=== PATIENT | female | born 1950 | race Caucasian/White ===

== ENCOUNTER 2020-06-08 09:15 | Outpatient (REF) | payer MEDICARE, OTHER, SELFPAY | END 2020-06-08 09:16 | disposition home or self-care (01) | LOC: HO.LAB 09:15 | PROVIDERS: Visit Provider Internal Medicine | DX: Z20.828 Contact with and (suspected) exposure to other viral communicable diseases (principal) | CPT/HCPCS: C9803; U0003 ==

== ENCOUNTER 2020-06-26 10:10 | Outpatient (REF) | payer MEDICARE, SELFPAY ==
--- NOTE | 2020-06-26 | MM_ITS ---
EXAMINATION: MM SCREENING DIGITAL BREAST TOMOSYNTHESIS, BILATERAL CLINICAL INFORMATION: Screening. Asymptomatic. The lifetime risk of breast cancer based on the Tyrer-Cuzick Model is 21.1%. COMPARISON: Mammography: Bilateral TECHNIQUE: Digital breast tomosynthesis is performed in both the craniocaudal and mediolateral oblique views along with computer-aided detection (CAD). Synthesized 2D images are generated from the tomosynthesis. FINDINGS: There are scattered areas of fibroglandular density (ACR BI-RADS breast composition Category b). There are no significant masses, abnormal calcifications, or other abnormalities. MM/MM tomosynthesis screening BI IMPRESSION: There are no significant changes from prior study. ASSESSMENT: BI-RADS 1: Negative RECOMMENDATION: Routine annual mammography screening. This patient's information was entered into a reminder system with a target due date for their next mammogram.
== END 2020-06-26 10:11 | disposition home or self-care (01) ==
LOC: HO.MAMMO 10:10
PROVIDERS: PCP Internal Medicine; Visit Provider Internal Medicine
DX: Z12.31 Encounter for screening mammogram for malignant neoplasm of breast (principal)
CPT/HCPCS: 77063; 77067

== ENCOUNTER 2020-07-20 11:51 | Outpatient (REF) | payer MEDICARE, SELFPAY | END 2020-07-20 11:52 | disposition home or self-care (01) | LOC: HO.LAB 11:51 | PROVIDERS: PCP Internal Medicine; Visit Provider Internal Medicine | DX: Z20.828 Contact with and (suspected) exposure to other viral communicable diseases (principal) | CPT/HCPCS: C9803; U0003 ==

== ENCOUNTER 2020-09-12 09:41 | Outpatient (REF) | payer MEDICARE, MEDICAID, SELFPAY ==
[2020-09-12 10:56] LABS: TSH reflex Free T4 1.68 uIU/mL (0.32-4.0)
== END 2020-09-12 09:42 | disposition home or self-care (01) ==
LOC: HO.LAB 09:41
PROVIDERS: PCP Internal Medicine; Visit Provider Internal Medicine
DX: E03.9 Hypothyroidism, unspecified (principal)
CPT/HCPCS: 36415; 84443

== ENCOUNTER 2020-12-02 10:49 | Outpatient (REF) | payer MEDICARE, OTHER, SELFPAY ==
--- NOTE | ~2020-12-02 | XR_ITS ---
EXAMINATION: BILATERAL KNEE X-RAY CLINICAL INFORMATION: Pain COMPARISON: Previous left knee x-ray January 2014 TECHNIQUE: 3 views of each knee FINDINGS: Right: Bone alignment is normal. No fracture or dislocation is seen. There is mild arthritis at the medial femoral tibial and patellofemoral joints. There is no joint effusion. Left: Bone alignment is normal. No fracture or dislocation is seen. There is moderate to severe arthritis at the medial femoral tibial and patellofemoral joints with joint space narrowing and osteophyte formation. There is no joint effusion. XR/XR knee RT 3V IMPRESSION: Bilateral arthritis, left greater than right.
--- NOTE | ~2020-12-02 | XR_ITS ---
EXAMINATION: BILATERAL HAND X-RAY CLINICAL INFORMATION: Pain COMPARISON: Previous x-rays December 2014 TECHNIQUE: 3 views each hand FINDINGS: Right: No fracture or dislocation is seen. There is arthritis at the IP joints with joint space narrowing and osteophyte formation. There is mild arthritis at the first CARE HOME joint. Soft tissues are unremarkable. Left: No fracture or dislocation is seen. There is arthritis at the IP joints with joint space narrowing and osteophyte formation. There is arthritis at the first CARE HOME and trapezoid trapezium scaphoid joints. Soft tissues are unremarkable. XR/XR hand LT min 3V IMPRESSION: Bilateral osteoarthritis.
--- NOTE | ~2020-12-02 | XR_ITS ---
EXAMINATION: BILATERAL KNEE X-RAY CLINICAL INFORMATION: Pain COMPARISON: Previous left knee x-ray January 2014 TECHNIQUE: 3 views of each knee FINDINGS: Right: Bone alignment is normal. No fracture or dislocation is seen. There is mild arthritis at the medial femoral tibial and patellofemoral joints. There is no joint effusion. Left: Bone alignment is normal. No fracture or dislocation is seen. There is moderate to severe arthritis at the medial femoral tibial and patellofemoral joints with joint space narrowing and osteophyte formation. There is no joint effusion. XR/XR knee LT 3V IMPRESSION: Bilateral arthritis, left greater than right.
--- NOTE | ~2020-12-02 | XR_ITS ---
EXAMINATION: BILATERAL HAND X-RAY CLINICAL INFORMATION: Pain COMPARISON: Previous x-rays December 2014 TECHNIQUE: 3 views each hand FINDINGS: Right: No fracture or dislocation is seen. There is arthritis at the IP joints with joint space narrowing and osteophyte formation. There is mild arthritis at the first JAIL joint. Soft tissues are unremarkable. Left: No fracture or dislocation is seen. There is arthritis at the IP joints with joint space narrowing and osteophyte formation. There is arthritis at the first JAIL and trapezoid trapezium scaphoid joints. Soft tissues are unremarkable. XR/XR hand RT min 3V IMPRESSION: Bilateral osteoarthritis.
[2020-12-02 12:20] LABS: Basophils Percent Auto 0.5 % (0-2); Eosinophils Absolute Auto 0.1 X10*3/uL (0.0-0.4); Eosinophils Percent Auto 1.1 % (0-4); Hemoglobin 11.2 g/dl (12.0-16.0); Imm Gran Abs Auto 0.02 X10*3/uL (0.00-0.03); Imm Gran Pct Auto 0.3 % (0.0-0.4); Lymphocytes Absolute Auto 0.7 X10*3/uL (1.2-4.9); Lymphocytes Percent Auto 8.9 % (20-40); MANUAL DIFF FLAG SCAN; Mean Corpuscular HGB Conc 31.1 g/dl (31.0-35.0); Mean Corpuscular Hemoglobin 25.7 pg (27.0-33.0); Mean Corpuscular Volume 82.6 fL (80-98); Mean Platelet Volume 10.5 fL (9.4-12.3); Monocytes Absolute Auto 0.4 X10*3/uL (0.1-1.2); Monocytes Percent Auto 5.7 % (2-11); Neutrophils Absolute Auto 6.3 X10*3/uL (2.0-8.3); Neutrophils Percent Auto 83.5 % (45-73); Platelet Count 275 X10*3/uL (160-400); Red Blood Count 4.36 X10*6/uL (4.20-5.50); Red Cell Distribution Width 14.9 % (11.0-16.0); SCAN SMEAR FLAG 1; White Blood Count 7.6 X10*3/uL (4.8-10.8)
[2020-12-02 12:39] LABS: Alanine Aminotransferase 29 U/L (0-31); Albumin Level 4.5 g/dL (3.5-5.0); Alkaline Phosphatase 60 U/L (39-117); Anion Gap 14 (12-20); Aspartate Amino Transferase 25 U/L (5-31); Bilirubin Total 0.5 mg/dL (0.0-1.0); Blood Urea Nitrogen 16 mg/dL (9-16); C Reactive Protein 1.93 mg/dL (< or = 0.50); Calcium 9.7 mg/dL (8.4-10.2); Carbon Dioxide 26 mmol/L (22-29); Chloride 104 mmol/L (96-108); Estimated Glomerular Filt Rate > 60; Glucose Random 86 mg/dL (60-115); Potassium 4.2 mmol/L (3.3-5.1); Rheumatoid Factor < 15.0 IU/mL (<15.0); Sodium 140 mmol/L (135-145); Total Protein 7.1 g/dL (6.5-8.0)
[2020-12-02 12:52] LABS: Thyroid Stimulating Hormone 1.61 uIU/mL (0.32-4.0)
[2020-12-02 13:13] LABS: Erythrocyte Sedimentation Rate 12 MM/HR (0-20)
[2020-12-02 13:20] LABS: SLIDE REVIEW VERIFIED
[2020-12-07 15:31] LABS: Anti Nuclear Antibody Pattern Nuclear, Speckled; Anti Nuclear Antibody Screen POSITIVE (NEGATIVE); Anti Nuclear Antibody Titer 1:40 titer
[2020-12-08 18:27] LABS: Cyclic Citrullinated Peptide <16 UNITS
[2020-12-10 16:26] LABS: Vitamin D 25-OH, D2 5 ng/mL; Vitamin D 25-OH, D3 29 ng/mL; Vitamin D 25-OH, Total 34 ng/mL (30-100)
== END 2020-12-02 10:50 | disposition home or self-care (01) ==
LOC: HO.LAB 10:49
PROVIDERS: PCP Internal Medicine; Visit Provider Student in an Organized Health Care Education/Training Program
DX: M25.50 Pain in unspecified joint (principal)
CPT/HCPCS: 36415; 73130; 73562; 80053; 82306; 84443; 85025; 85652; 86038; 86039; 86140; 86200; 86431; 99202

== ENCOUNTER → 2020-12-24 14:57 | Outpatient (BNVA) | payer MEDICARE, MEDICAID, OTHER, SELFPAY | PROVIDERS: PCP Internal Medicine; Visit Provider Student in an Organized Health Care Education/Training Program | DX: M25.50 Pain in unspecified joint (principal) | CPT/HCPCS: 99212 ==

== ENCOUNTER 2021-01-22 11:30 | Outpatient (RCR) | payer MEDICARE, OTHER, SELFPAY | END 2021-02-26 10:10 | disposition other institution (70) | LOC: HO.OT 11:30 | PROVIDERS: Visit Provider Student in an Organized Health Care Education/Training Program | DX: M19.041 Primary osteoarthritis, right hand (principal); M19.042 Primary osteoarthritis, left hand | CPT/HCPCS: 29130; 97110; 97166; 97760 ==

== ENCOUNTER 2021-02-02 11:00 | Outpatient (RCR) | payer MEDICARE, OTHER, SELFPAY ==
--- NOTE | 2021-01-18 12:49 | MHC.PT.EP ---
[facility] [place] Office [place] Office [place] Office [address] [phone] F: [phone] F: [phone] F: [phone] F: [phone] Physical Therapy Plan of Care Date of Evaluation: Date of Surgery: N/A Diagnosis: Bilateral Primary Osteoarthritis of Knee Assessment: Pt is a 70yo F who presents with bilateral knee pain, imaging revealing knee arthritis L>R. Pt presents with current impairments in pain, ROM, strength, endurance, balance, and soft tissue restrictions. She has had her pain for years however it has significantly increased over the past few weeks. She is limited functionally by prolonged standing, prolonged ambulation, stairs, squatting, and sleeping. She is a good candidate for skilled PT services to address current impairments and functional limitations in order to facilitate return to PLOF. Frequency and Duration: The patient will be seen 2x/week, 4 weeks Short Term Goals: Pt will be I with HEP to promote self management of symptoms. Pt will improve L knee flexion by 5 degrees Casino [employer]er Goals: Pt will achieve full strength and ROM throughout LLE to facilitate improved gait pattern. Pt will improve prolonged standing >30 min with pain in B knees < 4/10. Treatment Plan: Modalities to reduce pain, spasms and effusion. Manual therapy to restore motion and function. Therapeutic exercise to improve strength and flexibility. Neuromuscular re-education for posture and balance. Therapeutic activities to return to functional activities of daily living. Electronically signed by: Paola Espinoza, PT, DPT Please sign and return to therapist. Thank you for your referral.
--- NOTE | 2021-02-22 16:44 | MHC.PT.DC ---
[facility] [place] Office [place] Office [place] Office [address] [facility] [phone] F: [phone] F: [phone] F: [phone] F: [phone] Physical Therapy Discharge Report Diagnosis: Bilateral Primary Osteoarthritis of Knee Date of Surgery: N/A Date of Evaluation: 01/18/21 Date of Discharge: 02/22/21 Treatments to Date: 3 Cancellations to Date: 2 No Shows to Date: Discharge Status: Patient Elected to Stop Discharge Summary: Pt requested to be D/C from skilled PT services as she is going away and would like to obtain a new order when she returns. Current level of function unknown at this time. Electronically signed by: Paola Espinoza, PT, DPT Please sign and return to therapist. Thank you for your referral.
== END 2021-02-22 16:44 | disposition home or self-care (01) ==
LOC: HO.PT 11:00
PROVIDERS: PCP Internal Medicine; Visit Provider Student in an Organized Health Care Education/Training Program
DX: M17.0 Bilateral primary osteoarthritis of knee (principal)
CPT/HCPCS: 97110; 97150; 97162

== ENCOUNTER 2021-03-19 10:10 | Outpatient (REF) | payer MEDICARE, OTHER, SELFPAY ==
--- NOTE | ~2021-03-19 | MM_ITS ---
EXAMINATION: BONE DENSITOMETRY CLINICAL INDICATION: Asymptomatic menopausal state. COMPARISON: This is the patient's baseline examination. TECHNIQUE: Using a Meniga DXA System (software version: 13.1) manufactured by [employer], dual-energy x-ray absorptiometry was performed of the lumbar spine and left hip. The images are of good technical quality. Summary results are attached. FINDINGS: AP SPINE L1-L4: BMD 1.084 g/cm2, Z-score 0.2, T-score -0.8, normal. LEFT FEMUR, NECK: BMD 0.940 g/cm2, Z-score 0.5, T-score -0.7, normal. LEFT FEMUR, TOTAL: BMD 0.942 g/cm2, Z-score 0.4, T-score -0.5, normal. IDENTIFIED RISK FACTORS: Rheumatoid arthritis. Hysterectomy. Bilateral oophorectomy. HISTORY OF FRACTURE: None listed. MEDICATIONS: Calcium supplement and/or multivitamin. Vitamin D. MM/XR DEXA axial skeleton IMPRESSION: 1. DIAGNOSIS: Normal bone density based on the lowest T-score value of -0.8 in the lumbar spine applying World Health Organization criteria. 2. 10-YEAR FRACTURE RISK PREDICTION, FRAX: Major osteoporotic fracture (clinical spine, forearm, hip or shoulder) 5.4%. Hip fracture 0.4%. 3. Treatment Recommendations: NOF guidelines recommend consideration for treatment in postmenopausal women and men age 50 and older presenting with the following: -A hip or vertebral (clinical or morphometric) fracture. -T-score less than or equal to -2.5 at the femoral neck or spine after appropriate evaluation to exclude secondary causes. -Low bone mass at the hip or spine and a 10-year fracture probability by FRAX of greater than or equal to 3% for hip fracture or greater than or equal to 20% for major osteoporotic fracture based on the [place] adapted WHO algorithm. 4. Other Recommendations: All treatment decisions require clinical judgment and consideration of individual patient factors, including patient preferences, comorbidities, previous drug use, risk factors not captured in the FRAX model (e.g. frailty, falls, vitamin D deficiency, increased bone turnover, interval significant decline in bone density) and possible under or overestimation of fracture risk by FRAX. FUTURE SCAN RECOMMENDATION: People with diagnosed cases of osteoporosis or at high risk for fracture should have regular bone mineral density tests. For patients eligible for Medicare, routine testing is allowed once every 2 years. The testing frequency can be increased to one year for patients who have rapidly progressing disease, those who are receiving or discontinuing medical therapy to restore bone mass, or have additional risk factors.
== END 2021-03-19 10:11 | disposition home or self-care (01) ==
LOC: HO.MAMMO 10:10
PROVIDERS: Visit Provider Nurse Practitioner Family
DX: Z13.820 Encounter for screening for osteoporosis (principal); Z78.0 Asymptomatic menopausal state; M06.9 Rheumatoid arthritis, unspecified; Z79.899 Other long term (current) drug therapy; Z98.890 Other specified postprocedural states
CPT/HCPCS: 77080

== ENCOUNTER 2021-04-20 08:01 | Outpatient (REF) | payer MEDICARE, OTHER, SELFPAY ==
[2021-04-20 09:51] LABS: Alanine Aminotransferase 21 U/L (0-31); Albumin Level 4.4 g/dL (3.5-5.0); Alkaline Phosphatase 58 U/L (39-117); Anion Gap 13 (12-20); Aspartate Amino Transferase 21 U/L (5-31); Bilirubin Total 0.4 mg/dL (0.0-1.0); Blood Urea Nitrogen 14 mg/dL (9-16); Calcium 9.7 mg/dL (8.4-10.2); Carbon Dioxide 27 mmol/L (22-29); Chloride 105 mmol/L (96-108); Cholesterol 153 mg/dL; Estimated Glomerular Filt Rate > 60; Glucose Fasting 111 mg/dL (60-99); HDL Cholesterol 50 mg/dL; LDL Cholesterol Calculated 78 mg/dl; Potassium 4.2 mmol/L (3.3-5.1); Sodium 141 mmol/L (135-145); Triglycerides 129 mg/dL
[2021-04-20 10:12] LABS: TSH reflex Free T4 1.69 uIU/mL (0.32-4.0)
[2021-04-24 13:16] LABS: Vitamin D 25-OH, D2 <4 ng/mL; Vitamin D 25-OH, D3 29 ng/mL; Vitamin D 25-OH, Total 29 ng/mL (30-100)
== END 2021-04-20 08:02 | disposition home or self-care (01) ==
LOC: HO.LAB 08:01
PROVIDERS: PCP Internal Medicine; Visit Provider Internal Medicine
DX: E78.5 Hyperlipidemia, unspecified (principal); E11.9 Type 2 diabetes mellitus without complications; E03.9 Hypothyroidism, unspecified; E55.9 Vitamin D deficiency, unspecified
CPT/HCPCS: 36415; 80053; 80061; 82306; 84443

== ENCOUNTER 2021-08-28 09:15 | Outpatient (REF) | payer MEDICARE, OTHER, SELFPAY ==
[2021-08-28 10:30] LABS: Alanine Aminotransferase 18 U/L (0-31); Albumin Level 4.7 g/dL (3.5-5.0); Alkaline Phosphatase 62 U/L (39-117); Anion Gap 11 (12-20); Aspartate Amino Transferase 23 U/L (5-31); Bilirubin Total 0.7 mg/dL (0.0-1.0); Blood Urea Nitrogen 10 mg/dL (9-16); Calcium 10.2 mg/dL (8.4-10.2); Carbon Dioxide 30 mmol/L (22-29); Chloride 104 mmol/L (96-108); Cholesterol 173 mg/dL; Estimated Glomerular Filt Rate > 60; Glucose Fasting 127 mg/dL (60-99); HDL Cholesterol 55 mg/dL; LDL Cholesterol Calculated 93 mg/dl; Potassium 4.7 mmol/L (3.3-5.1); Sodium 140 mmol/L (135-145); Total Protein 7.8 g/dL (6.5-8.0); Triglycerides 126 mg/dL
[2021-08-28 10:52] LABS: Thyroid Stimulating Hormone 3.12 uIU/mL (0.32-4.0)
[2021-08-28 12:21] LABS: Microalbum/Creatinine Ratio Ur 50.6 ug/mg cr
== END 2021-08-28 09:16 | disposition home or self-care (01) ==
LOC: HO.LAB 09:15
PROVIDERS: PCP Internal Medicine; Visit Provider Internal Medicine
DX: E11.9 Type 2 diabetes mellitus without complications (principal); I10 Essential (primary) hypertension; E78.5 Hyperlipidemia, unspecified; E03.9 Hypothyroidism, unspecified
CPT/HCPCS: 36415; 80053; 80061; 82043; 84443

== ENCOUNTER → 2021-11-30 07:50 | Outpatient (BNVA) | payer MEDICARE, OTHER, SELFPAY | PROVIDERS: PCP Internal Medicine; Referring Provider Internal Medicine; Visit Provider Nurse Practitioner Family | DX: Z12.11 Encounter for screening for malignant neoplasm of colon (principal) | CPT/HCPCS: 99202 ==

== ENCOUNTER → 2021-12-24 13:06 | Outpatient (BNVA) | payer MEDICARE, OTHER, SELFPAY | PROVIDERS: PCP Internal Medicine; Visit Provider Nurse Practitioner Family | DX: M17.0 Bilateral primary osteoarthritis of knee (principal); M19.041 Primary osteoarthritis, right hand; M19.042 Primary osteoarthritis, left hand; M25.50 Pain in unspecified joint | CPT/HCPCS: 99212 ==

== ENCOUNTER → 2022-01-07 09:38 | Outpatient (BNVA) | payer MEDICARE, OTHER, SELFPAY | PROVIDERS: PCP Internal Medicine; Visit Provider Orthopaedic Surgery | DX: M17.12 Unilateral primary osteoarthritis, left knee (principal); E11.9 Type 2 diabetes mellitus without complications | CPT/HCPCS: 20610; 99212; J1100 ==

== ENCOUNTER 2022-01-15 07:20 | Outpatient (REF) | payer MEDICARE, OTHER, SELFPAY ==
[2022-01-15 07:43] LABS: MANUAL DIFF FLAG NO
[2022-01-15 08:18] LABS: Basophils Absolute Auto 0.1 X10*3/uL (0.0-0.2); Basophils Percent Auto 1.3 % (0-2); Eosinophils Absolute Auto 0.3 X10*3/uL (0.0-0.4); Eosinophils Percent Auto 4.9 % (0-4); Hematocrit 35.3 % (37.0-47.0); Hemoglobin 11.1 g/dl (12.0-16.0); Imm Gran Abs Auto 0.01 X10*3/uL (0.00-0.03); Imm Gran Pct Auto 0.2 % (0.0-0.4); Lymphocytes Absolute Auto 2.2 X10*3/uL (1.2-4.9); Lymphocytes Percent Auto 34.3 % (20-40); Mean Corpuscular HGB Conc 31.4 g/dl (31.0-35.0); Mean Corpuscular Hemoglobin 24.9 pg (27.0-33.0); Mean Corpuscular Volume 79.3 fL (80.0-98.0); Monocytes Absolute Auto 0.5 X10*3/uL (0.1-1.2); Monocytes Percent Auto 7.4 % (2-11); Neutrophils Absolute Auto 3.3 x10*3/uL (2.0-8.3); Neutrophils Percent Auto 51.9 % (45-73); Platelet Count 330 X10*3/uL (160-400); Red Blood Count 4.45 X10*6/uL (4.20-5.50); Red Cell Distribution Width 16.3 % (11.0-16.0); White Blood Count 6.4 X10*3/uL (4.8-10.8)
[2022-01-15 08:35] LABS: Alanine Aminotransferase 18 U/L (0-31); Albumin Level 4.4 g/dL (3.5-5.0); Alkaline Phosphatase 56 U/L (39-117); Anion Gap 12 (12-20); Aspartate Amino Transferase 18 U/L (5-31); Bilirubin Total 0.6 mg/dL (0.0-1.0); Blood Urea Nitrogen 11 mg/dL (9-16); Calcium 9.6 mg/dL (8.4-10.2); Carbon Dioxide 29 mmol/L (22-29); Chloride 104 mmol/L (96-108); Cholesterol 162 mg/dL; Estimated Glomerular Filt Rate > 60; Glucose Fasting 108 mg/dL (60-99); HDL Cholesterol 53 mg/dL; Iron 55 mcg/dL (30-160); LDL Cholesterol Calculated 88 mg/dl; Percent Iron Saturation 13 % (15-50); Sodium 141 mmol/L (135-145); Total Iron Binding Capacity 423 mcg/dL (228-428); Triglycerides 105 mg/dL; Unsaturated Iron Binding 368 ug/dL
[2022-01-15 08:59] LABS: Thyroid Stimulating Hormone 3.62 uIU/mL (0.32-4.0)
[2022-01-15 09:16] LABS: Microalbum/Creatinine Ratio Ur 11.3 ug/mg cr
[2022-01-19 15:06] LABS: Vitamin D 25-OH, D2 <4 ng/mL; Vitamin D 25-OH, D3 31 ng/mL; Vitamin D 25-OH, Total 31 ng/mL (30-100)
== END 2022-01-15 07:21 | disposition home or self-care (01) ==
LOC: HO.LAB 07:20
PROVIDERS: Visit Provider Internal Medicine
DX: E55.9 Vitamin D deficiency, unspecified (principal); E03.9 Hypothyroidism, unspecified; E11.9 Type 2 diabetes mellitus without complications; E78.5 Hyperlipidemia, unspecified; D64.9 Anemia, unspecified
CPT/HCPCS: 36415; 80053; 80061; 82043; 82306; 83540; 84443; 85025

== ENCOUNTER → 2022-01-27 09:01 | Outpatient (REF) | payer MEDICARE, OTHER, SELFPAY ==
--- NOTE | 2022-01-27 09:12 | ECG_ITS ---
Test Reason : PREOP Blood Pressure : / mmHG Vent. Rate : 070 BPM Atrial Rate : 070 BPM P-R Int : 154 ms QRS Dur : 080 ms QT Int : 408 ms P-R-T Axes : 011 034 070 degrees QTc Int : 440 ms Normal sinus rhythm Normal ECG When compared with ECG of 11-FEB-2020 10:25, No significant change was found Referred By: Jaimee Bernal Electronically Signed By:Faraz Henley
== END ==
LOC: HO.CARD 09:01
PROVIDERS: PCP Internal Medicine; Visit Provider Internal Medicine
DX: Z01.818 Encounter for other preprocedural examination (principal)
CPT/HCPCS: 93005

== ENCOUNTER 2022-06-28 06:17 | Outpatient (REF) | payer MEDICARE, MEDICAID, SELFPAY ==
[2022-06-28 08:13] LABS: Alanine Aminotransferase 17 U/L (0-31); Albumin Level 4.4 g/dL (3.5-5.0); Alkaline Phosphatase 62 U/L (39-117); Anion Gap 12 (12-20); Aspartate Amino Transferase 19 U/L (5-31); Bilirubin Total 0.5 mg/dL (0.0-1.0); Blood Urea Nitrogen 11 mg/dL (9-16); Calcium 9.7 mg/dL (8.4-10.2); Carbon Dioxide 29 mmol/L (22-29); Chloride 105 mmol/L (96-108); Cholesterol 176 mg/dL; Estimated Glomerular Filt Rate > 60; Glucose Fasting 109 mg/dL (60-99); HDL Cholesterol 45 mg/dL; LDL Cholesterol Calculated 106 mg/dl; Sodium 141 mmol/L (135-145); Triglycerides 126 mg/dL; Vitamin D 25-OH Total 31.2 ng/mL (>30)
[2022-06-28 08:48] LABS: Creatinine Urine 60.53 mg/dL; Microalbum/Creatinine Ratio Ur 31.3 ug/mg cr
== END 2022-06-28 06:18 | disposition home or self-care (01) ==
LOC: HO.LAB 06:17
PROVIDERS: PCP Internal Medicine; Visit Provider Internal Medicine
DX: E55.9 Vitamin D deficiency, unspecified (principal); E78.5 Hyperlipidemia, unspecified; E11.9 Type 2 diabetes mellitus without complications; E03.9 Hypothyroidism, unspecified
CPT/HCPCS: 36415; 80053; 80061; 82043; 82306; 84443

== ENCOUNTER 2022-07-14 10:08 | Emergency (ER) | payer MEDICARE, MEDICAID, SELFPAY ==
--- NOTE | ~2022-07-14 | XR_ITS ---
EXAMINATION: XR FOOT, RIGHT CLINICAL INFORMATION: Pain COMPARISON: None TECHNIQUE: AP, lateral, and oblique views of the right foot. FINDINGS: No fracture or dislocation. Alignment maintained. Joint spaces are maintained. Small osteophytes of the first metatarsophalangeal joint. Small heel spurs. The soft tissues are unremarkable. XR/XR foot RT 2V IMPRESSION: Small heel spurs. Mild degenerative change at the first metatarsophalangeal joint.
[2022-07-14 10:29] VITALS: BP 150/81; PULSE 75; RESP 20; TEMP 36.6; O2SAT 97; BMI 33.3
--- NOTE | 2022-07-14 11:16 | ED.EXTPRO ---
HPI - Extremity Problem General Chief complaint: Extremity Problem Stated complaint: R side foot pain luis alberto into hip Time Seen by Provider: 07/14/22 10:55 Source: patient Mode of arrival: ambulatory Limitations: no limitations History of Present Illness HPI Narrative: 71-year-old female presenting to the ER with complaints of right foot pain on the dorsal aspect that is radiating all the way to her hip that is worse in the morning. Denies any fevers, dizziness, headaches, neck pain /stiffness, trouble swallowing or breathing, chest pain or shortness of breath, dyspnea on exertion, orthopnea, palpitations, paresthesias, recent falls or trauma, extremity edema , calf tenderness, rashes or any other symptoms complaints or concerns at this time. MD Complaint: extremity pain Onset (ago): day(s) ( for the past few days) Pain Consistency: constant and intermittent Location: right and other ( foot) Quality: aching and sharp Radiation: proximal Relieving factors: nothing Exacerbating factors: weight bearing, walking and palpation Associated symptoms: denies other symptoms Related Data Home Medications Medication Instructions Recorded Confirmed baclofen 10 mg tablet 10 mg PO DAILY 01/13/21 06/29/22 bismuth subsalicylate 262 mg 2 tab PO Q1H PRN 11/30/21 06/29/22 chewable tablet (Bismuth) Previous Rx's Medication Instructions Recorded blood-glucose meter (FreeStyle #1 ea 06/16/20 [place] Lite kit) blood sugar diagnostic (FreeStyle #50 ea 01/13/21 Test strips) lancets 28 gauge (FreeStyle #100 ea 01/13/21 Lancets) loratadine 10 mg tablet 10 mg PO DAILY 90 days #90 tabs 04/26/21 metformin 1,000 mg tablet 1,000 mg PO BID 90 days #180 tabs 07/03/21 bisacodyl 5 mg tablet,delayed 10 mg PO ONCE 1 day #2 tabs 11/30/21 release (Dulcolax (bisacodyl)) polyethylene glycol 3350 17 238 g PO ONCE #238 grams 11/30/21 gram/dose oral powder (Miralax) diclofenac sodium 1 % topical gel 2 g topical QID #100 grams 01/18/22 (Voltaren Arthritis Pain) acetaminophen 650 mg 650 mg PO Q8H PRN pain #90 tabs 02/10/22 tablet,extended release (Tylenol Arthritis Pain) levothyroxine 100 mcg tablet 100 mcg PO DAILY 90 days #90 tabs 03/22/22 amlodipine 10 mg tablet 10 mg PO DAILY 90 days #90 tabs 06/29/22 ezetimibe 10 mg tablet 10 mg PO DAILY 90 days #90 tabs 06/29/22 glipizide 5 mg tablet, extended 5 mg PO DAILY 90 days #90 tabs 06/29/22 release 24 hr linagliptin 5 mg tablet 5 mg PO DAILY 90 days #90 tabs 06/29/22 cyclobenzaprine 10 mg tablet 10 mg PO Q8H #14 tabs 07/14/22 naproxen 500 mg tablet 500 mg PO BID PRN pain #14 tabs 07/14/22 oxycodone 5 mg tablet 5 mg PO Q6H PRN pain #10 tabs 07/14/22 Allergies Allergy/AdvReac Type Severity Reaction Status Date / Time MARIA ESTHER Inhibitors AdvReac Intermediate cough Verified 06/29/22 16:00 ARB-Angiotensin Receptor AdvReac Intermediate Cough Verified 06/29/22 16:00 Antagonist Review of Systems Review of Systems: Constitutional : No Weight loss, No Fever, No Chills, No Night Sweats, No Fatigue, No Malaise ENT/Mouth : No Hearing loss, No Ear Pain, No Nasal Congestion, No Sinus Pain, No Hoarseness, No sore throat, No Rhinorrhea, No Swallowing Difficulty Eyes: No Eye Pain, No Swelling, No Redness, No Foreign Body, No Discharge, No Vision Changes Cardiovascular : No Chest Pain, No SOB, No Dyspnea on Exertion, No Orthopnea, No Edema, No Palpitations Respiratory : No Cough, No Sputum, No Wheezing, No Smoke Exposure, No Dyspnea Gastrointestinal : No Nausea, No Vomiting, No Diarrhea, No Constipation, No abdominal Pain, No Hematochezia, No Melena Genitourinary : no irregular bleeding, No Dysuria, No Urinary Frequency, No Hematuria, No Urinary Incontinence, No Urgency, No Flank Pain, No Urinary Flow Changes, No Hesitancy Musculoskeletal : + right foot joint pain, No Myalgias, No Joint Swelling Skin : No Skin Lesions, No rash Neuro : No Weakness, No Numbness, No Paresthesias, No Loss of Consciousness, No Dizziness, No Headache Psych : No Anxiety/Panic, No Depression, No SI/HI/AH/VH, No Social Issues, Heme/Lymph: No Bruising, No Bleeding,No Lymphadenopathy Endocrine : No Polyuria, No Polydipsia, No Temperature Intolerance Yes all other systems are reviewed and are negative [facility] Past Medical History Attestation statement: The following information was validated with the patient. Source: old records reviewed and nursing notes reviewed Medical History Diabetes mellitus Essential hypertension Hypothyroidism Obesity Polyarthralgia Post-menopausal Pure hypercholesterolemia Skin tag Surgical History History of eye surgery History of laparoscopic cholecystectomy Hx of colonoscopy S/P total abdominal hysterectomy Family History Family History Father Cancer Mother Stroke Diabetes Hypertension CVD (cardiovascular disease) Sister Cancer Paternal Uncle Cancer Maternal Aunt Cancer Social History Social History Housing: House Alcohol intake: never Patient Tobacco Use Status: Never used Tobacco e-Cigarette/Vaping Use: Never Used Second Hand Smoke Exposure: Yes Advance Directives: No service: No Current occupational status: disabled Cognitive needs: No Hearing needs: No Vision needs: Yes Physical Exam Vital Signs: Vital Signs: Last Vital Signs Temp 97.9 F 07/14/22 10:29 Pulse 75 07/14/22 10:29 Resp 20 07/14/22 10:29 BP 150/81 H 07/14/22 10:29 Pulse Ox 97 07/14/22 10:29 O2 Del Method 07/14/22 10:29 BMI result Body Mass Index 33.3 vital signs have been reviewed as normal and appeared to be correct. Blood pressure normal Heart rate normal. Respiration rate normal. Temperature normal. Oxygen saturation normal. Appearance: Alert. Oriented X3. No acute distress. Head: Normal external exam. Normocephalic. Atraumatic. Eyes: PERRLA. EOMI. Conjunctiva and sclera normal. Eyelids normal. ENT: Pharynx normal. Uvula midline. Moist mucous membranes. Neck: Normal inspection. Neck supple. FROM. CVS: Normal heart rate and rhythm. Respiratory: No respiratory distress. Painless inspiration. Skin: Skin warm and dry. Normal skin color. Normal skin turgor. No rashes/lesions/lacerations noted. Extremities: patient mild tenderness to the dorsal aspect distal aspect of the right foot around the 1st/2nd MTP And mild tenderness on the heel aspect of the foot. Full range of motion of the right toe/foot /ankle joint. Achilles tendon is intact negative Arambula test. No lower extremity edema or calf tenderness noted. Not consistent with septic joint. No rashes are noted. Otherwise all other extremities exhibit normal range of motion nontender. MTPs. Neuro: Oriented X 3. No motor deficit. No sensory deficit. Reflexes normal. Normal steady gait. No focal neuro deficits noted. Vascular: + radial pulses/+ 2 distal pedal pulses/+2 dorsalis pedis b/l. Normal cap refill. No cyanosis noted to upper extremity nails and lower extremity toes nails. Course Course Course Narrative: RIGHT FOOT X-RAY REVEALED FINDINGS: No fracture or dislocation. Alignment maintained. Joint spaces are maintained. Small osteophytes of the first metatarsophalangeal joint. Small heel spurs. The soft tissues are unremarkable.? XR/XR foot RT 2V IMPRESSION: Small heel spurs. Mild degenerative change at the first metatarsophalangeal joint. patient reports she has been taking [id number] medication no symptomatic relief. Therefore at this time will DC home with symptomatic treatment instructions return if any new or worsening symptoms follow up with primary care provider. Patient understands agrees with this plan. Discharge Plan Discharge Clinical Impression: Muscle strain of right foot, Bone spur of foot Patient Disposition: Home, Self-Care Instructions: Muscle Strain (ED), Heel Spur (ED) Prescriptions: New naproxen 500 mg tablet 500 mg PO BID PRN (Reason: pain) Qty: 14 0RF cyclobenzaprine 10 mg tablet 10 mg PO Q8H Qty: 14 0RF oxycodone 5 mg tablet 5 mg PO Q6H PRN (Reason: pain) Qty: 10 0RF Rx Instructions: Partial Fill upon patient request. No Action loratadine 10 mg tablet 10 mg PO DAILY 90 Days Qty: 90 3RF metformin 1,000 mg tablet 1,000 mg PO BID 90 Days Qty: 180 3RF Hold Instructions: Doctor's Order acetaminophen [Tylenol Arthritis Pain] 650 mg tablet extended release 650 mg PO Q8H PRN (Reason: pain) Qty: 90 3RF levothyroxine 100 mcg tablet 100 mcg PO DAILY 90 Days Qty: 90 1RF (DME) blood-glucose meter [FreeStyle [place] Lite] Kit See Rx Instructions .ROUTE .MEDSUPPLY Qty: 1 0RF Rx Instructions: As directed baclofen 10 mg tablet 10 mg PO DAILY (DME) FreeStyle Test Strip See Rx Instructions .ROUTE .MEDSUPPLY Qty: 50 11RF Rx Instructions: Take 1 test strip once a day (DME) lancets [FreeStyle Lancets] 28 gauge misc See Rx Instructions .ROUTE .MEDSUPPLY Qty: 100 11RF Rx Instructions: Use 1 lancet once a day diclofenac sodium [Voltaren Arthritis Pain] 1 % gel 2 g topical QID Qty: 100 0RF Rx Instructions: apply to single elbow, wrist or hand; for hand includes palm/fingers/back of hand amlodipine 10 mg tablet 10 mg PO DAILY 90 Days Qty: 90 3RF ezetimibe 10 mg tablet 10 mg PO DAILY 90 Days Qty: 90 3RF glipizide 5 mg tablet extended release 24hr 5 mg PO DAILY 90 Days Qty: 90 3RF linagliptin 5 mg tablet 5 mg PO DAILY 90 Days Qty: 90 3RF bismuth subsalicylate [Bismuth] 262 mg tablet,chewable 2 tab PO Q1H PRN Rx Instructions: do not exceed 16 tabs per 24 hrs bisacodyl [Dulcolax (bisacodyl)] 5 mg tablet,delayed release (DR/EC) 10 mg PO ONCE 1 Days Qty: 2 0RF Rx Instructions: take 2 tabs at noon the day before your colonoscopy polyethylene glycol 3350 [Miralax] 17 gram/dose powder 238 g PO ONCE Qty: 238 0RF Rx Instructions: As directed by gastroenterology department at [facility] Referrals: Shannan Figueroa MD [Primary Care Provider] - 1 day Print Language: Armenian
== END 2022-07-14 11:26 | disposition home or self-care (01) ==
PROVIDERS: Emergency Provider Emergency Medicine Emergency Medical Services; PCP Internal Medicine
DX: S96.911A Strain of unspecified muscle and tendon at ankle and foot level, right foot, initial encounter (principal); X58.XXXA Exposure to other specified factors, initial encounter; M77.8 Other enthesopathies, not elsewhere classified; E11.9 Type 2 diabetes mellitus without complications; I10 Essential (primary) hypertension; E78.00 Pure hypercholesterolemia, unspecified; E66.9 Obesity, unspecified; Z68.33 Body mass index [BMI] 33.0-33.9, adult; Y93.9 Activity, unspecified; Y92.9 Unspecified place or not applicable; Y99.9 Unspecified external cause status; Z79.84 Long term (current) use of oral hypoglycemic drugs; Z79.899 Other long term (current) drug therapy
CPT/HCPCS: 73620; 99282; 99283

== ENCOUNTER 2022-07-20 12:15 | Emergency (ER) | payer MEDICARE, OTHER, SELFPAY ==
--- NOTE | ~2022-07-20 | US_ITS ---
EXAMINATION: US VENOUS ULTRASOUND WITH DOPPLER LOWER EXTREMITY, RIGHT CLINICAL INFORMATION: Pain COMPARISON: None TECHNIQUE: Ultrasound of the deep veins is performed from the hip to the calf with compression sonography and color and pulse Doppler assessment. Spectral analysis with color-flow imaging is performed. FINDINGS: There is normal venous compression and respiratory variation and augmented flow. The visualized common femoral vein, superficial femoral vein, profunda femoral vein, popliteal vein, and the trifurcation region shows no evidence of deep venous thrombosis. There is no significant popliteal fossa cyst. US/US venous duplex LE RT IMPRESSION: No DVT demonstrated in the right lower extremity.
[2022-07-20 12:21] VITALS: BP 139/57; PULSE 89; RESP 16; TEMP 36.6; O2SAT 99; BMI 33.3
--- NOTE | 2022-07-20 12:21 | ED_ITS ---
HPI - General Adult General Chief complaint: Extremity Problem <DEMETRI Grigsby - Last Filed: 07/20/22 12:27> Stated complaint: R Leg Pain <DEMETRI Grigsby - Last Filed: 07/20/22 12:27> Time Seen by Provider: 07/20/22 12:53 <DEMETRI Grigsby - Last Filed: 07/20/22 12:27> Source: patient <DEMETRI Nagel - Last Filed: 07/20/22 17:42> Mode of arrival: ambulatory <DEMETRI Nagel - Last Filed: 07/20/22 17:42> Limitations: no limitations <DEMETRI Nagel Last Filed: 07/20/22 17:42> History of Present Illness HPI narrative: Patient is a 71 year old assigned female at with a history of hypothyroidism, HTN, and DM presenting to the emergency department today with right sided foot and lower leg numbness, tingling, and pain. Patient states that over the last 8 days she has had right lower extremity numbness, tingling, and pain. Patient denies any dizziness, lightheadedness, abdominal pain, nausea, vomiting, fever, chills, blurry vision, double vision, loss of vision, chest pain, difficulty breathing, shortness of breath, back pain, night sweats, pain with urination, increased urinary frequency, increased urinary urgency, blood in her urine or stool, syncope or a near syncopal episode, recent trauma or falls, bowel incontinence, bladder incontinence, bowel retention, bladder retention, or any other complaints at this time. <DEMETRI Nagel - Last Filed: 07/20/22 17:42> Onset (ago): day(s) (8) <DEMETRI Nagel - Last Filed: 07/20/22 17:42> Location: right and lower extremity <DEMETRI Nagel Last Filed: 07/20/22 17:42> Radiation: extremity and proximal <DEMETRI Nagel Last Filed: 07/20/22 17:42> Severity: mild <DEMETRI Nagel Last Filed: 07/20/22 17:42> Severity scale (1-10): 3 <DEMETRI Nagel Last Filed: 07/20/22 17:42> Quality: burning <DEMETRI Nagel - Last Filed: 07/20/22 17:42> Pain Consistency: intermittent <DEMETRI Nagel - Last Filed: 07/20/22 17:42> Relieving factors: none <DEMETRI Nagel - Last Filed: 07/20/22 17:42> Exacerbating factors: none <DEMETRI Nagel - Last Filed: 07/20/22 17:42> Associated symptoms: denies other symptoms <DEMETRI Nagel - Last Filed: 07/20/22 17:42> Treatments prior to arrival: none <DEMETRI Nagel - Last Filed: 07/20/22 17:42> Related Data Home medications: Home Medications Medication Instructions Recorded Confirmed baclofen 10 mg tablet 10 mg PO DAILY 01/13/21 06/29/22 bismuth subsalicylate 262 mg 2 tab PO Q1H PRN 11/30/21 06/29/22 chewable tablet (Bismuth) Previous Rx's Medication Instructions Recorded blood-glucose meter (FreeStyle #1 ea 06/16/20 [place] Lite kit) blood sugar diagnostic (FreeStyle #50 ea 01/13/21 Test strips) lancets 28 gauge (FreeStyle #100 ea 01/13/21 Lancets) loratadine 10 mg tablet 10 mg PO DAILY 90 days #90 tabs 04/26/21 metformin 1,000 mg tablet 1,000 mg PO BID 90 days #180 tabs 07/03/21 bisacodyl 5 mg tablet,delayed 10 mg PO ONCE 1 day #2 tabs 11/30/21 release (Dulcolax (bisacodyl)) polyethylene glycol 3350 17 238 g PO ONCE #238 grams 11/30/21 gram/dose oral powder (Miralax) diclofenac sodium 1 % topical gel 2 g topical QID #100 grams 01/18/22 (Voltaren Arthritis Pain) acetaminophen 650 mg 650 mg PO Q8H PRN pain #90 tabs 02/10/22 tablet,extended release (Tylenol Arthritis Pain) levothyroxine 100 mcg tablet 100 mcg PO DAILY 90 days #90 tabs 03/22/22 amlodipine 10 mg tablet 10 mg PO DAILY 90 days #90 tabs 06/29/22 ezetimibe 10 mg tablet 10 mg PO DAILY 90 days #90 tabs 06/29/22 glipizide 5 mg tablet, extended 5 mg PO DAILY 90 days #90 tabs 06/29/22 release 24 hr linagliptin 5 mg tablet 5 mg PO DAILY 90 days #90 tabs 06/29/22 cyclobenzaprine 10 mg tablet 10 mg PO Q8H #14 tabs 07/14/22 naproxen 500 mg tablet 500 mg PO BID PRN pain #14 tabs 07/14/22 oxycodone 5 mg tablet 5 mg PO Q6H PRN pain #10 tabs 07/14/22 prednisone 20 mg tablet 20 mg PO DAILY 7 days #7 tabs 07/20/22 <DEMETRI Grigsby Last Filed: 07/20/22 12:27> Allergies/adverse reactions: Allergies Allergy/AdvReac Type Severity Reaction Status Date / Time MARIA ESTHER Inhibitors AdvReac Intermediate cough Verified 06/29/22 16:00 ARB-Angiotensin Receptor AdvReac Intermediate Cough Verified 06/29/22 16:00 Antagonist <DEMETRI Grigsby Last Filed: 07/20/22 12:27> Review of Systems Constitutional: Constitutional: Reports no additional constitutional complaints, Denies chills, Denies fever(s) and Denies night sweats <DEMETRI Nagel Last Filed: 07/20/22 17:42> Eyes: Eyes: Reports no additional eye complaints, Denies blurry vision, Denies change in vision, Denies diplopia, Denies eye discharge, Denies loss of vision and Denies eye pain <DEMETRI Nagel Last Filed: 07/20/22 17:42> ENT: Denies dizziness <DEMETRI Nagel Last Filed: 07/20/22 17:42> Cardiovascular: Cardiovascular: Reports no additional cardiovascular complaints, Denies chest pain, Denies lightheadedness, Denies Loss of Con sciousness and Denies dyspnea <DEMETRI Nagel Last Filed: 07/20/22 17:42> Respiratory: Respiratory: Reports no additional respiratory complaints and Denies dyspnea <DEMETRI Nagel Last Filed: 07/20/22 17:42> Gastrointestinal: Gastrointestinal: Reports no additional gastrointestinal complaints, Denies abdominal pain, Denies melena, Denies hematochezia, Denies change in bowel habits and Denies change in stool character <DEMETRI Nagel - Last Filed: 07/20/22 17:42> Genitourinary: Genitourinary: Denies hematuria, Denies urinary frequency, Denies dysuria, Denies urinary incontinence, Denies urinary hesitancy and Denies urinary urgency <DEMETRI Nagel - Last Filed: 07/20/22 17:42> Musculoskeletal: Musculoskeletal: Reports no additional musculoskeletal complaints, Reports numbness (right lower leg) and Reports tingling (right lower leg) <DEMETRI Nagel - Last Filed: 07/20/22 17:42> Neurologic: Denies dizziness, Denies loss of vision, Reports numbness (right lower leg) and Reports tingling (right lower leg) <DEMETRI Nagel - Last Filed: 07/20/22 17:42> Psychiatric: Psychiatric: Reports no additional psychiatric complaints <DEMETRI Nagel - Last Filed: 07/20/22 17:42> Endocrine: Endocrine: Reports no additional endocrine complaints <DEMETRI Nagel - Last Filed: 07/20/22 17:42> Hematologic/Lymphatic: Hematologic/Lymphatic: Reports no additional hematologic/lymphatic complaints <DEMETRI Nagel - Last Filed: 07/20/22 17:42> Allergic/Immunologic: Allergic/Immunologic: Reports no additional allergic/immunologic complaints <DEMETRI Nagel - Last Filed: 07/20/22 17:42> PMF Past Medical History Attestation statement: The following information was validated with the patient. <DEMETRI Nagel - Last Filed: 07/20/22 17:42> Source: old records reviewed and nursing notes reviewed <DEMETRI Nagel - Last Filed: 07/20/22 17:42> Medical History: Medical History Diabetes mellitus Essential hypertension Hypothyroidism Obesity Polyarthralgia Post-menopausal Pure hypercholesterolemia Skin tag <DEMETRI Grigsby - Last Filed: 07/20/22 12:27> Surgical History: Surgical History History of eye surgery History of laparoscopic cholecystectomy Hx of colonoscopy S/P total abdominal hysterectomy <DEMETRI Grigsby - Last Filed: 07/20/22 12:27> Family History Family History: Family History Father Cancer Mother Stroke Diabetes Hypertension CVD (cardiovascular disease) Sister Cancer Paternal Uncle Cancer Maternal Aunt Cancer <DEMETRI Grigsby - Last Filed: 07/20/22 12:27> Social History Social History: Social History Housing: House Alcohol intake: never Patient Tobacco Use Status: Never used Tobacco e-Cigarette/Vaping Use: Never Used Second Hand Smoke Exposure: Yes Advance Directives: No Advance Directives Information Provided: Yes service: No Current occupational status: disabled Cognitive needs: No Hearing needs: No Vision needs: Yes <DEMETRI Grigsby - Last Filed: 07/20/22 12:27> Physical Exam ED Vital Signs: Vital Signs - 24 hr 07/20/22 12:21 07/20/22 14:11 Temperature 97.9 F Pulse Rate 89 92 Respiratory Rate 16 12 Blood Pressure 139/57 L 172/82 H Pulse Oximetry 99 99 Oxygen Delivery Method Room Air Room Air BMI result Body Mass Index 33.3 <DEMETRI Grigsby - Last Filed: 07/20/22 12:27> Vital Signs - 24 hr 07/20/22 12:21 07/20/22 14:11 Temperature 97.9 F Pulse Rate 89 92 Respiratory Rate 16 12 Blood Pressure 139/57 L 172/82 H Pulse Oximetry 99 99 Oxygen Delivery Method Room Air Room Air BMI result Body Mass Index 33.3 <DEMETRI Nagel - Last Filed: 07/20/22 17:42> Const General: cooperative, no acute distress, alert and awake <DEMETRI Nagel - Last Filed: 07/20/22 17:42> Nutritional Appearance: well nourished <DEMETRI Nagel - Last Filed: 07/20/22 17:42> Orientation/consciousness: patient oriented x3 <DEMETRI Nagel - Last Filed: 07/20/22 17:42> Limitations: no limitations <DEMETRI Nagel - Last Filed: 07/20/22 17:42> HENMT Head: Yes normal to inspection and Yes atraumatic <Brandie Hernandezbarber AL - Last Filed: 07/20/22 17:42> Ears: hearing grossly normal bilaterally and external ears normal <Brandie Hernandezbarber AL - Last Filed: 07/20/22 17:42> General nose exam: Normal external nose present, no nasal discharge noted and no epistaxis <Brandieisai Hernandezbarber AL - Last Filed: 07/20/22 17:42> Face and sinus: Yes normal facial exam, No abrasion and No laceration <Brandie Hernandezbarber AL - Last Filed: 07/20/22 17:42> Mouth: Normal oral and palatal mucosa present, no drooling and no muffled voice <Brandie Cordoba AL - Last Filed: 07/20/22 17:42> Eyes General: appearance normal, both eyes and all related structures <Brandie Cordoba AL - Last Filed: 07/20/22 17:42> Periorbital: periorbital findings normal <Brandie Hernandezbarber AL - Last Filed: 07/20/22 17:42> Eyelids: Yes eyelids normal <Brandieisai Hernandezbarber AL - Last Filed: 07/20/22 17:42> Conjunctivae: conjunctivae normal <Brandieisai Hernandezbarber AL - Last Filed: 07/20/22 17:42> Pupils: Equal, round and reactive pupils present <Brandie Cordoba, AL - Last Filed: 07/20/22 17:42> EOM: EOMs intact bilaterally <Brandie Adalid AL - Last Filed: 07/20/22 17:42> Neck Neck: Yes normal visual inspection, Yes full ROM and Yes no lymphadenopathy <Brandie Hernandezbarber AL - Last Filed: 07/20/22 17:42> Chest Chest palpation & inspection: normal inspection of the chest <Brandie Cordoba AL - Last Filed: 07/20/22 17:42> Resp Effort & Inspection: normal respiratory effort and able to speak in complete sentences <Brandie Cordoba [facility] Last Filed: 07/20/22 17:42> Auscultation: clear to auscultation bilaterally <Brandie Cordoba AL - Last Filed: 07/20/22 17:42> Cardio Rate: regular rate <Brandie Cordoba PA - Last Filed: 07/20/22 17:42> Rhythm: regular rhythm <Brandie Cordoba PA - Last Filed: 07/20/22 17:42> GI Inspection: Yes normal to inspection <Brandie Cordoba PA - Last Filed: 07/20/22 17:42> Palpation (GI): Soft to palpation, not firm, nontender, no guarding and not rigid <Brandie Cordoba PA - Last Filed: 07/20/22 17:42> Neuro General: patient oriented x3 and moves all extremities <Brandie Cordoba PA - Last Filed: 07/20/22 17:42> Cranial nerves: Yes Equal, round and reactive pupils present <Brandie Cordoba PA - Last Filed: 07/20/22 17:42> Cognition (Neuro): normal cognition <Brandie Cordoba PA - Last Filed: 07/20/22 17:42> Motor exam (neuro): 5/5 motor strength present throughout <Brandie Cordoba PA - Last Filed: 07/20/22 17:42> Sensory Exam: Normal double simultaneous stimulation for sensation <Brandie Cordoba PA - Last Filed: 07/20/22 17:42> Coordination: [id number] test normal <Brandie Cordoba PA - Last Filed: 07/20/22 17:42> Extrem General: Yes normal to inspection, Yes full ROM and Yes capillary refill normal <Brandie Cordoba PA - Last Filed: 07/20/22 17:42> Psych Appearance: grossly normal <Brandie Cordoba PA - Last Filed: 07/20/22 17:42> Mental Status: mental status grossly normal <Brandie Cordoba PA - Last Filed: 07/20/22 17:42> Affect: normal affect <Brandie Hernandezbarber PA - Last Filed: 07/20/22 17:42> Attitude: cooperative <Brandie Hernandezbarber PA - Last Filed: 07/20/22 17:42> Thought process: Normal thought process present <Brandie HernandezDEMETRI blandon - Last Filed: 07/20/22 17:42> Thought content: Normal thought content present <Brandie Hernandezming, PA - Last Filed: 07/20/22 17:42> Insight: Good insight present (Psych) <Brandie Cordoba, PA - Last Filed: 07/20/22 17:42> NIH Stroke Scale Internal: Initial- Upon Arrival <Brandieisai Cordoba, PA - Last Filed: 07/20/22 17:42> Time: 12:53 <Brandie Cordoba, PA - Last Filed: 07/20/22 17:42> Level of Consciousness: Alert <Brandie Cordoba, PA - Last Filed: 07/20/22 17:42> Level of Consciousness Questions: Answers both questions correctly <Brandie Cordoba, PA - Last Filed: 07/20/22 17:42> Level of Consciousness Commands: Performs both tasks correctly <Brandie Cordoba, PA - Last Filed: 07/20/22 17:42> Best Gaze: Normal <Brandie Cordoba, PA - Last Filed: 07/20/22 17:42> Visual: No visual loss <Brandie Cordoba, PA - Last Filed: 07/20/22 17:42> Facial Palsy: Normal <Brandie Cordoba, PA - Last Filed: 07/20/22 17:42> Motor Arm (Right): No drift <Brandie Cordoba, PA - Last Filed: 07/20/22 17:42> Motor Arm (Left): No drift <Brandie Cordoba, PA - Last Filed: 07/20/22 17:42> Motor Leg (Right): No drift <Brandie Cordoba, PA - Last Filed: 07/20/22 17:42> Motor Leg (Left): No drift <Brandie Cordoba, PA - Last Filed: 07/20/22 17:42> Limb Ataxia: Absent <Brandie Cordoba, PA - Last Filed: 07/20/22 17:42> Sensory: Normal <Brandie Cordoba, PA - Last Filed: 07/20/22 17:42> Best Language: No aphasia <Brandie Cordoba, PA - Last Filed: 07/20/22 17:42> Dysarthia: Normal <Brandie Cordoba, PA - Last Filed: 07/20/22 17:42> Extinction and Inattention: No abnormality <Brandie Cordoba, PA - Last Filed: 07/20/22 17:42> Score: 0 <DEMETRI Nagel - Last Filed: 07/20/22 17:42> Course Course Course Narrative: 12:23 - RME - 71 yo female with hx obesity, osteoarthritis, HLD, depression, hypothyroidism, DM, polyarthralgia, HTN coming in with nontraumatic right lower extremity pain for the last 10 days. Seen here 07/14- had XR foot showing heel spur and mild degenerative changes. Sent home with oxycodone, flexeril and naproxen with no relief in her pain. States the pain is in the foot and goes all the way up the leg, both in the front and the back of the leg. Sharp, burning and cramping pains. No swelling on exam but mild calf tenderness. Will check LE doppler to r/o DVT and basic labs given age and comorbidites. <DEMETRI Grigsby - Last Filed: 07/20/22 12:27> Medications Administered Discontinued Medications Generic Name Dose Route Start Last Admin Trade Name Freq PRN Reason Stop Dose Admin Prednisone 20 mg 07/20/22 14:17 07/20/22 14:40 Prednisone 20 Mg Tablet PO 07/20/22 14:18 20 mg ONCE ONE Administration <DEMETRI Grigsby - Last Filed: 07/20/22 12:27> Medications Administered Discontinued Medications Generic Name Dose Route Start Last Admin Trade Name Freq PRN Reason Stop Dose Admin Prednisone 20 mg 07/20/22 14:17 07/20/22 14:40 Prednisone 20 Mg Tablet PO 07/20/22 14:18 20 mg ONCE ONE Administration <DEMETRI Nagel - Last Filed: 07/20/22 17:42> Medical Decision Making Medical Decision Making MDM Narrative: Patient is a 71 year old assigned female at with a history of HTN, HLD, hypothyroidism, and DM presenting to the emergency department today with right lower leg numbness and tingling with intermittent pain. Patient's physical exam was unremarkable. Patient's blood work was unremarkable. Patient's right lower leg US showed no acute process. Patient's clinical presentation is most con sistent with worsening neuropathy. I explained my physical exam findings as well as all test results to the patient. I answered all questions asked by the patient. Patient received PO Prednisone which she stated helped her symptoms significantly. I stressed the importance of the patient taking her medication as prescribed. I stressed the importance of the patient following up with her primary care provider and a neurologist. I stressed the importance of the patient returning to the emergency department immediately if her symptoms were to worsen or if she were to develop any dizziness, shortness of breath, difficulty breathing, chest pain, blurry vision, loss of vision, nausea, vomiting, abdominal pain, fever, chills, back pain, or any other complaints. Patient verbalized agreement and understanding with this treatment plan and discharge. <DEMETRI Nagel - Last Filed: 07/20/22 17:42> Differential Diagnosis Differential Diagnoses: The differential diagnosis associated with the presentation includes <DEMETRI Nagel - Last Filed: 07/20/22 17:42> neuropathy, right lower leg pain <DEMETRI Nagel - Last Filed: 07/20/22 17:42> Lab Data MDM Lab Attestation statement: I reviewed the patient's lab results. <DEMETRI Nagel - Last Filed: 07/20/22 17:42> Result Diagrams: : 07/20/22 12:42 07/20/22 12:42 <DEMETRI Grigsby - Last Filed: 07/20/22 12:27> Labs: Lab Results 07/20/22 07/20/22 Range/Units 12:42 12:42 WBC 7.2 (4.8-10.8) X10*3/uL RBC 4.87 (4.20-5.50) X10*6/uL Hgb 12.0 (12.0-16.0) g/dl Hct 38.2 (37.0-47.0) % MCV 78.4 L (80.0-98.0) fL MCH 24.6 L (27.0-33.0) pg MCHC 31.4 (31.0-35.0) g/dl RDW 15.8 (11.0-16.0) % Plt Count 386 (160-400) X10*3/uL MPV 9.8 (9.4-12.3) fL Immature Gran % (Auto) 0.1 (0.0-0.4) % Neut % (Auto) 55.3 (45-73) % Lymph % (Auto) 33.6 (20-40) % [place] % (Auto) 5.6 (2-11) % Eos % (Auto) 3.9 (0-4) % Baso % (Auto) 1.5 (0-2) % Lymph # (Auto) 2.4 (1.2-4.9) X10*3/uL [place] # (Auto) 0.4 (0.1-1.2) X10*3/uL Eos # (Auto) 0.3 (0.0-0.4) X10*3/uL Baso # (Auto) 0.1 (0.0-0.2) X10*3/uL Abs Immat Gran (auto) 0.01 (0.00-0.03) X10*3/uL Absolute Neuts (auto) 4.0 (2.0-8.3) x10*3/uL Absolute Nucleated RBC 0.000 (0.0-0.012) X10*3/uL Nucleated RBC % (auto) 0.0 (0.0-0.2) /100WBC Sodium 142 (135-145) mmol/L Potassium 3.8 D (3.3-5.1) mmol/L Chloride 105 (96-108) mmol/L Carbon Dioxide 26 (22-29) mmol/L Anion Gap 15 (12-20) BUN 16 (9-16) mg/dL Creatinine 0.94 (0.5-1.4) mg/dL Estim Creat Clear Calc 55.4 Estimated GFR 59 Random Glucose 135 H (60-115) mg/dL Calcium 9.9 (8.4-10.2) mg/dL Magnesium 1.9 (1.6-2.6) mg/dL Total Creatine Kinase 383 H (26-140) U/L <DEMETRI Grigsby - Last Filed: 07/20/22 12:27> Lab Results 07/20/22 07/20/22 Range/Units 12:42 12:42 WBC 7.2 (4.8-10.8) X10*3/uL RBC 4.87 (4.20-5.50) X10*6/uL Hgb 12.0 (12.0-16.0) g/dl Hct 38.2 (37.0-47.0) % MCV 78.4 L (80.0-98.0) fL MCH 24.6 L (27.0-33.0) pg MCHC 31.4 (31.0-35.0) g/dl RDW 15.8 (11.0-16.0) % Plt Count 386 (160-400) X10*3/uL MPV 9.8 (9.4-12.3) fL Immature Gran % (Auto) 0.1 (0.0-0.4) % Neut % (Auto) 55.3 (45-73) % Lymph % (Auto) 33.6 (20-40) % [place] % (Auto) 5.6 (2-11) % Eos % (Auto) 3.9 (0-4) % Baso % (Auto) 1.5 (0-2) % Lymph # (Auto) 2.4 (1.2-4.9) X10*3/uL [place] # (Auto) 0.4 (0.1-1.2) X10*3/uL Eos # (Auto) 0.3 (0.0-0.4) X10*3/uL Baso # (Auto) 0.1 (0.0-0.2) X10*3/uL Abs Immat Gran (auto) 0.01 (0.00-0.03) X10*3/uL Absolute Neuts (auto) 4.0 (2.0-8.3) x10*3/uL Absolute Nucleated RBC 0.000 (0.0-0.012) X10*3/uL Nucleated RBC % (auto) 0.0 (0.0-0.2) /100WBC Sodium 142 (135-145) mmol/L Potassium 3.8 D (3.3-5.1) mmol/L Chloride 105 (96-108) mmol/L Carbon Dioxide 26 (22-29) mmol/L Anion Gap 15 (12-20) BUN 16 (9-16) mg/dL Creatinine 0.94 (0.5-1.4) mg/dL Estim Creat Clear Calc 55.4 Estimated GFR 59 Random Glucose 135 H (60-115) mg/dL Calcium 9.9 (8.4-10.2) mg/dL Magnesium 1.9 (1.6-2.6) mg/dL Total Creatine Kinase 383 H (26-140) U/L <DEMETRI Nagel - Last Filed: 07/20/22 17:42> Radiology Impression Discussion of test interpretation with radiology: I have reviewed the radiologist's reading. <DEMETRI Nagel - Last Filed: 07/20/22 17:42> Radiologist Impression: My interpretation is in agreement with the radiologist's impression of the imaging studies. EXAMINATION:? US VENOUS ULTRASOUND WITH DOPPLER LOWER EXTREMITY, RIGHT CLINICAL INFORMATION:? Pain COMPARISON:? None TECHNIQUE: Ultrasound of the deep veins is performed from the hip to the calf with compression sonography and color and pulse Doppler assessment. Spectral analysis with color-flow imaging is performed. FINDINGS: There is normal venous compression and respiratory variation and augmented flow. The visualized common femoral vein, superficial femoral vein, profunda femoral vein, popliteal vein, and the trifurcation region shows no evidence of deep venous thrombosis. ? There is no significant popliteal fossa cyst. US/US venous duplex LE RT IMPRESSION: No DVT demonstrated in the right lower extremity. Dictated By: Milly Frazier MD Signed By: Electronically signed by Milly Frazier MD 07/20/22 1406 <DEMETRI Nagel - Last Filed: 07/20/22 17:42> Discharge Plan Discharge Clinical Impression: Neuropathy <DEMETRI Grigsby Last Filed: 07/20/22 12:27> Patient Disposition: Home, Self-Care <DEMETRI Grigsby Last Filed: 07/20/22 12:27> Instructions: Peripheral Neuropathy (ED) <DEMETRI Grigsby Last Filed: 07/20/22 12:27> Additional Instructions: Follow up with your primary care provider and a neurologist. Return to the emergency department immediately if your symptoms worsen or if you develop any dizziness, shortness of breath, difficulty breathing, chest pain, blurry vision, loss of vision, nausea, vomiting, abdominal pain, fever, chills, back pain, or any other complaints. <DEMETRI Grigsby - Last Filed: 07/20/22 12:27> Prescriptions: New prednisone 20 mg tablet 20 mg PO DAILY 7 Days Qty: 7 0RF No Action loratadine 10 mg tablet 10 mg PO DAILY 90 Days Qty: 90 3RF metformin 1,000 mg tablet 1,000 mg PO BID 90 Days Qty: 180 3RF Hold Instructions: Doctor's Order acetaminophen [Tylenol Arthritis Pain] 650 mg tablet extended release 650 mg PO Q8H PRN (Reason: pain) Qty: 90 3RF levothyroxine 100 mcg tablet 100 mcg PO DAILY 90 Days Qty: 90 1RF naproxen 500 mg tablet 500 mg PO BID PRN (Reason: pain) Qty: 14 0RF cyclobenzaprine 10 mg tablet 10 mg PO Q8H Qty: 14 0RF oxycodone 5 mg tablet 5 mg PO Q6H PRN (Reason: pain) Qty: 10 0RF Rx Instructions: Partial Fill upon patient request. (DME) blood-glucose meter [FreeStyle [place] Lite] Kit See Rx Instructions .ROUTE .MEDSUPPLY Qty: 1 0RF Rx Instructions: As directed baclofen 10 mg tablet 10 mg PO DAILY (DME) FreeStyle Test Strip See Rx Instructions .ROUTE .MEDSUPPLY Qty: 50 11RF Rx Instructions: Take 1 test strip once a day (DME) lancets [FreeStyle Lancets] 28 gauge misc See Rx Instructions .ROUTE .MEDSUPPLY Qty: 100 11RF Rx Instructions: Use 1 lancet once a day diclofenac sodium [Voltaren Arthritis Pain] 1 % gel 2 g topical QID Qty: 100 0RF Rx Instructions: apply to single elbow, wrist or hand; for hand includes palm/fingers/back of hand amlodipine 10 mg tablet 10 mg PO DAILY 90 Days Qty: 90 3RF ezetimibe 10 mg tablet 10 mg PO DAILY 90 Days Qty: 90 3RF glipizide 5 mg tablet extended release 24hr 5 mg PO DAILY 90 Days Qty: 90 3RF linagliptin 5 mg tablet 5 mg PO DAILY 90 Days Qty: 90 3RF bismuth subsalicylate [Bismuth] 262 mg tablet,chewable 2 tab PO Q1H PRN Rx Instructions: do not exceed 16 tabs per 24 hrs bisacodyl [Dulcolax (bisacodyl)] 5 mg tablet,delayed release (DR/EC) 10 mg PO ONCE 1 Days Qty: 2 0RF Rx Instructions: take 2 tabs at noon the day before your colonoscopy polyethylene glycol 3350 [Miralax] 17 gram/dose powder 238 g PO ONCE Qty: 238 0RF Rx Instructions: As directed by gastroenterology department at [facility] <DEMETRI Grigsby - Last Filed: 07/20/22 12:27> Referrals: [facility] [place] Neuro/Sleep [Provider Group] (Call to establish and follow up with a neurologist. ) Shannan Figueroa MD [Primary Care Provider] - <DEMETRI Grigsby - Last Filed: 07/20/22 12:27> Interventions: ED Discharge Assessment Last Done: 07/20/22 14:44 <DEMETRI Grigsby - Last Filed: 07/20/22 12:27> Discharge Date/Time: 07/20/22 14:45 <DEMETRI Grigsby - Last Filed: 07/20/22 12:27> Print Language: Italian <DEMETRI Grigsby - Last Filed: 07/20/22 12:27>
[2022-07-20 12:45] LABS: MANUAL DIFF FLAG NO
[2022-07-20 12:48] LABS: Basophils Absolute Auto 0.1 X10*3/uL (0.0-0.2); Basophils Percent Auto 1.5 % (0-2); Eosinophils Absolute Auto 0.3 X10*3/uL (0.0-0.4); Eosinophils Percent Auto 3.9 % (0-4); Hematocrit 38.2 % (37.0-47.0); Imm Gran Abs Auto 0.01 X10*3/uL (0.00-0.03); Imm Gran Pct Auto 0.1 % (0.0-0.4); Lymphocytes Absolute Auto 2.4 X10*3/uL (1.2-4.9); Lymphocytes Percent Auto 33.6 % (20-40); Mean Corpuscular HGB Conc 31.4 g/dl (31.0-35.0); Mean Corpuscular Hemoglobin 24.6 pg (27.0-33.0); Mean Corpuscular Volume 78.4 fL (80.0-98.0); Mean Platelet Volume 9.8 fL (9.4-12.3); Monocytes Absolute Auto 0.4 X10*3/uL (0.1-1.2); Monocytes Percent Auto 5.6 % (2-11); Neutrophils Percent Auto 55.3 % (45-73); Platelet Count 386 X10*3/uL (160-400); Red Blood Count 4.87 X10*6/uL (4.20-5.50); Red Cell Distribution Width 15.8 % (11.0-16.0); White Blood Count 7.2 X10*3/uL (4.8-10.8)
[2022-07-20 13:10] LABS: Anion Gap 15 (12-20); Blood Urea Nitrogen 16 mg/dL (9-16); Calcium 9.9 mg/dL (8.4-10.2); Carbon Dioxide 26 mmol/L (22-29); Chloride 105 mmol/L (96-108); Creatinine Clr Calc Pharmacy 55.4; Estimated Glomerular Filt Rate 59; Glucose Random 135 mg/dL (60-115); Magnesium 1.9 mg/dL (1.6-2.6); Potassium 3.8 mmol/L (3.3-5.1); Sodium 142 mmol/L (135-145)
[2022-07-20 14:11] VITALS: BP 172/82; PULSE 92; RESP 12; O2SAT 99
[2022-07-20] MEDS: predniSONE 20 MG TABLET PO (14:40)
== END 2022-07-20 14:45 | disposition home or self-care (01) ==
PROVIDERS: Physician Assistant; Emergency Provider Student in an Organized Health Care Education/Training Program; PCP Internal Medicine
DX: G62.9 Polyneuropathy, unspecified (principal); R60.0 Localized edema; I10 Essential (primary) hypertension; E11.9 Type 2 diabetes mellitus without complications; Z79.899 Other long term (current) drug therapy
CPT/HCPCS: 36415; 80048; 82550; 83735; 85025; 93971; 99283; 99284

== ENCOUNTER → 2022-07-28 14:56 | Outpatient (BNVA) | payer OTHER, MEDICAID, SELFPAY | PROVIDERS: PCP Internal Medicine; Visit Provider Orthopaedic Surgery | DX: M54.16 Radiculopathy, lumbar region (principal); E11.9 Type 2 diabetes mellitus without complications | CPT/HCPCS: 99212 ==

== ENCOUNTER → 2022-08-24 13:11 | Outpatient (BNVA) | payer OTHER, SELFPAY | PROVIDERS: PCP Internal Medicine; Visit Provider Anesthesiology | DX: M79.671 Pain in right foot (principal); M77.51 Other enthesopathy of right foot and ankle; G62.9 Polyneuropathy, unspecified; G89.29 Other chronic pain | CPT/HCPCS: 99202 ==

== ENCOUNTER → 2022-08-25 10:25 | Outpatient (BNVA) | payer OTHER, SELFPAY | PROVIDERS: PCP Internal Medicine; Visit Provider Psychiatry & Neurology Neurology | DX: G62.9 Polyneuropathy, unspecified (principal); G89.29 Other chronic pain; M79.671 Pain in right foot; R06.83 Snoring; G47.10 Hypersomnia, unspecified; R25.2 Cramp and spasm; R26.9 Unspecified abnormalities of gait and mobility; E11.9 Type 2 diabetes mellitus without complications; I10 Essential (primary) hypertension | CPT/HCPCS: 99202 ==

== ENCOUNTER 2022-09-23 13:00 | Outpatient (RCR) | payer OTHER, MEDICARE, SELFPAY ==
--- NOTE | 2022-09-16 15:04 | MHC.PT.EP ---
[facility] [place] Office [place] Office [place] Office [address] Johan Ho [address] [phone] F: [phone] F: [phone] F: [phone] F: [phone] Physical Therapy Plan of Care Date of Evaluation: Date of Surgery: Diagnosis: pain in R foot Assessment: 71 y/o female referred to PT with R foot pain. Of note, her pain started 3 months ago of insidious onset and previously she was ambulating without assistive device and I with all ADL's/cleaning/ chores/ walking. Currently she presents with decreased lumbar and foot AROM, decreased R hip/foot strength, decreased gastroc/soleus length, pins/needles/burning sensation R foot/leg, and impaired gait pattern. S/s consistent with nerve impingement (superficial peroneal nerve?) and possible lumbar dereangement. Recommend PT 2x/week for 3 weeks to address impairments, implement HEP, and optimize functional mobility. She will be going to [place] for 3 months 10/07/22. Frequency and Duration: The patient will be seen 2x/week for 3 weeks Short Term Goals: Initiate HEP Shelter Goals: 3 weeks I with HEP and self management of sx Improve R gastroc length to 5 degrees (IR lacks 2 degrees) Improve gait pattern to more symmetrical step length and upright trunk posture Report decrease in foot pain by 50% (IR 6-8/10) Treatment Plan: Modalities to reduce pain, spasms and effusion. Manual therapy to restore motion and function. Therapeutic exercise to improve strength and flexibility. Neuromuscular re-education for posture and balance. Therapeutic activities to return to functional activities of daily living. Electronically signed by: Josie Soliz PT Please sign and return to therapist. Thank you for your referral.
--- NOTE | 2022-11-04 10:08 | MHC.PT.DC ---
[facility] [place] Office [place] Office [place] Office [address] Johan Ho [address] [phone] F: [phone] F: [phone] F: [phone] F: [phone] Physical Therapy Discharge Report Diagnosis: pain in R foot Date of Surgery: Date of Evaluation: 09/16/22 Date of Discharge: 11/04/22 Treatments to Date: 2 Cancellations to Date: 4 No Shows to Date: 2 Discharge Status: Visit Non-compliance Discharge Summary: Pt did not f/u with further visits and was moving to [place] 10/07/22. D/c chart secondary to noncompliance with scheduling policy. Electronically signed by: Josie Soliz PT Please sign and return to therapist. Thank you for your referral.
== END 2022-11-04 10:08 | disposition home or self-care (01) ==
LOC: HO.PTCHIC 13:00
PROVIDERS: PCP Internal Medicine; Visit Provider Internal Medicine
DX: M79.671 Pain in right foot (principal)
CPT/HCPCS: 97110; 97162

== ENCOUNTER → 2022-10-06 14:00 | Outpatient (BNVA) | payer OTHER, SELFPAY | PROVIDERS: PCP Internal Medicine; Visit Provider Orthopaedic Surgery | DX: M17.12 Unilateral primary osteoarthritis, left knee (principal); E11.9 Type 2 diabetes mellitus without complications | CPT/HCPCS: 20610; J1100 ==

== ENCOUNTER 2022-12-28 10:29 | Emergency (ER) | payer OTHER, MEDICAID, SELFPAY ==
--- NOTE | ~2022-12-28 | XR_ITS ---
EXAMINATION: XR HAND, RIGHT XR HAND, LEFT CLINICAL INFORMATION: Fall, trauma, bilateral pain. COMPARISON: Radiographs bilateral hands 12/02/2020. TECHNIQUE: Each hand is imaged in 3 views. There are a total of 6 views. FINDINGS: Right: There is no acute or healing fracture, dislocation, destructive process. The ulnar variance is neutral. There are degenerative changes lateral carpus with narrowing and mild subchondral sclerosis triscaphe joint and first carpometacarpal joint. No chondrocalcinosis. No erosive change. There is mild narrowing second MCP joint. Variable narrowing/degenerative changes present involving the interphalangeal joints and PIP joints. Again, there are osteoarthritic changes DIP joints of the third and fourth fingers with central erosions suggesting erosive osteoarthropathy. Left: There is no acute or healing fracture, dislocation, destructive process. The ulnar variance is neutral. There are degenerative changes lateral carpus with narrowing and mild subchondral sclerosis triscaphe joint and first carpometacarpal joint. Fine chondrocalcinosis is present on the medial side of the proximal carpal row in region of the lunotriquetral ligament and possibly involving the triangular fibrocartilage. No erosive change. There are osteoarthritic changes interphalangeal joints of the fingers, slightly increased since prior imaging 2020. No erosive changes. XR/XR hand LT 2V IMPRESSION: - No acute or healing fracture, dislocation, destructive process. - Bilateral degenerative changes lateral carpus and interphalangeal joints. - Joint narrowing right second MCP. 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
--- NOTE | ~2022-12-28 | XR_ITS ---
EXAMINATION: XR ELBOW, LEFT CLINICAL INFORMATION: Left elbow pain after falling COMPARISON: None available. TECHNIQUE: AP, lateral, and oblique views of the left elbow. FINDINGS: There is joint space narrowing at the left elbow joint. There is a double density appreciated adjacent to the lateral aspect of the radial head which could be related to spurring or chip fracture. Clinical correlation would be recommended. There is ventral spurring of the left radial head on the lateral view. The distal humerus appears to be intact. XR/XR elbow LT min 3V IMPRESSION: 1. Double density adjacent to the lateral aspect of the radial head could be related to spurring or chip fracture. 2. Degenerative changes.
--- NOTE | ~2022-12-28 | XR_ITS ---
EXAMINATION: XR HAND, RIGHT XR HAND, LEFT CLINICAL INFORMATION: Fall, trauma, bilateral pain. COMPARISON: Radiographs bilateral hands 12/02/2020. TECHNIQUE: Each hand is imaged in 3 views. There are a total of 6 views. FINDINGS: Right: There is no acute or healing fracture, dislocation, destructive process. The ulnar variance is neutral. There are degenerative changes lateral carpus with narrowing and mild subchondral sclerosis triscaphe joint and first carpometacarpal joint. No chondrocalcinosis. No erosive change. There is mild narrowing second MCP joint. Variable narrowing/degenerative changes present involving the interphalangeal joints and PIP joints. Again, there are osteoarthritic changes DIP joints of the third and fourth fingers with central erosions suggesting erosive osteoarthropathy. Left: There is no acute or healing fracture, dislocation, destructive process. The ulnar variance is neutral. There are degenerative changes lateral carpus with narrowing and mild subchondral sclerosis triscaphe joint and first carpometacarpal joint. Fine chondrocalcinosis is present on the medial side of the proximal carpal row in region of the lunotriquetral ligament and possibly involving the triangular fibrocartilage. No erosive change. There are osteoarthritic changes interphalangeal joints of the fingers, slightly increased since prior imaging 2020. No erosive changes. XR/XR hand RT 2V IMPRESSION: - No acute or healing fracture, dislocation, destructive process. - Bilateral degenerative changes lateral carpus and interphalangeal joints. - Joint narrowing right second MCP. 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
[2022-12-28 11:46] VITALS: BP 140/82; PULSE 79; RESP 19; TEMP 36.6; O2SAT 98; BMI 26.1
[2022-12-28] MEDS: Acetaminophen 325 MG TABLET 975 MG PO (13:49)
--- NOTE | 2022-12-28 13:50 | PC.NURSE ---
pt medicted per sep for 03/02 greer hand pain
[2022-12-28 15:33] VITALS: BP 156/80; PULSE 71; RESP 18; TEMP 36.6; O2SAT 98
--- NOTE | 2022-12-28 16:02 | ED.FALL ---
HPI - Fall General Chief Complaint: Fall Stated Complaint: Multiple complaints Time Seen by Provider: 12/28/22 12:13 Source: patient and RN notes reviewed Mode of arrival: ambulatory Limitations: no limitations History of Present Illness HPI Narrative: This is a 72-year-old female presenting to the emergency department for evaluation mechanical fall which occurred yesterday morning. Patient reports that she tripped over a rug and fell forward landing on to her bilateral arms. She says that hit her head, denies LOC. She is not on AC. She denies any headaches, weakness, numbness or tingling, or vision changes. She states that the only pain that she is having are in her hands and her elbows. Denies any fevers or chills. Denies taking any medications at home to treat her symptoms. No other complaints or concerns at this time. MD complaint: fall Fall from: standing Fall witnessed: yes, by family Place fall occurred: home Loss of consciousness: none Prolonged down time: no Symptoms prior to fall: none Context: tripped/slipped Location of injury - extremities: bilateral: elbow and hand Quality: aching Associated symptoms (after fall): denies Related Data Previous Rx's Medication Instructions Recorded blood-glucose meter (FreeStyle #1 ea 06/16/20 [place] Lite kit) blood sugar diagnostic (FreeStyle #50 ea 01/13/21 Test strips) lancets 28 gauge (FreeStyle #100 ea 01/13/21 Lancets) amlodipine 10 mg tablet 10 mg PO DAILY 90 days #90 tabs 06/29/22 ezetimibe 10 mg tablet 10 mg PO DAILY 90 days #90 tabs 06/29/22 glipizide 5 mg tablet, extended 5 mg PO DAILY 90 days #90 tabs 06/29/22 release 24 hr linagliptin 5 mg tablet 5 mg PO DAILY 90 days #90 tabs 06/29/22 walker #1 ea 07/29/22 diclofenac sodium 1 % topical gel 4 g topical QID #100 grams 08/18/22 (Voltaren Arthritis Pain) gabapentin 600 mg tablet 600 mg PO TID 30 days #90 tabs 08/24/22 loratadine 10 mg tablet 10 mg PO DAILY 90 days #90 tabs 08/24/22 acetaminophen 650 mg 650 mg PO Q8H PRN pain #90 tabs 09/08/22 tablet,extended release (Tylenol Arthritis Pain) ibuprofen 800 mg tablet 800 mg PO BID PRN pain #20 tabs 10/27/22 levothyroxine 100 mcg tablet 100 mcg PO DAILY 90 days #90 tabs 11/02/22 sucralfate 1 gram tablet (Carafate) 1 g PO BID 30 days #60 tabs 11/08/22 Allergies Allergy/AdvReac Type Severity Reaction Status Date / Time MARIA ESTHER Inhibitors AdvReac Intermediate cough Verified 12/28/22 11:46 ARB-Angiotensin Receptor AdvReac Intermediate Cough Verified 12/28/22 11:46 Antagonist Review of Systems Review of Systems: Constitutional: No Weight loss, No Fever, No Chills ENT/Mouth: No Ear Pain, No Nasal Congestion, No Sinus Pain, No Hoarseness, No sore throat, No Rhinorrhea, No Swallowing Difficulty Cardiovascular: No Chest Pain, No SOB Respiratory: No Cough, No Sputum, No Wheezing Gastrointestinal: No Nausea, No Vomiting, No Diarrhea, No Constipation, No Abdominal pain Genitourinary: No Dysuria, No Urinary Frequency, No Hematuria, No Urinary Incontinence/retention, No Urgency, No Flank Pain Musculoskeletal: + joint pain, No Myalgias, No Joint Swelling Skin: No Skin Lesions, No rash Neuro: No Weakness, No Numbness, No Paresthesias Yes all other systems are reviewed and are negative Constitutional: Constitutional: Reports as per [facility] Past Medical History Medical History Chronic pain in right foot Diabetes mellitus Essential hypertension Gait disorder Hypersomnia Hypothyroidism Muscle cramps Obesity Polyarthralgia Post-menopausal Pure hypercholesterolemia Skin tag Snoring Surgical History History of eye surgery History of laparoscopic cholecystectomy Hx of colonoscopy S/P total abdominal hysterectomy Family History Family History (Updated 10/05/22 @ 15:33 by Shannan Alexander MD) Father Cancer Mother Stroke Diabetes Hypertension CVD (cardiovascular disease) Sister Cancer Paternal Uncle Cancer Maternal Aunt Cancer Brother CVD (cardiovascular disease) Social History Social History Housing: House Alcohol intake: never Patient Tobacco Use Status: Never used Tobacco Smoked in Last 30 Days: No e-Cigarette/Vaping Use: Never Used Second Hand Smoke Exposure: Yes Use of substances other than those prescribed or required for medical reasons: No Advance Directives: No service: No Current occupational status: disabled Cognitive needs: No Hearing needs: No Vision needs: Yes Physical Exam Vital Signs: Vital Signs: Last Vital Signs Temp 97.8 F 12/28/22 15:33 Pulse 71 12/28/22 15:33 Resp 18 12/28/22 15:33 BP 156/80 H 12/28/22 15:33 Pulse Ox 98 12/28/22 15:33 O2 Del Method Room Air 12/28/22 15:33 BMI result Body Mass Index 26.1 Const: General: cooperative, comfortable and no acute distress Orientation/consciousness: patient oriented x3 Limitations: no limitations HEENT: Head: Yes normal to inspection, Yes normocephalic and Yes atraumatic Ears: hearing grossly normal bilaterally and TM's normal bilaterally (No hemotypanum) General nose exam: Normal external nose present Face and sinus: Yes normal facial exam Mouth: Normal oral and palatal mucosa present, oropharynx normal and moist mucous membranes Throat: Yes posterior oropharynx normal Eyes: General: appearance normal, both eyes and all related structures Eyelids: Yes eyelids normal Conjunctivae: conjunctivae normal Sclerae: sclerae normal Pupils: Equal, round and reactive pupils present EOM: EOMs intact bilaterally Neck: Other: No cervical spine tenderness Neck: Yes normal visual inspection, Yes full ROM and Yes no lymphadenopathy Lymphatic: no lymphadenopathy noted Chest: Chest palpation & inspection: normal inspection of the chest Resp: Effort & Inspection: normal respiratory effort and able to speak in complete sentences Auscultation: clear to auscultation bilaterally, no crackles, no rales, no rhonchi and no wheezes Cardio: Rate: regular rate Rhythm: regular rhythm Heart sounds: S1 normal heart sound present and S2 normal heart sound present GI: Inspection: Yes normal to inspection Skin: General skin exam: no rashes or lesions noted Trauma: no lacerations or abrasions Wounds: no wounds Neuro: General: patient oriented x3, moves all extremities and CN's II-XI intact bilaterally Cranial nerves: Yes Equal, round and reactive pupils present, Yes Nystagmus not present and Yes Midline tongue present Cognition (Neuro): normal cognition Gait exam (Neuro): Normal gait present Motor exam (neuro): 5/5 motor strength present throughout Extrem: Other: left hand dorsal aspect overlying the 1st and 2nd digit there is an area of ecchymosis with tenderness to palpation. No snuffbox tenderness noted bilaterally. right hand dorsal aspect scant ecchymosis noted to the right thenar eminence. Good range of motion of the digits without difficulty. Distal sensation circulation intact. Radial pulses are 2+ bilaterally mild tenderness to palpation over the left lateral elbow, with good range of motion, no bony step-off or deformity noted. Right lower extremity: normal to inspection Left lower extremity: normal to inspection Medications Administered Discontinued Medications Generic Name Dose Route Start Last Admin Trade Name Freq PRN Reason Stop Dose Admin Acetaminophen 975 mg 12/28/22 13:44 12/28/22 13:49 Acetaminophen 325 Mg Tablet PO 12/28/22 13:45 975 mg ONCE ONE Administration Medical Decision Making Medical Decision Making MDM Narrative: 72-year-old female presenting to the emergency department secondary to mechanical fall which occurred yesterday morning. She reports that she had her head, denies LOC. No headaches, vision changes, weakness, numbness or tingling. She is only reporting bilateral hand pain and left elbow pain. Patient is fully neurologically intact, patient has no headaches, blurred vision, dizziness, weakness. Bilateral hand x-ray showing degenerative changes otherwise no acute fracture, left elbow x-ray revealing possible chip fracture or osteophyte. Patient has good range of motion of the left elbow with mild tenderness over the left elbow. I do not suspect that this is an acute fracture however given some pain in this region patient says left arm placed in sling and given orthopedic follow-up. Discussed these results with patient who provides good understanding of her pain and symptoms. Patient given strict return precautions. Patient understands and agrees with plan. Patient stable for discharge. Differential Diagnosis Differential Diagnoses: The differential diagnosis associated with the presentation includes Fracture, sprain, strain, contusion Radiology Impression Discussion of test interpretation with radiology: I have reviewed the radiologist's reading. Radiologist Impression: EXAMINATION: XR ELBOW, LEFT CLINICAL INFORMATION: Left elbow pain after falling? COMPARISON: None available.? TECHNIQUE: AP, lateral, and oblique views of the left elbow. FINDINGS: There is joint space narrowing at the left elbow joint. There is a double density appreciated adjacent to the lateral aspect of the radial head which could be related to spurring or chip fracture. Clinical correlation would be recommended. There is ventral spurring of the left radial head on the lateral view. The distal humerus appears to be intact.? XR/XR elbow LT min 3V IMPRESSION: 1.? Double density adjacent to the lateral aspect of the radial head could be related to spurring or chip fracture. ? 2.? Degenerative changes. ? ? Dictated By: Samuel Olivera CLINICAL INFORMATION: Fall, trauma, bilateral pain.? COMPARISON: Radiographs bilateral hands 12/02/2020.? TECHNIQUE: Each hand is imaged in 3 views. There are a total of 6 views.? FINDINGS: Right: There is no acute or healing fracture, dislocation, destructive process. The ulnar variance is neutral. There are degenerative changes lateral carpus with narrowing and mild subchondral sclerosis triscaphe joint and first carpometacarpal joint. No chondrocalcinosis. No erosive change. There is mild narrowing second MCP joint. Variable narrowing/degenerative changes present involving the interphalangeal joints and PIP joints. Again, there are osteoarthritic changes DIP joints of the third and fourth fingers with central erosions suggesting erosive osteoarthropathy. Left: There is no acute or healing fracture, dislocation, destructive process. The ulnar variance is neutral. There are degenerative changes lateral carpus with narrowing and mild subchondral sclerosis triscaphe joint and first carpometacarpal joint. Fine chondrocalcinosis is present on the medial side of the proximal carpal row in region of the lunotriquetral ligament and possibly involving the triangular fibrocartilage. No erosive change. There are osteoarthritic changes interphalangeal joints of the fingers, slightly increased since prior imaging 2020. No erosive changes. XR/XR hand RT 2V IMPRESSION: - No acute or healing fracture, dislocation, destructive process. - Bilateral degenerative changes lateral carpus and interphalangeal joints. - Joint narrowing right second MCP. 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 ? Discharge Plan Discharge Clinical Impression: Contusion of hand, Acute neck sprain Patient Disposition: Home, Self-Care Instructions: Contusion in Adults (ED) Additional Instructions: Take ibuprofen or tylenol as needed for symptoms. Wear sling for comfort. Ice to your hands, and warm compresses to the right side of your neck. Your left elbow x-ray revealed a possible small broken bone. If your symptoms do not improve or worsen, follow up with [facility], call to make an appointment. Prescriptions: No Action (DME) walker Misc See Rx Instructions .Route Qty: 1 0RF Rx Instructions: As directed loratadine 10 mg tablet 10 mg PO DAILY 90 Days Qty: 90 3RF acetaminophen [Tylenol Arthritis Pain] 650 mg tablet extended release 650 mg PO Q8H PRN (Reason: pain) Qty: 90 3RF ibuprofen 800 mg tablet 800 mg PO BID PRN (Reason: pain) Qty: 20 0RF levothyroxine 100 mcg tablet 100 mcg PO DAILY 90 Days Qty: 90 1RF sucralfate [Carafate] 1 gram tablet 1 g PO BID 30 Days Qty: 60 0RF (DME) blood-glucose meter [FreeStyle [place] Lite] Kit See Rx Instructions .ROUTE .MEDSUPPLY Qty: 1 0RF Rx Instructions: As directed (DME) FreeStyle Test Strip See Rx Instructions .ROUTE .MEDSUPPLY Qty: 50 11RF Rx Instructions: Take 1 test strip once a day (DME) lancets [FreeStyle Lancets] 28 gauge misc See Rx Instructions .ROUTE .MEDSUPPLY Qty: 100 11RF Rx Instructions: Use 1 lancet once a day diclofenac sodium [Voltaren Arthritis Pain] 1 % gel 4 g topical QID Qty: 100 0RF Rx Instructions: apply to single knee, ankle, foot; for foot includes sole/toes/top of foot amlodipine 10 mg tablet 10 mg PO DAILY 90 Days Qty: 90 3RF ezetimibe 10 mg tablet 10 mg PO DAILY 90 Days Qty: 90 3RF glipizide 5 mg tablet extended release 24hr 5 mg PO DAILY 90 Days Qty: 90 3RF linagliptin 5 mg tablet 5 mg PO DAILY 90 Days Qty: 90 3RF gabapentin 600 mg tablet 600 mg PO TID 30 Days Qty: 90 8RF Interventions: ED Discharge Assessment Last Done: 12/28/22 16:16 Discharge Date/Time: 12/28/22 16:17
== END 2022-12-28 16:17 | disposition home or self-care (01) ==
PROVIDERS: Emergency Provider Internal Medicine; PCP Internal Medicine
DX: S60.222A Contusion of left hand, initial encounter (principal); S60.221A Contusion of right hand, initial encounter; S13.9XXA Sprain of joints and ligaments of unspecified parts of neck, initial encounter; W01.0XXA Fall on same level from slipping, tripping and stumbling without subsequent striking against object, initial encounter; M25.522 Pain in left elbow; Y93.89 Activity, other specified; Y92.019 Unspecified place in single-family (private) house as the place of occurrence of the external cause; Y99.9 Unspecified external cause status; E11.9 Type 2 diabetes mellitus without complications; I10 Essential (primary) hypertension; E78.00 Pure hypercholesterolemia, unspecified; Z79.899 Other long term (current) drug therapy
CPT/HCPCS: 73080; 73120; 99283; 99284

== ENCOUNTER 2023-01-31 10:45 | Outpatient (AMB) | payer OTHER, MEDICAID, SELFPAY ==
[2023-01-31 10:49] VITALS: BP 138/70; BMI 37.2
--- NOTE | 2023-01-31 10:49 | MHC.PC.OV ---
Vital Signs 01/31/23 10:49 Height 5 ft 1 in Weight 197 lb BMI 37.2 BP 138/70 Blood Pressure Location Lt brachial Position Sitting Intake Visit Reasons: Right Leg Pain Intake Note: Patient here c/o right leg pain, neck pain Web Merchandiser Required: No Accompanied by: Self / Same As Patient Allergies MARIA ESTHER Inhibitors Adverse Reaction (Intermediate, Verified 01/31/23 10:58) cough ARB-Angiotensin Receptor Antagonist Adverse Reaction (Intermediate, Verified 01/31/23 10:58) Cough Medication List - Last Reconciled 01/31/23 by Shannan Alexander MD acetaminophen ER (Tylenol Arthritis Pain) 650 mg PO Q8H PRN amlodipine 10 mg PO DAILY 90 days blood sugar diagnostic (FreeStyle Test strips) Take 1 test strip once a day blood-glucose meter (FreeStyle Hobbs Lite kit) As directed diclofenac sodium 1% (Voltaren Arthritis Pain) 4 grams topical QID PRN ezetimibe 10 mg PO DAILY 90 days gabapentin 600 mg PO TID 30 days glipizide ER 5 mg PO DAILY 90 days ibuprofen 800 mg PO BID PRN lancets (FreeStyle Lancets) Use 1 lancet once a day levothyroxine 100 mcg PO DAILY 90 days lidocaine 4% (Aspercreme (lidocaine)) 1 patch topical BEDTIME PRN linagliptin 5 mg PO DAILY 90 days loratadine 10 mg PO DAILY 90 days sucralfate (Carafate) 1 g PO BID 30 days walker As directed Tobacco use date assessed: 01/11/23 Fall risk assessment: No Falls in past year Last assessed Fall Risk: 01/31/23 Dental Screening Dental Screen Date: 01/31/23 Did you have a dental visit in the last 12 months?: Yes Did you have a dental problem in the last 6 months where you did not have access to dental care?: No Was dental information given to patient?: Patient has dentist HPI HPI Comments History of Present Illness Details This is a 72-year-old female with diabetes mellitus type 2, hypertension, pure hypercholesterolemia and hypothyroidism that comes today complaining of chronic right foot pain with limited flexion/extension requiring a walker to walk. She will benefit from a HALL MONITOR due to this matter. She also has neck pain that started about a month ago with limited lateral neck movements. No fever or swelling. Last A1c was within goal. Blood pressure stable. Lipid panel will be order and her LDL goal should be less than 70. Also TSH will be order. [facility] Medical History (Updated 01/31/23 @ 11:08 by Shannan Alexander MD) Chronic pain in right foot Diabetes mellitus Essential hypertension Gait disorder Hypersomnia Hypothyroidism Muscle cramps Obesity Polyarthralgia Post-menopausal Pure hypercholesterolemia Skin tag Snoring Surgical History History of eye surgery History of laparoscopic cholecystectomy Hx of colonoscopy S/P total abdominal hysterectomy Family History Father Cancer Mother Stroke Diabetes Hypertension CVD (cardiovascular disease) Sister Cancer Paternal Uncle Cancer Maternal Aunt Cancer Brother CVD (cardiovascular disease) Social History Housing: House Alcohol intake: never Patient Tobacco Use Status: Never used Tobacco e-Cigarette/Vaping Use: Never Used Second Hand Smoke Exposure: Yes service: No Current occupational status: disabled Cognitive needs: No Hearing needs: No Vision needs: Yes Questionnaire Thrive Questionnaire Date Thrive assessed: 01/18/23 MARISOL-7 AMB Questionnaire MARISOL-7 Date MARISOL - 7 assessed: 10/05/22 Source: Developed by Drs. Jay Jay Betancourt, Phylicia Bone, Du Rendon and colleagues, with an educational eris from [employer]. Review of Systems Const All systems reviewed & are unremarkable except as noted in HPI and below Eyes Reports no additional complaints, Denies change in vision and Denies other visual disturbances ENT Reports neck pain Card Denies chest pain at rest, Denies chest pain with activity, Denies edema, Denies irregular heart rhythm, Denies claudication, Denies dyspnea, Denies dyspnea on exertion, Denies orthopnea, Denies paroxysmal nocturnal dyspnea and Denies slow heart rate Resp Denies cough, Denies dyspnea and Denies dyspnea on exertion GI Denies abdominal pain, Denies change in bowel habits, Denies excessive flatus, Denies nausea and Denies vomiting Denies urinary incontinence, Denies urinary hesitancy and Denies urinary urgency Musc Reports abnormal gait, Denies atrophy, Denies deformity, Reports arthralgias, Reports limited range of motion and Reports neck pain Skin/Breast Denies bleeding lesions, Denies changing lesions and Denies rash Neuro Reports abnormal gait and Denies lack of coordination Physical exam (Primary Care) Vital Signs: Last Vital Signs BP 138/70 01/31/23 10:49 BMI result Body Mass Index 37.2 Tobacco/Smoking Status: Tobacco use Status Tobacco use date assessed 01/11/23 01/31/23 10:55 Patient Tobacco Use Status Never used Tobacco 01/31/23 10:55 e-Cigarette/Vaping Use Never Used 01/31/23 10:55 Thrive Assessment: Date of Thrive Assessment Date Thrive assessed 01/18/23 01/31/23 10:55 Const Limitations: ambulation with walker Eyes General: appearance normal, both eyes and all related structures Eyelids: Yes eyelids normal Conjunctivae: conjunctivae normal Neck Other: Limited lateral neck movements Resp Effort & Inspection: normal respiratory effort Auscultation: clear to auscultation bilaterally Cardio Jugular venous distension: no JVD Rate: regular rate Rhythm: regular rhythm Heart sounds: S1 normal heart sound present and S2 normal heart sound present Extrem Other: Limited right foot flexion/extension Assessment and Plan Assessment & Plan (1) Diabetes mellitus: Code(s): E11.9 - Type 2 diabetes mellitus without complications Qualifiers: Diabetes mellitus type: type 2 Diabetes mellitus assisted insulin use: without terminal makeup operator use Diabetes mellitus complication status: without complication Qualified Code(s): E11.9 - Type 2 diabetes mellitus without complications Plan: Continue Tradjenta and glipizide. A1c goal is equal or less than 7%. (2) Essential hypertension: Code(s): I10 - Essential (primary) hypertension Plan: Continue amlodipine. Blood pressure goal is equal or less than 130/80. (3) Hypothyroidism: Code(s): E03.9 - Hypothyroidism, unspecified Qualifiers: Hypothyroidism type: unspecified Qualified Code(s): E03.9 - Hypothyroidism, unspecified Plan: Continue levothyroxine. Monitor TSH. (4) Pure hypercholesterolemia: Code(s): E78.00 - Pure hypercholesterolemia, unspecified Plan: Continue Zetia. LDL goal is less than 70. Orders: Orders XR cervical spine 3V Today M54.2 - Cervicalgia Lipid Panel Today E78.5 - Hyperlipidemia, unspecified Microalbumin, Random (w Creat) Today E11.9 - Type 2 diabetes mellitus without complications Vitamin D 25-OH Total Today E55.9 - Vitamin D deficiency, unspecified Vitamin B12 and Folate Today E53.8 - Deficiency of other specified B group vitamins Thyroid Stimulating Hormone Today E03.9 - Hypothyroidism, unspecified Comprehensive Abernathy. Panel Fast Today E78.00 - Pure hypercholesterolemia, unspecified T Spot TB Today Z11.1 - Encounter for screening for respiratory tuberculosis Complete Blood Count Auto Diff Today E66.09 - Other obesity due to excess calories, Z68.35 - Body mass index [BMI] 35.0-35.9, adult Varicella IgG Antibody Today Z23 - Encounter for immunization Mumps Virus IgG Antibody Today Z23 - Encounter for immunization Rubella IgG Antibody Today Z23 - Encounter for immunization Rubeola IgG (Measles) Today Z23 - Encounter for immunization Medications: New [cervical collar] As directed 1 ea 0RF M54.2 - Cervicalgia Coding Level of Care Code Est Pt Level 4 (98119) Diagnoses Diabetes mellitus E11.9 Diabetes mellitus type: type 2 Diabetes mellitus terminal makeup operator insulin use: without terminal makeup operator use Diabetes mellitus complication status: without complication Essential hypertension I10 Hypothyroidism E03.9 Hypothyroidism type: unspecified Pure hypercholesterolemia E78.00 Time Spent (min) 23
== END 2023-01-31 11:18 | disposition home or self-care (01) ==
PROVIDERS: PCP Internal Medicine; Visit Provider Internal Medicine
DX: E11.9 Type 2 diabetes mellitus without complications (principal); I10 Essential (primary) hypertension; E03.9 Hypothyroidism, unspecified; E78.00 Pure hypercholesterolemia, unspecified
CPT/HCPCS: 99214

== ENCOUNTER 2023-01-31 11:16 | Outpatient (REF) | payer OTHER, MEDICAID, SELFPAY ==
--- NOTE | ~2023-01-31 | XR_ITS ---
EXAMINATION: XR CERVICAL SPINE CLINICAL INFORMATION: Cervicalgia COMPARISON: None available. TECHNIQUE: 3 views of the cervical spine were obtained. FINDINGS: Vertebral body heights are preserved. There is moderate to severe degenerative disc disease at C5-C6 with 2 mm of retrolisthesis of C5 on C6. There is facet arthropathy bony spurring at C4-C5 and C5-C6. Prevertebral soft tissues are unremarkable. Lateral masses are symmetric. Dental hardware. XR/XR cervical spine 3V IMPRESSION: Moderate to severe degenerative disc disease at C5-C6 with 2 mm of retrolisthesis of C5 on C6.
== END 2023-01-31 11:17 | disposition home or self-care (01) ==
LOC: HO.XRAY 11:16
PROVIDERS: PCP Internal Medicine; Visit Provider Internal Medicine
DX: M54.2 Cervicalgia (principal)
CPT/HCPCS: 72040

== ENCOUNTER 2023-02-10 11:16 | Outpatient (AMB) | payer OTHER, SELFPAY ==
--- NOTE | 2023-02-10 11:18 | MHC.OFFVIS ---
Intake Intake Visit Reasons: New Prob - Pain in elbow after falling Intake Note: Jamilah is a 72 year old right hand dominant female who presents today for a new problem visit with complaints of left elbow pain. Patient reports that she tripped over a rug on 12/27/22 and fell. She was seen at [facility] the day after injury where she was instructed to take OTC medication for pain control .Today she reports mild discomfort of the elbow. Denies numbness and tingling. Allergies MARIA ESTHER Inhibitors Adverse Reaction (Intermediate, Verified 01/31/23 10:58) cough ARB-Angiotensin Receptor Antagonist Adverse Reaction (Intermediate, Verified 01/31/23 10:58) Cough HPI New Prob - Pain in elbow after falling HPI Details Jamilah is a 72 year old woman who presents with complaints of ~6 weeks of left elbow pain, after a fall on 12/27/22. She says this pain is improving but she is still somewhat limited in her motion. Her primary complaint today is actually of her left knee OA pain. She has pain with daily activity, which has worsened in the last few weeks. She was last injected on 10/06/22, which gave her good relief. She would like a repeat injection today [facility] Medical History Chronic pain in right foot Diabetes mellitus Essential hypertension Gait disorder Hypersomnia Hypothyroidism Muscle cramps Obesity Polyarthralgia Post-menopausal Pure hypercholesterolemia Skin tag Snoring Surgical History History of eye surgery History of laparoscopic cholecystectomy Hx of colonoscopy S/P total abdominal hysterectomy Family History Father Cancer Mother Stroke Diabetes Hypertension CVD (cardiovascular disease) Sister Cancer Paternal Uncle Cancer Maternal Aunt Cancer Brother CVD (cardiovascular disease) Social History Housing: House Alcohol intake: never Patient Tobacco Use Status: Never used Tobacco e-Cigarette/Vaping Use: Never Used Second Hand Smoke Exposure: Yes service: No Current occupational status: disabled Cognitive needs: No Hearing needs: No Vision needs: Yes Review of Systems Const All systems reviewed & are unremarkable except as noted in HPI and below Physical Exam Const General: no acute distress and alert Orientation/consciousness: patient oriented x3 Neuro General: patient oriented x3 Extrem Other: Left Knee: TTP medial joint line Mild effusion Psych Appearance: grossly normal Affect: normal affect Attitude: cooperative Office Procedures Joint Injection/Drain Joint Injection/Drain Details: Injected 1 mL of Decadron and 3 mL 1% lidocaine and 3 mL of 0.25% Marcaine. Site was prepped using aseptic technique. Patient tolerated the procedure well. Primary Site: left knee Approach Used: anterolateral Coding 55063 - Large joint Procedure code (CPT) selection complete Results Reviewed Results Reviewed: 02/10/23 11:54 Lidocaine HCl 1 % [Xylocaine 1 %] 2 ml .ROUTE .STK-MED ONE 02/10/23 11:55 dexAMETHasone sod phosphate [Decadron] 4 mg .ROUTE .STK-MED ONE 02/10/23 12:00 Lidocaine HCl 2 % MPF [Xylocaine 2 % MPF] 5 ml .ROUTE .STK-MED ONE dexAMETHasone sod phosphate [Decadron] 4 mg .ROUTE .STK-MED ONE Assessment & Plan Assessment & Plan (1) Osteoarthritis of left knee: Code(s): M17.12 - Unilateral primary osteoarthritis, left knee Plan: Jamilah is a 71 year old woman with severe left knee OA. She has pain with daily activity, worse with prolonged ambulation or using stairs, and she ambulates with an assistive cane. She was last injected on 10/06/22, with good relief. I injected her left knee today, which she tolerated well. She can follow up prn, at least 4 months for a repeat injection. (2) Diabetes mellitus: Code(s): E11.9 - Type 2 diabetes mellitus without complications Qualifiers: Diabetes mellitus complication status: without complication Diabetes mellitus group home insulin use: without group home use Diabetes mellitus type: type 2 Qualified Code(s): E11.9 - Type 2 diabetes mellitus without complications Plan: I discussed the hyperglycemic effects of steroid injections. (3) Left elbow pain: Code(s): M25.522 - Pain in left elbow Plan: Improving left elbow pain, S/P fall, DOI: 12/27/22. No acute intervention warranted. Plan Scribed for Huey Lyles MD by Torey Bowers medical physics teacher, on 02/10/23 at 12:00 PM, EST. Coding Level of Care Code Est Pt Level 3 (76883) Diagnoses Osteoarthritis of left knee M17.12 Diabetes mellitus E11.9 Diabetes mellitus complication status: without complication Diabetes mellitus manager terminal insulin use: without group home use Diabetes mellitus type: type 2 Left elbow pain M25.522 CPT Codes Coding - 66939 Large joint: 94381 - Large joint ([id number])
== END 2023-02-10 12:24 | disposition home or self-care (01) ==
PROVIDERS: PCP Internal Medicine; Visit Provider Orthopaedic Surgery
DX: M25.522 Pain in left elbow (principal); M17.12 Unilateral primary osteoarthritis, left knee
CPT/HCPCS: 20610; 99213

== ENCOUNTER → 2023-02-10 11:16 | Outpatient (BNVA) | payer OTHER, MEDICAID, SELFPAY | PROVIDERS: PCP Internal Medicine; Visit Provider Orthopaedic Surgery | DX: M17.12 Unilateral primary osteoarthritis, left knee (principal); M25.522 Pain in left elbow; E11.9 Type 2 diabetes mellitus without complications | CPT/HCPCS: 20610; J1100 ==

== ENCOUNTER 2023-02-21 10:48 | Outpatient (REF) | payer OTHER, MEDICAID, SELFPAY ==
--- NOTE | ~2023-02-21 | MM_ITS ---
EXAMINATION: MM SCREENING DIGITAL BREAST TOMOSYNTHESIS, BILATERAL CLINICAL INFORMATION: Screening. Asymptomatic. The lifetime risk of breast cancer based on the Tyrer-Cuzick Model is 4.7%. COMPARISON: Mammography: This study is compared with prior exams dating back to 2018. TECHNIQUE: Digital breast tomosynthesis is performed in both the craniocaudal and mediolateral oblique views along with computer-aided detection (CAD). Synthesized 2D images are generated from the tomosynthesis. FINDINGS: There are scattered areas of fibroglandular density (ACR BI-RADS breast composition Category b). There are no significant masses, abnormal calcifications, or other abnormalities. MM/MM tomosynthesis screening BI IMPRESSION: No mammographic evidence of malignancy. ASSESSMENT: BI-RADS BI-RADS 1 - Negative RECOMMENDATION: Routine annual mammography screening. 1 year F/U This examination should not preclude the clinical evaluation of a suspicious palpable abnormality. This patient's information was entered into a reminder system with a target due date for their next mammogram.
== END 2023-02-21 10:49 | disposition home or self-care (01) ==
LOC: HO.MAMMO 10:48
PROVIDERS: PCP Internal Medicine; Visit Provider Nurse Practitioner Family
DX: Z12.31 Encounter for screening mammogram for malignant neoplasm of breast (principal)
CPT/HCPCS: 77063; 77067

== ENCOUNTER → 2023-02-21 11:00 | Outpatient (BNV) | payer OTHER, MEDICAID, SELFPAY | PROVIDERS: PCP Internal Medicine; Visit Provider Radiology Diagnostic Radiology | DX: Z12.31 Encounter for screening mammogram for malignant neoplasm of breast (principal) | CPT/HCPCS: 77063; 77067 ==

== ENCOUNTER 2023-02-23 10:06 | Outpatient (AMB) | payer OTHER, SELFPAY ==
[2023-02-23 10:11] VITALS: BP 140/72; PULSE 89; TEMP 36.2; O2SAT 98; BMI 39.0
--- NOTE | 2023-02-23 10:11 | A.OFFVIS_ITS ---
Intake Vital Signs 02/23/23 10:11 Height 5 ft Weight 199 lb 8.293 oz BMI 39.0 BP 140/72 H Blood Pressure Location Lt brachial Position Sitting Pulse 89 Pulse Source Pulse Oximeter Temp 97.2 F Temp Source Skin Pulse Oximetry (%) 98 Intake Visit Reasons: OA Intake Note: Pt seen today for follow up. C/o neck pain and stiffness. She is requesting an injection or referral to acupuncture. Product Operations Associate Required: No Accompanied by: Self / Same As Patient Allergies MARIA ESTHER Inhibitors Adverse Reaction (Intermediate, Verified 02/23/23 10:17) cough ARB-Angiotensin Receptor Antagonist Adverse Reaction (Intermediate, Verified 02/23/23 10:17) Cough HPI HPI Comments History of Present Illness Details The patient presents for evaluation of her multiple areas of pain. She was seen in Rheumatology before for symptoms of osteoarthritis in the hands. Other areas of pain currently include the neck, right shoulder, lower back, knees, and feet. She says she has a neuropathy and that she says accounts for the foot pain. She had fall a few weeks ago and injured the left elbow. For that problem she was seen in Orthopedics. There was a question of a fracture. She says it is improving somewhat. She does take gabapentin but only uses it at night. She had some help in the past with diclofenac gel but ran out of the prescription. She does have some ibuprofen at home. Prior to that she was put on a week of meloxicam although did not think it worked any better. She is working with the social media project manager to get her more help at home. [facility] Medical History (Updated 02/23/23 @ 13:44 by Lencho Grissom MD) Chronic pain in right foot Diabetes mellitus Essential hypertension Gait disorder Hypersomnia Hypothyroidism Muscle cramps Obesity Polyarthralgia Post-menopausal Pure hypercholesterolemia Skin tag Snoring Surgical History History of eye surgery History of laparoscopic cholecystectomy Hx of colonoscopy S/P total abdominal hysterectomy Family History Father Cancer Mother Stroke Diabetes Hypertension CVD (cardiovascular disease) Sister Cancer Paternal Uncle Cancer Maternal Aunt Cancer Brother CVD (cardiovascular disease) Social History (Reviewed 02/23/23 @ 10:23 by Rachel Freeman CCMAnAdrew Housing: House Alcohol intake: never Patient Tobacco Use Status: Never used Tobacco e-Cigarette/Vaping Use: Never Used Second Hand Smoke Exposure: Yes service: No Current occupational status: disabled Cognitive needs: No Hearing needs: No Vision needs: Yes Review of Systems Const Details: Low energy. Negative for appetite change, weight change, fever, chills, malaise Eyes Details: Negative for vision change, dry eyes,headaches and dizziness Skin/Breast Details: Negative for itching, rash, hives, Raynaud's symptoms, sun sensitivity, and skin cancer Neuro Details: Some numbness in the feet attributed to neuropathy. Negative for epilepsy, palsy, stroke, changes in speech and weakness Psych Details: Some degree of stress taking care of herself because of her multiple areas of pain. Social workers working on getting her some assistance. Endo Details: Negative for polyuria and polydypsia George/Lymph Details: Negative for excessive bruising or bleeding. Physical Exam Vital Signs: Last Vital Signs Temp 97.2 F 02/23/23 10:11 Pulse 89 02/23/23 10:11 BP 140/72 H 02/23/23 10:11 Pulse Ox 98 02/23/23 10:11 BMI result Body Mass Index 39.0 APPEARANCE: Patient in no acute distress EYES no redness, pupils equal and reactive to light, eyelids normal. No temporal artery tenderness, redness or swelling. EXTREMITIES: No edema, no calf tenderness, normal peripheral pulses. NEURO: Oriented and alert x3. No focal weakness. Reflexes symmetric. Gait normal. SKIN: No inflammatory or neoplastic lesions. Normal color and turgor JOINT EXAM: ?? Cervical Spine: Mild pain with lateral flexion at 10 degrees or rotation at 30 degrees. There is some cervical muscle tenderness. Thoracic Spine: No scoliosis.? No tenderness on palpation. Lumbar Spine: Alignment normal.? Lumbar pain with flexion at 60 degrees. Some paraspinal muscle tenderness. Hands:? Left: Normal pain-free range of motion.? No swelling or tenderness in the MCPs. Mild bony enlargement at all the PIP joints but none are tender. There is more marked bony enlargement at the PIP joints. The 3rd and 4th have some slight redness at the nailbed but no fluctuance or drainage. There is no sensory loss or thenar atrophy. ? Right: Normal pain free range of motion.? MCPs have no swelling or tenderness. There is bony enlargement at all the PIP joints. They are all slightly tender. There is more prominent bony enlargement and tenderness at the D IP joints. There is no flexor tendon triggering, redness or warmth. No thenar atrophy or sensory loss. Wrists: Normal pain-free range of motion without tenderness, swelling, increased warmth or erythema. Elbows: Left: She can flex to 90 degrees and it is painful. Attempts at extension or painful. She lacks about 40 degrees of full extension. There is mild tenderness over the lateral epicondyle, medial epicondyle, and the joint space. No redness or swelling. Right: Normal pain-free range of motion without tenderness, swelling, increased warmth or erythema. Shoulders:? Left: There is slight discomfort with extremes of normal range of motion. Most of this comfort however is felt that the left elbow. Right:? Full range of motion without pain. No tenderness, weakness, swelling, increased warmth or erythema. Hips: Full range of motion without pain. Hip bursa: No tenderness. Knees:? Left:??Pain with more than 30 degrees flexion or extension. There is moderate medial and mild lateral tenderness. There is no redness or effusion. There is some mild patellofemoral crepitus. ? Right:? Mild discomfort with extremes of normal flexion extension with some mild medial tenderness but no effusion, redness or warmth. There is some mild patellofemoral crepitation. Ankles: Normal pain-free range of motion without tenderness, swelling, increased warmth or erythema. Feet:? Normal pain-free range of motion without tenderness, swelling, increased warmth or erythema. Tender points: Positive in the cervical area, anterior chest, elbows, hips and knees. Results Reviewed Results Reviewed: [address] [address] XRay Report Signed Patient: Jamilah Amos MR#: [id number] : 1950 Acct:[id number] Age/Sex: 72 / F ADM Date: 01/31/[address]: Shannan Alexander MD Ordering Physician: Shannan Figueroa MD Date of Service: 01/31/23 Procedure(s): XR cervical spine 3V Accession Number(s): [id number] cc: Shannan Figueroa MD~ EXAMINATION: XR CERVICAL SPINE CLINICAL INFORMATION: Cervicalgia COMPARISON: None available. TECHNIQUE: 3 views of the cervical spine were obtained. FINDINGS: Vertebral body heights are preserved. There is moderate to severe degenerative disc disease at C5-C6 with 2 mm of retrolisthesis of C5 on C6. There is facet arthropathy bony spurring at C4-C5 and C5-C6. Prevertebral soft tissues are unremarkable. Lateral masses are symmetric. Dental hardware. XR/XR cervical spine 3V IMPRESSION: Moderate to severe degenerative disc disease at C5-C6 with 2 mm of retrolisthesis of C5 on C6. ?Dictated By: Jay Jay Prado MD [place] [address] XRay Report Signed Patient: Jamilah Amos MR#: [id number] : 1950 Acct:[id number] Age/Sex: 72 / F ADM Date: 12/28/22 Ordering Physician: Ludivina Andre Date of Service: 12/28/22 Procedure(s): XR elbow LT min 3V Accession Number(s): [id number] cc: Ludivina Andre~ EXAMINATION: XR ELBOW, LEFT CLINICAL INFORMATION: Left elbow pain after falling? COMPARISON: None available.? TECHNIQUE: AP, lateral, and oblique views of the left elbow. FINDINGS: There is joint space narrowing at the left elbow joint. There is a double density appreciated adjacent to the lateral aspect of the radial head which could be related to spurring or chip fracture. Clinical correlation would be recommended. There is ventral spurring of the left radial head on the lateral view. The distal humerus appears to be intact.? XR/XR elbow LT min 3V IMPRESSION: 1.? Double density adjacent to the lateral aspect of the radial head could be related to spurring or chip fracture. ? 2.? Degenerative changes. ? Dictated By: Samuel Olivera [address] [address] XRay Report Signed Patient: Jamilah Amos MR#: [id number] : 1950 Acct:[id number] Age/Sex: 72 / F ADM Date: 12/28/22 Loc: HO.ED Ordering Physician: David Dutton MD Date of Service: 12/28/22 Procedure(s): XR hand LT 2V Accession Number(s): [id number] cc: David Dutton MD~ EXAMINATION: XR HAND, RIGHT XR HAND, LEFT CLINICAL INFORMATION: Fall, trauma, bilateral pain.? COMPARISON: Radiographs bilateral hands 12/02/2020.? TECHNIQUE: Each hand is imaged in 3 views. There are a total of 6 views.? FINDINGS: Right: There is no acute or healing fracture, dislocation, destructive process. The ulnar variance is neutral. There are degenerative changes lateral carpus with narrowing and mild subchondral sclerosis triscaphe joint and first carpometacarpal joint. No chondrocalcinosis. No erosive change. There is mild narrowing second MCP joint. Variable narrowing/degenerative changes present involving the interphalangeal joints and PIP joints. Again, there are osteoarthritic changes DIP joints of the third and fourth fingers with central erosions suggesting erosive osteoarthropathy. Left: There is no acute or healing fracture, dislocation, destructive process. The ulnar variance is neutral. There are degenerative changes lateral carpus with narrowing and mild subchondral sclerosis triscaphe joint and first carpometacarpal joint. Fine chondrocalcinosis is present on the medial side of the proximal carpal row in region of the lunotriquetral ligament and possibly involving the triangular fibrocartilage. No erosive change. There are osteoarthritic changes interphalangeal joints of the fingers, slightly increased since prior imaging 2020. No erosive changes. XR/XR hand LT 2V IMPRESSION: - No acute or healing fracture, dislocation, destructive process. - Bilateral degenerative changes lateral carpus and interphalangeal joints. - Joint narrowing right second MCP. 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 ? Dictated By: Shorty Shin MD Assessment & Plan Assessment & Plan (1) Cervical osteoarthritis: Code(s): M47.812 - Spondylosis without myelopathy or radiculopathy, cervical region (2) Osteoarthritis of left elbow: Code(s): M19.022 - Primary osteoarthritis, left elbow (3) Bilateral primary osteoarthritis of knee: Code(s): M17.0 - Bilateral primary osteoarthritis of knee (4) Osteoarthritis of hands, bilateral: Code(s): M19.041 - Primary osteoarthritis, right hand; M19.042 - Primary osteoarthritis, left hand Plan The patient has many areas of pain. I do not really see signs of an active in flammatory arthritis. Radiographs have documented osteoarthritis in the left elbow, lower back, neck, and knees and the hands. Treatment options are limited because of her age and prior history of GI issues. She is already on some lidocaine patches and takes occasional ibuprofen. We will add some topical diclofenac twice a day if needed. She has many tender points today suggesting some underlying concomitant fibromyalgia. It sounds like social work and primary care working on improving her supports in the home and that seems appropriate. She will follow-up with the primary care team as I do not think Rheumatology as much to offer here. Medications: Refilled diclofenac sodium 1% (Voltaren Arthritis Pain) 4 grams topical QID PRN 100 grams 4RF pain M19.041 - Primary osteoarthritis, right hand, M19.042 - Primary osteoarthritis, left hand Discontinued meloxicam Discontinued Reason: Patient Completed Course 15 mg PO DAILY 7 days 7 tabs 0RF Coding Level of Care Code Est Pt Level 3 (86563) Diagnoses Cervical osteoarthritis M47.812 Osteoarthritis of left elbow M19.022 Bilateral primary osteoarthritis of knee M17.0 Osteoarthritis of hands, bilateral M19.041; M19.042
== END 2023-02-23 10:47 | disposition home or self-care (01) ==
PROVIDERS: PCP Internal Medicine; Visit Provider Internal Medicine Rheumatology
DX: M47.812 Spondylosis without myelopathy or radiculopathy, cervical region (principal); M19.022 Primary osteoarthritis, left elbow; M17.0 Bilateral primary osteoarthritis of knee; M19.041 Primary osteoarthritis, right hand; M19.042 Primary osteoarthritis, left hand
CPT/HCPCS: 99213

== ENCOUNTER → 2023-02-23 10:06 | Outpatient (BNVA) | payer OTHER, SELFPAY | PROVIDERS: PCP Internal Medicine; Visit Provider Internal Medicine Rheumatology ==

== ENCOUNTER 2023-03-16 10:00 | Outpatient (RCR) | payer OTHER, MEDICAID, SELFPAY ==
--- NOTE | 2023-02-07 07:45 | MHC.PT.EP ---
[facility] [place] Office [place] Office [place] [facility] [address] Johan Ho [address] [phone] F: [phone] F: [phone] F: [phone] F: [phone] Physical Therapy Plan of Care Date of Evaluation: Date of Surgery: NA Diagnosis: CERVICALGIA (KP) Assessment: MICHAEL IS A PLEASANT 72 YO FEMAELE WHO REPORTS SHE FELL DOWN ABOUT 2 MONTHS AGO WHICH WORSENED PRE-EXISTING NECK PAIN. APPARENTLY, SHE SLIPPED ON A RUG AND FELL FORWARD HURTING HANDS, ARMS, NECK AND MOUTH. BROUGHT IN TO ED BY DTR. TREATED AND RELEASED. SHE REPORTS PAIN IS LIKE A FIRE IN NATURE. REPORTS SOME RIGHT SIDED ANTERIOR SHOUDER PAIN AND WORSENSING PAIN AT NIGHT WHICH WAKES HER. REPORTS MS RELAXER DOES OFFER SOME RELIEF WELL ICE. PAIN WORSENS WITH ACTIVITY AND PREVENTS HER FROM PERFORMING HIGHER LEVEL HOMEMAKING AND SELF CARE TASKS. UPON EXAM SHE PRESENTS WITH IMPAIRMENTS INCLUDING DECREASED CERVICAL AND UE ROM, DECREASED STRENGTH, ALTERED POSTURE, INCREASED TISSUE TENSION AND PAIN. FUNCTIONAL LIMITATIONS INCLUDE DECREASED ABILITY TO PERFORM HOMEMAKING AND SELF CARE TASKS, DECREASED ABILITY TO PERFORM LIFTING, CARRYING, PUSHING AND PULLING, SHE REPORTS DECREASED PARTICIPATION IN COMMUNITY AND RECREATIONAL ACTIVITIES, DISRUPTED SLEEP. Frequency and Duration: The patient will be seen 2 X WEEK FOR 4 WEEKS Short Term Goals: INITIATE HEP AND PROMOTE SELF MANAGEMENT OF SYMPTOMS [facility] Goals: Pt WILL DEMONSTRATE FULL, PAIN FREE CERVICAL AND SHOULDER ROM Pt WILL DEMONSTRATE 5/5 UE STRENGTH EQUAL ANDREZ INDEPENDENT HEP TO PERFORM HOMEMAKING TASKS WITHOUT RESTRICTION AND PAIN NO GREATER THAN 2/10 Treatment Plan: Modalities to reduce pain, spasms and effusion. Manual therapy to restore motion and function. Therapeutic exercise to improve strength and flexibility. Neuromuscular re-education for posture and balance. Therapeutic activities to return to functional activities of daily living. Electronically signed by: LYLE THAKKAR PT DPT Please sign and return to therapist. Thank you for your referral.
== END 2023-04-21 10:42 | disposition home or self-care (01) ==
LOC: HO.PT 10:00
PROVIDERS: PCP Internal Medicine; Visit Provider Nurse Practitioner Family
DX: M54.2 Cervicalgia (principal)
CPT/HCPCS: 97035; 97110; 97140; 97162

== ENCOUNTER 2023-03-23 08:11 | Outpatient (AMB) | payer OTHER, MEDICAID, SELFPAY ==
[2023-03-23 08:30] VITALS: BP 140/72; PULSE 80; O2SAT 97; BMI 38.9
--- NOTE | 2023-03-23 08:30 | A.OFFPC_ITS ---
Vital Signs 03/23/23 08:30 Height 5 ft Weight 199 lb BMI 38.9 BP 140/72 H Blood Pressure Location Lt brachial Position Sitting Pulse 80 Pulse Source Pulse Oximeter Temp Source Skin Pulse Oximetry (%) 97 Oxygen Delivery Method Room Air Intake Visit Reasons: nails broken on both hands with pain, hot Intake Note: pt states bilateral nail infection X3-4weeks with fever Medical Biller Coder Required: Yes Medical Biller Coder Language: Faroese Allergies MARIA ESTHER Inhibitors Adverse Reaction (Intermediate, Verified 03/23/23 08:43) cough ARB-Angiotensin Receptor Antagonist Adverse Reaction (Intermediate, Verified 03/23/23 08:43) Cough Medication List - Last Reconciled 03/23/23 by BONNIE Barnes acetaminophen ER (Tylenol Arthritis Pain) 650 mg PO Q8H PRN amlodipine 10 mg PO DAILY 90 days blood sugar diagnostic (FreeStyle Test strips) Take 1 test strip once a day blood-glucose meter (BrandkidsStyle Fancy Farm Lite kit) As directed [cervical collar As directed] diclofenac sodium 1% (Voltaren Arthritis Pain) 4 grams topical QID PRN ezetimibe 10 mg PO DAILY 90 days gabapentin 600 mg PO TID 30 days glipizide ER 5 mg PO DAILY 90 days ibuprofen 800 mg PO BID PRN lancets (FreeStyle Lancets) Use 1 lancet once a day levothyroxine 100 mcg PO DAILY 90 days lidocaine 4% (Aspercreme (lidocaine)) 1 patch topical BEDTIME PRN linagliptin 5 mg PO DAILY 90 days loratadine 10 mg PO DAILY 90 days sucralfate (Carafate) 1 g PO BID 30 days walker As directed walker (Ultra-Light Rollator [facility]) As directed Tobacco use date assessed: 03/23/23 Fall risk assessment: 1 Fall in past year Last assessed Fall Risk: 03/23/23 HPI nails broken on both hands with pain, hot HPI Details Patient is a 72-year-old female who presents today with broken, pa inful, and form nails for the past 4 weeks. She reports fever last week. Patient of Dr. Nguyen. Medical history significant for diabetes, hypertension, hypothyroidism among others. Patient reports that she did have a fall 12/2022 and she hurt her fingers, she went to ED for this. Patient reports last week she did have yellow discharge from her nails, reports redness around nails. No shortness of breath or chest pain. Denies fever or chills today. PFSH Medical History Chronic pain in right foot Diabetes mellitus Essential hypertension Gait disorder Hypersomnia Hypothyroidism Muscle cramps Obesity Polyarthralgia Post-menopausal Pure hypercholesterolemia Skin tag Snoring Surgical History History of eye surgery History of laparoscopic cholecystectomy Hx of colonoscopy S/P total abdominal hysterectomy Family History Father Cancer Mother Stroke Diabetes Hypertension CVD (cardiovascular disease) Sister Cancer Paternal Uncle Cancer Maternal Aunt Cancer Brother CVD (cardiovascular disease) Social History Housing: House Alcohol intake: never Patient Tobacco Use Status: Never used Tobacco e-Cigarette/Vaping Use: Never Used Second Hand Smoke Exposure: Yes service: No Current occupational status: disabled Cognitive needs: No Hearing needs: No Vision needs: Yes Questionnaire Thrive Questionnaire Date Thrive assessed: 01/18/23 AUDIT C Alcohol Use Questionnaire (AUDIT-C) 1. How often do you have a drink containing alcohol?: Never 3. How often do you have six or more drinks on one occasion?: Never Total Score: 0 Score Reviewed/Action Taken: No MARISOL-7 AMB Questionnaire MARISOL-7 Date MARISOL - 7 assessed: 10/05/22 Source: Developed by Drs. Jay Jay Betancourt, Phylicia Bone, Du Rendon and colleagues, with an educational eris from [employer]. Review of Systems Const Denies body aches, Denies chills, Denies fever(s) and Denies headache(s) Eyes Denies change in vision ENT Denies dizziness, Denies otalgia, Denies headache(s), Denies nasal discharge, Denies sinus pain and Denies sore throat Card Denies chest pain, Denies edema, Denies lightheadedness and Denies dyspnea Resp Denies cough, Denies dyspnea and Denies wheezing GI Denies abdominal pain Denies dysuria Musc Denies myalgias Skin/Breast Reports as per HPI and Denies rash Neuro Denies dizziness and Denies headache(s) Aller/Immun Denies wheezing Physical exam (Primary Care) Vital Signs: Last Vital Signs Pulse 80 03/23/23 08:30 BP 140/72 H 03/23/23 08:30 Pulse Ox 97 03/23/23 08:30 Oxygen Delivery Method Room Air 03/23/23 08:30 BMI result Body Mass Index 38.9 Tobacco/Smoking Status: Tobacco use Status Tobacco use date assessed 03/23/23 03/23/23 08:31 Patient Tobacco Use Status Never used Tobacco 03/23/23 08:31 e-Cigarette/Vaping Use Never Used 03/23/23 08:31 Thrive Assessment: Date of Thrive Assessment Date Thrive assessed 01/18/23 03/23/23 08:31 Const General: cooperative and no acute distress Orientation/consciousness: patient oriented x3 HENMT Head: Yes normocephalic and Yes atraumatic Mouth: moist mucous membranes Throat: Yes posterior oropharynx normal Eyes General: appearance normal, both eyes and all related structures Neck Neck: Yes normal visual inspection, Yes full ROM and Yes no lymphadenopathy Resp Effort & Inspection: normal respiratory effort and able to speak in complete sentences Auscultation: clear to auscultation bilaterally, no crackles, no rales, no rho nchi and no wheezes Cardio Rate: regular rate Rhythm: regular rhythm Heart sounds: S1 normal heart sound present and S2 normal heart sound present GI Auscultation: normal bowel sounds Skin Other: Right hand 2nd and 4th fingers nails with surrounding erythema, tender to touch, mild warmth, proximal nails aspect appear to be broken, no discharge Left hand 3rd finger nail with surrounding erythema, tender to touch, mild warmth, proximal nail aspect appear to be broken, no discharge Neuro General: patient oriented x3 Extrem General: Yes full ROM Assessment and Plan Assessment & Plan (1) Finger infection: Code(s): L08.9 - Local infection of the skin and subcutaneous tissue, unspecified Plan: Right hand 2nd and 4th fingers nails with surrounding erythema, tender to touch, mild warmth, proximal nails aspect appear to be broken, no discharge Left hand 3rd finger nail with surrounding erythema, tender to touch, mild warmth, proximal nail aspect appear to be broken, no discharge Will treat with cephalexin b.i.d. for 7 days and mupirocin ointment b.i.d. for 7 days - apply mupirocin ointment around nail on erythematous areas. Dermatology referral for an evaluation and treatment. Patient is to follow-up in the office if no improvement after finishing treatment. Patient agreed with the plan. Orders: Referrals Dermatology Referral L08.9 - Local infection of the skin and subcutaneous tissue, unspecified Medications: New cephalexin 500 mg PO Q12H 7 days 14 tabs 0RF L08.9 - Local infection of the skin and subcutaneous tissue, unspecified mupirocin 2% 1 appl topical BID 7 days 15 grams 0RF L08.9 - Local infection of the skin and subcutaneous tissue, unspecified Refilled blood sugar diagnostic (FreeStyle Test strips) Take 1 test strip once a day 50 ea 11RF blood-glucose meter (FreeStyle Fancy Farm Lite kit) As directed 1 ea 0RF Coding Level of Care Code Est Pt Level 3 (05197) Diagnoses Finger infection L08.9
== END 2023-03-23 09:08 | disposition home or self-care (01) ==
PROVIDERS: PCP Internal Medicine; Visit Provider Nurse Practitioner Family
DX: L08.9 Local infection of the skin and subcutaneous tissue, unspecified (principal)
CPT/HCPCS: 99213

== ENCOUNTER 2023-03-28 10:56 | Outpatient (AMB) | payer OTHER, MEDICAID, SELFPAY ==
--- NOTE | 2023-03-28 10:58 | A.OFFVIS_ITS ---
Intake Vital Signs 03/28/23 11:04 Height 5 ft Weight 192 lb 3 oz BMI 37.5 BP 162/85 H Blood Pressure Location Rt brachial Position Sitting Pulse 81 Pulse Source Pulse Oximeter Pulse Oximetry (%) 98 Oxygen Delivery Method Room Air Intake Visit Reasons: CERVICAL OSTEOARTHRITIS Intake Note: Pain today 03/02 Warp Drawer Required: No Accompanied by: Self / Same As Patient Allergies MARIA ESTHER Inhibitors Adverse Reaction (Intermediate, Verified 03/28/23 11:04) cough ARB-Angiotensin Receptor Antagonist Adverse Reaction (Intermediate, Verified 03/28/23 11:04) Cough HPI HPI Comments History of Present Illness Details Patient is a pleasant 72 years old female presents today for neck pain related to arthritis. She was initially seen by Dr. Bueno in August 2022. Patient denies any right foot pain today. Reports mechanical fall on 12/27/22 when she tripped over a rug and fell forward landing on to her bilateral arms. Patient reports that hit her head and injured her lower arms, left worse than right, but denies LOC. Her neck pain is easily reproduced with limited right sided neck movements, bending and extension. Reports significant muscle spasms with stiffness in her neck and shoulders, worse on the right side. She recently completed physical therapy for her back and currently in PT for upper back and neck pain. Patient notes some relief during PT sessions but not at home with HEP and continues to be in significant pain. Patient reports she cannot lay flat in her bed and therefore has been sleeping in her recliner since the fall in December. She tries to manage her symptoms with diclofenac gel, heat and ice therapy, Tylenol, Ibuprofen, turmeric supplements and has tried baclofen and tizanidine without any significant improvement in her pain or function. Patient is diabetic with most recent A1C=6.4 on 01/18/23. She is not on anticoagulation. Denies any fever, rash, swelling, chest pain, shortness of breaths, headaches, vision changes, gait disturbances, bladder or bowel dysfunction or saddle anesthesia. Reports right upper extremity weakness with paresthesias upper and lower arm and 4th and 5th fingers on the right. Denies previous spine injections or surgery. Most recent cervical xray imaging noted for moderate to severe degenerative disc disease at C5-C6 with 2 mm of retrolisthesis of C5 on C6. PRIOR 08/24/22 Dr. Bueno: Jamilah is very pleasant 71 years old female who presents in my office with complains on pain in the right foot with radiation into high anterior surface of the she in and even further up to the area of the knee and anterior surface of the thigh.? She reported that this pain started 2 months ago without inciting events.? 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 She is currently away saving steroid injections in to the area of the tendons.? Unfortunately she denies this medications help her pain.? She cannot sleep normally because of her pain she cannot do activities of daily living she cannot take care of herself and she cannot function normally.? She reports that movements aggravates her pain and heat and oral medications alleviate her pain she was trying to take gabapentin 300 mg t.i.d. however somehow her primary care physician decrease the dose of the gabapentin to 100 mg t.i.d..? The patient reported that there were no side effects of gabapentin.? She also reported that NSAIDs are helping her pain.? She was prescribed 800 mg of ibuprofen with moderate to significant pain improvement.? She reports her pain in terms of tissue damage is pulsing, throbbing, pounding, stabbing, lancinating, pinching, cramping, crushing, hot burning, scalding, searing, spreading, radiating, piercing, cold, cool, freezing sensation.? She never had any physical therapy to treat her pain.? She has some images in podiatry office which we will obtain from the office of the felled seam operator.? She is receiving injections of the hydrocortisone and dexamethasone into the right foot. In the past this patient was under care of Dr. Lyles with bilateral knee osteoarthritis.? However currently patient states that this is not her problem at this moment. Her past medical history significant for diabetes unknown hemoglobin A1c.? She denies any other medical problems.? She reports past surgical history of gallbladder removal.? Past social history she denies smoking cigarettes drinking alcohol using recreational drugs.? [facility] Medical History Chronic pain in right foot Diabetes mellitus Essential hypertension Gait disorder Hypersomnia Hypothyroidism Muscle cramps Obesity Polyarthralgia Post-menopausal Pure hypercholesterolemia Skin tag Snoring Surgical History History of eye surgery History of laparoscopic cholecystectomy Hx of colonoscopy S/P total abdominal hysterectomy Family History Father Cancer Mother Stroke Diabetes Hypertension CVD (cardiovascular disease) Sister Cancer Paternal Uncle Cancer Maternal Aunt Cancer Brother CVD (cardiovascular disease) Social History Housing: House Alcohol intake: never Patient Tobacco Use Status: Never used Tobacco e-Cigarette/Vaping Use: Never Used Second Hand Smoke Exposure: Yes service: No Current occupational status: disabled Cognitive needs: No Hearing needs: No Vision needs: Yes Review of Systems Const All systems reviewed & are unremarkable except as noted in HPI and below Physical Exam Vital Signs: Last Vital Signs Pulse 81 03/28/23 11:04 BP 162/85 H 03/28/23 11:04 Pulse Ox 98 03/28/23 11:04 Oxygen Delivery Method Room Air 03/28/23 11:04 BMI result Body Mass Index 37.5 General: Appears afebrile. Alert and oriented. Mood and affect appropriate. Fully engaged with exam. Follows and participates in conversation appropriately. Respiratory effort is unlabored. No cough. Able to transition from sit to stand unassisted. Uses cane with ambulation. Neck Other: Patient with decreased cervical ROM in all planes/especially with right lateral rotation. Reports increased pain with cervical extension. Spurling compression test equivocal. Pain is unchanged by Spurling maneuver with retraction. Elvey's tension test positive on the right, with radiation of pain from neck to wrist and fingers. Lhermitte's test was negative. DTR intact, +1 right, +2 left. Patient demonstrated 4/5 right and 5/5 left motor strength of bilateral upper extremities. 2 + radial pulses. Significant tightness throughout right upper trapezius as well as TTP throughout bilateral upper trapezius muscles. No paravertebral tenderness over facet joint on affected side. Multiple taut bands palpated throughout bilateral upper trapezius muscles, worse on the right. Neck: Yes normal visual inspection, Yes full ROM, Yes no lymphadenopathy and Yes no JVD Results Reviewed Results Reviewed: XR CERVICAL SPINE 01/31/23 CLINICAL INFORMATION: Cervicalgia FINDINGS: Vertebral body heights are preserved. There is moderate to severe degenerative disc disease at C5-C6 with 2 mm of retrolisthesis of C5 on C6. There is facet arthropathy bony spurring at C4-C5 and C5-C6. Prevertebral soft tissues are unremarkable. Lateral masses are symmetric. Dental hardware. IMPRESSION: Moderate to severe degenerative disc disease at C5-C6 with 2 mm of retrolisthesis of C5 on C6. Assessment & Plan Assessment & Plan (1) Cervical osteoarthritis: Code(s): M47.812 - Spondylosis without myelopathy or radiculopathy, cervical region (2) Disc disease, degenerative, cervical: Code(s): M50.30 - Other cervical disc degeneration, unspecified cervical region (3) Cervical radiculopathy: Code(s): M54.12 - Radiculopathy, cervical region (4) History of recent fall: Code(s): Z91.81 - History of falling Plan 1. Continue ice and heat therapy, Tylenol, NSAIDs, muscle relaxants prn, good posture, stretching exercises, PT and HEP for muscle spasms, stiffness, and pain in neck and shoulder regions. 2. MRI of the cervical spine to assess for neural integrity and compression and follow up on recent cervical xray findings. Will consider interventions targeted towards these pain generators based on the MRI results. Patient will return to the clinic to discuss results of the MRI findings when it is done and consider interventional therapy as indicated. All questions and concerns have been answered and patient agreed with the plan. Follow up for MRI results and sooner if needed. Orders: Orders MR cervical spine wo con 03/28/23 M47.812 - Spondylosis without myelopathy or radiculopathy, cervical region, M50.30 - Other cervical disc degeneration, unspecified cervical region, M54.12 - Radiculopathy, cervical region Coding Level of Care Code Est Pt Level 4 (47337) Diagnoses Cervical osteoarthritis M47.812 Disc disease, degenerative, cervical M50.30 Cervical radiculopathy M54.12 History of recent fall Z91.81
[2023-03-28 11:04] VITALS: BP 162/85; PULSE 81; O2SAT 98; BMI 37.5
== END 2023-03-28 11:23 | disposition home or self-care (01) ==
PROVIDERS: PCP Internal Medicine; Visit Provider Nurse Practitioner Family
DX: M47.812 Spondylosis without myelopathy or radiculopathy, cervical region (principal); M50.30 Other cervical disc degeneration, unspecified cervical region; M54.12 Radiculopathy, cervical region; Z91.81 History of falling
CPT/HCPCS: 99214

== ENCOUNTER → 2023-03-28 10:56 | Outpatient (BNVA) | payer OTHER, MEDICAID, SELFPAY | PROVIDERS: PCP Internal Medicine; Visit Provider Nurse Practitioner Family ==

== ENCOUNTER 2023-05-08 10:12 | Outpatient (REF) | payer OTHER, SELFPAY ==
--- NOTE | ~2023-05-08 | XR_ITS ---
EXAMINATION: XR SHOULDER, LEFT CLINICAL INFORMATION: Pain in the right shoulder COMPARISON: None available. TECHNIQUE: AP external rotation, Grashey, scapular Y, and axillary views of the left shoulder. FINDINGS: The bones and soft tissues are normal. No fracture. Glenohumeral and acromioclavicular alignment is anatomic with normal joint space. No abnormal soft tissue calcifications. XR/XR shoulder LT min 2V IMPRESSION: Normal left shoulder.
--- NOTE | ~2023-05-08 | XR_ITS ---
EXAMINATION: XR SHOULDER, RIGHT CLINICAL INFORMATION: Pain in right shoulder COMPARISON: None available. TECHNIQUE: AP external rotation, Grashey, scapular Y, and axillary views of the right shoulder. FINDINGS: There is mild narrowing of glenohumeral joint and changes of degenerative osteoarthritis in the right acromioclavicular joint. There is no evidence of fracture or subluxation. Soft tissues unremarkable. XR/XR shoulder RT min 2V IMPRESSION: Minimal degenerative changes of glenohumeral joint and acromioclavicular joint of the right
== END 2023-05-08 10:13 | disposition home or self-care (01) ==
LOC: HO.XRAY 10:12
PROVIDERS: PCP Internal Medicine; Visit Provider Nurse Practitioner Family
DX: M25.511 Pain in right shoulder (principal); M25.512 Pain in left shoulder; M50.30 Other cervical disc degeneration, unspecified cervical region; M47.812 Spondylosis without myelopathy or radiculopathy, cervical region; M62.838 Other muscle spasm; M54.12 Radiculopathy, cervical region
CPT/HCPCS: 73030; 99212

== ENCOUNTER 2023-05-08 10:12 | Outpatient (AMB) | payer OTHER, SELFPAY ==
[2023-05-08 10:33] VITALS: BP 159/83; PULSE 86; O2SAT 98; BMI 37.8
--- NOTE | 2023-05-08 10:33 | MHC.OFFVIS ---
Intake Vital Signs 05/08/23 10:33 Height 5 ft Weight 193 lb 8 oz BMI 37.8 BP 159/83 H Blood Pressure Location Rt brachial Position Sitting Pulse 86 Pulse Source Pulse Oximeter Pulse Oximetry (%) 98 Oxygen Delivery Method Room Air Intake Visit Reasons: Increasing Neck Pain / MRI results f/u Intake Note: Pain today 03/02 Wrestling Coach Required: No Accompanied by: Self / Same As Patient Allergies MARIA ESTHER Inhibitors Adverse Reaction (Intermediate, Verified 05/08/23 10:34) cough ARB-Angiotensin Receptor Antagonist Adverse Reaction (Intermediate, Verified 05/08/23 10:34) Cough HPI HPI Comments History of Present Illness Details Patient presents today to discuss recent cervical spine MRI results. She reports persistent right sided neck pain and bilateral shoulder pain with limited range of motions and muscle spasms. She reports exacerbation of pain with any activity especially overhead reaching, any movement and IR/ER of the RUE with moderate to severe pain and LUE with mild to moderate pain. She has hard time lifting objects or opening jars on the right due to pain and weakness. Patient is interested to undergo therapeutic injections for her cervical radicular pain. We will obtain bilateral shoulder xrays prior to injections. Denies any recent cough, cold, infection, fever or other significant changes in medical history since last office visit. PRIOR: Patient is a pleasant 72 years old female presents today for neck pain related to arthritis. She was initially seen by Dr. Bueno in August 2022. Patient denies any right foot pain today. Reports mechanical fall on 12/27/22 when she tripped over a rug and fell forward landing on to her bilateral arms. Patient reports that hit her head and injured her lower arms, left worse than right, but denies LOC. Her neck pain is easily reproduced with limited right sided neck movements, bending and extension. Reports significant muscle spasms with stiffness in her neck and shoulders, worse on the right side. She recently completed physical therapy for her back and currently in PT for upper back and neck pain. Patient notes some relief during PT sessions but not at home with HEP and continues to be in significant pain. Patient reports she cannot lay flat in her bed and therefore has been sleeping in her recliner since the fall in December. She tries to manage her symptoms with diclofenac gel, heat and ice therapy, Tylenol, Ibuprofen, turmeric supplements and has tried baclofen and tizanidine without any significant improvement in her pain or function. Patient is diabetic with most recent A1C=6.4 on 01/18/23. She is not on anticoagulation. Denies any fever, rash, swelling, chest pain, shortness of breaths, headaches, vision changes, gait disturbances, bladder or bowel dysfunction or saddle anesthesia. Reports right upper extremity weakness with paresthesias upper and lower arm and 4th and 5th fingers on the right. Denies previous spine injections or surgery. Most recent cervical xray imaging noted for moderate to severe degenerative disc disease at C5-C6 with 2 mm of retrolisthesis of C5 on C6. PRIOR 08/24/22 Dr. Bueno: Jamilah is very pleasant 71 years old female who presents in my office with complains on pain in the right foot with radiation into high anterior surface of the she in and even further up to the area of the knee and anterior surface of the thigh.? She reported that this pain started 2 months ago without inciting events.? 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 She is currently away saving steroid injections in to the area of the tendons.? Unfortunately she denies this medications help her pain.? She cannot sleep normally because of her pain she cannot do activities of daily living she cannot take care of herself and she cannot function normally.? She reports that movements aggravates her pain and heat and oral medications alleviate her pain she was trying to take gabapentin 300 mg t.i.d. however somehow her primary care physician decrease the dose of the gabapentin to 100 mg t.i.d..? The patient reported that there were no side effects of gabapentin.? She also reported that NSAIDs are helping her pain.? She was prescribed 800 mg of ibuprofen with moderate to significant pain improvement.? She reports her pain in terms of tissue damage is pulsing, throbbing, pounding, stabbing, lancinating, pinching, cramping, crushing, hot burning, scalding, searing, spreading, radiating, piercing, cold, cool, freezing sensation.? She never had any physical therapy to treat her pain.? She has some images in podiatry office which we will obtain from the office of the rate setter.? She is receiving injections of the hydrocortisone and dexamethasone into the right foot. In the past this patient was under care of Dr. Lyles with bilateral knee osteoarthritis.? However currently patient states that this is not her problem at this moment. Her past medical history significant for diabetes unknown hemoglobin A1c.? She denies any other medical problems.? She reports past surgical history of gallbladder removal.? Past social history she denies smoking cigarettes drinking alcohol using recreational drugs.? [facility] Medical History Gait disorder Muscle cramps Hypersomnia Snoring Chronic pain in right foot Skin tag Post-menopausal Obesity Pure hypercholesterolemia Hypothyroidism Essential hypertension Diabetes mellitus Polyarthralgia Surgical History Hx of colonoscopy History of eye surgery S/P total abdominal hysterectomy History of laparoscopic cholecystectomy Family History Father Cancer Mother Stroke Diabetes Hypertension CVD (cardiovascular disease) Sister Cancer Paternal Uncle Cancer Maternal Aunt Cancer Brother CVD (cardiovascular disease) Social History Housing: House Alcohol intake: never Patient Tobacco Use Status: Never used Tobacco e-Cigarette/Vaping Use: Never Used Second Hand Smoke Exposure: Yes service: No Current occupational status: disabled Cognitive needs: No Hearing needs: No Vision needs: Yes Review of Systems Const All systems reviewed & are unremarkable except as noted in HPI and below Physical Exam Vital Signs: Last Vital Signs Pulse 86 05/08/23 10:33 BP 159/83 H 05/08/23 10:33 Pulse Ox 98 05/08/23 10:33 Oxygen Delivery Method Room Air 05/08/23 10:33 BMI result Body Mass Index 37.8 General: Appears afebrile. Alert and oriented. Mood and affect appropriate. Fully engaged with exam. Follows and participates in conversation appropriately. Respiratory effort is unlabored. No cough. Able to transition from sit to stand unassisted. Uses cane with ambulation. Neck Other: Limited cervical spine ROM, increased pain with right lateral rotation. Reports increased pain with cervical extension and flexion. Spurling compression test equivocal. Pain is unchanged by Spurling maneuver with retraction. Elvey's tension test positive on the right, with radiation of pain from neck to wrist and fingers. Lhermitte's test was negative. DTR intact, +1 right, +2 left. Patient demonstrated 4/5 right and 5/5 left motor strength of bilateral upper extremities. 2 + radial pulses. Significant tightness throughout right upper trapezius as well as TTP throughout bilateral upper trapezius muscles. No paravertebral tenderness over facet joint on affected side. Multiple taut bands palpated throughout bilateral upper trapezius muscles, worse on the right. Neck: Yes normal visual inspection, Yes full ROM, Yes no lymphadenopathy and Yes no JVD Extrem Other: Right and left shoulders normal to inspection. No erythema or ecchymosis. Patient has difficulty with overhead reach or reaching her back pocket, right >left. Significant tenderness to palpation to the anterior aspect of the right shoulder. Results Reviewed Results Reviewed: XR CERVICAL SPINE 01/31/23 CLINICAL INFORMATION: Cervicalgia FINDINGS: Vertebral body heights are preserved. There is moderate to severe degenerative disc disease at C5-C6 with 2 mm of retrolisthesis of C5 on C6. There is facet arthropathy bony spurring at C4-C5 and C5-C6. Prevertebral soft tissues are unremarkable. Lateral masses are symmetric. Dental hardware. IMPRESSION: Moderate to severe degenerative disc disease at C5-C6 with 2 mm of retrolisthesis of C5 on C6. MR SPINE CERVICAL without CONTRAST 04/21/23 INDICATION: Spondylosis. Cervical radiculopathy. Degenerative disc disease. TECHNIQUE: Unenhanced multiplanar, multisequence MR imaging of the cervical spine. COMPARISON: None Available. FINDINGS: Grade 1 anterolisthesis C4 on C5 likely degenerative in nature. Vertebral heights are well maintained. Craniocervical junction is unremarkable. Bone marrow signal is within normal limits, and no suspicious osseous lesion is identified. Prevertebral and paraspinal soft tissues are within normal limits. Visualized portions of the posterior fossa are unremarkable. Cervical cord demonstrates normal course, caliber, and signal characteristics. No epidural fluid collection or hematoma is identified. At C2-3 there is no significant disc bulging. Mild uncovertebral hypertrophy and facet arthropathy. No central canal or neural foraminal narrowing. At C3-4 there is broad-based posterior disc bulging. Mild facet arthropathy. Mild central canal narrowing. No neural foraminal narrowing. At C4-5 there is grade 1 anterolisthesis C4 on C5. Disc desiccation with disc space narrowing. Posterior disc osteophyte complex. Uncovertebral hypertrophy is greater on the right. Moderate right and mild left neural foraminal narrowing. There is moderate to advanced central canal narrowing with flattening of the ventral aspect of the spinal cord. No focal cord signal abnormality. At C5-6 there is disc desiccation with disc space narrowing. Posterior disc osteophyte complex. Uncovertebral hypertrophy greater on the left. There is mild right and moderate left neural foraminal narrowing. There is moderate to advanced central canal narrowing with flattening of the ventral aspect the spinal cord. No focal cord signal abnormality. At C6-7 there is mild posterior disc bulging with a small central disc protrusion. Mild uncovertebral hypertrophy. Mild central canal narrowing. No significant neural foraminal narrowing. At C7-T1 there is mild posterior disc bulging. No significant central canal or neural foraminal narrowing. At T1-2 disc desiccation with disc space narrowing. Posterior disc osteophyte complex. Moderate to advanced neural foraminal narrowing. Mild central canal narrowing. IMPRESSION: No evidence of acute fracture or traumatic subluxation of the cervical spine. Grade 1 anterolisthesis C4 on C5 is likely degenerative in nature. Multilevel degenerative disc disease of the cervical spine most pronounced at C4-5 and C5-6 as described. Assessment & Plan Assessment & Plan (1) Bilateral shoulder pain: Code(s): M25.511 - Pain in right shoulder; M25.512 - Pain in left shoulder (2) Disc disease, degenerative, cervical: Code(s): M50.30 - Other cervical disc degeneration, unspecified cervical region (3) Cervical osteoarthritis: Code(s): M47.812 - Spondylosis without myelopathy or radiculopathy, cervical region (4) Muscle spasm: Code(s): M62.838 - Other muscle spasm (5) Cervical radiculopathy: Code(s): M54.12 - Radiculopathy, cervical region Plan For ongoing cervical radicular pain, will proceed with Right C5-C6 Interlaminar MORENITA with local and fluoroscopy. Expectations, risks and benefits were reviewed. Patient is aware she will be contacted to schedule this procedure. Will obtain bilateral shoulders xrays prior to interventional treatments. Scripts provided for Celecoxib and Methocarbamol, topical applications for neck and shoulder pain. All questions and concerns have been answered and patient agreed with the plan. Follow up after injections/xray and medication review and sooner if needed. Orders: Orders XR shoulder LT min 2V Today M25.511 - Pain in right shoulder, M25.512 - Pain in left shoulder XR shoulder RT min 2V Today M25.511 - Pain in right shoulder, M25.512 - Pain in left shoulder Medications: New celecoxib Take it with food and full glass of water. 200 mg PO BID PRN 60 caps 0RF pain M25.511 - Pain in right shoulder, M25.512 - Pain in left shoulder, M47.812 - Spondylosis without myelopathy or radiculopathy, cervical region, M50.30 - Other cervical disc degeneration, unspecified cervical region methocarbamol 750 mg PO Q8H PRN 90 tabs 0RF muscle spasm M25.511 - Pain in right shoulder, M25.512 - Pain in left shoulder, M47.812 - Spondylosis without myelopathy or radiculopathy, cervical region, M62.838 - Other muscle spasm Changed From diclofenac sodium 1% (Voltaren Arthritis Pain) 4 grams topical QID PRN 100 grams 4RF pain M25.511 - Pain in right shoulder, M25.512 - Pain in left shoulder, M47.812 - Spondylosis without myelopathy or radiculopathy, cervical region, M50.30 - Other cervical disc degeneration, unspecified cervical region To diclofenac sodium 3% 1 appl topical BID 100 grams 4RF pain M25.511 - Pain in right shoulder, M25.512 - Pain in left shoulder, M47.812 - Spondylosis without myelopathy or radiculopathy, cervical region, M50.30 - Other cervical disc degeneration, unspecified cervical region Refilled lidocaine 4% (Aspercreme (lidocaine)) 1 patch topical BEDTIME PRN 30 ea 0RF pain M54.2 - Cervicalgia Discontinued ibuprofen Discontinued Reason: Doctor's Order 800 mg PO BID PRN 20 tabs 0RF pain G89.29 - Other chronic pain, M79.671 - Pain in right foot Coding Level of Care Code Est Pt Level 4 (37319) Diagnoses Bilateral shoulder pain M25.511; M25.512 Disc disease, degenerative, cervical M50.30 Cervical osteoarthritis M47.812 Muscle spasm M62.838 Cervical radiculopathy M54.12
== END 2023-05-08 10:50 | disposition home or self-care (01) ==
PROVIDERS: PCP Internal Medicine; Visit Provider Nurse Practitioner Family
DX: M25.511 Pain in right shoulder (principal); M25.512 Pain in left shoulder; M50.30 Other cervical disc degeneration, unspecified cervical region; M47.812 Spondylosis without myelopathy or radiculopathy, cervical region; M62.838 Other muscle spasm; M54.12 Radiculopathy, cervical region
CPT/HCPCS: 99214

== ENCOUNTER 2023-05-19 09:16 | Outpatient (AMB) | payer OTHER, SELFPAY ==
--- NOTE | 2023-05-19 09:19 | MHC.OFFVIS ---
Intake Intake Visit Reasons: ov- B/L OA of the knee Intake Note: Jamilah is a 72 year old female who presents today for a follow up of her bilateral knee OA. Last injection done on 02/10/23 in the left knee. Patient reports that this injection helped her for about 3 weeks now. She complaints of pain, swelling and decreased efficacy of the injection. she also complains of right knee pain. She is interested in repeat left knee injection today. Hx of DM. Allergies MARIA ESTHER Inhibitors Adverse Reaction (Intermediate, Verified 05/08/23 10:34) cough ARB-Angiotensin Receptor Antagonist Adverse Reaction (Intermediate, Verified 05/08/23 10:34) Cough HPI ov- B/L OA of the knee HPI Details Jamilah is a 72 year old Diabetic woman who returns to discuss her bilateral knee OA. Her primary complaint today is of her left knee OA pain. She has pain with daily activity, which has worsened in the last few weeks. She now complains of swelling in her knee as well. She was last injected on 02/10/23, which she says gave her only ~3 weeks of relief. She complains of worsening right knee OA pain, but this is more tolerable. She would like a repeat injection today. She continues to walk using a cane. FORMERLY [facility], LATER [facility] Medical History Gait disorder Muscle cramps Hypersomnia Snoring Chronic pain in right foot Skin tag Post-menopausal Obesity Pure hypercholesterolemia Hypothyroidism Essential hypertension Diabetes mellitus Polyarthralgia Surgical History Hx of colonoscopy History of eye surgery S/P total abdominal hysterectomy History of laparoscopic cholecystectomy Family History Father Cancer Mother Stroke Diabetes Hypertension CVD (cardiovascular disease) Sister Cancer Paternal Uncle Cancer Maternal Aunt Cancer Brother CVD (cardiovascular disease) Social History Housing: House Alcohol intake: never Patient Tobacco Use Status: Never used Tobacco e-Cigarette/Vaping Use: Never Used Second Hand Smoke Exposure: Yes service: No Current occupational status: disabled Cognitive needs: No Hearing needs: No Vision needs: Yes Review of Systems Const All systems reviewed & are unremarkable except as noted in HPI and below Physical Exam Const General: no acute distress, alert and awake Orientation/consciousness: patient oriented x3 HEENT Head: Yes normocephalic and Yes atraumatic Eyes EOM: EOMs intact bilaterally Resp Effort & Inspection: normal respiratory effort and able to speak in complete sentences Cardio Jugular venous distension: no JVD Skin General skin exam: turgor normal Rashes: no rashes Neuro General: patient oriented x3 Extrem Other: Left knee with tenderness to palpation over the medial joint line. Psych Appearance: grossly normal Affect: normal affect Attitude: cooperative Office Procedures Joint Injection/Drain Joint Injection/Drain Details: Injected 1 mL of Decadron and 3 mL 1% lidocaine and 3 mL of 0.25% Marcaine. Site was prepped using aseptic technique. Patient tolerated the procedure well. Primary Site: left knee Approach Used: anterolateral Coding 75391 - Large joint Procedure code (CPT) selection complete Results Reviewed Results Reviewed: 05/19/23 09:24 BUPivacaine MPF 0.25 % [Sensorcaine-MPF 0.25% 10 ML] 10 ml .ROUTE .STK-MED ONE Lidocaine HCl 2 % MPF [Xylocaine 2 % MPF] 5 ml .ROUTE .STK-MED ONE dexAMETHasone sod phosphate [Decadron] 4 mg .ROUTE .STK-MED ONE Assessment & Plan Assessment & Plan (1) Osteoarthritis of left knee: Code(s): M17.12 - Unilateral primary osteoarthritis, left knee Plan: Jamilah is a 71 year old woman with severe left knee OA. She has pain & swelling with daily activity, worse with prolonged ambulation or using stairs, and she ambulates with an assistive cane. She has a hx of good relief from steroid injections, but her most recent on 02/10/23 lasted <1 month, which she found frustrating. I injected her left knee today, which she tolerated well. She can follow up prn. (2) Diabetes mellitus: Code(s): E11.9 - Type 2 diabetes mellitus without complications Qualifiers: Diabetes mellitus complication status: without complication Diabetes mellitus termite renewal inspector insulin use: without termite renewal inspector use Diabetes mellitus type: type 2 Qualified Code(s): E11.9 - Type 2 diabetes mellitus without complications Plan: I discussed the hyperglycemic effects of steroid injections. Coding Level of Care Code Est Pt Level 4 (19780) Diagnoses Osteoarthritis of left knee M17.12 Type 2 diabetes mellitus without complication, without long-term current use of insulin E11.9 Diabetes mellitus complication status: without complication Diabetes mellitus senior living insulin use: without termite renewal inspector use Diabetes mellitus type: type 2 CPT Codes Coding - 33174 Large joint: 98292 - Large joint ([id number])
== END 2023-05-19 09:53 | disposition home or self-care (01) ==
PROVIDERS: PCP Internal Medicine; Visit Provider Orthopaedic Surgery
DX: M17.12 Unilateral primary osteoarthritis, left knee (principal); E11.9 Type 2 diabetes mellitus without complications
CPT/HCPCS: 20610; 99213

== ENCOUNTER → 2023-05-19 09:16 | Outpatient (BNVA) | payer OTHER, SELFPAY | PROVIDERS: PCP Internal Medicine; Visit Provider Orthopaedic Surgery | DX: M17.12 Unilateral primary osteoarthritis, left knee (principal); E11.9 Type 2 diabetes mellitus without complications | CPT/HCPCS: 20610; 99212; J1100 ==

== ENCOUNTER 2023-05-26 11:17 | Outpatient (AMB) | payer OTHER, SELFPAY ==
[2023-05-26 11:18] VITALS: BMI 37.1
--- NOTE | 2023-05-26 11:18 | MHC.OFFVIS ---
Intake Vital Signs 05/26/23 11:18 Height 5 ft Weight 190 lb BMI 37.1 Intake Visit Reasons: discuss injection Allergies MARIA ESTHER Inhibitors Adverse Reaction (Intermediate, Verified 05/26/23 11:19) cough ARB-Angiotensin Receptor Antagonist Adverse Reaction (Intermediate, Verified 05/26/23 11:19) Cough HPI HPI Comments History of Present Illness Details Patient presents today via telehealth encounter for follow up right shoulder and neck pain. Patient reports axial neck pain and significant right shoulder pain. She is declining Right C5-C6 interlaminer MORENITA scheduled for 06/14/23 and would like to undergo therapeutic right intra-articular shoulder steroid injection. ?Patient reports difficulty with overhead reach or reaching her back pocket due to pain. Recent imaging showed minimal degenerative changes of glenohumeral joint and acromioclavicular joint of the right. She has been taking Celecoxib, Tylenol, methocarbamol and lidocaine patches for neck and right shoulder with partial pain relief. Denies any recent cough, cold, infection, fever or other significant changes in medical history since last office visit. PRIOR: Patient presents today to discuss recent cervical spine MRI results. She reports persistent right sided neck pain and bilateral shoulder pain with limited range of motions and muscle spasms. She reports exacerbation of pain with any activity especially overhead reaching, any movement and IR/ER of the RUE with moderate to severe pain and LUE with mild to moderate pain. She has hard time lifting objects or opening jars on the right due to pain and weakness. Patient is interested to undergo therapeutic injections for her cervical radicular pain. We will obtain bilateral shoulder xrays prior to injections. Denies any recent cough, cold, infection, fever or other significant changes in medical history since last office visit. PRIOR: Patient is a pleasant 72 years old female presents today for neck pain related to arthritis. She was initially seen by Dr. Bueno in August 2022. Patient denies any right foot pain today. Reports mechanical fall on 12/27/22 when she tripped over a rug and fell forward landing on to her bilateral arms. Patient reports that hit her head and injured her lower arms, left worse than right, but denies LOC. Her neck pain is easily reproduced with limited right sided neck movements, bending and extension. Reports significant muscle spasms with stiffness in her neck and shoulders, worse on the right side. She recently completed physical therapy for her back and currently in PT for upper back and neck pain. Patient notes some relief during PT sessions but not at home with HEP and continues to be in significant pain. Patient reports she cannot lay flat in her bed and therefore has been sleeping in her recliner since the fall in December. She tries to manage her symptoms with diclofenac gel, heat and ice therapy, Tylenol, Ibuprofen, turmeric supplements and has tried baclofen and tizanidine without any significant improvement in her pain or function. Patient is diabetic with most recent A1C=6.4 on 01/18/23. She is not on anticoagulation. Denies any fever, rash, swelling, chest pain, shortness of breaths, headaches, vision changes, gait disturbances, bladder or bowel dysfunction or saddle anesthesia. Reports right upper extremity weakness with paresthesias upper and lower arm and 4th and 5th fingers on the right. Denies previous spine injections or surgery. Most recent cervical xray imaging noted for moderate to severe degenerative disc disease at C5-C6 with 2 mm of retrolisthesis of C5 on C6. PRIOR 08/24/22 Dr. Bueno: Jamilah is very pleasant 71 years old female who presents in my office with complains on pain in the right foot with radiation into high anterior surface of the she in and even further up to the area of the knee and anterior surface of the thigh.? She reported that this pain started 2 months ago without inciting events.? She went for block breaker consult and was diagnosed with tendinitis of the foot.? She is currently away saving steroid injections in to the area of the tendons.? Unfortunately she denies this medications help her pain.? She cannot sleep normally because of her pain she cannot do activities of daily living she cannot take care of herself and she cannot function normally.? She reports that movements aggravates her pain and heat and oral medications alleviate her pain she was trying to take gabapentin 300 mg t.i.d. however somehow her primary care physician decrease the dose of the gabapentin to 100 mg t.i.d..? The patient reported that there were no side effects of gabapentin.? She also reported that NSAIDs are helping her pain.? She was prescribed 800 mg of ibuprofen with moderate to significant pain improvement.? She reports her pain in terms of tissue damage is pulsing, throbbing, pounding, stabbing, lancinating, pinching, cramping, crushing, hot burning, scalding, searing, spreading, radiating, piercing, cold, cool, freezing sensation.? She never had any physical therapy to treat her pain.? She has some images in podiatry office which we will obtain from the office of the block breaker.? She is receiving injections of the hydrocortisone and dexamethasone into the right foot. In the past this patient was under care of Dr. Lyles with bilateral knee osteoarthritis.? However currently patient states that this is not her problem at this moment. Her past medical history significant for diabetes unknown hemoglobin A1c.? She denies any other medical problems.? She reports past surgical history of gallbladder removal.? Past social history she denies smoking cigarettes drinking alcohol using recreational drugs.? FORMERLY [facility], [facility] Medical History Gait disorder Muscle cramps Hypersomnia Snoring Chronic pain in right foot Skin tag Post-menopausal Obesity Pure hypercholesterolemia Hypothyroidism Essential hypertension Diabetes mellitus Polyarthralgia Surgical History Hx of colonoscopy History of eye surgery S/P total abdominal hysterectomy History of laparoscopic cholecystectomy Family History Father Cancer Mother Stroke Diabetes Hypertension CVD (cardiovascular disease) Sister Cancer Paternal Uncle Cancer Maternal Aunt Cancer Brother CVD (cardiovascular disease) Social History Housing: House Alcohol intake: never Patient Tobacco Use Status: Never used Tobacco e-Cigarette/Vaping Use: Never Used Second Hand Smoke Exposure: Yes service: No Current occupational status: disabled Cognitive needs: No Hearing needs: No Vision needs: Yes Review of Systems Const All systems reviewed & are unremarkable except as noted in HPI and below ENT Reports Normal hearing present Neuro Reports Normal hearing present and Denies confusion Psych Denies confusion Physical Exam Vital Signs: BMI result Body Mass Index 37.1 Const General: cooperative, alert and awake; No confusion Orientation/consciousness: patient oriented x3 and No confusion Resp Effort & Inspection: able to speak in complete sentences, no audible wheezes and no cough Neuro General: patient oriented x3 and No confusion Cranial nerves: Yes Normal hearing present Cognition (Neuro): normal cognition Psych Mental Status: mental status grossly normal Speech and movement: Clear speech present Affect: normal affect Attitude: cooperative Thought process: Normal thought process present Thought content: Normal thought content present and No Depressive thoughts present Insight: Good insight present (Psych) Judgement: Good judgement present (Psych) Results Reviewed Results Reviewed: XR SHOULDER, RIGHT 05/08/23 FINDINGS: There is mild narrowing of glenohumeral joint and changes of degenerative osteoarthritis in the right acromioclavicular joint. There is no evidence of fracture or subluxation. Soft tissues unremarkable. IMPRESSION: Minimal degenerative changes of glenohumeral joint and acromioclavicular joint of the right XR CERVICAL SPINE 01/31/23 CLINICAL INFORMATION: Cervicalgia FINDINGS: Vertebral body heights are preserved. There is moderate to severe degenerative disc disease at C5-C6 with 2 mm of retrolisthesis of C5 on C6. There is facet arthropathy bony spurring at C4-C5 and C5-C6. Prevertebral soft tissues are unremarkable. Lateral masses are symmetric. Dental hardware. IMPRESSION: Moderate to severe degenerative disc disease at C5-C6 with 2 mm of retrolisthesis of C5 on C6. MR SPINE CERVICAL without CONTRAST 04/21/23 INDICATION: Spondylosis. Cervical radiculopathy. Degenerative disc disease. TECHNIQUE: Unenhanced multiplanar, multisequence MR imaging of the cervical spine. COMPARISON: None Available. FINDINGS: Grade 1 anterolisthesis C4 on C5 likely degenerative in nature. Vertebral heights are well maintained. Craniocervical junction is unremarkable. Bone marrow signal is within normal limits, and no suspicious osseous lesion is identified. Prevertebral and paraspinal soft tissues are within normal limits. Visualized portions of the posterior fossa are unremarkable. Cervical cord demonstrates normal course, caliber, and signal characteristics. No epidural fluid collection or hematoma is identified. At C2-3 there is no significant disc bulging. Mild uncovertebral hypertrophy and facet arthropathy. No central canal or neural foraminal narrowing. At C3-4 there is broad-based posterior disc bulging. Mild facet arthropathy. Mild central canal narrowing. No neural foraminal narrowing. At C4-5 there is grade 1 anterolisthesis C4 on C5. Disc desiccation with disc space narrowing. Posterior disc osteophyte complex. Uncovertebral hypertrophy is greater on the right. Moderate right and mild left neural foraminal narrowing. There is moderate to advanced central canal narrowing with flattening of the ventral aspect of the spinal cord. No focal cord signal abnormality. At C5-6 there is disc desiccation with disc space narrowing. Posterior disc osteophyte complex. Uncovertebral hypertrophy greater on the left. There is mild right and moderate left neural foraminal narrowing. There is moderate to advanced central canal narrowing with flattening of the ventral aspect the spinal cord. No focal cord signal abnormality. At C6-7 there is mild posterior disc bulging with a small central disc protrusion. Mild uncovertebral hypertrophy. Mild central canal narrowing. No significant neural foraminal narrowing. At C7-T1 there is mild posterior disc bulging. No significant central canal or neural foraminal narrowing. At T1-2 disc desiccation with disc space narrowing. Posterior disc osteophyte complex. Moderate to advanced neural foraminal narrowing. Mild central canal narrowing. IMPRESSION: No evidence of acute fracture or traumatic subluxation of the cervical spine. Grade 1 anterolisthesis C4 on C5 is likely degenerative in nature. Multilevel degenerative disc disease of the cervical spine most pronounced at C4-5 and C5-6 as described. Assessment & Plan Assessment & Plan (1) Disc disease, degenerative, cervical: Code(s): M50.30 - Other cervical disc degeneration, unspecified cervical region (2) Cervical osteoarthritis: Code(s): M47.812 - Spondylosis without myelopathy or radiculopathy, cervical region (3) Muscle spasm: Code(s): M62.838 - Other muscle spasm (4) Right shoulder pain: Code(s): M25.511 - Pain in right shoulder Plan Per patient's request we will cancel Right C5-C6 Interlaminar MORENITA and proceed with Right Intra-articular shoulder steroid injection with local and fluoroscopy. Expectations, risks and benefits were reviewed. She is aware of hyperglycemic effects of steroids. Most recent A1C was 6.4. Patient is aware she will be contacted to schedule this procedure. All questions and concerns have been answered and patient agreed with the plan. Follow up after injections and sooner if needed. I hereby testify that I spent 12 minutes in conversation with this patient as well as with planning and coordinating care for this patient and organizing this note. Telehealth Telehealth Location of provider rendering services: practice address Location of patient: address on file Patient Identification confirmed using: Name, : Yes Telehealth method: voice only Patient verbally consented to treatment: Yes Patient verbally consented to billing insurance company: Yes Patient informed of any privacy concerns related to visit: Yes Minutes spent on Phone/Video with Pt.: 12 Coding Level of Care Code Tele Est Pt Level 3 (26995) Diagnoses Disc disease, degenerative, cervical M50.30 Cervical osteoarthritis M47.812 Muscle spasm M62.838 Right shoulder pain M25.511
== END 2023-05-26 11:25 | disposition home or self-care (01) ==
LOC: HO.PMC 11:17
PROVIDERS: PCP Internal Medicine; Visit Provider Nurse Practitioner Family
DX: M50.30 Other cervical disc degeneration, unspecified cervical region (principal); M47.812 Spondylosis without myelopathy or radiculopathy, cervical region; M62.838 Other muscle spasm; M25.511 Pain in right shoulder
CPT/HCPCS: 99442

== ENCOUNTER → 2023-05-26 11:17 | Outpatient (BNVA) | payer OTHER, SELFPAY | PROVIDERS: PCP Internal Medicine; Visit Provider Nurse Practitioner Family ==

== ENCOUNTER 2023-06-17 08:57 | Outpatient (REF) | payer OTHER, SELFPAY ==
[2023-06-17 09:13] LABS: MANUAL DIFF FLAG NO
[2023-06-17 10:08] LABS: Basophils Absolute Auto 0.1 X10*3/uL (0.0-0.2); Basophils Percent Auto 1.7 % (0-2); Eosinophils Absolute Auto 0.2 X10*3/uL (0.0-0.4); Eosinophils Percent Auto 4.1 % (0-4); Hematocrit 39.5 % (37.0-47.0); Hemoglobin 12.5 g/dl (12.0-16.0); Imm Gran Abs Auto 0.01 X10*3/uL (0.00-0.03); Imm Gran Pct Auto 0.2 % (0.0-0.4); Lymphocytes Absolute Auto 1.9 X10*3/uL (1.2-4.9); Lymphocytes Percent Auto 33.4 % (20-40); Mean Corpuscular HGB Conc 31.6 g/dl (31.0-35.0); Mean Corpuscular Hemoglobin 24.9 pg (27.0-33.0); Mean Corpuscular Volume 78.5 fL (80.0-98.0); Mean Platelet Volume 10.2 fL (9.4-12.3); Monocytes Absolute Auto 0.4 X10*3/uL (0.1-1.2); Monocytes Percent Auto 6.9 % (2-11); Neutrophils Absolute Auto 3.1 x10*3/uL (2.0-8.3); Neutrophils Percent Auto 53.7 % (45-73); Platelet Count 355 X10*3/uL (160-400); Red Blood Count 5.03 X10*6/uL (4.20-5.50); Red Cell Distribution Width 16.9 % (11.0-16.0); White Blood Count 5.8 X10*3/uL (4.8-10.8)
[2023-06-17 10:23] LABS: Creatinine Urine 91.73 mg/dL; Microalbum/Creatinine Ratio Ur 32.7 ug/mg cr (<30)
[2023-06-17 10:29] LABS: Alanine Aminotransferase 15 U/L (0-31); Albumin Level 4.4 g/dL (3.5-5.0); Alkaline Phosphatase 70 U/L (39-117); Anion Gap 13 (12-20); Aspartate Amino Transferase 17 U/L (5-31); Bilirubin Total 0.5 mg/dL (0.0-1.0); Blood Urea Nitrogen 12 mg/dL (9-16); Calcium 9.4 mg/dL (8.4-10.2); Carbon Dioxide 26 mmol/L (22-29); Chloride 107 mmol/L (96-108); Cholesterol 166 mg/dL (<200); Estimated Glomerular Filt Rate > 60; Glucose Fasting 146 mg/dL (60-99); HDL Cholesterol 46 mg/dL (>40); Iron 57 mcg/dL (30-160); LDL Cholesterol Calculated 83 mg/dL (<100); Percent Iron Saturation 17 % (15-50); Potassium 3.6 mmol/L (3.3-5.1); Sodium 142 mmol/L (135-145); Total Iron Binding Capacity 344 mcg/dL (228-428); Total Protein 7.6 g/dL (6.5-8.0); Triglycerides 187 mg/dL (<150); Unsaturated Iron Binding 287 ug/dL
[2023-06-17 10:43] LABS: Thyroid Stimulating Hormone 2.79 uIU/mL (0.32-4.0); Vitamin D 25-OH Total 55.9 ng/mL (>30)
[2023-06-17 11:01] LABS: Folate 15.5 ng/mL (> or = 4.0); Vitamin B12 716 pg/mL (200-900)
[2023-06-19 19:14] LABS: Rubeola IgG (Measles) >300.00 AU/mL
== END 2023-06-17 08:58 | disposition home or self-care (01) ==
LOC: HO.LAB 08:57
PROVIDERS: PCP Internal Medicine; Visit Provider Internal Medicine
DX: E78.5 Hyperlipidemia, unspecified (principal); E11.9 Type 2 diabetes mellitus without complications; E66.09 Other obesity due to excess calories; Z68.35 Body mass index [BMI] 35.0-35.9, adult; E53.8 Deficiency of other specified B group vitamins; E55.9 Vitamin D deficiency, unspecified; E03.9 Hypothyroidism, unspecified; E78.00 Pure hypercholesterolemia, unspecified; D64.9 Anemia, unspecified
CPT/HCPCS: 36415; 80053; 80061; 82043; 82306; 82570; 82607; 82746; 83540; 84443; 85025; 86735; 86762; 86765; 86787

== ENCOUNTER 2023-06-19 12:41 | Outpatient (AMB) | payer OTHER, SELFPAY ==
[2023-06-19 12:58] VITALS: BP 168/79; PULSE 89; RESP 12; O2SAT 97; BMI 37.1
--- NOTE | 2023-06-19 12:58 | A.OFFVIS_ITS ---
Intake Vital Signs 06/19/23 12:58 Height 5 ft Weight 190 lb BMI 37.1 BP 168/79 H Blood Pressure Location Lt brachial Position Sitting Respiration 12 Pulse 89 Pulse Source Pulse Oximeter Pulse Oximetry (%) 97 Oxygen Delivery Method Room Air Intake Visit Reasons: Right theraputic intraarticular shoulder inj LMOVM Allergies MARIA ESTHER Inhibitors Adverse Reaction (Intermediate, Verified 06/21/23 11:18) cough ARB-Angiotensin Receptor Antagonist Adverse Reaction (Intermediate, Verified 06/21/23 11:18) Cough HPI Right theraputic intraarticular shoulder inj LMOVM HPI Details 72-year-old female who presents today to the office for a right therapeutic glenohumeral shoulder injection. Denies any recent cough, cold, infection, fever or other significant changes in medical history since last office visit. [facility] Medical History Gait disorder Muscle cramps Hypersomnia Snoring Chronic pain in right foot Skin tag Post-menopausal Obesity Pure hypercholesterolemia Hypothyroidism Essential hypertension Diabetes mellitus Polyarthralgia Surgical History Hx of colonoscopy History of eye surgery S/P total abdominal hysterectomy History of laparoscopic cholecystectomy Family History Father Cancer Mother Stroke Diabetes Hypertension CVD (cardiovascular disease) Sister Cancer Paternal Uncle Cancer Maternal Aunt Cancer Brother CVD (cardiovascular disease) Social History Housing: House Alcohol intake: never Patient Tobacco Use Status: Never used Tobacco e-Cigarette/Vaping Use: Never Used Second Hand Smoke Exposure: Yes service: No Current occupational status: disabled Cognitive needs: No Hearing needs: No Vision needs: Yes Review of Systems Const All systems reviewed & are unremarkable except as noted in HPI and below Physical Exam Vital Signs: Last Vital Signs Pulse 89 06/19/23 12:58 Resp 12 06/19/23 12:58 BP 168/79 H 06/19/23 12:58 Pulse Ox 97 06/19/23 12:58 Oxygen Delivery Method Room Air 06/19/23 12:58 BMI result Body Mass Index 37.1 General: Appears afebrile. Alert and oriented. Mood and affect appropriate. Follows and participates in conversation appropriately. Respiratory effort is unlabored. Able to transition from sit to stand unassisted. Ambulates with bilaterally normal heel strike and toe off. Office Procedures Joint Injection/Drain Joint Injection/Drain Details: Right glenohumeral joint steroid injection, ultrasound guided Primary Site: right shoulder Prep: site was prepped using aseptic technique and site was prepped using sterile technique Injected: 40 mg of, Kenalog, with 1 mL of (lidocaine 1%), with 4 mL of (ropivacaine 0.25%) and in the joint Approach Used: posterolateral Procedure: The patient tolerated the procedure well Coding Details: An ultrasound image of the injection was taken and stored in the permanent record. - Glenohumeral with ultrasound guidance Procedure code (CPT) selection complete Results Reviewed Results Reviewed: No imaging is available for review. Assessment & Plan Assessment & Plan (1) Bilateral shoulder pain: Code(s): M25.511 - Pain in right shoulder; M25.512 - Pain in left shoulder Qualifiers: Chronicity: chronic Qualified Code(s): M25.511 - Pain in right shoulder; M25.512 - Pain in left shoulder; G89.29 - Other chronic pain Plan Patient is status post Right glenohumeral joint steroid injection, ultrasound guided. Patient tolerated procedure well and was discharged home in stable condition with discharge instructions. All questions were answered. Will schedule her for a left glenohumeral joint steroid injection. The patient is on board with the plan. Justification for interventional therapy: ? Patient with average pain > 6/10 ? Patient has exhausted conservative therapy ? Patient unable to tolerate physical therapy due to pain Scribed for Dr. Espino by Yves Martinez, medical record coder, on 06/19/2023. I, Dr. Espino, have personally reviewed and agree with the information entered by the scribe. Coding Level of Care Code Procedure Only Diagnoses Chronic pain of both shoulders M25.511; M25.512; G89.29 Chronicity: chronic CPT Codes Coding - Joint 8: - Glenohumeral with ultrasound guidance ([id number])
== END 2023-06-19 13:26 | disposition home or self-care (01) ==
PROVIDERS: PCP Internal Medicine; Visit Provider Internal Medicine
DX: M25.511 Pain in right shoulder (principal)
CPT/HCPCS: 20611

== ENCOUNTER → 2023-06-19 12:41 | Outpatient (BNVA) | payer OTHER, SELFPAY | PROVIDERS: PCP Internal Medicine; Visit Provider Internal Medicine | DX: M25.511 Pain in right shoulder (principal); M25.512 Pain in left shoulder; G89.29 Other chronic pain | CPT/HCPCS: 20611; J0665; J3301 ==

== ENCOUNTER 2023-06-21 10:24 | Outpatient (AMB) | payer OTHER, SELFPAY ==
[2023-06-21 11:01] VITALS: BP 148/82; BMI 38.3
--- NOTE | 2023-06-21 11:01 | A.OFFPC_ITS ---
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 Required: No Accompanied by: Self / Same As Patient Allergies MARIA ESTHER Inhibitors Adverse Reaction (Intermediate, Verified 06/21/23 11:18) cough ARB-Angiotensin Receptor Antagonist Adverse Reaction (Intermediate, Verified 06/21/23 11:18) Cough Medication List - Last Reconciled 06/21/23 by Shannan Alexander MD acetaminophen ER (Tylenol Arthritis Pain) 650 mg PO Q8H PRN amlodipine 10 mg PO DAILY 90 days blood sugar diagnostic (FreeStyle Test strips) Take 1 test strip once a day blood-glucose meter ([employer] [place] Lite kit) As directed cane with 4 legs celecoxib 200 mg PO BID PRN [cervical collar As directed] diclofenac sodium 3% 1 appl topical BID ezetimibe 10 mg PO DAILY 90 days gabapentin 600 mg PO TID 30 days glipizide ER 5 mg PO DAILY 90 days [incontinence pads 4 daily As directed] lancets (FreeStyle Lancets) Use 1 lancet once a day levothyroxine 100 mcg PO DAILY 90 days lidocaine 4% (Aspercreme (lidocaine)) 1 patch topical BEDTIME PRN linagliptin 5 mg PO DAILY 90 days loratadine 10 mg PO DAILY 90 days methocarbamol 750 mg PO Q8H PRN mupirocin 2% 1 appl topical BID 7 days [personal cleansing wipes (sensitive skin) As directed] [rollator walker As directed] sucralfate (Carafate) 1 g PO BID 30 days [washable bed pads As directed] Tobacco use date assessed: 03/23/23 Fall risk assessment: 2 + Falls in past year Last assessed Fall Risk: 06/21/23 Dental Screening Dental Screen Date: 06/21/23 Did you have a dental visit in the last 12 months?: Yes Did you have a dental problem in the last 6 months where you did not have access to dental care?: No Was dental information given to patient?: Patient has dentist HPI HPI Comments History of Present Illness Details This is a 72-year-old female with diabetes mellitus type 2 and mild recurrent major depression that comes for her physical exam. A1c elevated and I will increase glipizide. Depression stable. Last diabetic eye exam was last month. Last mammogram was 2022 and was normal. Last colonoscopy was 2011 and was normal. She declines colonoscopy and prefers to do Cologuard. Walks with a walker for gait stability due to neuropathy. No chest pain or shortness of breath. Last bone density was 2020. [facility] Medical History (Updated 06/21/23 @ 11:50 by Shannan Alexander MD) Gait disorder Muscle cramps Hypersomnia Snoring Chronic pain in right foot Skin tag Post-menopausal Obesity Pure hypercholesterolemia Hypothyroidism Essential hypertension Diabetes mellitus Polyarthralgia Surgical History Hx of colonoscopy History of eye surgery S/P total abdominal hysterectomy History of laparoscopic cholecystectomy Family History Father Cancer Mother Stroke Diabetes Hypertension CVD (cardiovascular disease) Sister Cancer Paternal Uncle Cancer Maternal Aunt Cancer Brother CVD (cardiovascular disease) Social History Housing: House Alcohol intake: never Patient Tobacco Use Status: Never used Tobacco e-Cigarette/Vaping Use: Never Used Second Hand Smoke Exposure: Yes service: No Current occupational status: disabled Cognitive needs: No Hearing needs: No Vision needs: Yes Questionnaire Thrive Questionnaire Date Thrive assessed: 01/18/23 MARISOL-7 AMB Questionnaire MARISOL-7 Date MARISOL - 7 assessed: 10/05/22 Source: Developed by Drs. Jay Jay Betancourt, Phylicia Bone, Du Rendon and colleagues, with an educational eris from [employer]. Review of Systems Const All systems reviewed & are unremarkable except as noted in HPI and below Eyes Reports no additional complaints, Denies change in vision and Denies other visual disturbances Card Denies chest pain at rest, Denies chest pain with activity, Denies edema, Denies irregular heart rhythm, Denies claudication, Denies dyspnea, Denies dyspnea on exertion, Denies orthopnea, Denies paroxysmal nocturnal dyspnea and Denies slow heart rate Resp Denies cough, Denies dyspnea and Denies dyspnea on exertion GI Denies abdominal pain, Denies change in bowel habits, Denies excessive flatus, Denies nausea and Denies vomiting Denies urinary incontinence, Denies urinary hesitancy and Denies urinary urgency Musc Denies abnormal gait, Denies atrophy, Denies deformity and Denies limited range of motion Skin/Breast Denies bleeding lesions, Denies changing lesions and Denies rash Neuro Denies abnormal gait, Denies behavioral changes, Denies confusion and Denies lack of coordination Psych Denies behavioral changes and Denies confusion Physical exam (Primary Care) Vital Signs: Last Vital Signs BP 148/82 H 06/21/23 11:01 BMI result Body Mass Index 38.3 Tobacco/Smoking Status: Tobacco use Status Tobacco use date assessed 03/23/23 06/21/23 11:06 Patient Tobacco Use Status Never used Tobacco 06/21/23 11:06 e-Cigarette/Vaping Use Never Used 06/21/23 11:06 Thrive Assessment: Date of Thrive Assessment Date Thrive assessed 01/18/23 06/21/23 11:06 Const General: No confusion Orientation/consciousness: patient oriented x3 and No confusion Limitations: ambulation with cane HENMT Head: Yes normal to inspection, Yes normocephalic and Yes atraumatic Ears: external ears normal Eyes General: appearance normal, both eyes and all related structures Eyelids: Yes eyelids normal Conjunctivae: conjunctivae normal Neck Neck: Yes normal visual inspection and Yes supple Resp Effort & Inspection: normal respiratory effort Auscultation: clear to auscultation bilaterally Cardio Jugular venous distension: no JVD Rate: regular rate Rhythm: regular rhythm Heart sounds: S1 normal heart sound present and S2 normal heart sound present GI Inspection: Yes normal to inspection Palpation (GI): Soft to palpation and nontender Auscultation: normal bowel sounds Skin General skin exam: no rashes or lesions noted Neuro General: patient oriented x3, no focal motor deficits and No confusion Extrem General: Yes full ROM Psych Appearance: grossly normal Office Procedures Flu Questionnaire Does the patient have a severe egg allergy?: No Results AMB Hemoglobin A1c AMB Hemoglobin A1c 7.4 % Last Edit by RENETTA Gonzales on 06/21/23 11:0 9 Immunizations flu vacc [id number] 6mos up(PF) 60 mcg(15 mcgx4)/0.5 mL IM syringe Performing Provider: Shannan Alexander MD [facility] Documented (not given) by: RENETTA Gonzales on 06/21/23 11:34 Reason Not Given: Patient Refused Results Reviewed Results Reviewed: Laboratory Last Values Hgb A1c (Clinic) 7.4 % (4.0-6.0) H 06/21/23 11:09 Assessment and Plan Assessment & Plan (1) Physical exam: Code(s): Z00.00 - Encounter for general adult medical examination without abnormal findings Plan: Repeat in a year (2) Mild recurrent major depression: Code(s): F33.0 - Major depressive disorder, recurrent, mild Plan: In remission. 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 Increase glipizide. A1c goal is equal or less than 7%. Orders: Orders Influenza [id number] Immunization Today Z23 - Encounter for immunization AMB Hemoglobin A1c Today E11.9 - Type 2 diabetes mellitus without complications Microalbumin, Random (w Creat) 4 Months E11.9 - Type 2 diabetes mellitus without complications Vitamin D 25-OH Total 4 Months E55.9 - Vitamin D deficiency, unspecified Comprehensive Met. Panel 4 Months E78.00 - Pure hypercholesterolemia, unspecified XR DEXA axial skeleton Today N95.9 - Unspecified menopausal and perimenopausal disorder Lipid Panel 4 Months E78.5 - Hyperlipidemia, unspecified Thyroid Stimulating Hormone 4 Months E03.9 - Hypothyroidism, unspecified Referrals Cologuard Test Z12.11 - Encounter for screening for malignant neoplasm of colon, Z12.12 - Encounter for screening for malignant neoplasm of rectum Medications: New commode (bedside commode) As directed 1 ea 0RF M54.16 - Radiculopathy, lumbar region, R32 - Unspecified urinary incontinence Grab bar As directed 1 ea 0RF M54.16 - Radiculopathy, lumbar region Changed From glipizide ER 5 mg PO DAILY 90 days 90 tabs 3RF To glipizide ER 10 mg (2 x 5 mg) PO DAILY 90 days 180 tabs 3RF Refilled ezetimibe 10 mg PO DAILY 90 days 90 tabs 3RF Coding Level of Care Code Est Pt Prev Care >65y(29138) Diagnoses Physical exam Z00.00 Mild recurrent major depression F33.0 Type 2 diabetes mellitus without complication, without long-term current use of insulin E11.9 Diabetes mellitus type: type 2 Diabetes mellitus fdc insulin use: without fdc use Diabetes mellitus complication status: without complication Time Spent (min) 36
== END 2023-06-21 11:30 | disposition home or self-care (01) ==
PROVIDERS: PCP Internal Medicine; Visit Provider Internal Medicine
DX: Z00.00 Encounter for general adult medical examination without abnormal findings (principal); F33.0 Major depressive disorder, recurrent, mild; E11.9 Type 2 diabetes mellitus without complications
CPT/HCPCS: 83036; 99397

== ENCOUNTER 2023-07-03 09:53 | Outpatient (AMB) | payer OTHER, SELFPAY ==
--- NOTE | 2023-07-03 10:08 | A.OFFVIS_ITS ---
Intake Vital Signs 07/03/23 10:10 Height 5 ft Weight 190 lb BMI 37.1 Blood Pressure Location Lt brachial Position Sitting Respiration 12 Pulse 89 Pulse Source Pulse Oximeter Pulse Oximetry (%) 96 Oxygen Delivery Method Room Air Intake Visit Reasons: Left theraputic intraarticular shoulder inj/LMOVM Allergies MARIA ESTHER Inhibitors Adverse Reaction (Intermediate, Verified 07/03/23 10:11) cough ARB-Angiotensin Receptor Antagonist Adverse Reaction (Intermediate, Verified 07/03/23 10:11) Cough Medication List - Last Reconciled 07/03/23 by Brandie Cardenas LPN acetaminophen ER (Tylenol Arthritis Pain) 650 mg PO Q8H PRN amlodipine 10 mg PO DAILY 90 days blood sugar diagnostic ([employer] Test strips) Take 1 test strip once a day blood-glucose meter ([employer] [place] Lite kit) As directed cane with 4 legs celecoxib 200 mg PO BID PRN [cervical collar As directed] commode (bedside commode) As directed diclofenac sodium 3% 1 appl topical BID ezetimibe 10 mg PO DAILY 90 days gabapentin 600 mg PO TID 30 days glipizide ER 10 mg (2 x 5 mg) PO DAILY 90 days Grab bar As directed [incontinence pads 4 daily As directed] lancets (FreeStyle Lancets) Use 1 lancet once a day levothyroxine 100 mcg PO DAILY 90 days lidocaine 4% (Aspercreme (lidocaine)) 1 patch topical BEDTIME PRN linagliptin 5 mg PO DAILY 90 days loratadine 10 mg PO DAILY 90 days methocarbamol 750 mg PO Q8H PRN mupirocin 2% 1 appl topical BID 7 days [personal cleansing wipes (sensitive skin) As directed] [rollator walker As directed] sucralfate (Carafate) 1 g PO BID 30 days [washable bed pads As directed] HPI Left theraputic intraarticular shoulder inj/LMOVM HPI Details 72-year-old female who presents today to the office for a left therapeutic intraarticular shoulder injection. Denies any recent cough, cold, i nfection, fever or other significant changes in medical history since last office visit. Past procedure: 06/19/23: Right glenohumeral joint stero id injection, ultrasound guided: 60% relief. [facility] Medical History Gait disorder Muscle cramps Hypersomnia Snoring Chronic pain in right foot Skin tag Post-menopausal Obesity Pure hypercholesterolemia Hypothyroidism Essential hypertension Diabetes mellitus Polyarthralgia Surgical History Hx of colonoscopy History of eye surgery S/P total abdominal hysterectomy History of laparoscopic cholecystectomy Family History Father Cancer Mother Stroke Diabetes Hypertension CVD (cardiovascular disease) Sister Cancer Paternal Uncle Cancer Maternal Aunt Cancer Brother CVD (cardiovascular disease) Social History Housing: House Alcohol intake: never Patient Tobacco Use Status: Never used Tobacco e-Cigarette/Vaping Use: Never Used Second Hand Smoke Exposure: Yes service: No Current occupational status: disabled Cognitive needs: No Hearing needs: No Vision needs: Yes Review of Systems Const All systems reviewed & are unremarkable except as noted in HPI and below Physical Exam Vital Signs: Last Vital Signs Pulse 89 07/03/23 10:10 Resp 12 07/03/23 10:10 Pulse Ox 96 07/03/23 10:10 Oxygen Delivery Method Room Air 07/03/23 10:10 BMI result Body Mass Index 37.1 General: Appears afebrile. Alert and oriented. Mood and affect appropriate. Follows and participates in conversation appropriately. Respiratory effort is unlabored. Able to transition from sit to stand unassisted. Ambulates with bilaterally normal heel strike and toe off. Office Procedures Joint Injection/Drain Joint Injection/Drain Details: Left glenohumeral joint steroid injection, ultrasound guided Primary Site: left shoulder Prep: site was prepped using aseptic technique and site was prepped using sterile technique Injected: 40 mg of, Kenalog, with 1 mL of (lidocaine 1%), with 4 mL of (bupivacaine 0.25%) and in the joint Approach Used: posterolateral Procedure: The patient tolerated the procedure well Coding Details: An ultrasound image of the injection was taken and stored in the permanent record. - Glenohumeral with ultrasound guidance Procedure code (CPT) selection complete Results Reviewed Results Reviewed: No imaging is available for review. Assessment & Plan Assessment & Plan (1) Bilateral shoulder pain: Code(s): M25.511 - Pain in right shoulder; M25.512 - Pain in left shoulder Qualifiers: Chronicity: chronic Qualified Code(s): M25.511 - Pain in right shoulder; M25.512 - Pain in left shoulder; G89.29 - Other chronic pain Plan Patient is status post left glenohumeral joint steroid injection ultrasound guided. Patient tolerated procedure well and was discharged home in stable condition with discharge instructions. All questions were answered. We will follow-up as needed to assess response to therapy. A follow-up appointment was made during today's visit. Scribed for Dr. Espino by Yves Martinez, medical billing representative, on 07/03/2023. I, Dr. Espino, have personally reviewed and agree with the information entered by the scribe. Coding Level of Care Code Procedure Only Diagnoses Chronic pain of both shoulders M25.511; M25.512; G89.29 Chronicity: chronic CPT Codes Coding - Joint 8: 65440 - Glenohumeral with ultrasound guidance ([id number])
[2023-07-03 10:10] VITALS: PULSE 89; RESP 12; O2SAT 96; BMI 37.1
== END 2023-07-03 10:32 | disposition home or self-care (01) ==
PROVIDERS: PCP Internal Medicine; Visit Provider Internal Medicine
DX: M25.511 Pain in right shoulder (principal); M25.512 Pain in left shoulder; G89.29 Other chronic pain
CPT/HCPCS: 20611

== ENCOUNTER → 2023-07-03 09:53 | Outpatient (BNVA) | payer OTHER, SELFPAY | PROVIDERS: PCP Internal Medicine; Visit Provider Internal Medicine | DX: M25.511 Pain in right shoulder (principal); M25.512 Pain in left shoulder; G89.29 Other chronic pain | CPT/HCPCS: 20611; J3301 ==

== ENCOUNTER 2023-07-27 11:03 | Outpatient (AMB) | payer OTHER, SELFPAY ==
--- NOTE | 2023-07-27 11:10 | MHC.OFFVIS ---
Intake Intake Visit Reasons: OV- RT OA of the knee Intake Note: Jamilah is a 72 year old female who presents today for a follow of her right knee. Last injection done in the left knee on 05/19/23. She reports her left knee is more painful than the right. She is using a cane to ambulate. Allergies MARIA ESTHER Inhibitors Adverse Reaction (Intermediate, Verified 07/27/23 11:11) cough ARB-Angiotensin Receptor Antagonist Adverse Reaction (Intermediate, Verified 07/27/23 11:11) Cough Medication List - Last Reconciled 07/27/23 by Karo Bello RN acetaminophen ER (Tylenol Arthritis Pain) 650 mg PO Q8H PRN amlodipine 10 mg PO DAILY 90 days blood sugar diagnostic (FreeStyle Test strips) Take 1 test strip once a day blood-glucose meter ([employer]Style [place] Lite kit) As directed cane with 4 legs celecoxib 200 mg PO BID PRN [cervical collar As directed] commode (bedside commode) As directed diclofenac sodium 3% 1 appl topical BID ezetimibe 10 mg PO DAILY 90 days gabapentin 600 mg PO TID 30 days glipizide ER 10 mg (2 x 5 mg) PO DAILY 90 days Grab bar As directed [incontinence pads 4 daily As directed] lancets (FreeStyle Lancets) Use 1 lancet once a day levothyroxine 100 mcg PO DAILY 90 days lidocaine 4% (Aspercreme (lidocaine)) 1 patch topical BEDTIME PRN linagliptin 5 mg PO DAILY 90 days loratadine 10 mg PO DAILY 90 days methocarbamol 750 mg PO Q8H PRN mupirocin 2% 1 appl topical BID 7 days [personal cleansing wipes (sensitive skin) As directed] [rollator walker As directed] sucralfate (Carafate) 1 g PO BID 30 days [washable bed pads As directed] HPI OV- RT OA of the knee HPI Details Jamilah is a 72 year old Diabetic woman who returns to discuss her bilateral knee OA. Her primary complaint today is of her left knee OA pain. She has pain with daily activity, along with swelling. She was last injected on 05/19/23 in her left knee, which was helpful, but her pain has returned. She complains of worsening right knee OA pain, but this is more tolerable. She would like a repeat injection today. She continues to walk using a cane. [facility] Medical History Gait disorder Muscle cramps Hypersomnia Snoring Chronic pain in right foot Skin tag Post-menopausal Obesity Pure hypercholesterolemia Hypothyroidism Essential hypertension Diabetes mellitus Polyarthralgia Surgical History Hx of colonoscopy History of eye surgery S/P total abdominal hysterectomy History of laparoscopic cholecystectomy Family History Father Cancer Mother Stroke Diabetes Hypertension CVD (cardiovascular disease) Sister Cancer Paternal Uncle Cancer Maternal Aunt Cancer Brother CVD (cardiovascular disease) Social History Housing: House Alcohol intake: never Patient Tobacco Use Status: Never used Tobacco e-Cigarette/Vaping Use: Never Used Second Hand Smoke Exposure: Yes service: No Current occupational status: disabled Cognitive needs: No Hearing needs: No Vision needs: Yes Review of Systems Const All systems reviewed & are unremarkable except as noted in HPI and below Physical Exam Const General: no acute distress, alert and awake Orientation/consciousness: patient oriented x3 HEENT Head: Yes normocephalic and Yes atraumatic Eyes EOM: EOMs intact bilaterally Resp Effort & Inspection: normal respiratory effort and able to speak in complete sentences Cardio Jugular venous distension: no JVD Skin General skin exam: turgor normal Rashes: no rashes Neuro General: patient oriented x3 Extrem Other: medial compartment ttp left > right + gait antalgia 5-130 deg bilaterally with pain on left Psych Appearance: grossly normal Affect: normal affect Attitude: cooperative Assessment & Plan Assessment & Plan (1) Bilateral primary osteoarthritis of knee: Code(s): M17.0 - Bilateral primary osteoarthritis of knee Plan: Severe OA left knee Hesitant to surgery Viscosupplementation as steroids not helpful Plan Scribed for Huey Lyles MD by Torey Bowers, medical office professional instructor, on 07/27/23 at 11:20 AM, EST. Coding Level of Care Code Est Pt Level 4 (75979) Diagnoses Bilateral primary osteoarthritis of knee M17.0
== END 2023-07-27 12:02 | disposition home or self-care (01) ==
PROVIDERS: PCP Internal Medicine; Visit Provider Orthopaedic Surgery
DX: M17.0 Bilateral primary osteoarthritis of knee (principal)
CPT/HCPCS: 99214

== ENCOUNTER → 2023-07-27 11:03 | Outpatient (BNVA) | payer OTHER, SELFPAY | PROVIDERS: PCP Internal Medicine; Visit Provider Orthopaedic Surgery | DX: M17.0 Bilateral primary osteoarthritis of knee (principal) | CPT/HCPCS: 99212; J0665; J1100 ==

== ENCOUNTER 2023-08-04 08:49 | Outpatient (REF) | payer OTHER, SELFPAY ==
--- NOTE | ~2023-08-04 | MM_ITS ---
EXAMINATION: BONE DENSITOMETRY CLINICAL INDICATION: Menopause. COMPARISON: Baseline BD dated 03/19/2021. TECHNIQUE: Using a uma information technology DXA System (software version: 13.1) manufactured by [employer], dual-energy x-ray absorptiometry was performed of the lumbar spine and left hip. The images are of good technical quality. Summary results are attached. FINDINGS: LEFT FEMUR, NECK: Current: BMD 0.737 g/cm2, Z-score -0.9, T-score -2.2, osteopenia. Baseline: BMD 0.940 g/cm2. LEFT FEMUR, TOTAL: Current: BMD 0.716 g/cm2, Z-score -1.3, T-score -2.3, osteopenia, 24.0% decrease from baseline (<5% change is not significant). Baseline: BMD 0.942 g/cm2. AP SPINE L1-L4: Current: BMD 1.113 g/cm2, Z-score 0.3, T-score -0.6, normal, 2.7% increase from baseline (<5% change is not significant). Baseline: BMD 1.084 g/cm2. IDENTIFIED RISK FACTORS: Menopause, hysterectomy, history of fracture (adult), bilateral oophorectomy, rheumatoid arthritis. HISTORY OF FRACTURE: Elbow. MEDICATIONS: Calcium, vitamin D. MM/XR DEXA axial skeleton IMPRESSION: 1. DIAGNOSIS: Osteopenia based on the lowest T-score value of -2.3 in the total femur applying World Health Organization criteria. 2. 10-YEAR FRACTURE RISK PREDICTION, FRAX: Major osteoporotic fracture (clinical spine, forearm, hip or shoulder) 14.2%. Hip fracture 3.2%. 3. Treatment Recommendations: NOF guidelines recommend consideration for treatment in postmenopausal women and men age 50 and older presenting with the following: -A hip or vertebral (clinical or morphometric) fracture. -T-score less than or equal to -2.5 at the femoral neck or spine after appropriate evaluation to exclude secondary causes. -Low bone mass at the hip or spine and a 10-year fracture probability by FRAX of greater than or equal to 3% for hip fracture or greater than or equal to 20% for major osteoporotic fracture based on the [place] adapted WHO algorithm. 4. Other Recommendations: All treatment decisions require clinical judgment and consideration of individual patient factors, including patient preferences, comorbidities, previous drug use, risk factors not captured in the FRAX model (e.g. frailty, falls, vitamin D deficiency, increased bone turnover, interval significant decline in bone density) and possible under or overestimation of fracture risk by FRAX. Additional medical evaluation for secondary cause of low bone mineral density may be appropriate. FUTURE SCAN RECOMMENDATION: People with diagnosed cases of osteoporosis or at high risk for fracture should have regular bone mineral density tests. For patients eligible for Medicare, routine testing is allowed once every 2 years. The testing frequency can be increased to one year for patients who have rapidly progressing disease, those who are receiving or discontinuing medical therapy to restore bone mass, or have additional risk factors.
== END 2023-08-04 08:50 | disposition home or self-care (01) ==
LOC: HO.MAMMO 08:49
PROVIDERS: PCP Internal Medicine; Visit Provider Internal Medicine
DX: Z13.820 Encounter for screening for osteoporosis (principal); Z78.0 Asymptomatic menopausal state
CPT/HCPCS: 77080

== ENCOUNTER 2023-09-04 09:13 | Outpatient (AMB) | payer OTHER, SELFPAY ==
--- NOTE | 2023-09-04 09:18 | A.OFFVIS_ITS ---
Intake Vital Signs 09/04/23 09:19 Height 5 ft Weight 193 lb BMI 37.7 BP 155/76 H Blood Pressure Location Rt brachial Position Sitting Respiration 12 Pulse 77 Pulse Source Pulse Oximeter Pulse Oximetry (%) 98 Oxygen Delivery Method Room Air Intake Visit Reasons: follow up Allergies MARIA ESTHER Inhibitors Adverse Reaction (Intermediate, Verified 09/04/23 09:20) cough ARB-Angiotensin Receptor Antagonist Adverse Reaction (Intermediate, Verified 09/04/23 09:20) Cough Medication List - Last Reconciled 09/04/23 by Brandie Cardenas LPN acetaminophen ER (Tylenol Arthritis Pain) 650 mg PO Q8H PRN amlodipine 10 mg PO DAILY 90 days blood sugar diagnostic (FreeStyle Test strips) Take 1 test strip once a day blood-glucose meter ([employer] [place] Lite kit) As directed calcium carbonate 600 mg PO BID 90 days cane with 4 legs celecoxib 200 mg PO BID PRN [cervical collar As directed] cholecalciferol (vitamin D3) 25 mcg PO DAILY 90 days commode (bedside commode) As directed diclofenac sodium 3% 1 appl topical BID ezetimibe 10 mg PO DAILY 90 days gabapentin 600 mg PO TID 30 days glipizide ER 10 mg (2 x 5 mg) PO DAILY 90 days Grab bar As directed [incontinence pads 4 daily As directed] lancets (FreeStyle Lancets) Use 1 lancet once a day levothyroxine 100 mcg PO DAILY 90 days lidocaine 4% (Aspercreme (lidocaine)) 1 patch topical BEDTIME PRN linagliptin 5 mg PO DAILY 90 days loratadine 10 mg PO DAILY 90 days methocarbamol 750 mg PO Q8H PRN mupirocin 2% 1 appl topical BID 7 days [personal cleansing wipes (sensitive skin) As directed] [rollator walker As directed] sucralfate (Carafate) 1 g PO BID 30 days [washable bed pads As directed] HPI follow up HPI Details 72-year-old female who presents today to the office for a follow-up. She states that her shoulder pain has improved since the last injections. The patient reports severe neck pain, which is bothersome. Pain is primarily axial. She denies any radiating pain in her arms. She states that her pain is limiting her ability to do daily activities. She has a history of osteopenia and osteoporosis.? Past procedures: 07/03/23: Left glenohumeral joint steroi d injection, ultrasound guided: 60-70% relief. 06/19/23: Right glenohumeral joint stero id injection, ultrasound guided: 60% relief. [facility] Medical History Gait disorder Muscle cramps Hypersomnia Snoring Chronic pain in right foot Skin tag Post-menopausal Obesity Pure hypercholesterolemia Hypothyroidism Essential hypertension Diabetes mellitus Polyarthralgia Surgical History Hx of colonoscopy History of eye surgery S/P total abdominal hysterectomy History of laparoscopic cholecystectomy Family History Father Cancer Mother Stroke Diabetes Hypertension CVD (cardiovascular disease) Sister Cancer Paternal Uncle Cancer Maternal Aunt Cancer Brother CVD (cardiovascular disease) Social History Housing: House Alcohol intake: never Patient Tobacco Use Status: Never used Tobacco e-Cigarette/Vaping Use: Never Used Second Hand Smoke Exposure: Yes service: No Current occupational status: disabled Cognitive needs: No Hearing needs: No Vision needs: Yes Review of Systems Const All systems reviewed & are unremarkable except as noted in HPI and below Physical Exam Vital Signs: Last Vital Signs Pulse 77 09/04/23 09:19 Resp 12 09/04/23 09:19 BP 155/76 H 09/04/23 09:19 Pulse Ox 98 09/04/23 09:19 Oxygen Delivery Method Room Air 09/04/23 09:19 BMI result Body Mass Index 37.7 General: Appears afebrile. Alert and oriented. Mood and affect appropriate. Follows and participates in conversation appropriately. Respiratory effort is unlabored. Able to transition from sit to stand unassisted. Ambulates with bilaterally normal heel strike and toe off. Cervical facet loading is positive on the right. Cervical range of motion, side to side, and flexion all reproduce pain. Results Reviewed Results Reviewed: No imaging is available for review. Assessment & Plan Assessment & Plan (1) Cervical spondylosis: Code(s): M47.812 - Spondylosis without myelopathy or radiculopathy, cervical region (2) Right shoulder pain: Code(s): M25.511 - Pain in right shoulder Plan Discussed RFA as a possible treatment option. We will proceed with two rounds of diagnostic injections in anticipation of cervical medial branch RFA. Discussed the need to minimize corticosteroid administrations in setting of known ost eopenia/osteoporosis. We will schedule her for right C4-C5-C6 diagnostic medial branch blocks. Discussed the risks and benefits of the procedure with the patient in detail. All questions were answered. The patient is on board with the plan. Justification for interventional therapy: ? Patient with average pain > 6/10 ? Patient has exhausted conservative therapy ? Patient unable to tolerate physical therapy due to pain Scribed for Dr. Espino by Yves Martinez, lead medical technologist, on 09/04/2023. I, Dr. Espino, have personally reviewed and agree with the information entered by the scribe. Coding Level of Care Code Est Pt Level 4 (13760) Diagnoses Cervical spondylosis M47.812 Right shoulder pain M25.511
[2023-09-04 09:19] VITALS: BP 155/76; PULSE 77; RESP 12; O2SAT 98; BMI 37.7
== END 2023-09-04 09:47 | disposition home or self-care (01) ==
PROVIDERS: PCP Internal Medicine; Visit Provider Internal Medicine
DX: M47.812 Spondylosis without myelopathy or radiculopathy, cervical region (principal); M25.511 Pain in right shoulder
CPT/HCPCS: 99214

== ENCOUNTER → 2023-09-04 09:13 | Outpatient (BNVA) | payer OTHER, SELFPAY | PROVIDERS: PCP Internal Medicine; Visit Provider Internal Medicine | DX: M47.812 Spondylosis without myelopathy or radiculopathy, cervical region (principal); M25.511 Pain in right shoulder | CPT/HCPCS: 99212 ==

== ENCOUNTER 2023-10-05 06:09 | Outpatient (REF) | payer OTHER, SELFPAY ==
--- NOTE | ~2023-10-05 | FL_ITS ---
EXAMINATION: XR FLUOROSCOPY WITH IMAGES CLINICAL INFORMATION: Cervical spondylosis without myelopathy or radiculopathy. COMPARISON: Cervical spine radiographs dated 02/06/2023. TECHNIQUE: Fluoroscopy Supervised By: Dr. Tashi Espino. Fluoroscopy Time: 0.1 minutes. Cumulative Dose: 1.13 mGy. DAP: 0.71700 mGym2. Images: 2. FINDINGS: The submitted images show an injection needles and injected contrast in the vicinity of the C2-C3, C3-C4 and C4-C5 posterior elements. FL/FL guidance in treatment room IMPRESSION: Intraoperative fluoroscopic guidance is provided during cervical pain management procedure. Please see the patient's Operative Report for full procedural details.
== END 2023-10-05 06:10 | disposition home or self-care (01) ==
LOC: CF 06:09
PROVIDERS: Visit Provider Internal Medicine
DX: M47.812 Spondylosis without myelopathy or radiculopathy, cervical region (principal)
CPT/HCPCS: 64490; 64491; J2795; Q9967

== ENCOUNTER 2023-10-05 11:06 | Outpatient (AMB) | payer OTHER, SELFPAY ==
[2023-10-05 11:01] VITALS: BP 160/90; PULSE 92; RESP 16; O2SAT 92; BMI 37.7
--- NOTE | 2023-10-05 11:01 | MHC.OFFVIS ---
Intake Vital Signs 10/05/23 11:01 10/05/23 11:42 Height 5 ft Weight 193 lb BMI 37.7 BP 160/90 H 160/92 H Blood Pressure Location Lt brachial Lt brachial Position Sitting Sitting Respiration 16 18 Pulse 92 94 Pulse Source Pulse Oximeter Pulse Oximeter Pulse Oximetry (%) 92 96 Oxygen Delivery Method Room Air Room Air Comment Pre-Op Post-Op Intake Visit Reasons: Right Dx C4-C5-C6 MBB Allergies MARIA ESTHER Inhibitors Adverse Reaction (Intermediate, Verified 09/04/23 09:20) cough ARB-Angiotensin Receptor Antagonist Adverse Reaction (Intermediate, Verified 09/04/23 09:20) Cough HPI Right Dx C4-C5-C6 MBB HPI Details Patient presents for scheduled procedure. Denies any recent cough, cold, infection, fever or other significant changes in medical history since last office visit. [facility] Medical History Gait disorder Muscle cramps Hypersomnia Snoring Chronic pain in right foot Skin tag Post-menopausal Obesity Pure hypercholesterolemia Hypothyroidism Essential hypertension Diabetes mellitus Polyarthralgia Surgical History Hx of colonoscopy History of eye surgery S/P total abdominal hysterectomy History of laparoscopic cholecystectomy Family History Father Cancer Mother Stroke Diabetes Hypertension CVD (cardiovascular disease) Sister Cancer Paternal Uncle Cancer Maternal Aunt Cancer Brother CVD (cardiovascular disease) Social History Housing: House Alcohol intake: never Patient Tobacco Use Status: Never used Tobacco e-Cigarette/Vaping Use: Never Used Second Hand Smoke Exposure: Yes service: No Current occupational status: disabled Cognitive needs: No Hearing needs: No Vision needs: Yes Physical Exam Vital Signs: Last Vital Signs Pulse 92 10/05/23 11:01 Resp 16 10/05/23 11:01 BP 160/90 H 10/05/23 11:01 Pulse Ox 92 10/05/23 11:01 Oxygen Delivery Method Room Air 10/05/23 11:01 BMI result Body Mass Index 37.7 Office Procedures Cervical/Thoracic Facet Inj Details: Diagnostic Cervical Medial Branch Block, right C4, C5, C6 medial branches After obtaining written consent, pre-procedure blood pressure and pulse were recorded and are in the nursing record for review. The patient was placed in a lateral position. The respective cervical area was prepped with chloraprep and draped in sterile fashion. The skin over the target medial branch nerves was anesthetized with 0.5% lidocaine. A 25 gauge 1.5 inch needle was inserted into the target medial branch nerve under fluoroscopic guidance. No paresthesias were elicited with needle placement and aspiration was negative for blood and CSF. Next, 0.2cc of omnipaque 180 was injected to verify positioning. Next 0.5 ml 0.5% ropivicaine was injected (0.5 cc total per level). The identical procedure was performed at the remaining levels. The skin was cleansed and a sterile bandage was applied. Following the procedure the patient's vital signs were stable. The patient tolerated the procedure well and no complications were encountered. Following the procedure the patient's vital signs were stable. The patient was discharged home in good condition with post-procedural instructions. Time Out: Immediately prior to the procedure, the following was verbally confirmed that there is a signed consent form and that the correct patient, planned procedure, site and side are consistent with documentation and that necessary equipment and/or blood products are available prior to the start of the case. Complications: none EBL: <5 cc 00374 - with Fluoroscopy 48476 - second level, with Fluoroscopy 11872 - third level, with Fluoroscopy Procedure code (CPT) selection complete Assessment & Plan Assessment & Plan (1) Cervical spondylosis: Code(s): M47.812 - Spondylosis without myelopathy or radiculopathy, cervical region Plan Patient is status post diagnostic right C4, C5, C6 medial branch blocks. Patient tolerated procedure well and was discharged home in stable condition with discharge instructions. All questions were answered. We will follow-up via telephone or in clinic to assess response to therapy. A follow-up appointment was made during today's visit. Orders: Orders FL guidance in treatment room Today M47.812 - Spondylosis without myelopathy or radiculopathy, cervical region Coding Level of Care Code Procedure Only Diagnoses Cervical spondylosis M47.812 CPT Codes Facet Injection Cervical/Thoracic - CPT: 56269 - with Fluoroscopy ([id number]) Facet Injection Cervical/Thoracic - CPT: 71362 - second level, with Fluoroscopy ([id number]) Facet Injection Cervical/Thoracic - CPT: 70264 - third level, with Fluoroscopy ([id number])
[2023-10-05 11:42] VITALS: BP 160/92; PULSE 94; RESP 18; O2SAT 96
== END 2023-10-05 11:53 | disposition home or self-care (01) ==
LOC: HO.PMCPRC 11:06
PROVIDERS: PCP Internal Medicine; Visit Provider Internal Medicine
DX: M47.812 Spondylosis without myelopathy or radiculopathy, cervical region (principal)
CPT/HCPCS: 64490; 64491

== ENCOUNTER 2023-10-09 10:25 | Outpatient (AMB) | payer OTHER, SELFPAY ==
--- NOTE | 2023-10-09 10:49 | MHC.OFFVIS ---
Intake Vital Signs 10/09/23 10:51 Height 5 ft Weight 193 lb BMI 37.7 BP 161/74 H Blood Pressure Location Lt brachial Position Sitting Respiration 13 Pulse 78 Pulse Source Pulse Oximeter Pulse Oximetry (%) 98 Oxygen Delivery Method Room Air Intake Visit Reasons: s/p right C4-C5-C6 MBB Allergies MARIA ESTHER Inhibitors Adverse Reaction (Intermediate, Verified 10/09/23 10:53) cough ARB-Angiotensin Receptor Antagonist Adverse Reaction (Intermediate, Verified 10/09/23 10:53) Cough Medication List - Last Reconciled 10/09/23 by Brandie Cardenas LPN acetaminophen ER (Tylenol Arthritis Pain) 650 mg PO Q8H PRN amlodipine 10 mg PO DAILY 90 days [bed rails As directed] blood sugar diagnostic ([employer]Style Test strips) Take 1 test strip once a day blood-glucose meter ([employer]Style [place] Lite kit) As directed calcium carbonate 600 mg PO BID 90 days cane with 4 legs celecoxib 200 mg PO BID PRN [cervical collar As directed] cholecalciferol (vitamin D3) 25 mcg PO DAILY 90 days commode (bedside commode) As directed diclofenac sodium 3% 1 appl topical BID ezetimibe 10 mg PO DAILY 90 days gabapentin 600 mg PO TID 30 days glipizide ER 10 mg (2 x 5 mg) PO DAILY 90 days Grab bar As directed [incontinence pads 4 daily As directed] lancets (FreeStyle Lancets) Use 1 lancet once a day levothyroxine 100 mcg PO DAILY 90 days lidocaine 4% (Aspercreme (lidocaine)) 1 patch topical BEDTIME PRN linagliptin 5 mg PO DAILY 90 days loratadine 10 mg PO DAILY 90 days methocarbamol 750 mg PO Q8H PRN mupirocin 2% 1 appl topical BID 7 days [personal cleansing wipes (sensitive skin) As directed] [rollator walker As directed] sucralfate (Carafate) 1 g PO BID 30 days [washable bed pads As directed] HPI s/p right C4-C5-C6 MBB HPI Details 72-year-old female who presents today to the office for a status post right C4-C5-C6 MBB. The patient reports 30-40% relief following the procedure for two days. She has experienced significant relief. Her pain level improved to 6-7/10 from 9-10/10 in intensity. She has been receiving steroid injection for foot pain by another provider. She has a history of diabetes mellitus. Past procedures: 10/05/23: Diagnostic Cervical Medial Branch Block, right C4, C5, C6 medial branches: 30-40% relief for two days, continuing a few days out. 07/03/23: Left glenohumeral joint steroid injection, ultrasound guided: 60-70% relief. 06/19/23: Right glenohumeral joint steroid injection, ultrasound guided: 60% relief. [facility] Medical History Gait disorder Muscle cramps Hypersomnia Snoring Chronic pain in right foot Skin tag Post-menopausal Obesity Pure hypercholesterolemia Hypothyroidism Essential hypertension Diabetes mellitus Polyarthralgia Surgical History Hx of colonoscopy History of eye surgery S/P total abdominal hysterectomy History of laparoscopic cholecystectomy Family History Father Cancer Mother Stroke Diabetes Hypertension CVD (cardiovascular disease) Sister Cancer Paternal Uncle Cancer Maternal Aunt Cancer Brother CVD (cardiovascular disease) Social History Housing: House Alcohol intake: never Patient Tobacco Use Status: Never used Tobacco e-Cigarette/Vaping Use: Never Used Second Hand Smoke Exposure: Yes service: No Current occupational status: disabled Cognitive needs: No Hearing needs: No Vision needs: Yes Review of Systems Const All systems reviewed & are unremarkable except as noted in HPI and below Physical Exam Vital Signs: Last Vital Signs Pulse 78 10/09/23 10:51 Resp 13 10/09/23 10:51 BP 161/74 H 10/09/23 10:51 Pulse Ox 98 10/09/23 10:51 Oxygen Delivery Method Room Air 10/09/23 10:51 BMI result Body Mass Index 37.7 General: Appears afebrile. Alert and oriented. Mood and affect appropriate. Follows and participates in conversation appropriately. Respiratory effort is unlabored. Able to transition from sit to stand unassisted. Ambulates with bilaterally normal heel strike and toe off. Results Reviewed Results Reviewed: No imaging is available for review. Assessment & Plan Assessment & Plan (1) Cervical spondylosis: Code(s): M47.812 - Spondylosis without myelopathy or radiculopathy, cervical region Plan The patient will follow up as needed. If the pain returns, we will repeat the injection again with a small amount of corticosteroid given her concomitant diabetes. Scribed for Dr. Espino by Yves Martinez, director medical writing, on 10/09/2023. I, Dr. Espino, have personally reviewed and agree with the information entered by the scribe. Coding Level of Care Code Est Pt Level 3 (23028) Diagnoses Cervical spondylosis M47.812
[2023-10-09 10:51] VITALS: BP 161/74; PULSE 78; RESP 13; O2SAT 98; BMI 37.7
== END 2023-10-09 11:25 | disposition home or self-care (01) ==
PROVIDERS: PCP Internal Medicine; Visit Provider Internal Medicine
DX: M47.812 Spondylosis without myelopathy or radiculopathy, cervical region (principal)
CPT/HCPCS: 99213

== ENCOUNTER → 2023-10-09 10:29 | Outpatient (BNVA) | payer OTHER, SELFPAY | PROVIDERS: PCP Internal Medicine; Visit Provider Internal Medicine | DX: M47.812 Spondylosis without myelopathy or radiculopathy, cervical region (principal) | CPT/HCPCS: 99212 ==

== ENCOUNTER 2023-10-18 08:59 | Outpatient (AMB) | payer OTHER, MEDICAID, SELFPAY ==
--- NOTE | 2023-10-18 09:03 | A.OFFVIS_ITS ---
Intake Vital Signs 10/18/23 09:04 Height 5 ft Weight 190 lb BMI 37.1 BP 140/68 H Blood Pressure Location Rt brachial Position Sitting Respiration 16 Pulse 84 Pulse Source Pulse Oximeter Pulse Oximetry (%) 98 Oxygen Delivery Method Room Air Intake Visit Reasons: 3m follow up Polyneuropathy-LVM Intake Note: Pt presents for follow up for polyneuropathy. Repair Coil Winder Required: No Allergies MARIA ESTHER Inhibitors Adverse Reaction (Intermediate, Verified 10/18/23 09:08) cough ARB-Angiotensin Receptor Antagonist Adverse Reaction (Intermediate, Verified 10/18/23 09:08) Cough Medication List - Last Reconciled 10/18/23 by Moira Newsome MD acetaminophen ER (Tylenol Arthritis Pain) 650 mg PO Q8H PRN amlodipine 10 mg PO DAILY 90 days [bed rails As directed] blood sugar diagnostic (FreeStyle Test strips) Take 1 test strip once a day blood-glucose meter (FreeStyle [place] Lite kit) As directed calcium carbonate 600 mg PO BID 90 days cane with 4 legs celecoxib 200 mg PO BID PRN [cervical collar As directed] cholecalciferol (vitamin D3) 25 mcg PO DAILY 90 days commode (bedside commode) As directed diclofenac sodium 3% 1 appl topical BID ezetimibe 10 mg PO DAILY 90 days gabapentin 600 mg PO TID 30 days glipizide ER 10 mg (2 x 5 mg) PO DAILY 90 days Grab bar As directed [incontinence pads 4 daily As directed] lancets (FreeStyle Lancets) Use 1 lancet once a day levothyroxine 100 mcg PO DAILY 90 days lidocaine 4% (Aspercreme (lidocaine)) 1 patch topical BEDTIME PRN linagliptin 5 mg PO DAILY 90 days loratadine 10 mg PO DAILY 90 days methocarbamol 750 mg PO Q8H PRN mupirocin 2% 1 appl topical BID 7 days [personal cleansing wipes (sensitive skin) As directed] [rollator walker As directed] sucralfate (Carafate) 1 g PO BID 30 days [washable bed pads As directed] HPI HPI Comments History of Present Illness Details 72-year-old female history of polyarthra lgia, diabetes mellitus, hypertension, hypothyroidism, hypercholesterolemia, depression and chronic foot pain comes for follow up of neuropathy and also sleep issues related to pain. she was last seen 1 year ago ? Patient reports right chronic foot pain about 12 mths ago she sees educational administrator an kinsey denson specialist for polyarthralgias. Patient states the pain is constant burning pain in right foot that extends up her leg to her right hip.? Patient denies any lumbar back pain or pain coming from the back extending down legs. she also has multiple joint pains. she stopped gabapentin as it was not helping her pain and was making her drowsy.Her Hg A 1 C wa s7.4 5mths ago. SHe reports sleep problems related to muscle cramps that wake her up , burning pain in her legs mainly at night. The pain and discomfort is worse at night- she massages, uses heat pad , sometimes sleeps in a recliner.she has snoring, has trouble falling asleep, staying asleep and has excessive daytime sleepiness. she declined sleep study. ? ? [facility] Medical History Gait disorder Muscle cramps Hypersomnia Snoring Chronic pain in right foot Skin tag Post-menopausal Obesity Pure hypercholesterolemia Hypothyroidism Essential hypertension Diabetes mellitus Polyarthralgia Surgical History Hx of colonoscopy History of eye surgery S/P total abdominal hysterectomy History of laparoscopic cholecystectomy Family History Father Cancer Mother Stroke Diabetes Hypertension CVD (cardiovascular disease) Sister Cancer Paternal Uncle Cancer Maternal Aunt Cancer Brother CVD (cardiovascular disease) Social History Housing: House Alcohol intake: never Patient Tobacco Use Status: Never used Tobacco e-Cigarette/Vaping Use: Never Used Second Hand Smoke Exposure: Yes service: No Current occupational status: disabled Cognitive needs: No Hearing needs: No Vision needs: Yes Physical Exam Vital Signs: Last Vital Signs Pulse 84 10/18/23 09:04 Resp 16 10/18/23 09:04 BP 140/68 H 10/18/23 09:04 Pulse Ox 98 10/18/23 09:04 Oxygen Delivery Method Room Air 10/18/23 09:04 BMI result Body Mass Index 37.1 Const General: cooperative and comfortable Nutritional Appearance: obese Orientation/consciousness: patient oriented x3 Limitations: physical limitations and ambulation with walker HEENT Head: Yes normal to inspection and Yes normocephalic Eyes Pupils: Equal, round and reactive pupils present Neuro Other: walks with quad cane - drags her right foot , pain in right foot limits movements - 4/5 General: patient oriented x3, tone normal and moves all extremities Cranial nerves: Yes Facial sensation intact/muscles of mastication intact, Yes Equal, round and reactive pupils present, Yes Nystagmus not present, Yes Normal facial strength present, Yes Midline tongue present and Yes Symmetric palate elevation present Cognition (Neuro): normal cognition Gait exam (Neuro): Antalgic gait present and Assisted gait required Motor exam (neuro): 5/5 motor strength present throughout and Normal motor muscle tone present throughout Deep tendon reflexes (DTR's): Right triceps reflex intensity grade: 1+, Left triceps reflex intensity grade: 1+, Rt Biceps (C5, C6): 1+, Left biceps reflex intensity grade: 1+, Right brachioradialis reflex intensity grade: 1+, Left bra chioradialis reflex intensity grade: 1+, Right patellar reflex intensity grade: 1+ and Left patellar reflex intensity grade: 1+ Coordination: [id number] test normal Psych Appearance: grossly normal Assessment & Plan Assessment & Plan (1) Neuropathy: Comment: diabetic Code(s): G62.9 - Polyneuropathy, unspecified (2) Chronic pain in right foot: Comment: arthritis, ? tarsal tunnel, bone spurs, tendinitis Code(s): M79.671 - Pain in right foot; G89.29 - Other chronic pain (3) Snoring: Code(s): R06.83 - Snoring (4) Hypersomnia: Code(s): G47.10 - Hypersomnia, unspecified (5) Muscle cramps: Comment: ?PLMD Code(s): R25.2 - Cramp and spasm (6) Gait disorder: Code(s): R26.9 - Unspecified abnormalities of gait and mobility Plan Suggested to restart gabapentin 600mg qhs I will also trial her on amitriptyline 10mg qhs and ropinirole XR 2mg qhs she declines sleep study. PT- for gait training Orders: Orders Vitamin B12 and Folate Today G62.9 - Polyneuropathy, unspecified PT Evaluation and Treatment Today M47.812 - Spondylosis without myelopathy or radiculopathy, cervical region, R26.9 - Unspecified abnormalities of gait and mobility Medications: New amitriptyline 10 mg PO BEDTIME 30 tabs 6RF ropinirole ER 2 mg PO BEDTIME 30 tabs 6RF Discontinued gabapentin Discontinued Reason: Patient no longer taking 600 mg PO TID 30 days 90 tabs 8RF Coding Level of Care Code Est Pt Level 4 (14047) Diagnoses Neuropathy G62.9 Chronic pain in right foot M79.671; G89.29 Snoring R06.83 Hypersomnia G47.10 Muscle cramps R25.2 Gait disorder R26.9
[2023-10-18 09:04] VITALS: BP 140/68; PULSE 84; RESP 16; O2SAT 98; BMI 37.1
== END 2023-10-18 09:44 | disposition home or self-care (01) ==
PROVIDERS: PCP Internal Medicine; Visit Provider Psychiatry & Neurology Neurology
DX: G62.9 Polyneuropathy, unspecified (principal); M79.671 Pain in right foot; G89.29 Other chronic pain; R06.83 Snoring; G47.10 Hypersomnia, unspecified; R25.2 Cramp and spasm; R26.9 Unspecified abnormalities of gait and mobility
CPT/HCPCS: 99214

== ENCOUNTER → 2023-10-18 08:59 | Outpatient (BNVA) | payer OTHER, SELFPAY | PROVIDERS: PCP Internal Medicine; Visit Provider Psychiatry & Neurology Neurology | DX: E11.42 Type 2 diabetes mellitus with diabetic polyneuropathy (principal); G89.29 Other chronic pain; M79.671 Pain in right foot; R06.83 Snoring; G47.10 Hypersomnia, unspecified; R25.2 Cramp and spasm; R26.9 Unspecified abnormalities of gait and mobility | CPT/HCPCS: 99212 ==

== ENCOUNTER 2023-10-21 08:27 | Outpatient (REF) | payer OTHER, SELFPAY ==
[2023-10-21 10:08] LABS: Alanine Aminotransferase 15 U/L (0-31); Albumin Level 4.4 g/dL (3.5-5.0); Alkaline Phosphatase 70 U/L (39-117); Anion Gap 11 (12-20); Aspartate Amino Transferase 17 U/L (5-31); Bilirubin Total 0.6 mg/dL (0.0-1.0); Blood Urea Nitrogen 12 mg/dL (9-16); Calcium 9.1 mg/dL (8.4-10.2); Carbon Dioxide 27 mmol/L (22-29); Chloride 105 mmol/L (96-108); Cholesterol 186 mg/dL (<200); Estimated Glomerular Filt Rate > 60; Glucose Random 119 mg/dL (60-115); HDL Cholesterol 53 mg/dL (>40); LDL Cholesterol Calculated 110 mg/dL (<100); Potassium 3.6 mmol/L (3.3-5.1); Sodium 139 mmol/L (135-145); Total Protein 7.4 g/dL (6.5-8.0); Triglycerides 116 mg/dL (<150)
[2023-10-21 10:12] LABS: Creatinine Urine 78.76 mg/dL; Microalbum/Creatinine Ratio Ur 16.5 ug/mg cr (<30)
[2023-10-21 10:23] LABS: Thyroid Stimulating Hormone 4.41 uIU/mL (0.32-4.0); Vitamin D 25-OH Total 45.3 ng/mL (>30)
[2023-10-21 10:26] LABS: Folate 11.8 ng/mL (> or = 4.0); Vitamin B12 726 pg/mL (200-900)
== END 2023-10-21 08:28 | disposition home or self-care (01) ==
LOC: HO.LAB 08:27
PROVIDERS: Psychiatry & Neurology Neurology; PCP Internal Medicine; Visit Provider Internal Medicine
DX: G62.9 Polyneuropathy, unspecified (principal); E11.9 Type 2 diabetes mellitus without complications; E55.9 Vitamin D deficiency, unspecified; E78.00 Pure hypercholesterolemia, unspecified; E78.5 Hyperlipidemia, unspecified; E03.9 Hypothyroidism, unspecified
CPT/HCPCS: 36415; 80053; 80061; 82043; 82306; 82570; 82607; 82746; 84443

== ENCOUNTER 2023-10-24 10:48 | Outpatient (AMB) | payer OTHER, SELFPAY ==
[2023-10-24 10:53] VITALS: BP 136/82; BMI 38.1
--- NOTE | 2023-10-24 10:53 | MHC.PC.OV ---
Vital Signs 10/24/23 10:53 Height 5 ft Weight 195 lb BMI 38.1 BP 136/82 Blood Pressure Location Lt brachial Position Sitting Intake Visit Reasons: dm Intake Note: Patient here for a follow up DM Healthcare Marketer Required: No Accompanied by: Self / Same As Patient Allergies MARIA ESTHER Inhibitors Adverse Reaction (Intermediate, Verified 10/24/23 11:17) cough ARB-Angiotensin Receptor Antagonist Adverse Reaction (Intermediate, Verified 10/24/23 11:17) Cough Medication List - Last Reconciled 10/24/23 by Shannan Alexander MD acetaminophen ER (Tylenol Arthritis Pain) 650 mg PO Q8H PRN amitriptyline 10 mg PO BEDTIME amlodipine 10 mg PO DAILY 90 days [bed rails As directed] blood sugar diagnostic (Lalalam[place]le Test strips) Take 1 test strip once a day blood-glucose meter (SmeetStyle [place] Lite kit) As directed calcium carbonate 600 mg PO BID 90 days cane with 4 legs celecoxib 200 mg PO BID PRN [cervical collar As directed] cholecalciferol (vitamin D3) 25 mcg PO DAILY 90 days commode (bedside commode) As directed diclofenac sodium 3% 1 appl topical BID ezetimibe 10 mg PO DAILY 90 days glipizide ER 10 mg (2 x 5 mg) PO DAILY 90 days Grab bar As directed [incontinence pads 4 daily As directed] lancets (FreeStyle Lancets) Use 1 lancet once a day levothyroxine 100 mcg PO DAILY 90 days linagliptin 5 mg PO DAILY 90 days loratadine 10 mg PO DAILY 90 days methocarbamol 750 mg PO Q8H PRN mupirocin 2% 1 appl topical BID 7 days [personal cleansing wipes (sensitive skin) As directed] [rollator walker As directed] ropinirole ER 2 mg PO BEDTIME [washable bed pads As directed] Tobacco use date assessed: 10/24/23 Fall risk assessment: 2 + Falls in past year Last assessed Fall Risk: 10/24/23 Dental Screening Dental Screen Date: 10/24/23 Did you have a dental visit in the last 12 months?: Yes Did you have a dental problem in the last 6 months where you did not have access to dental care?: No Was dental information given to patient?: Patient has dentist HPI HPI Comments History of Present Illness Details This is a 72-year-old female with hypertension, diabetes mellitus type 2, neuropathy, hypothyroidism, pure hypercholesterolemia and mild recurrent major depression that comes for follow-up on her conditions. She walks with a cane for gait stability. Blood pressure stable. A1c within goal. TSH is mildly elevated and I will increase levothyroxine from 100 mcg to 112 mcg and TSH will be repeated in 6 weeks and patient is aware. LDL not on goal and I will add atorvastatin to her Zetia. Depression stable with amitriptyline at bedtime. Her neuropathy has been evaluated by Neurology and recommended to start gabapentin. Denies any chest pain or shortness of breath. Complains of a sore throat with productive cough that started about 3-4 days ago and admits having sick contacts. No fever. [facility], LAT[facility] Medical History Gait disorder Muscle cramps Hypersomnia Snoring Chronic pain in right foot Skin tag Post-menopausal Obesity Pure hypercholesterolemia Hypothyroidism Essential hypertension Diabetes mellitus Polyarthralgia Surgical History Hx of colonoscopy History of eye surgery S/P total abdominal hysterectomy History of laparoscopic cholecystectomy Family History Father Cancer Mother Stroke Diabetes Hypertension CVD (cardiovascular disease) Sister Cancer Paternal Uncle Cancer Maternal Aunt Cancer Brother CVD (cardiovascular disease) Social History Housing: House Alcohol intake: never Patient Tobacco Use Status: Never used Tobacco e-Cigarette/Vaping Use: Never Used Second Hand Smoke Exposure: Yes service: No Current occupational status: disabled Cognitive needs: No Hearing needs: No Vision needs: Yes Questionnaire PHQ-9 Over the last 2 weeks, how often have you been bothered by any of the following problems? 1. Little interest or pleasure in doing things: more than half the days 2. Feeling down, depressed, or hopeless: nearly every day 3. Trouble falling or staying asleep, or sleeping too much: several days 4. Feeling tired or having little energy: several days 5. Poor appetite or overeating: not at all 6. Feeling bad about yourself - or that you are a failure or have let yourself or your family down: several days 7. Trouble concentrating on things, such as reading the newspaper or watching television: not at all 8. Moving or speaking so slowly that other people could have noticed. Or the opposite - being so fidgety or restless that you have been moving around a lot more than usual: not at all 9. Thoughts that you would be better off or of hurting yourself in some way: not at all Total score: 8 Depression Screening Interpretation: Positive Depression Screening Follow-up: Existing condition and In treatment Depression Screening Done: Yes 48796 - PHQ-9 Billing: Yes Source: Developed by Drs. Jay Jay Betancourt, Phylicia Bone, Du Rendon and colleagues, with an educational eris from [employer]. Thrive Questionnaire Date Thrive assessed: 10/24/23 I am a: Patient What is your living situation today?: I have a steady place to live Within the past 12 months, did the food you bought not last and you didn't have the money to get more?: Never true Within the past 12 months, did you worry whether your food would run out before you got money to buy more?: Never true Do you have trouble paying for medicines?: No Do you have trouble getting transportation to medical appointments?: No Do you have trouble paying your heating and electricity bill?: No Do you have trouble taking care of your child, family member or friend?: No Do you have trouble with day-to-day activities such as bathing, preparing meals, shopping, managing finances, etc.?: Yes Are you currently unemployed and looking for a job?: No Are you interested in more education?: No Please select the resources that you would like help with: None Currently or been in a relationship where the following occur: no concerns reported THRIVE Score: 0 AUDIT C Alcohol Use Questionnaire (AUDIT-C) 1. How often do you have a drink containing alcohol?: Never Total Score: 0 Score Reviewed/Action Taken: No MARISOL-7 AMB Questionnaire MARISOL-7 Date MARISOL - 7 assessed: 10/24/23 Feeling nervous, anxious, or on edge: 3 = Nearly every day Not being able to stop or control worryin = Several days Worrying too much about different things: 3 = Nearly every day Trouble relaxin = Several days Being so restless that it is hard to sit still: 0 = Not at all Becoming easily annoyed or irritable: 0 = Not at all Feeling afraid as if something awful might happen: 0 = Not at all Total MARISOL-7 score (0-4 normal; 5-9 mild; 10-14 moderate; 15-21 severe): 8 Source: Developed by Drs. Jay Jay Betancourt, Phylicia Bone, Du Rendon and colleagues, with an educational eris from [employer]. MARISOL-7 Assessment Billing MARISOL-7 Assessment Tool: MARISOL-7 Assessment 71462 Review of Systems Const All systems reviewed & are unremarkable except as noted in HPI and below Eyes Reports no additional complaints, Denies change in vision and Denies other visual disturbances Card Denies chest pain at rest, Denies chest pain with activity, Denies edema, Denies irregular heart rhythm, Denies claudication, Denies dyspnea, Denies dyspnea on exertion, Denies orthopnea, Denies paroxysmal nocturnal dyspnea and Denies slow heart rate Resp Denies cough, Denies dyspnea and Denies dyspnea on exertion GI Denies abdominal pain, Denies change in bowel habits, Denies excessive flatus, Denies nausea and Denies vomiting Denies urinary incontinence, Denies urinary hesitancy and Denies urinary urgency Musc Denies abnormal gait, Denies atrophy, Denies deformity and Denies limited range of motion Skin/Breast Denies bleeding lesions, Denies changing lesions and Denies rash Neuro Denies abnormal gait and Denies lack of coordination Physical exam (Primary Care) Vital Signs: Last Vital Signs BP 136/82 10/24/23 10:53 BMI result Body Mass Index 38.1 Tobacco/Smoking Status: Tobacco use Status Tobacco use date assessed 10/24/23 10/24/23 11:11 Patient Tobacco Use Status Never used Tobacco 10/24/23 11:11 e-Cigarette/Vaping Use Never Used 10/24/23 11:11 PHQ-9: PHQ-9 Score PHQ-9: Total score 8 10/24/23 11:21 Depression Screening Interpretation: Positive Depression Screening Follow-up: Existing condition and In treatment Thrive Assessment: Date of Thrive Assessment Date Thrive assessed 10/24/23 10/24/23 11:11 Currently or been in a relationship where the following occur: no concerns reported Const Limitations: ambulation with cane Resp Effort & Inspection: normal respiratory effort Auscultation: clear to auscultation bilaterally Cardio Jugular venous distension: no JVD Rate: regular rate Rhythm: regular rhythm Heart sounds: S1 normal heart sound present and S2 normal heart sound present Extrem General: Yes full ROM Psych Appearance: grossly normal Results AMB Hemoglobin A1c AMB Hemoglobin A1c 6.6 % Last Edit by RENETTA Gonzales on 10/24/23 11:11 Results Reviewed Results Reviewed: Laboratory Last Values Hgb A1c (Clinic) 6.6 % (4.0-6.0) H 10/24/23 10:53 Assessment and Plan Assessment & Plan (1) Diabetes mellitus: Code(s): E11.9 - Type 2 diabetes mellitus without complications Qualifiers: Diabetes mellitus type: type 2 Diabetes mellitus prison insulin use: without terminal operator use Diabetes mellitus complication status: without complication Qualified Code(s): E11.9 - Type 2 diabetes mellitus without complications Plan: Continue glipizide and Tradjenta. A1c goal is equal or less than 7%. (2) Essential hypertension: Code(s): I10 - Essential (primary) hypertension Plan: Continue amlodipine. Blood pressure goal is equal or less than 130/80. (3) Hypothyroidism: Code(s): E03.9 - Hypothyroidism, unspecified Qualifiers: Hypothyroidism type: unspecified Qualified Code(s): E03.9 - Hypothyroidism, unspecified Plan: Increase levothyroxine from 100 mcg to 112 mcg. Repeat TSH in 6 weeks. (4) Pure hypercholesterolemia: Code(s): E78.00 - Pure hypercholesterolemia, unspecified Plan: Continue Zetia. Start atorvastatin at bedtime. LDL goal should be less than 70. Repeat lipid panel in 4 months. (5) Mild recurrent major depression: Code(s): F33.0 - Major depressive disorder, recurrent, mild Plan: Continue amitriptyline. (6) Neuropathy: Comment: diabetic Code(s): G62.9 - Polyneuropathy, unspecified Plan: Start gabapentin. Orders: Orders AMB Hemoglobin A1c Today E11.9 - Type 2 diabetes mellitus without complications Comprehensive [place]. Panel Fast 4 Months E11.9 - Type 2 diabetes mellitus without complications SARS-CoV2/FLU/RSV Today R09.89 - Other specified symptoms and signs involving the circulatory and respiratory systems Thyroid Stimulating Hormone 6 Weeks E03.9 - Hypothyroidism, unspecified Lipid Panel 4 Months E11.9 - Type 2 diabetes mellitus without complications, E78.5 - Hyperlipidemia, unspecified Microalbumin, Random (w Creat) 4 Months E11.9 - Type 2 diabetes mellitus without complications Medications: New levothyroxine 112 mcg PO DAILY 90 days 90 tabs 1RF E03.9 - Hypothyroidism, unspecified gabapentin 100 mg PO TID 30 days 90 caps 1RF G62.9 - Polyneuropathy, unspecified atorvastatin 20 mg PO BEDTIME 90 days 90 tabs 3RF E78.00 - Pure hypercholesterolemia, unspecified amoxicillin 500 mg PO BID 7 days 14 tabs 0RF Refilled celecoxib Take it with food and full glass of water. 200 mg PO BID PRN 60 caps 0RF pain M25.511 - Pain in right shoulder, M25.512 - Pain in left shoulder, M47.812 - Spondylosis without myelopathy or radiculopathy, cervical region, M50.30 - Other cervical disc degeneration, unspecified cervical region Discontinued levothyroxine Discontinued Reason: Patient Completed Course 100 mcg PO DAILY 90 days 90 tabs 1RF Coding Level of Care Code Est Pt Level 4 (18369) Diagnoses Type 2 diabetes mellitus without complication, without long-term current use of insulin E11.9 Diabetes mellitus type: type 2 Diabetes mellitus terminal operator insulin use: without terminal operator use Diabetes mellitus complication status: without complication Essential hypertension I10 Hypothyroidism, unspecified type E03.9 Hypothyroidism type: unspecified Pure hypercholesterolemia E78.00 Mild recurrent major depression F33.0 Neuropathy G62.9 Additional Codes MARISOL-7 Assessment Billing - MARISOL-7 Assessment Tool: MARISOL-7 Assessment 57327 ([id number]) Time Spent (min) 24
== END 2023-10-24 11:29 | disposition home or self-care (01) ==
PROVIDERS: PCP Internal Medicine; Visit Provider Internal Medicine
DX: E11.42 Type 2 diabetes mellitus with diabetic polyneuropathy (principal); F33.0 Major depressive disorder, recurrent, mild; I10 Essential (primary) hypertension; E03.9 Hypothyroidism, unspecified; E78.00 Pure hypercholesterolemia, unspecified; G62.9 Polyneuropathy, unspecified
CPT/HCPCS: 83036; 99214

== ENCOUNTER 2023-10-24 11:47 | Outpatient (REF) | payer OTHER, SELFPAY ==
[2023-10-24 13:06] LABS: Influenza A PCR NEGATIVE (Negative); Influenza B PCR NEGATIVE (Negative); Resp Syncy Virus RNA Qual PCR NEGATIVE (Negative); SARS COV2 PCR INHOUSE NEGATIVE (Negative)
== END 2023-10-24 11:48 | disposition home or self-care (01) ==
LOC: HO.LAB 11:47
PROVIDERS: PCP Internal Medicine; Visit Provider Internal Medicine
DX: R09.89 Other specified symptoms and signs involving the circulatory and respiratory systems (principal)
CPT/HCPCS: 0241U

== ENCOUNTER 2023-11-22 11:00 | Outpatient (RCR) | payer OTHER, SELFPAY ==
--- NOTE | 2023-10-31 17:02 | MHC.PT.EP ---
[facility] [place] [facility] [place] [facility] [place] [facility] [address] [phone] F: [phone] F: [phone] F: [phone] F: [phone] Physical Therapy Plan of Care Date of Evaluation: 10/30/23 Date of Surgery: Diagnosis: gait instability. Assessment: Pt is a 72 y/o female with Hx of Diabetes mellitus, hypertension, Hypothyroidism and Polyarthralgia is referred to to PT for eval and treat of gait instability which is resulting in recurrent falls and LOB secondary to decreased LE strength, decreased standing balance, chronic polyarthralgia, and diabetic neuropathy. Pt is deemed an appropriate candidate to receive skilled PT services to address their physical impairments in order to improve their functional ability. Frequency and Duration: The patient will be seen 2 x/ wk x 3 wks. Short Term Goals: Initiate home program. 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 Pt will improve LEFI questionnaire by at least 9 points. Pt will be able towalk 2 blocks with at most a little bit of difficulty; initial: quite a bit of difficulty. Improve B knee extension MMT by at least 1/2 MMT grade. Treatment Plan: Modalities to reduce pain, spasms and effusion. Manual therapy to restore motion and function. Therapeutic exercise to improve strength and flexibility. Neuromuscular re-education for posture and balance. Therapeutic activities to return to functional activities of daily living. Electronically signed by: Bairon Colmenares PT. Please sign and return to therapist. Thank you for your referral.
--- NOTE | 2024-03-14 15:06 | MHC.PT.DC ---
[facility] [place] [facility] [place] Office [place] Office [address] Johan Ho 140 [facility] [phone] F: [phone] F: [phone] F: [phone] F: [phone] Physical Therapy Discharge Report Diagnosis: gait instability. Date of Surgery: Date of Evaluation: 10/30/23 Date of Discharge: 03/14/24 Treatments to Date: 3 Cancellations to Date: 2 No Shows to Date: 2 Discharge Status: Patient Elected to Stop Visit Non-compliance Discharge Summary: . Electronically signed by: Bairon Colmenares PT. Please sign and return to therapist. Thank you for your referral.
--- NOTE | 2024-03-14 15:33 | MHC.PT.DC ---
[facility] [place] Office [place] Office [place] Office [address] Johan oH 140 [facility] [phone] F: [phone] F: [phone] F: [phone] F: [phone] Physical Therapy Discharge Report Diagnosis: gait instability. Date of Surgery: Date of Evaluation: 10/30/23 Date of Discharge: 03/14/24 Treatments to Date: 3 Cancellations to Date: 2 No Shows to Date: 2 Discharge Status: Patient Elected to Stop Visit Non-compliance Discharge Summary: . Electronically signed by: Bairon Colmenares PT. Please sign and return to therapist. Thank you for your referral.
== END 2024-03-14 15:21 | disposition home or self-care (01) ==
LOC: HO.PT 11:00
PROVIDERS: PCP Internal Medicine; Visit Provider Psychiatry & Neurology Neurology
DX: M47.812 Spondylosis without myelopathy or radiculopathy, cervical region (principal); R26.9 Unspecified abnormalities of gait and mobility
CPT/HCPCS: 97110; 97162

== ENCOUNTER 2023-12-21 06:14 | Outpatient (REF) | payer OTHER, SELFPAY ==
--- NOTE | ~2023-12-21 | FL_ITS ---
EXAMINATION: XR FLUOROSCOPY WITH IMAGES CLINICAL INFORMATION: Cervical spondylosis. COMPARISON: None available. TECHNIQUE: Fluoroscopy Supervised By: Dr. Espino. Fluoroscopy Time: 0.1 min. Cumulative Dose: 1.40 mGy. DAP: 0.12460 Gycm2. Images: 2. FINDINGS: Intraoperative fluoroscopy and spot films were performed during a procedure in the OR. 3 needles are seen overlying the right cervical spine with one image with contrast around the tips of the needles, likely epidural. Please see Dr. Espino' report for complete details. FL/FL guidance in treatment room IMPRESSION: Intraoperative fluoroscopy and spot films were obtained. Please see Dr. Espino' report for complete details.
== END 2023-12-21 06:15 | disposition home or self-care (01) ==
LOC: CF 06:14
PROVIDERS: Visit Provider Internal Medicine
DX: M47.812 Spondylosis without myelopathy or radiculopathy, cervical region (principal)
CPT/HCPCS: 64490; 64491; J1100; J2795; Q9967

== ENCOUNTER 2023-12-21 10:45 | Outpatient (AMB) | payer OTHER, SELFPAY ==
[2023-12-21 11:44] VITALS: BP 140/76; PULSE 77; RESP 16; O2SAT 98; BMI 38.1
--- NOTE | 2023-12-21 11:44 | A.OFFVIS_ITS ---
Vital Signs 12/21/23 11:44 12/21/23 11:45 Height 5 ft Weight 195 lb BMI 38.1 BP 140/76 H 134/80 Blood Pressure Location Lt brachial Lt brachial Position Sitting Sitting Respiration 16 18 Pulse 77 73 Pulse Source Pulse Oximeter Pulse Oximeter Pulse Oximetry (%) 98 97 Oxygen Delivery Method Room Air Room Air Comment Pre-Op Pre-op Intake Visit Reasons: Right theraputic C4-C5-C6 MBB Allergies MARIA ESTHER Inhibitors Adverse Reaction (Intermediate, Verified 10/24/23 11:17) cough ARB-Angiotensin Receptor Antagonist Adverse Reaction (Intermediate, Verified 10/24/23 11:17) Cough HPI HPI Right theraputic C4-C5-C6 MBB: Details: Patient presents for scheduled procedure. Denies any recent cough, cold, infection, fever or other significant changes in medical history since last office visit. [facility] Medical History Gait disorder Muscle cramps Hypersomnia Snoring Chronic pain in right foot Skin tag Post-menopausal Obesity Pure hypercholesterolemia Hypothyroidism Essential hypertension Diabetes mellitus Polyarthralgia Surgical History Hx of colonoscopy History of eye surgery S/P total abdominal hysterectomy History of laparoscopic cholecystectomy Family History Father Cancer Mother Stroke Diabetes Hypertension CVD (cardiovascular disease) Sister Cancer Paternal Uncle Cancer Maternal Aunt Cancer Brother CVD (cardiovascular disease) Social History Housing: House Alcohol intake: never Patient Tobacco Use Status: Never used Tobacco e-Cigarette/Vaping Use: Never Used Second Hand Smoke Exposure: Yes service: No Current occupational status: disabled Cognitive needs: No Hearing needs: No Vision needs: Yes Physical Exam Vital Signs: Last Vital Signs Pulse 73 12/21/23 11:45 Resp 18 12/21/23 11:45 BP 134/80 12/21/23 11:45 Pulse Ox 97 12/21/23 11:45 Oxygen Delivery Method Room Air 12/21/23 11:45 BMI result Body Mass Index 38.1 Office Procedures Cervical/Thoracic Facet Inj Details: Therapeutic Cervical Facet Blocks, Right C4, C5, C6 medial branches After obtaining written consent, pre-procedure blood pressure and pulse were recorded and are in the nursing record for review. The patient was placed in a lateral position. The respective cervical area was prepped with chloraprep and draped in sterile fashion. A 25 gauge 1.5 inch needle was inserted into the target medial branch nerve under fluoroscopic guidance. No paresthesias were elicited with needle placement and aspiration was negative for blood and CSF. Next, 0.2cc of omnipaque 180 was injected to verify positioning. Next 0.6 ml containing 3.3 mg Dexamethasone mixed with 0.5% ropivicaine was injected (0.5 cc total per level). The identical procedure was performed at the remaining levels. The skin was cleansed and a sterile bandage was applied. Following the procedure the patient's vital signs were stable. The patient tolerated the procedure well and no complications were encountered. Following the procedure the patient's vital signs were stable. The patient was discharged home in good condition with post-procedural instructions. Time Out: Immediately prior to the procedure, the following was verbally confirmed that there is a signed consent form and that the correct patient, planned procedure, site and side are consistent with documentation and that necessary equipment and/or blood products are available prior to the start of the case. Complications: none EBL: <5 cc 59001 - with Fluoroscopy 86849 - second level, with Fluoroscopy Procedure code (CPT) selection complete Assessment & Plan Assessment & Plan (1) Cervical spondylosis: Code(s): M47.812 - Spondylosis without myelopathy or radiculopathy, cervical region Category: Medical Plan Patient is status post therapeutic right C4, C5, C6 facet blocks. Patient tolerated procedure well and was discharged home in stable condition with discharge instructions. All questions were answered. We will follow-up via telephone or in clinic to assess response to therapy. A fo llow-up appointment was made during today's visit. Orders: Orders FL guidance in treatment room Today M47.812 - Spondylosis without myelopathy or radiculopathy, cervical region Coding Level of Care Code Procedure Only Diagnoses Cervical spondylosis M47.812 CPT Codes Facet Injection Cervical/Thoracic - CPT: 95318 - with Fluoroscopy ([id number]) Facet Injection Cervical/Thoracic - CPT: 18385 - second level, with Fluoroscopy ([id number])
[2023-12-21 11:45] VITALS: BP 134/80; PULSE 73; RESP 18; O2SAT 97
== END 2023-12-21 11:25 | disposition home or self-care (01) ==
LOC: HO.PMCPRC 10:45
PROVIDERS: PCP Internal Medicine; Visit Provider Internal Medicine
DX: M47.812 Spondylosis without myelopathy or radiculopathy, cervical region (principal)
CPT/HCPCS: 64490; 64491

== ENCOUNTER 2024-01-19 10:49 | Outpatient (AMB) | payer OTHER, SELFPAY ==
--- NOTE | 2024-01-19 10:52 | A.OFFVIS_ITS ---
Vital Signs 01/19/24 10:54 Height 5 ft Weight 197 lb BMI 38.5 BP 163/72 H Blood Pressure Location Lt brachial Position Sitting Respiration 14 Pulse 77 Pulse Source Pulse Oximeter Pulse Oximetry (%) 98 Oxygen Delivery Method Room Air Intake Visit Reasons: s/p right theraputic C4-C5-C6 MBB Allergies MARIA ESTHER Inhibitors Adverse Reaction (Intermediate, Verified 01/19/24 10:55) cough ARB-Angiotensin Receptor Antagonist Adverse Reaction (Intermediate, Verified 01/19/24 10:55) Cough Medication List - Last Reconciled 01/19/24 by Brandie Cardenas LPN acetaminophen ER (Tylenol Arthritis Pain) 650 mg PO Q8H PRN amitriptyline 10 mg PO BEDTIME amlodipine 10 mg PO DAILY 90 days [bed rails As directed] blood sugar diagnostic (Web[employer] Test strips) Take 1 test strip once a day blood-glucose meter ([employer] [place] Lite kit) As directed calcium carbonate 600 mg PO BID 90 days cane with 4 legs [cervical collar As directed] cholecalciferol (vitamin D3) 25 mcg PO DAILY 90 days commode (bedside commode) As directed diclofenac sodium 3% 1 appl topical BID ezetimibe (Zetia) 10 mg PO DAILY gabapentin 100 mg PO TID 30 days glipizide ER 10 mg (2 x 5 mg) PO DAILY 90 days Grab bar As directed [incontinence pads 4 daily As directed] lancets (FreeStyle Lancets) Use 1 lancet once a day levothyroxine 112 mcg PO DAILY 90 days linagliptin 5 mg PO DAILY 90 days loratadine 10 mg PO DAILY 90 days methocarbamol 750 mg PO Q8H PRN mupirocin 2% 1 appl topical BID 7 days [personal cleansing wipes (sensitive skin) As directed] [rollator walker As directed] ropinirole ER 2 mg PO BEDTIME [washable bed pads As directed] HPI HPI s/p right theraputic C4-C5-C6 MBB: Details: 73-year-old female who presents today to the office for a status post right therapeutic C4-C5-C6 MBB. The patient reports 50% relief following the procedure. Her right-sided neck pain has improved post-injection. Her ROM has improved. Previously, she had difficulty with ROM. She rates her pain at 5/10; previously, it was 10/10 in intensity. She reports pain in her shoulder. She has difficulty wearing clothes. Her shoulder pain is bothersome. She had a shoulder injection about seven months ago. She has been doing home exercises with good relief. Past procedures 12/21/23: Therapeutic Cervical Facet Blocks, Right C4, C5, C6 medial branches: 50% relief. 10/05/23: Diagnostic Cervical Medial Branch Block, right C4, C5, C6 medial branches: 30-40% relief for two days, continuing a few days out. 07/03/23: Left glenohumeral joint steroid injection, ultrasound guided: 60-70% relief. 06/19/23: Right glenohumeral joint steroid injection, ultrasound guided: 60% relief. [facility] Medical History Gait disorder Muscle cramps Hypersomnia Snoring Chronic pain in right foot Skin tag Post-menopausal Obesity Pure hypercholesterolemia Hypothyroidism Essential hypertension Diabetes mellitus Polyarthralgia Surgical History Hx of colonoscopy History of eye surgery S/P total abdominal hysterectomy History of laparoscopic cholecystectomy Family History Father Cancer Mother Stroke Diabetes Hypertension CVD (cardiovascular disease) Sister Cancer Paternal Uncle Cancer Maternal Aunt Cancer Brother CVD (cardiovascular disease) Social History Housing: House Alcohol intake: never Patient Tobacco Use Status: Never used Tobacco e-Cigarette/Vaping Use: Never Used Second Hand Smoke Exposure: Yes service: No Current occupational status: disabled Cognitive needs: No Hearing needs: No Vision needs: Yes Review of Systems Const All systems reviewed & are unremarkable except as noted in HPI and below Physical Exam Vital Signs: Last Vital Signs Pulse 77 01/19/24 10:54 Resp 14 01/19/24 10:54 BP 163/72 H 01/19/24 10:54 Pulse Ox 98 01/19/24 10:54 Oxygen Delivery Method Room Air 01/19/24 10:54 BMI result Body Mass Index 38.5 General: Appears afebrile. Alert and oriented. Mood and affect appropriate. Follows and participates in conversation appropriately. Respiratory effort is unlabored. Able to transition from sit to stand unassisted. Ambulates with bilaterally normal heel strike and toe off. Results Reviewed Results Reviewed: No imaging is available for review. Assessment & Plan Assessment & Plan (1) Bilateral shoulder pain: Code(s): M25.511 - Pain in right shoulder; M25.512 - Pain in left shoulder Category: Medical Qualifiers: Chronicity: chronic Qualified Code(s): M25.511 - Pain in right shoulder; M25.512 - Pain in left shoulder; G89.29 - Other chronic pain (2) Cervical radiculopathy: Code(s): M54.12 - Radiculopathy, cervical region Category: Medical Plan She reports shoulder pain, for which I offered a shoulder injection today in the office, which the patient deferred. She continues to perform home exercises for pain management, as it has been helpful in the past. She will call us and schedule an appointment for an injection when she wants to proceed. Scribed for Dr. Espino by Yves Martinez, medical technical writer, on 01/19/2024. I, Dr. Espino, have personally reviewed and agree with the information entered by the scribe. Coding Level of Care Code Est Pt Level 3 (53916) Diagnoses Chronic pain of both shoulders M25.511; M25.512; G89.29 Chronicity: chronic Cervical radiculopathy M54.12
[2024-01-19 10:54] VITALS: BP 163/72; PULSE 77; RESP 14; O2SAT 98; BMI 38.5
== END 2024-01-19 11:14 | disposition home or self-care (01) ==
PROVIDERS: PCP Internal Medicine; Visit Provider Internal Medicine
DX: M25.511 Pain in right shoulder (principal); M25.512 Pain in left shoulder; G89.29 Other chronic pain; M54.12 Radiculopathy, cervical region
CPT/HCPCS: 99213

== ENCOUNTER → 2024-01-19 10:49 | Outpatient (BNVA) | payer OTHER, SELFPAY | PROVIDERS: PCP Internal Medicine; Visit Provider Internal Medicine | DX: M25.511 Pain in right shoulder (principal); M25.512 Pain in left shoulder; M54.12 Radiculopathy, cervical region; G89.29 Other chronic pain | CPT/HCPCS: 99212 ==

== ENCOUNTER 2024-02-28 09:54 | Outpatient (REF) | payer OTHER, SELFPAY ==
--- NOTE | ~2024-02-28 | MM_ITS ---
EXAMINATION: MM SCREENING DIGITAL BREAST TOMOSYNTHESIS, BILATERAL CLINICAL INFORMATION: Screening. Asymptomatic. COMPARISON: Mammography: This study is compared with prior exams dating back to TECHNIQUE: Digital breast tomosynthesis is performed in both the craniocaudal and mediolateral oblique views along with computer-aided detection (CAD). Synthesized 2D images are generated from the tomosynthesis. FINDINGS: There are scattered areas of fibroglandular density (ACR BI-RADS breast composition Category b). There are no significant masses, abnormal calcifications, or other abnormalities. MM/MM tomosynthesis screening BI IMPRESSION: No mammographic evidence of malignancy. ASSESSMENT: BI-RADS BI-RADS 1 - Negative RECOMMENDATION: Routine annual mammography screening. 1 year F/U This examination should not preclude the clinical evaluation of a suspicious palpable abnormality. This patient's information was entered into a reminder system with a target due date for their next mammogram.
== END 2024-02-28 09:55 | disposition home or self-care (01) ==
LOC: HO.MAMMO 09:54
PROVIDERS: PCP Internal Medicine; Visit Provider Internal Medicine
DX: Z12.31 Encounter for screening mammogram for malignant neoplasm of breast (principal)
CPT/HCPCS: 77063; 77067

== ENCOUNTER → 2024-02-28 10:15 | Outpatient (BNV) | payer OTHER, SELFPAY | PROVIDERS: PCP Internal Medicine; Visit Provider Radiology Diagnostic Radiology | DX: Z12.31 Encounter for screening mammogram for malignant neoplasm of breast (principal) | CPT/HCPCS: 77063; 77067 ==

== ENCOUNTER 2024-03-09 08:50 | Outpatient (REF) | payer OTHER, SELFPAY ==
[2024-03-09 10:33] LABS: Creatinine Urine 62.87 mg/dL; Microalbum/Creatinine Ratio Ur 11.1 ug/mg cr (<30)
[2024-03-09 10:38] LABS: Alanine Aminotransferase 15 U/L (0-31); Albumin Level 4.4 g/dL (3.5-5.0); Alkaline Phosphatase 75 U/L (39-117); Anion Gap 13 (12-20); Aspartate Amino Transferase 17 U/L (5-31); Bilirubin Total 0.4 mg/dL (0.0-1.0); Blood Urea Nitrogen 13 mg/dL (9-16); Calcium 9.3 mg/dL (8.4-10.2); Carbon Dioxide 29 mmol/L (22-29); Chloride 104 mmol/L (96-108); Cholesterol 129 mg/dL (<200); Estimated Glomerular Filt Rate > 60; Glucose Fasting 156 mg/dL (60-99); HDL Cholesterol 50 mg/dL (>40); LDL Cholesterol Calculated 52 mg/dL (<100); Potassium 3.6 mmol/L (3.3-5.1); Sodium 142 mmol/L (135-145); Total Protein 7.4 g/dL (6.5-8.0); Triglycerides 135 mg/dL (<150)
[2024-03-09 10:56] LABS: Thyroid Stimulating Hormone 3.38 uIU/mL (0.32-4.0)
== END 2024-03-09 08:51 | disposition home or self-care (01) ==
LOC: HO.LAB 08:50
PROVIDERS: PCP Internal Medicine; Visit Provider Internal Medicine
DX: E78.5 Hyperlipidemia, unspecified (principal); E11.9 Type 2 diabetes mellitus without complications; E03.9 Hypothyroidism, unspecified
CPT/HCPCS: 36415; 80053; 80061; 82043; 82570; 84443

== ENCOUNTER 2024-03-13 09:20 | Outpatient (AMB) | payer OTHER, SELFPAY ==
[2024-03-13 09:32] VITALS: BP 150/78; BMI 39.6
--- NOTE | 2024-03-13 09:38 | A.OFFVIS_ITS ---
Intake Vital Signs 03/13/24 09:32 03/13/24 10:38 Height 5 ft Weight 203 lb BMI 39.6 BP 150/78 H 150/80 H Blood Pressure Location Lt brachial Lt brachial Position Sitting Sitting Intake Visit Reasons: JANA G0439 Intake Note: Patient here for a subsequent annual wellness visit Protective Signal Installer Required: No Accompanied by: Self / Same As Patient Allergies MARIA ESTHER Inhibitors Adverse Reaction (Intermediate, Verified 03/13/24 09:48) cough ARB-Angiotensin Receptor Antagonist Adverse Reaction (Intermediate, Verified 03/13/24 09:48) Cough metformin Adverse Reaction (Intermediate, Verified 03/13/24 09:57) Abdominal Pain, diarrhea Medication List - Last Reconciled 03/13/24 by Shannan Alexander MD acetaminophen ER (Tylenol Arthritis Pain) 650 mg PO Q8H PRN amitriptyline 10 mg PO BEDTIME amlodipine 10 mg PO DAILY 90 days [bed rails As directed] blood sugar diagnostic (FreeStyle Test strips) Take 1 test strip once a day blood-glucose meter ([employer] [place] Lite kit) As directed calcium carbonate 600 mg PO BID 90 days cane with 4 legs [cervical collar As directed] cholecalciferol (vitamin D3) 25 mcg PO DAILY 90 days commode (bedside commode) As directed diclofenac sodium 3% 1 appl topical BID ezetimibe (Zetia) 10 mg PO DAILY gabapentin 100 mg PO TID 30 days glipizide ER 10 mg (2 x 5 mg) PO DAILY 90 days Grab bar As directed [incontinence pads 4 daily As directed] lancets (FreeStyle Lancets) Use 1 lancet once a day levothyroxine 112 mcg PO DAILY 90 days linagliptin 5 mg PO DAILY 90 days loratadine 10 mg PO DAILY 90 days methocarbamol 750 mg PO Q8H PRN mupirocin 2% 1 appl topical BID 7 days [personal cleansing wipes (sensitive skin) As directed] [rollator walker As directed] ropinirole ER 2 mg PO BEDTIME [washable bed pads As directed] HPI HPI Comments History of Present Illness Details This is a 73-year-old female with diabetes mellitus type 2 and hypertension that comes today for her Medicare wellness exam. A1c mildly elevated and I will discontinue Tradjenta and start her on Trulicity once a week. Use metformin in the past causing diarrhea and abdominal pain. Blood pressure elevated today and I will add chlorthalidone. Blood pressure will be recheck in 3 weeks by nurse navigator. Mammogram done 2023 was normal. Cologu cisco done 2023 was normal. DEXA scan done 2023 shows osteopenia and she is on calcium with vitamin-D. Diabetic eye exam was done less than a year ago. Walks with a cane for gait stability. PPP handed to patient. [place] of care done. Still has mild recurrent major depression with amitriptyline 10 mg and I will increase it to 25 mg. Still complains of pain in the neck due to cervical radiculopathy and follows with pain management. I will increase gabapentin from 100 mg 3 times a day to 300 mg 3 times a day. [facility] Medical History (Updated 03/13/24 @ 10:19 by Shannan Alexander MD) Gait disorder Muscle cramps Hypersomnia Snoring Chronic pain in right foot Skin tag Post-menopausal Obesity Pure hypercholesterolemia Hypothyroidism Essential hypertension Diabetes mellitus Polyarthralgia Surgical History Hx of colonoscopy History of eye surgery S/P total abdominal hysterectomy History of laparoscopic cholecystectomy Family History Father Cancer Mother Stroke Diabetes Hypertension CVD (cardiovascular disease) Sister Cancer Paternal Uncle Cancer Maternal Aunt Cancer Brother CVD (cardiovascular disease) Social History Housing: House Alcohol intake: never Patient Tobacco Use Status: Never used Tobacco e-Cigarette/Vaping Use: Never Used Second Hand Smoke Exposure: Yes service: No Current occupational status: disabled Cognitive needs: No Hearing needs: No Vision needs: Yes Questionnaire Medicare Wellness Checkup [age] What gender do you identify with?: female During the past 4 weeks, how much have you been bothered by emotional problems such as feeling anxious, depressed, irritable, sad or downhearted, and blue?: quite a bit During the past 4 weeks, has your physical & emotional health limited your social activities with family, friends, neighbors, or groups?: moderately During the past 4 weeks, how much bodily pain have you generally had?: severe pain During the past 4 weeks, was someone available to help you if you needed & wanted help?: yes, as much as I wanted During the past 4 weeks, what was the hardest physical activity you could do for at least 2 minutes?: very heavy Can you get to places out of walking distance without help? (For eg., can you travel alone on buses, taxis or drive your car?): Yes Can you go shopping for groceries or clothes without someone's help?: No Can you prepare your own meals?: No Can you do your housework without help?: No Because of any health problems, do you need the help of another person with your personal care needs such as eating, bathing, dressing or getting around the house?: Yes Can you handle your own money without help?: No During the past 4 weeks, how would you rate your health in general?: poor During the past 4 weeks how have things been going for you?: good & bad parts about equal Are you having difficulties driving your car?: no Do you always fasten your seat belt when you are in a car?: yes, usually During past 4 weeks, have you been bothered by the following: seldom: Teeth or denture problems? and Problems using the telephone?, sometimes: Falling or dizzy when standing up and Trouble eating well?, often: Tiredness or fatigue? and always: Sexual problems? Have you fallen 2 or more times in the past year?: Yes Are you afraid of falling?: Yes Are you a smoker?: no During the past 4 weeks, how many drinks of wine, beer, or other alcoholic beverages did you have?: no alcohol at all Do you exercise for about 20 minutes 3 or more times a week?: no, I usually do not exercise this much Have you been given information to help with the following?: no: Hazards in your house that might hurt you? and no: Keeping track of your medications? How often do you have trouble taking medicines the way you have been told to take them?: I always take medicine as prescribed How confident are you that you can control & manage most of your health problems?: somewhat confident What is your race?: or origin or descent Mini Mental State Exam (MMSE) Orientation What is the (year) (season) (date) (day) (month)?: year, season, date and month Where are we (state) (county) (town or city) (hospital) (floor)?: state, county, town or city and hospital/clinic Registration Name of 3 unrelated objects clearly and slowly, then ask patient to repeat all 3 of them. (1st repeat determines score. Make sure they can repeat all three): object 1, object 2 and object 3 Attention & Calculation (CHOOSE ONE) Spell WORLD backwards (DLROW): 4 letters Recall Ask patient to repeat the 3 items from question #3.: object 1, object 2 and object 3 Language Show patient a wristwatch & ask what it is. Repeat for pencil.: watch and pencil Ask the patient to repeat the phrase 'No ifs, ands, or buts' after you.: correct Ask the patient to 'take a piece of paper with their right hand' 'fold paper in half' 'place paper on floor': take paper in right hand, fold paper in half and place paper on floor Print the sentence 'CLOSE YOUR EYES' on a piece. If patient actually closes eyes then score.: followed written direction Give patient a blank piece of paper & ask to write a sentence. Score if it contains a noun & verb.: sentence contains subject and verb Score Score: 26 Activity of Daily Living Bathing - sponge bath, tub bath or shower: receives help in bathing only one body part (such as back or leg) Dressing - getting clothes from closets & drawers, including inner/outer garments & fasteners.: gets clothes & gets dressed without help, except for help tying shoes Toileting - going to the 'toilet room' for urine/bowel elimination & cleaning self/arranging clothes: receives help going to toilet room, cleaning self or arr anging clothes Transfer: moves in & out of bed and chair without help (may use support object) Continence: has occasional 'accidents' Feeding: feeds self without help Total Score: 0 Using telephone: independent Traveling: needs assistance Shopping: dependent Preparing meals: dependent Housework: dependent Taking medicine: dependent Managing money: dependent PHQ-9 Over the last 2 weeks, how often have you been bothered by any of the following problems? 1. Little interest or pleasure in doing things: several days 2. Feeling down, depressed, or hopeless: several days 3. Trouble falling or staying asleep, or sleeping too much: nearly every day 4. Feeling tired or having little energy: several days 5. Poor appetite or overeating: not at all 6. Feeling bad about yourself - or that you are a failure or have let yourself or your family down: several days 7. Trouble concentrating on things, such as reading the newspaper or watching television: several days 8. Moving or speaking so slowly that other people could have noticed. Or the opposite - being so fidgety or restless that you have been moving around a lot more than usual: not at all 9. Thoughts that you would be better off or of hurting yourself in some way: not at all Total score: 8 Depression Screening Interpretation: Positive Depression Screening Follow-up: Existing condition, In treatment and Follow-up Visit Requested Depression Screening Done: Yes 29978 - PHQ-9 Billing: Yes Source: Developed by Drs. Jay Jay Betancourt, Phylicia Bone, Du Rendon and colleagues, with an educational eris from [employer]. AUDIT C Alcohol Use Questionnaire (AUDIT-C) 1. How often do you have a drink containing alcohol?: Never Total Score: 0 Score Reviewed/Action Taken: No Thrive Questionnaire Date Thrive assessed: 03/13/24 I am a: Patient What is your living situation today?: I have a steady place to live Within the past 12 months, did the food you bought not last and you didn't have the money to get more?: Never true Within the past 12 months, did you worry whether your food would run out before you got money to buy more?: Never true Do you have trouble paying for medicines?: No Do you have trouble getting transportation to medical appointments?: No Do you have trouble paying your heating and electricity bill?: No Do you have trouble taking care of your child, family member or friend?: No Do you have trouble with day-to-day activities such as bathing, preparing meals, shopping, managing finances, etc.?: Yes Are you currently unemployed and looking for a job?: No Are you interested in more education?: No Please select the resources that you would like help with: None Currently or been in a relationship where the following occur: No concerns reported THRIVE Score: 0 Fall Risk Assessment Fall Risk Assessment Fall risk assessment: 2 + Falls in past year MARISOL-7 AMB Questionnaire MARISOL-7 Date MARISOL - 7 assessed: 03/13/24 Feeling nervous, anxious, or on edge: 1 = Several days Not being able to stop or control worryin = Not at all Worrying too much about different things: 1 = Several days Trouble relaxin = Not at all Being so restless that it is hard to sit still: 0 = Not at all Becoming easily annoyed or irritable: 1 = Several days Feeling afraid as if something awful might happen: 1 = Several days Total MARISOL-7 score (0-4 normal; 5-9 mild; 10-14 moderate; 15-21 severe): 4 Source: Developed by Drs. Jay Jay Betancourt, Phylicia Bone, Du Rendon and colleagues, with an educational eris from [employer]. MARISOL-7 Assessment Billing MARISOL-7 Assessment Tool: MARISOL-7 Assessment 22175 Review of Systems Const All systems reviewed & are unremarkable except as noted in HPI and below Card Denies chest pain at rest, Denies chest pain with activity, Denies edema, Denies irregular heart rhythm, Denies claudication, Denies dyspnea, Denies dyspnea on exertion, Denies orthopnea, Denies paroxysmal nocturnal dyspnea and Denies slow heart rate Resp Denies cough, Denies dyspnea and Denies dyspnea on exertion GI Denies abdominal pain, Denies change in bowel habits, Denies excessive flatus, Denies nausea and Denies vomiting Reports urinary incontinence, Denies urinary hesitancy and Denies urinary urgency Musc Reports back pain Physical Exam Vital Signs: Last Vital Signs BP 150/78 H 03/13/24 09:32 BMI result Body Mass Index 39.6 Const Orientation/consciousness: patient oriented x3 Limitations: ambulation with cane Resp Effort & Inspection: normal respiratory effort Auscultation: clear to auscultation bilaterally Cardio Jugular venous distension: no JVD Rate: regular rate Rhythm: regular rhythm Heart sounds: S1 normal heart sound present and S2 normal heart sound present Neuro General: patient oriented x3 and no focal motor deficits Gait exam (Neuro): Assisted gait required (cane) Romberg Test: Negative Extrem General: Yes full ROM Results AMB Hemoglobin A1c AMB Hemoglobin A1c 7.2 % Last Edit by RENETTA Gonzales on 03/13/24 09:4 4 Immunizations pneumoc 20-stormy conj-dip cr(PF) 0.5 mL IM syringe Performing Provider: Shannan Alexander MD Performing Location: [facility] [place] [facility] Administered by: Joshua Guerrero LEONORAJunior on 03/13/24 10:18 Dose Route Admin Location Dispensed Lot Number Expiration Date [place] [employer]ier 0.5 mL IM Right Deltoid 0.5 mL [id number] 12/22/24 6649-5754-76 [employer] VIS Given Date VIS Provided VIS Publication Date 03/13/24 Single Vaccine 21 Eligibility Eligibility Date Funding Source Not VFC Eligible 03/13/24 Private tetanus-diphtheria toxoids-Td 2 Lf unit-2 Lf unit/0.5 mL IM suspension Performing Provider: Shannan Alexander MD Performing Location: [facility] [place] Adult Primary [facility] Administered by: Marcelabobbi GuerreroLEONORA wongJunior on 03/13/24 10:18 Dose Route Admin Location Dispensed Lot Number Expiration Date [place] [employer] 0.5 mL IM Left Deltoid 0.5 mL [id number] 08/24/24 [address]-0 [employer] VIS Given Date VIS Provided VIS Publication Date 03/13/24 Single Vaccine 21 Eligibility Eligibility Date Funding Source Not VFC Eligible 03/13/24 State funds Results Reviewed Results Reviewed: Laboratory Last Values Hgb A1c (Clinic) 7.2 % (4.0-6.0) H 03/13/24 09:43 Assessment & Plan Assessment & Plan (1) Encounter for Medicare annual wellness exam: Code(s): Z00.00 - Encounter for general adult medical examination without abnormal findings Plan: Repeat in a year. (2) Mild recurrent major depression: Code(s): F33.0 - Major depressive disorder, recurrent, mild Plan: Increase amitriptyline to 25 mg. (3) Diabetes mellitus: Code(s): E11.9 - Type 2 diabetes mellitus without complications Qualifiers: Diabetes mellitus type: type 2 Diabetes mellitus terminal makeup operator insulin use: without terminal makeup operator use Diabetes mellitus complication status: without complication Qualified Code(s): E11.9 - Type 2 diabetes mellitus without complications Plan: Continue glipizide. Discontinue Tradjenta. Start Trulicity. A1c goal is equal or less than 7%. Continue diabetic eye exam yearly. (4) Essential hypertension: Code(s): I10 - Essential (primary) hypertension Plan: Continue amlodipine. Start chlorthalidone. Blood pressure goal is equal or less than 130/80. Recheck blood pressure in 3 weeks by nurse navigator. (5) Cervical radiculopathy: Code(s): M54.12 - Radiculopathy, cervical region Plan: Increase gabapentin to 300 mg 3 times a day. Follow-up with pain management. Orders: Orders Td State Immunization Today Z23 - Encounter for immunization AMB Hemoglobin A1c Today E11.9 - Type 2 diabetes mellitus without complications Pneumococcal 20 Immunization Today Z23 - Encounter for immunization Referrals Counseling Referral F33.0 - Major depressive disorder, recurrent, mild Medications: New chlorthalidone 25 mg PO DAILY 90 days 90 tabs 1RF I10 - Essential (primary) hypertension gabapentin 300 mg PO TID 30 days 90 caps 2RF dulaglutide (Trulicity) 0.75 mg (0.5 mL) subcut QWEEK 90 days 6.5 mL 0RF amitriptyline 25 mg PO BEDTIME 90 days 90 tabs 0RF F33.0 - Major depressive disorder, recurrent, mild Discontinued linagliptin Discontinued Reason: Patient Completed Course 5 mg PO DAILY 90 days 90 tabs 3RF gabapentin Discontinued Reason: Patient Completed Course 100 mg PO TID 30 days 90 caps 1RF G62.9 - Polyneuropathy, unspecified amitriptyline Discontinued Reason: Patient Completed Course 10 mg PO BEDTIME 30 tabs 6RF Quality Reporting (2019) Fall Risk Screening ([facility] 139) Fall risk assessment: 2 + Falls in past year Depression/Bipolar (159/160/161/177) PHQ-9: Total score: 8 Coding Level of Care Code Medicare Subsequent (G0439) Est Pt Level 4 (08181) Diagnoses Encounter for Medicare annual wellness exam Z00.00 Mild recurrent major depression F33.0 Type 2 diabetes mellitus without complication, without long-term current use of insulin E11.9 Diabetes mellitus type: type 2 Diabetes mellitus residential insulin use: without residential use Diabetes mellitus complication status: without complication Essential hypertension I10 Cervical radiculopathy M54.12 CPT Codes Advance Care Planning - Time spent: 1-15 minutes, on File ([id number]) Additional Codes MARISOL-7 Assessment Billing - MARISOL-7 Assessment Tool: MARISOL-7 Assessment 32162 ([id number]) Time Spent (min) 40 Advance Care Planning Advance Care Planning discussion: Exists, not on file Date of discussion: 03/13/24 Who was present: patient and me Forms completed: Health Care Proxy Time spent: 1-15 minutes, on File Actual minutes spent: 2
[2024-03-13 10:38] VITALS: BP 150/80
== END 2024-03-13 10:21 | disposition home or self-care (01) ==
PROVIDERS: PCP Internal Medicine; Visit Provider Internal Medicine
DX: Z00.00 Encounter for general adult medical examination without abnormal findings (principal); E11.9 Type 2 diabetes mellitus without complications; F33.0 Major depressive disorder, recurrent, mild; Z23 Encounter for immunization; I10 Essential (primary) hypertension; M54.12 Radiculopathy, cervical region
CPT/HCPCS: 1123F; 83036; 90471; 90677; 90714; 99214; G0439

== ENCOUNTER → 2024-04-12 10:34 | Outpatient (BNVA) | payer OTHER, SELFPAY | PROVIDERS: PCP Internal Medicine ==

== ENCOUNTER 2024-04-18 10:41 | Outpatient (AMB) | payer OTHER, MEDICAID, SELFPAY ==
--- NOTE | 2024-04-18 10:49 | MHC.OFFVIS ---
Vital Signs 04/18/24 10:53 Height 5 ft Weight 200 lb 8 oz BMI 39.2 BP 130/60 Blood Pressure Location Rt brachial Position Sitting Pulse 90 Pulse Source Pulse Oximeter Pulse Oximetry (%) 98 Oxygen Delivery Method Room Air Intake Visit Reasons: 6 Month F/U Senior Finance Manager Required: Yes Senior Finance Manager Services: Senior Finance Manager Offered & Declined (Senior Finance Manager service refused, refusal form signed and scanned into chart) Accompanied by: Self / Same As Patient Allergies MARIA ESTHER Inhibitors Adverse Reaction (Intermediate, Verified 04/18/24 10:56) cough ARB-Angiotensin Receptor Antagonist Adverse Reaction (Intermediate, Verified 04/18/24 10:56) Cough metformin Adverse Reaction (Intermediate, Verified 04/18/24 10:56) Abdominal Pain, diarrhea HPI Comments Details: 72-year-old female history of polyarthralgia, diabetes mellitus, hypertension, hypothyroidism, hypercholesterolemia, depression and chronic foot pain comes for follow up of neuropathy and also sleep issues related to pain.she sleeps good but still has leg spasm she is also follow up at pain management for polyarthralgias. Her right foot pain is worse when she walks with tingling. ?History form initial visit- Patient reports right chronic foot pain about 12 mths ago she sees senior animator an kinsey denson specialist for polyarthralgias. Patient states the pain is constant burning pain in right foot that extends up her leg to her right hip.? Patient denies any lumbar back pain or pain coming from the back extending down legs. she also has multiple joint pains. she stopped gabapentin as it was not helping her pain and was making her drowsy.Her Hg A 1 C wa s7.4 5mths ago. SHe reports sleep problems related to muscle cramps that wake her up , burning pain in her legs mainly at night. The pain and discomfort is worse at night- she massages, uses heat pad , sometimes sleeps in a recliner.she has snoring, has trouble falling asleep, staying asleep and has excessive daytime sleepiness. she declined sleep study. ? ? [facility] Medical History Gait disorder Muscle cramps Hypersomnia Snoring Chronic pain in right foot Skin tag Post-menopausal Obesity Pure hypercholesterolemia Hypothyroidism Essential hypertension Diabetes mellitus Polyarthralgia Surgical History Hx of colonoscopy History of eye surgery S/P total abdominal hysterectomy History of laparoscopic cholecystectomy Family History Father Cancer Mother Stroke Diabetes Hypertension CVD (cardiovascular disease) Sister Cancer Paternal Uncle Cancer Maternal Aunt Cancer Brother CVD (cardiovascular disease) Social History Housing: House Alcohol intake: never Patient Tobacco Use Status: Never used Tobacco e-Cigarette/Vaping Use: Never Used Second Hand Smoke Exposure: Yes service: No Current occupational status: disabled Cognitive needs: No Hearing needs: No Vision needs: Yes Physical Exam Vital Signs: Last Vital Signs Pulse 90 04/18/24 10:53 BP 130/60 04/18/24 10:53 Pulse Ox 98 04/18/24 10:53 Oxygen Delivery Method Room Air 04/18/24 10:53 BMI result Body Mass Index 39.2 Const General: cooperative and comfortable Nutritional Appearance: obese Orientation/consciousness: patient oriented x3 Limitations: physical limitations and ambulation with walker HEENT Head: Yes normal to inspection and Yes normocephalic Eyes Pupils: Equal, round and reactive pupils present Neuro Other: walks with walker drags her right foot , pain in right foot limits movements - 4/5 General: patient oriented x3, tone normal and moves all extremities Cranial nerves: Yes Facial sensation intact/muscles of mastication intact, Yes Equal, round and reactive pupils present, Yes Nystagmus not present, Yes Normal facial strength present, Yes Midline tongue present and Yes Symmetric palate elevation present Cognition (Neuro): normal cognition Gait exam (Neuro): Antalgic gait present and Assisted gait required Motor exam (neuro): 5/5 motor strength present throughout and Normal motor muscle tone present throughout Coordination: [id number] test normal Psych Appearance: grossly normal Assessment & Plan Assessment & Plan (1) Neuropathy: Comment: diabetic Code(s): G62.9 - Polyneuropathy, unspecified Category: Medical (2) Chronic pain in right foot: Comment: arthritis, ? tarsal tunnel, bone spurs, tendinitis Code(s): M79.671 - Pain in right foot; G89.29 - Other chronic pain Category: Medical (3) Muscle cramps: Comment: ?PLMD Code(s): R25.2 - Cramp and spasm Category: Medical (4) Gait disorder: Code(s): R26.9 - Unspecified abnormalities of gait and mobility Category: Medical Plan Increase gabapentin 300mg qam and 600mg qhs Amitriptyline 10mg qhs and ropinirole XR 2mg qhs she declines sleep study. Medications: Changed From gabapentin 300 mg PO TID 30 days 90 caps 2RF To gabapentin 1 cap qam and 2 caps qhs orally; 30 days 90 caps 6RF Refilled ropinirole ER 2 mg PO BEDTIME 30 tabs 6RF Coding Level of Care Code Est Pt Level 4 (84290) Diagnoses Neuropathy G62.9 Chronic pain in right foot M79.671; G89.29 Muscle cramps R25.2 Gait disorder R26.9
[2024-04-18 10:53] VITALS: BP 130/60; PULSE 90; O2SAT 98; BMI 39.2
== END 2024-04-18 11:11 | disposition home or self-care (01) ==
PROVIDERS: PCP Internal Medicine; Visit Provider Psychiatry & Neurology Neurology
DX: G62.9 Polyneuropathy, unspecified (principal); M79.671 Pain in right foot; G89.29 Other chronic pain; R25.2 Cramp and spasm; R26.9 Unspecified abnormalities of gait and mobility
CPT/HCPCS: 99214

== ENCOUNTER → 2024-04-18 10:41 | Outpatient (BNVA) | payer OTHER, MEDICAID, SELFPAY | PROVIDERS: PCP Internal Medicine; Visit Provider Psychiatry & Neurology Neurology | DX: G62.9 Polyneuropathy, unspecified (principal); M79.671 Pain in right foot; G89.29 Other chronic pain; R25.2 Cramp and spasm; R26.9 Unspecified abnormalities of gait and mobility | CPT/HCPCS: 99212 ==

== ENCOUNTER 2024-05-03 09:38 | Outpatient (AMB) | payer OTHER, SELFPAY ==
[2024-05-03 09:40] VITALS: BMI 39.1
--- NOTE | 2024-05-03 09:40 | MHC.OFFVIS ---
Vital Signs 05/03/24 09:40 Height 5 ft Weight 200 lb BMI 39.1 Intake Visit Reasons: OV - Left Knee OA - Last Injection 05/09/23 Intake Note: Jamilah is a 73 year old female who presents today for a left knee Durolane injection Allergies MARIA ESTHER Inhibitors Adverse Reaction (Intermediate, Verified 05/03/24 09:43) cough ARB-Angiotensin Receptor Antagonist Adverse Reaction (Intermediate, Verified 05/03/24 09:43) Cough metformin Adverse Reaction (Intermediate, Verified 05/03/24 09:43) Abdominal Pain, diarrhea HPI HPI OV - Left Knee OA - Last Injection 05/09/23: Details: Jamilah is a 73 year old female who presents today for a left knee Durolane injection PFSH Medical History Gait disorder Muscle cramps Hypersomnia Snoring Chronic pain in right foot Skin tag Post-menopausal Obesity Pure hypercholesterolemia Hypothyroidism Essential hypertension Diabetes mellitus Polyarthralgia Surgical History Hx of colonoscopy History of eye surgery S/P total abdominal hysterectomy History of laparoscopic cholecystectomy Family History Father Cancer Mother Stroke Diabetes Hypertension CVD (cardiovascular disease) Sister Cancer Paternal Uncle Cancer Maternal Aunt Cancer Brother CVD (cardiovascular disease) Social History Housing: House Alcohol intake: never Patient Tobacco Use Status: Never used Tobacco e-Cigarette/Vaping Use: Never Used Second Hand Smoke Exposure: Yes service: No Current occupational status: disabled Cognitive needs: No Hearing needs: No Vision needs: Yes Physical Exam Vital Signs: BMI result Body Mass Index 39.1 Extrem Other: Skin clean dry and intact left knee Office Procedures Joint Injection/Aspiration Joint Injection/Aspiration Details: Injected Durolane. Site was prepped using aseptic technique. Patient tolerated the procedure well. Primary Site: left knee Approach Used: anterolateral Coding 51311 - Large joint Procedure code (CPT) selection complete Assessment & Plan Assessment & Plan (1) Osteoarthritis of left knee: Code(s): M17.12 - Unilateral primary osteoarthritis, left knee Category: Medical Plan: I injected her left knee with Bonny today. May follow up in 3 months. Coding Level of Care Code Est Pt Level 2 (02284) Diagnoses Osteoarthritis of left knee M17.12 CPT Codes Coding - 08912 Large joint: 98653 - Large joint ([id number])
== END 2024-05-03 10:15 | disposition home or self-care (01) ==
PROVIDERS: PCP Internal Medicine; Visit Provider Orthopaedic Surgery
DX: M17.12 Unilateral primary osteoarthritis, left knee (principal)
CPT/HCPCS: 20610

== ENCOUNTER → 2024-05-03 09:38 | Outpatient (BNVA) | payer OTHER, SELFPAY | PROVIDERS: PCP Internal Medicine; Visit Provider Orthopaedic Surgery | DX: M17.12 Unilateral primary osteoarthritis, left knee (principal) | CPT/HCPCS: 20610; J7318 ==

== ENCOUNTER 2024-08-05 10:14 | Outpatient (AMB) | payer OTHER, SELFPAY ==
[2024-08-05 10:15] VITALS: BMI 39.1
--- NOTE | 2024-08-05 10:15 | A.OFFVIS_ITS ---
Vital Signs 08/05/24 10:15 Height 5 ft Weight 200 lb BMI 39.1 Intake Visit Reasons: OV-Left knee durolane injection follow up Intake Note: Jamilah is a 73 year old female who presents today for a follow up of her left knee OA. Left knee Durolane injection administered 05/03/24. She is a surgical candidate but she is hesitant to move forward with surgical intervention. [place] reports that the gel injection was only helpful for about 1 months. Her pain has returned, she is using topical creams for relief. Allergies MARIA ESTHER Inhibitors Adverse Reaction (Intermediate, Verified 08/05/24 10:16) cough ARB-Angiotensin Receptor Antagonist Adverse Reaction (Intermediate, Verified 08/05/24 10:16) Cough metformin Adverse Reaction (Intermediate, Verified 08/05/24 10:16) Abdominal Pain, diarrhea HPI HPI OV-Left knee durolane injection follow up: Details: Jamilah is a 73 year old female who presents today for a follow up of her left knee OA. Left knee Durolane injection administered 05/03/24. She is a surgical candidate but she is hesitant to move forward with surgical intervention. Patient reports that the gel injection was only helpful for about 1 months. Her pain has returned, she is using topical creams for relief. She does not walk comfortably. She uses a cane. She walks very slowly but she states the pain is tolerable and she does not want surgery. [facility] Medical History Gait disorder Muscle cramps Hypersomnia Snoring Chronic pain in right foot Skin tag Post-menopausal Obesity Pure hypercholesterolemia Hypothyroidism Essential hypertension Diabetes mellitus Polyarthralgia Surgical History Hx of colonoscopy History of eye surgery S/P total abdominal hysterectomy History of laparoscopic cholecystectomy Family History Father Cancer Mother Stroke Diabetes Hypertension CVD (cardiovascular disease) Sister Cancer Paternal Uncle Cancer Maternal Aunt Cancer Brother CVD (cardiovascular disease) Social History Housing: House Alcohol intake: never Patient Tobacco Use Status: Never used Tobacco e-Cigarette/Vaping Use: Never Used Second Hand Smoke Exposure: Yes service: No Current occupational status: disabled Cognitive needs: No Hearing needs: No Vision needs: Yes Physical Exam Vital Signs: BMI result Body Mass Index 39.1 Const General: no acute distress, alert and awake Orientation/consciousness: patient oriented x3 HEENT Head: Yes normocephalic and Yes atraumatic Eyes EOM: EOMs intact bilaterally Resp Effort & Inspection: normal respiratory effort and able to speak in complete sentences Cardio Jugular venous distension: no JVD Skin General skin exam: turgor normal Rashes: no rashes Neuro General: patient oriented x3 Extrem Other: medial compartment ttp left > right + gait antalgia 10-120 deg left knee Psych Appearance: grossly normal Affect: normal affect Attitude: cooperative Assessment & Plan Assessment & Plan (1) Bilateral primary osteoarthritis of knee: Code(s): M17.0 - Bilateral primary osteoarthritis of knee Category: Medical Plan: Bilateral knee OA left greater than right. She does not want surgery. I have exhausted injections. May consider further treatment with pain management. I discussed this with her. Referral was made. Coding Level of Care Code Est Pt Level 3 (37104) Diagnoses Bilateral primary osteoarthritis of knee M17.0
== END 2024-08-05 10:34 | disposition home or self-care (01) ==
PROVIDERS: PCP Internal Medicine; Visit Provider Orthopaedic Surgery
DX: M17.0 Bilateral primary osteoarthritis of knee (principal)
CPT/HCPCS: 99213

== ENCOUNTER → 2024-08-05 10:14 | Outpatient (BNVA) | payer OTHER, SELFPAY | PROVIDERS: PCP Internal Medicine; Visit Provider Orthopaedic Surgery | DX: M17.0 Bilateral primary osteoarthritis of knee (principal) | CPT/HCPCS: 99212 ==

== ENCOUNTER 2024-08-13 10:31 | Outpatient (AMB) | payer OTHER, SELFPAY ==
--- NOTE | 2024-08-13 10:34 | MHC.PC.OV ---
Vital Signs 08/13/24 10:36 Height 5 ft Weight 192 lb BMI 37.5 BP 148/84 H Blood Pressure Location Lt brachial Position Sitting Intake Visit Reasons: dm,thyroid,bp,lipids Intake Note: Patient here for a follow up dm, thyroid, bp, lipids Outreach Educator Required: Yes Outreach Educator Language: Forklift Operator Name: Shannan Alexander MD Information Interpreted: non-clinical & clinical Accompanied by: Self / Same As Patient Allergies MARIA ESTHER Inhibitors Adverse Reaction (Intermediate, Verified 08/13/24 10:51) cough ARB-Angiotensin Receptor Antagonist Adverse Reaction (Intermediate, Verified 08/13/24 10:51) Cough metformin Adverse Reaction (Intermediate, Verified 08/13/24 10:51) Abdominal Pain, diarrhea Medication List - Last Reconciled 08/13/24 by Shannan Alexander MD acetaminophen ER (Tylenol Arthritis Pain) 650 mg PO Q8H PRN amitriptyline 25 mg PO BEDTIME 90 days amlodipine 10 mg PO DAILY 90 days [bed rails As directed] blood pressure test kit-large (Advocate Blood Pressure Monitor kit) As directed blood sugar diagnostic (FreeStyle Test strips) Take 1 test strip once a day blood-glucose meter (FreeStyle [place] Lite kit) As directed calcium carbonate 600 mg PO BID 90 days cane with 4 legs [cervical collar As directed] chlorthalidone 25 mg PO DAILY 90 days cholecalciferol (vitamin D3) 25 mcg PO DAILY 90 days commode (bedside commode) As directed diclofenac sodium 3% 1 appl topical BID dulaglutide (Trulicity) 0.75 mg (0.5 mL) subcut QWEEK 90 days ezetimibe (Zetia) 10 mg PO DAILY gabapentin 1 cap qam and 2 caps qhs orally; 30 days glipizide ER 10 mg (2 x 5 mg) PO DAILY 90 days Grab bar As directed [incontinence pads 4 daily As directed] lancets (FreeStyle Lancets) Use 1 lancet once a day levothyroxine 112 mcg PO DAILY 90 days loratadine 10 mg PO DAILY 90 days methocarbamol 750 mg PO Q8H PRN mupirocin 2% 1 appl topical BID 7 days [personal cleansing wipes (sensitive skin) As directed] [rollator walker As directed] ropinirole ER 2 mg PO BEDTIME [washable bed pads As directed] Tobacco use date assessed: 08/13/24 Fall risk assessment: No Falls in past year Last assessed Fall Risk: 08/13/24 Dental Screening Dental Screen Date: 08/13/24 Did you have a dental visit in the last 12 months?: Yes Did you have a dental problem in the last 6 months where you did not have access to dental care?: No Was dental information given to patient?: Patient has dentist HPI HPI Comments History of Present Illness Details The patient is a 73-year-old female presenting with a follow-up for the management of diabetes mellitus and essential hypertension. She has a history of diabetes with a recent Hemoglobin A1c of 6.6%, indicating good glycemic control. The patient reports missing a blood test appointment, affecting the timing of her management. She is currently prescribed Trulicity, Glipizide, and Metoclopramide for diabetes management. Her hypertension management includes Chlorothalidone and a recent addition of hydralazine at 10 mg three times a day. Despite this, she notes fluctuations in her blood pressure, particularly when she remains at home for extended periods. She reports taking all medications, though one was initially suggested for removal. Neuropathy symptoms impact her mobility, requiring the use of a knee brace and a cane for stability. She describes pain exacerbated by neuropathy and requires a walker at home due to instability. The patient has also mentioned Vitamin D supplementation as part of her therapeutic regimen. Also has hypothyroidism and TSH will be order for next office visit. Has mild major depression and declines any treatment. [facility] Medical History (Updated 08/13/24 @ 11:01 by Shannan Alexander MD) Gait disorder Muscle cramps Hypersomnia Snoring Chronic pain in right foot Skin tag Post-menopausal Obesity Pure hypercholesterolemia Hypothyroidism Essential hypertension Diabetes mellitus Polyarthralgia Surgical History Hx of colonoscopy History of eye surgery S/P total abdominal hysterectomy History of laparoscopic cholecystectomy Family History Father Cancer Mother Stroke Diabetes Hypertension CVD (cardiovascular disease) Sister Cancer Paternal Uncle Cancer Maternal Aunt Cancer Brother CVD (cardiovascular disease) Social History Housing: House Alcohol intake: never Patient Tobacco Use Status: Never used Tobacco e-Cigarette/Vaping Use: Never Used Second Hand Smoke Exposure: Yes service: No Current occupational status: disabled Cognitive needs: No Hearing needs: No Vision needs: Yes Questionnaire PHQ-9 Over the last 2 weeks, how often have you been bothered by any of the following problems? 1. Little interest or pleasure in doing things: several days 2. Feeling down, depressed, or hopeless: several days 3. Trouble falling or staying asleep, or sleeping too much: several days 4. Feeling tired or having little energy: several days 5. Poor appetite or overeating: not at all 6. Feeling bad about yourself - or that you are a failure or have let yourself or your family down: several days 7. Trouble concentrating on things, such as reading the newspaper or watching television: several days 8. Moving or speaking so slowly that other people could have noticed. Or the opposite - being so fidgety or restless that you have been moving around a lot more than usual: not at all 9. Thoughts that you would be better off or of hurting yourself in some way: not at all Total score: 6 Depression Screening Interpretation: Positive Depression Screening Follow-up: Existing condition, In treatment and Follow-up Visit Requested Depression Screening Done: Yes 93856 - PHQ-9 Billing: Yes Source: Developed by Drs. Jay Jay Betancourt, Phylicia Bone, Du Rendon and colleagues, with an educational eris from [employer]. Thrive Questionnaire Date Thrive assessed: 08/13/24 I am a: Patient What is your living situation today?: I have a steady place to live Within the past 12 months, did the food you bought not last and you didn't have the money to get more?: Never true Within the past 12 months, did you worry whether your food would run out before you got money to buy more?: Never true Do you have trouble paying for medicines?: No Do you have trouble getting transportation to medical appointments?: No Do you have trouble paying your heating and electricity bill?: No Do you have trouble taking care of your child, family member or friend?: No Do you have trouble with day-to-day activities such as bathing, preparing meals, shopping, managing finances, etc.?: Yes Are you currently unemployed and looking for a job?: No Are you interested in more education?: No Please select the resources that you would like help with: None Currently or been in a relationship where the following occur: No concerns reported THRIVE Score: 0 AUDIT C Alcohol Use Questionnaire (AUDIT-C) 1. How often do you have a drink containing alcohol?: Never Total Score: 0 Score Reviewed/Action Taken: No MARISOL-7 AMB Questionnaire MARISOL-7 Date MARISOL - 7 assessed: 08/13/24 Feeling nervous, anxious, or on edge: 1 = Several days Not being able to stop or control worryin = Not at all Worrying too much about different things: 1 = Several days Trouble relaxin = Not at all Being so restless that it is hard to sit still: 0 = Not at all Becoming easily annoyed or irritable: 1 = Several days Feeling afraid as if something awful might happen: 1 = Several days Total MARISOL-7 score (0-4 normal; 5-9 mild; 10-14 moderate; 15-21 severe): 4 Source: Developed by Drs. Jay Jay Betancourt, Phylicia Bone, Du Rendon and colleagues, with an educational eris from [employer]. MARISOL-7 Assessment Billing MARISOL-7 Assessment Tool: MARISOL-7 Assessment 05711 Review of Systems Const All systems reviewed & are unremarkable except as noted in HPI and below Card Denies chest pain at rest, Denies chest pain with activity, Denies edema, Denies irregular heart rhythm, Denies claudication, Denies dyspnea, Denies dyspnea on exertion, Denies orthopnea, Denies paroxysmal nocturnal dyspnea and Denies slow heart rate Resp Denies cough, Denies dyspnea and Denies dyspnea on exertion GI Denies abdominal pain, Denies change in bowel habits, Denies excessive flatus, Denies nausea and Denies vomiting Physical exam (Primary Care) Vital Signs: Last Vital Signs BP 148/84 H 08/13/24 10:36 BMI result Body Mass Index 37.5 BMI Assessment/Plan discussion: High BMI High, discussed plan: lifestyle, weight reduction, dietary and physical activity Tobacco/Smoking Status: Tobacco use Status Tobacco use date assessed 08/13/24 08/13/24 10:45 Patient Tobacco Use Status Never used Tobacco 08/13/24 10:45 e-Cigarette/Vaping Use Never Used 08/13/24 10:45 PHQ-9: PHQ-9 Score PHQ-9: Total score 6 08/13/24 11:02 Depression Screening Interpretation: Positive Depression Screening Follow-up: Existing condition, In treatment and Follow-up Visit Requested Thrive Assessment: Date of Thrive Assessment Date Thrive assessed 08/13/24 08/13/24 10:45 Currently or been in a relationship where the following occur: No concerns reported Const Limitations: ambulation with cane Resp Effort & Inspection: normal respiratory effort Auscultation: clear to auscultation bilaterally Cardio Jugular venous distension: no JVD Rate: regular rate Rhythm: regular rhythm Heart sounds: S1 normal heart sound present and S2 normal heart sound present Extrem General: Yes full ROM Office Procedures Flu Questionnaire Does the patient have a severe egg allergy?: No Does the patient have severe life threatening allergies?: No Does the patient have a fever or illness today?: No Has the patient ever had Guillain-Cunningham Syndrome?: No Has the patient ever had any past reaction to a flu shot?: No Immunizations Fluarix Triv [id number] (PF) 45 mcg (15 mcg x 3)/0.5 mL IM syringe Performing Provider: Shannan Alexander MD [facility] Administered by: RENETTA Gonzales on 08/13/24 10:59 Dose Route Admin Location Dispensed Lot Number Expiration Date NDC Spa Experience Coordinator 0.5 mL IM Left Deltoid 0.5 mL [id number] 01/20/25 [id number] [facility] Given Date VIS Provided VIS Publication Date 08/13/24 Single Vaccine 21 Eligibility Eligibility Date Funding Source Not [facility] Eligible 08/13/24 Private Coding Level of Care Code Est Pt Level 4 (07685) Complex EM visit Add On G2211 Diagnoses Type 2 diabetes mellitus without complication, without long-term current use of insulin E11.9 Diabetes mellitus type: type 2 Diabetes mellitus prison insulin use: without prison use Diabetes mellitus complication status: without complication Essential hypertension I10 Hypothyroidism, unspecified type E03.9 Hypothyroidism type: unspecified Pure hypercholesterolemia E78.00 Mild recurrent major depression F33.0 Bilateral primary osteoarthritis of knee M17.0 Additional Codes MARISOL-7 Assessment Billing - MARISOL-7 Assessment Tool: MARISOL-7 Assessment 30712 ([id number]) PHQ-9 - 64116 - PHQ-9 Billing: Yes ([id number]) Time Spent (min) 23 Assessment & Plan Assessment & Plan (1) Diabetes mellitus: Code(s): E11.9 - Type 2 diabetes mellitus without complications Category: Medical Qualifiers: Diabetes mellitus type: type 2 Diabetes mellitus bed bug exterminator insulin use: without bed bug exterminator use Diabetes mellitus complication status: without complication Qualified Code(s): E11.9 - Type 2 diabetes mellitus without complications (2) Essential hypertension: Code(s): I10 - Essential (primary) hypertension Category: Medical (3) Hypothyroidism: Code(s): E03.9 - Hypothyroidism, unspecified Category: Medical Qualifiers: Hypothyroidism type: unspecified Qualified Code(s): E03.9 - Hypothyroidism, unspecified (4) Pure hypercholesterolemia: Code(s): E78.00 - Pure hypercholesterolemia, unspecified Category: Medical (5) Mild recurrent major depression: Code(s): F33.0 - Major depressive disorder, recurrent, mild Category: Medical (6) Bilateral primary osteoarthritis of knee: Code(s): M17.0 - Bilateral primary osteoarthritis of knee Category: Medical Plan - Continue monitoring Diabetes Mellitus with current medications. - Adjust Essential Hypertension medication by increasing the dosage prescribed to 10 mg three times daily. - Ensure regular follow-up consultations with a nurse navigator to monitor progress. - Recommend continued use of Vitamin D supplements for deficiency management. - Assess the effectiveness of current neuropathy treatment; adjust as necessary. - Advise on proper use and fitting of knee braces. Patient was informed and verbally consented to the use of an ambient scribe for clinic note documentation during this visit. I discussed the patient's diabetes management, noting a stable A1c level at 6.6%, which indicates good control. We reviewed the hypertension issue and planned to adjust medication dosages to help stabilize levels. Additionally, concerns regarding peripheral neuropathy, mobility challenges were addressed, emphasizing the importance of using prescribed walking aids. We explored continued use of Vitamin D supplementation. The importance of regular follow-up visits was stressed, along with instructions on managing blood pressure and glucose monitoring at home. Orders: Orders AMB Hemoglobin A1c Today E11.9 - Type 2 diabetes mellitus without complications Comprehensive [place]. Panel Fast 4 Months E11.9 - Type 2 diabetes mellitus without complications Influenza [id number] Immunization Today E11.9 - Type 2 diabetes mellitus without complications, Z23 - Encounter for immunization Lipid Panel 4 Months E78.5 - Hyperlipidemia, unspecified Microalbumin, Random (w Creat) 4 Months R80.9 - Proteinuria, unspecified Vitamin D 25-OH Total 4 Months E55.9 - Vitamin D deficiency, unspecified Vitamin B12 and Folate 4 Months E53.8 - Deficiency of other specified B group vitamins Thyroid Stimulating Hormone 4 Months E03.9 - Hypothyroidism, unspecified Medications: New hydralazine 10 mg PO TID 90 tabs 6RF 30 days leg brace (MARIA ESTHER Knee Brace) As directed 2 ea 0RF M17.0 - Bilateral primary osteoarthritis of knee dulaglutide (Trulicity) 1.5 mg (0.5 mL) subcut QWEEK 6.5 mL 1RF 90 days Refilled chlorthalidone 25 mg PO DAILY 90 tabs 1RF 90 days I10 - Essential (primary) hypertension amlodipine 10 mg PO DAILY 90 tabs 3RF 90 days Discontinued dulaglutide (Trulicity) Discontinued Reason: Patient Completed Course 0.75 mg (0.5 mL) subcut QWEEK 90 days 6.5 mL 0RF Patient Instructions: - Increase blood pressure medication as prescribed and take three times daily. - Continue with all current diabetic medications as advised. - Use the knee braces as directed to help with stability. - Monitor blood glucose levels regularly. - Use the walker at home to prevent falls and improve walking stability. - Schedule regular follow-ups with the nurse navigator. - Continue taking Vitamin D supplements daily.
[2024-08-13 10:36] VITALS: BP 148/84; BMI 37.5
== END 2024-08-13 11:09 | disposition home or self-care (01) ==
PROVIDERS: PCP Internal Medicine; Visit Provider Internal Medicine
DX: E11.9 Type 2 diabetes mellitus without complications (principal); I10 Essential (primary) hypertension; E03.9 Hypothyroidism, unspecified; E78.00 Pure hypercholesterolemia, unspecified; F33.0 Major depressive disorder, recurrent, mild; M17.0 Bilateral primary osteoarthritis of knee; Z23 Encounter for immunization

== ENCOUNTER → 2024-08-13 10:31 | Outpatient (BNVA) | payer OTHER, SELFPAY | PROVIDERS: PCP Internal Medicine; Visit Provider Internal Medicine | DX: Z23 Encounter for immunization (principal); E11.9 Type 2 diabetes mellitus without complications; I10 Essential (primary) hypertension; E03.9 Hypothyroidism, unspecified; E78.00 Pure hypercholesterolemia, unspecified; F33.0 Major depressive disorder, recurrent, mild; M17.0 Bilateral primary osteoarthritis of knee | CPT/HCPCS: 90471; 90656; 96127; 99212 ==

== ENCOUNTER 2024-08-19 09:42 | Outpatient (AMB) | payer OTHER, SELFPAY ==
--- NOTE | 2024-08-19 09:55 | A.OFFVIS_ITS ---
Vital Signs 08/19/24 09:58 Height 5 ft Weight 190 lb BMI 37.1 BP 136/77 Blood Pressure Location Lt brachial Position Sitting Respiration 16 Pulse 98 Pulse Source Pulse Oximeter Pulse Oximetry (%) 98 Oxygen Delivery Method Room Air Intake Visit Reasons: LEFT KNEE PAIN/REF BY DR CHRISTIANSON Entry Level Recruiter Required: No Allergies MARIA ESTHER Inhibitors Adverse Reaction (Intermediate, Verified 08/19/24 09:59) cough ARB-Angiotensin Receptor Antagonist Adverse Reaction (Intermediate, Verified 08/19/24 09:59) Cough metformin Adverse Reaction (Intermediate, Verified 08/19/24 09:59) Abdominal Pain, diarrhea Medication List - Last Reconciled 08/19/24 by Brandie Cardenas LPN acetaminophen ER (Tylenol Arthritis Pain) 650 mg PO Q8H PRN amitriptyline 25 mg PO BEDTIME 90 days amlodipine 10 mg PO DAILY 90 days [bed rails As directed] blood pressure test kit-large (Advocate Blood Pressure Monitor kit) As directed blood sugar diagnostic (FreeStyle Test strips) Take 1 test strip once a day blood-glucose meter ([employer] TranslateStyle [place] Lite kit) As directed calcium carbonate 600 mg PO BID 90 days cane with 4 legs [cervical collar As directed] chlorthalidone 25 mg PO DAILY 90 days cholecalciferol (vitamin D3) 25 mcg PO DAILY 90 days commode (bedside commode) As directed dulaglutide (Trulicity) 1.5 mg (0.5 mL) subcut QWEEK 90 days ezetimibe (Zetia) 10 mg PO DAILY gabapentin 1 cap qam and 2 caps qhs orally; 30 days glipizide ER 10 mg (2 x 5 mg) PO DAILY 90 days Grab bar As directed hydralazine 10 mg PO TID 30 days [incontinence pads 4 daily As directed] lancets (FreeStyle Lancets) Use 1 lancet once a day leg brace (MARIA ESTHER Knee Brace) As directed levothyroxine 112 mcg PO DAILY 90 days loratadine 10 mg PO DAILY 90 days methocarbamol 750 mg PO Q8H PRN mupirocin 2% 1 appl topical BID 7 days [personal cleansing wipes (sensitive skin) As directed] [rollator walker As directed] ropinirole ER 2 mg PO BEDTIME [washable bed pads As directed] HPI HPI LEFT KNEE PAIN/REF BY DR CHRISTIANSON: Details: History of Present Illness The patient is a 73-year-old female presenting with bilateral knee pain. She has a known history of bilateral primary osteoarthritis of the knee. Previously, she has been treated with corticosteroid injections and gel injections, with the last administered in April 2024, which provided relief for only one month. Despite being offered a total knee replacement by orthopedics, she declined gabriel gical intervention. Her history also includes chronic neck and shoulder pain, for which she has received injections. The patient expresses interest in alternative interventional modalities due to unsatisfactory relief from prior treatments. Recently, her knee pain, especially on the left side, has increased in severity, impacting her daily activities and mobility. Pain Description - Onset: Chronic condition with flair ups. - Quality: Aching pain in bilateral knees, predominantly left side. - Location: Primarily both knees, with the left knee more affected. - Radiation: Not specified. - Exacerbating factors: Increased pain with pressure and weight-bearing activities. - Relieving factors: Past relief with injections, temporary relief post- treatment. - Interference: Pain affects mobility and weight-bearing activities. Physical Exam Results Pain Management - Affect: Pain impacting mobility and potentially psychological well-being, patient describes a feeling of being driven 'crazy' by the pain. - Analgesia: Previous corticosteroid and gel injections provided minimal and short-term relief. - Adverse Effects: Not reported. - Activities of Daily Living: Mobility affected; increased difficulty with weight-bearing due to knee pain. - Aberrant Drug Related Behaviors: Not reported. [facility] Medical History Gait disorder Muscle cramps Hypersomnia Snoring Chronic pain in right foot Skin tag Post-menopausal Obesity Pure hypercholesterolemia Hypothyroidism Essential hypertension Diabetes mellitus Polyarthralgia Surgical History Hx of colonoscopy History of eye surgery S/P total abdominal hysterectomy History of laparoscopic cholecystectomy Family History Father Cancer Mother Stroke Diabetes Hypertension CVD (cardiovascular disease) Sister Cancer Paternal Uncle Cancer Maternal Aunt Cancer Brother CVD (cardiovascular disease) Social History Housing: House Alcohol intake: never Patient Tobacco Use Status: Never used Tobacco e-Cigarette/Vaping Use: Never Used Second Hand Smoke Exposure: Yes service: No Current occupational status: disabled Cognitive needs: No Hearing needs: No Vision needs: Yes Physical Exam Vital Signs: Last Vital Signs Pulse 98 08/19/24 09:58 Resp 16 08/19/24 09:58 BP 136/77 08/19/24 09:58 Pulse Ox 98 08/19/24 09:58 Oxygen Delivery Method Room Air 08/19/24 09:58 BMI result Body Mass Index 37.1 Assessment & Plan Assessment & Plan (1) Bilateral primary osteoarthritis of knee: Code(s): M17.0 - Bilateral primary osteoarthritis of knee Category: Medical Plan Plan - I discussed permanent implantation of an infrapatellar saphenous nerve stimulator as a viable option for refractory knee pain due to osteoarthritis with the patient not willing to undergo total knee replacement. - A referral was placed for psychological clearance which is required prior to device implantation. - Scheduled a trial of the nerve stimulator device with temporary placement once clearance is obtained. Patient was informed and verbally consented to the use of an ambient scribe for clinic note documentation during this visit. Discussion Notes I engaged in a thorough discussion with the patient about the management of her refractory knee pain. I explained the condition of her severe bilateral knee osteoarthritis and the limitations of previous interventions. The benefits, risks, and steps associated with a permanent infrapatellar saphenous nerve stimulator were detailed, including psychological clearance as part of the insurance requirements. The patient was informed of the trial process for the temporary device placement to gauge effectiveness before proceeding with the permanent implantation. I assured her of the minimally invasive nature of the procedure and the goal of achieving pain relief without altering knee appearance. The patient showed understanding and interest but required time to consult with her family before proceeding. Patient Instructions - Discuss with your daughter the possibility of having the nerve stimulator procedure. - Expect a call from a psychologist for the clearance evaluation. - Once ready, inform us to proceed with the trial process. - Continue current management as prescribed until the procedure is scheduled. - Seek medical advice if pain becomes unmanageable or if there are any new symptoms. Coding Level of Care Code Est Pt Level 3 (99770) Diagnoses Bilateral primary osteoarthritis of knee M17.0
[2024-08-19 09:58] VITALS: BP 136/77; PULSE 98; RESP 16; O2SAT 98; BMI 37.1
== END 2024-08-19 10:28 | disposition home or self-care (01) ==
PROVIDERS: PCP Internal Medicine; Visit Provider Internal Medicine
DX: M17.0 Bilateral primary osteoarthritis of knee (principal)
CPT/HCPCS: 99213

== ENCOUNTER → 2024-08-19 09:42 | Outpatient (BNVA) | payer OTHER, SELFPAY | PROVIDERS: PCP Internal Medicine; Visit Provider Internal Medicine | DX: M17.0 Bilateral primary osteoarthritis of knee (principal) | CPT/HCPCS: 99212 ==

== ENCOUNTER 2024-09-13 09:12 | Outpatient (AMB) | payer OTHER, SELFPAY ==
--- NOTE | 2024-09-13 09:19 | MHC.PC.OV ---
Vital Signs 09/13/24 09:22 Height 5 ft Weight 188 lb 2 oz BMI 36.7 BP 120/68 Blood Pressure Location Lt brachial Position Sitting Pulse 85 Pulse Source Pulse Oximeter Temp 97.1 F Temp Source Temporal Artery Scan Pulse Oximetry (%) 99 Oxygen Delivery Method Room Air Intake Visit Reasons: Flu,Pain and Bp Intake Note: Patient is here to follow up on Flu, Pain, BP check. Appliance Service Supervisor Required: No Oral Health Therapist: Not Required per policy Accompanied by: Self / Same As Patient Allergies MARIA ESTHER Inhibitors Adverse Reaction (Intermediate, Verified 09/13/24 09:46) cough ARB-Angiotensin Receptor Antagonist Adverse Reaction (Intermediate, Verified 09/13/24 09:46) Cough metformin Adverse Reaction (Intermediate, Verified 09/13/24 09:46) Abdominal Pain, diarrhea Medication List - Last Reconciled 09/13/24 by ANTHONY Saucedo acetaminophen ER (Tylenol Arthritis Pain) 650 mg PO Q8H PRN amitriptyline 25 mg PO BEDTIME 90 days amlodipine 10 mg PO DAILY 90 days [bed rails As directed] blood pressure test kit-large (Advocate Blood Pressure Monitor kit) As directed blood sugar diagnostic (FreeStyle Test strips) Take 1 test strip once a day blood-glucose meter (FreeStyle [place] Lite kit) As directed calcium carbonate 600 mg PO BID 90 days cane with 4 legs [cervical collar As directed] chlorthalidone 25 mg PO DAILY 90 days cholecalciferol (vitamin D3) 25 mcg PO DAILY 90 days commode (bedside commode) As directed dulaglutide (Trulicity) 1.5 mg (0.5 mL) subcut QWEEK 90 days ezetimibe (Zetia) 10 mg PO DAILY gabapentin 1 cap qam and 2 caps qhs orally; 30 days glipizide ER 10 mg (2 x 5 mg) PO DAILY 90 days Grab bar As directed hydralazine 10 mg PO TID 30 days [incontinence pads 4 daily As directed] lancets (FreeStyle Lancets) Use 1 lancet once a day leg brace (MARIA ESTHER Knee Brace) As directed levothyroxine 112 mcg PO DAILY 90 days loratadine 10 mg PO DAILY 90 days methocarbamol 750 mg PO Q8H PRN mupirocin 2% 1 appl topical BID 7 days [personal cleansing wipes (sensitive skin) As directed] [rollator walker As directed] ropinirole ER 2 mg PO BEDTIME [washable bed pads As directed] Tobacco use date assessed: 09/13/24 Fall risk assessment: No Falls in past year Last assessed Fall Risk: 09/13/24 Dental Screening Dental Screen Date: 08/13/24 HPI Flu,Pain and Bp HPI Details The patient repost that she has been sick for almost two weeks reports that she had a fever, cough and chest pain with coughing. Reports that her throat hurts with coughing as well reports coughing up green phlegm. Reports that she has been waking up with yellowish eye drainage. She reports eye redness and itchiness The patient also reports right ear ache reports that when she cleaned her ear, some dark drainage came out The patient reports headaches reports taken everything from the counter, she cannot remember the names reports buying stuff for flu and Tylenol She denies SOB, reports her cough is worse during the night, +nasal congestion Reports that her blood pressure was really high the last time she saw her doctor Reports that she was giving an new pill for blood pressure the last time she was here Her blood pressure in 120/68 today in office [facility] Medical History Gait disorder Muscle cramps Hypersomnia Snoring Chronic pain in right foot Skin tag Post-menopausal Obesity Pure hypercholesterolemia Hypothyroidism Essential hypertension Diabetes mellitus Polyarthralgia Surgical History Hx of colonoscopy History of eye surgery S/P total abdominal hysterectomy History of laparoscopic cholecystectomy Family History Father Cancer Mother Stroke Diabetes Hypertension CVD (cardiovascular disease) Sister Cancer Paternal Uncle Cancer Maternal Aunt Cancer Brother CVD (cardiovascular disease) Social History Housing: House Alcohol intake: never Patient Tobacco Use Status: Never used Tobacco e-Cigarette/Vaping Use: Never Used Second Hand Smoke Exposure: Yes service: No Current occupational status: disabled Cognitive needs: No Hearing needs: No Vision needs: Yes Questionnaire Thrive Questionnaire Date Thrive assessed: 08/13/24 MARISOL-7 AMB Questionnaire MARISOL-7 Date MARISOL - 7 assessed: 08/13/24 Source: Developed by Drs. Jay Jay Betancourt, Phylicia Bone, Du Rendon and colleagues, with an educational eris from [employer]. Review of Systems Const Details: Denies chills, Denies fatigue, Denies fever(s), + headache(s) and Denies weakness HEENT Denies change in vision, Denies dizziness, + headache(s), Denies hearing loss, +nasal congestion, Denies sinus pain, Denies sinus pressure and + sore throat eyes: dae with irritated feeling in the mornings with sticky yellowish drainage Card Denies chest pain, Denies lightheadedness, Denies dyspnea and Denies other (palpitations) Resp +cough, Denies dyspnea and Denies wheezing GI Denies abdominal pain, Denies melena, Denies hematochezia, Denies change in bowel habits, Denies dyspepsia and Denies nausea Denies hematuria and Denies dysuria Physical exam (Primary Care) Vital Signs: Last Vital Signs Temp 97.1 F 09/13/24 09:22 Pulse 85 09/13/24 09:22 BP 120/68 09/13/24 09:22 Pulse Ox 99 09/13/24 09:22 Oxygen Delivery Method Room Air 09/13/24 09:22 BMI result Body Mass Index 36.7 Tobacco/Smoking Status: Tobacco use Status Tobacco use date assessed 09/13/24 09/13/24 09:21 Patient Tobacco Use Status Never used Tobacco 09/13/24 09:21 e-Cigarette/Vaping Use Never Used 09/13/24 09:21 Thrive Assessment: Date of Thrive Assessment Date Thrive assessed 08/13/24 09/13/24 09:21 Const Other: General: no acute distress, well developed, alert and awake Nutritional Appearance: well nourished Orientation/consciousness: patient oriented x3 HENMT Head: Yes normocephalic and Yes atraumatic Ears: hearing grossly normal bilaterally and TM's normal bilaterally General nose exam: Normal external nose present and bilateral nares erythematous with boggy turbinates Mouth: posterior pharynx cobblestoning present Teeth and gingiva: dentition normal Throat: Yes oropharynx normal Eyes Pupils: Equal, round and reactive pupils present and Pupil accommodation reflex normal EOM: EOMs intact bilaterally scleras erthematous and watery bilaterally Neck Neck: Yes normal visual inspection, Yes no lymphadenopathy and Yes trachea midline Thyroid: Thyroid normal Carotids: no bruits Lymphatic: no lymphadenopathy noted Chest Chest palpation & inspection: normal inspection of the chest Resp Effort & Inspection: normal respiratory effort Auscultation: clear to auscultation bilaterally Cardio Rate: regular rate Rhythm: regular rhythm Heart sounds: S1 normal heart sound present, S2 normal heart sound present, no gallops, no murmurs and no rubs capillary refill less than 3 secs, no edema or calf pain bilaterally GI Palpation (GI): No Abdominal aortic bruit present, Soft to palpation, nontender, No hepatosplenomegaly present and No Rebound tenderness present Auscultation: normal bowel sounds General: Yes no CVA tenderness Results AMB Hemoglobin A1c AMB Hemoglobin A1c 6.3 % Last Edit by RENETTA Josue on 09/13/24 09:52 Results Reviewed Results Reviewed: Laboratory Last Values Hgb A1c (Clinic) 6.3 % (4.0-6.0) H 09/13/24 09:29 Coding Level of Care Code Est Pt Level 4 (98315) Diagnoses Pharyngitis, unspecified etiology J02.9 Pharyngitis/tonsillitis etiology: unspecified etiology Rhinitis, unspecified type J31.0 Rhinitis type: unspecified Conjunctivitis of both eyes, unspecified conjunctivitis type H10.9 Conjunctivitis type: unspecified Laterality: bilateral Bilateral impacted cerumen H61.23 Essential hypertension I10 Cough, unspecified type R05.9 Cough type: unspecified Time Spent (min) 35 Assessment & Plan Assessment & Plan (1) Pharyngitis: Code(s): J02.9 - Acute pharyngitis, unspecified Category: Medical Qualifiers: Pharyngitis/tonsillitis etiology: unspecified etiology Qualified Code(s): J02.9 - Acute pharyngitis, unspecified Plan: Augmentin bid x7 days ordered (2) Rhinitis: Code(s): J31.0 - Chronic rhinitis Category: Medical Qualifiers: Rhinitis type: unspecified Qualified Code(s): J31.0 - Chronic rhinitis Plan: Flonase nose spray ordered (3) Conjunctivitis: Code(s): H10.9 - Unspecified conjunctivitis Category: Medical Qualifiers: Conjunctivitis type: unspecified Laterality: bilateral Qualified Code(s): H10.9 - Unspecified conjunctivitis Plan: ofloxacin eye drops ordered (4) Bilateral impacted cerumen: Code(s): H61.23 - Impacted cerumen, bilateral Category: Medical Plan: Debrox ear drops ordered and the patient was instructed how to use drops The patient to return in 1 week for ear cleaning (5) Essential hypertension: Code(s): I10 - Essential (primary) hypertension Category: Medical Plan: The patient blood pressure was noted to be above goal on last visit and her blood pressure medication was increased Continue amlodipine 10 mg daily, chlorthalidone 25 mg daily, and hydralazine 10 mg t.i.d. Reinforced low-sodium diet (6) Cough: Code(s): R05.9 - Cough, unspecified Category: Medical Qualifiers: Cough type: unspecified Qualified Code(s): R05.9 - Cough, unspecified Plan: Delsym cough medicine ordered Orders: Orders AMB Hemoglobin A1c 09/13/24 E11.9 - Type 2 diabetes mellitus without complications Medications: New fluticasone propionate 50 mcg/actuation (Flonase Allergy Relief) administer into each nostril 2 sprays intranasal DAILY 16 grams 0RF amoxicillin-pot clavulanate 500-125 mg (Augmentin) 1 tab PO BID 7 days 14 tabs 0RF ofloxacin 0.3% 2 drps ophthalmic (eye) QID 10 mL 0RF carbamide peroxide 6.5% (Debrox) 5 drps otic (ears) Q12H 4 days 15 mL 0RF dextromethorphan polistirex ER (Delsym 12 hour) 10 mL PO Q12H PRN 89 mL 0RF cough Refilled blood sugar diagnostic (FreeStyle Test strips) Take 1 test strip once a day 50 ea 11RF lancets (FreeStyle Lancets) Use 1 lancet once a day 100 ea 11RF
[2024-09-13 09:22] VITALS: BP 120/68; PULSE 85; TEMP 36.2; O2SAT 99; BMI 36.7
== END 2024-09-13 10:15 | disposition home or self-care (01) ==
PROVIDERS: PCP Internal Medicine
DX: J02.9 Acute pharyngitis, unspecified (principal); J31.0 Chronic rhinitis; H10.9 Unspecified conjunctivitis; H61.23 Impacted cerumen, bilateral; I10 Essential (primary) hypertension; R05.9 Cough, unspecified

== ENCOUNTER → 2024-09-13 09:12 | Outpatient (BNVA) | payer OTHER, SELFPAY | PROVIDERS: PCP Internal Medicine | DX: J02.9 Acute pharyngitis, unspecified (principal); J31.0 Chronic rhinitis; H10.9 Unspecified conjunctivitis; H61.23 Impacted cerumen, bilateral; I10 Essential (primary) hypertension; R05.9 Cough, unspecified; E11.9 Type 2 diabetes mellitus without complications | CPT/HCPCS: 83036; 99212 ==

== ENCOUNTER 2024-09-20 10:39 | Outpatient (AMB) | payer OTHER, SELFPAY ==
--- NOTE | 2024-09-20 10:45 | MHC.PC.OV ---
Vital Signs 09/20/24 10:48 Height 5 ft Weight 188 lb BMI 36.7 BP 132/62 Blood Pressure Location Lt brachial Position Sitting Pulse 86 Pulse Source Pulse Oximeter Temp 97.3 F Temp Source Temporal Artery Scan Pulse Oximetry (%) 98 Oxygen Delivery Method Room Air Intake Visit Reasons: Ear cleaning with Priscilla MOSQUERA Intake Note: Patient is here to follow up on Ear cleaning. Deposit Clerk Required: No Bag Machine Operator: Not Required per policy Accompanied by: Self / Same As Patient Allergies MARIA ESTHER Inhibitors Adverse Reaction (Intermediate, Verified 09/20/24 10:54) cough ARB-Angiotensin Receptor Antagonist Adverse Reaction (Intermediate, Verified 09/20/24 10:54) Cough metformin Adverse Reaction (Intermediate, Verified 09/20/24 10:54) Abdominal Pain, diarrhea Medication List - Last Reconciled 09/20/24 by Priscilla Barrera PA-C acetaminophen ER (Tylenol Arthritis Pain) 650 mg PO Q8H PRN amitriptyline 25 mg PO BEDTIME 90 days amlodipine 10 mg PO DAILY 90 days amoxicillin-pot clavulanate 500-125 mg (Augmentin) 1 tab PO BID 7 days [bed rails As directed] blood pressure test kit-large ([facility]ocate Blood Pressure Monitor kit) As directed blood sugar diagnostic (FreeStyle Test strips) Take 1 test strip once a day blood-glucose meter (FreeStyle [place] Lite kit) As directed calcium carbonate 600 mg PO BID 90 days cane with 4 legs carbamide peroxide 6.5% (Debrox) 5 drps otic (ears) Q12H 4 days [cervical collar As directed] chlorthalidone 25 mg PO DAILY 90 days cholecalciferol (vitamin D3) 25 mcg PO DAILY 90 days commode (bedside commode) As directed dextromethorphan polistirex ER (Delsym 12 hour) 10 mL PO Q12H PRN dulaglutide (Trulicity) 1.5 mg (0.5 mL) subcut QWEEK 90 days ezetimibe (Zetia) 10 mg PO DAILY fluticasone propionate 50 mcg/actuation (Flonase Allergy Relief) 2 sprays intranasal DAILY gabapentin 1 cap qam and 2 caps qhs orally; 30 days glipizide ER 10 mg (2 x 5 mg) PO DAILY 90 days Grab bar As directed hydralazine 10 mg PO TID 30 days [incontinence pads 4 daily As directed] lancets (FreeStyle Lancets) Use 1 lancet once a day leg brace (MARIA ESTHER Knee Brace) As directed levothyroxine 112 mcg PO DAILY 90 days loratadine 10 mg PO DAILY 90 days methocarbamol 750 mg PO Q8H PRN mupirocin 2% 1 appl topical BID 7 days ofloxacin 0.3% 2 drps ophthalmic (eye) QID [personal cleansing wipes (sensitive skin) As directed] [rollator walker As directed] ropinirole ER 2 mg PO BEDTIME [washable bed pads As directed] Tobacco use date assessed: 09/20/24 Fall risk assessment: No Falls in past year Last assessed Fall Risk: 09/20/24 Dental Screening Dental Screen Date: 08/13/24 HPI Ear cleaning with Priscilla MOSQUERA HPI Details 73-year-old female with past medical history diabetes mellitus, hypertension, hypothyroidism, hypercholesterolemia, obesity, depression, osteopenia last seen by nurse practitioner 09/13/2024 coming in for ear cleaning. [facility] Medical History Gait disorder Muscle cramps Hypersomnia Snoring Chronic pain in right foot Skin tag Post-menopausal Obesity Pure hypercholesterolemia Hypothyroidism Essential hypertension Diabetes mellitus Polyarthralgia Surgical History Hx of colonoscopy History of eye surgery S/P total abdominal hysterectomy History of laparoscopic cholecystectomy Family History Father Cancer Mother Stroke Diabetes Hypertension CVD (cardiovascular disease) Sister Cancer Paternal Uncle Cancer Maternal Aunt Cancer Brother CVD (cardiovascular disease) Social History Housing: House Alcohol intake: never Patient Tobacco Use Status: Never used Tobacco e-Cigarette/Vaping Use: Never Used Second Hand Smoke Exposure: Yes service: No Current occupational status: disabled Cognitive needs: No Hearing needs: No Vision needs: Yes Questionnaire Thrive Questionnaire Date Thrive assessed: 08/13/24 MARISOL-7 AMB Questionnaire MARISOL-7 Date MARISOL - 7 assessed: 08/13/24 Source: Developed by Drs. Jay Jay Betancourt, Phylicia Bone, Du Rendon and colleagues, with an educational eris from [employer]. Review of Systems Const Denies body aches, Denies chills and Denies fever(s) ENT Details: Ear clogged feeling and decreased hearing Card Reports no additional complaints Resp Reports no additional complaints Physical exam (Primary Care) Vital Signs: Last Vital Signs Temp 97.3 F 09/20/24 10:48 Pulse 86 09/20/24 10:48 BP 132/62 09/20/24 10:48 Pulse Ox 98 09/20/24 10:48 Oxygen Delivery Method Room Air 09/20/24 10:48 BMI result Body Mass Index 36.7 Tobacco/Smoking Status: Tobacco use Status Tobacco use date assessed 09/20/24 09/20/24 10:53 Patient Tobacco Use Status Never used Tobacco 09/20/24 10:53 e-Cigarette/Vaping Use Never Used 09/20/24 10:53 Thrive Assessment: Date of Thrive Assessment Date Thrive assessed 08/13/24 09/20/24 10:53 Const General: cooperative, healthy appearing, comfortable and no acute distress Orientation/consciousness: patient oriented x3 HENMT Head: Yes normocephalic Ears: hearing grossly normal bilaterally, TM's normal bilaterally and Abnormal EAC present excessive cerumen bilateral General nose exam: Normal external nose present Resp Effort & Inspection: normal respiratory effort Cardio Rate: regular rate Neuro General: patient oriented x3 Gait exam (Neuro): Normal gait present Psych Affect: normal affect Attitude: cooperative Insight: Good insight present (Psych) Judgement: Good judgement present (Psych) Coding Level of Care Code Procedure Only Diagnoses Bilateral impacted cerumen H61.23 Assessment & Plan Assessment & Plan (1) Bilateral impacted cerumen: Code(s): H61.23 - Impacted cerumen, bilateral Category: Medical Plan: Cerumen was successfully removed bilaterally using lighted curette. Patient tolerated the procedure well and left the room without complication. TM was visualized as intact with well aerated middle ear spaces. EAC was atraumatic without bleeding or irritation. Plan This note was constructed using voice recognition software. While every effort has been made to ensure accuracy and computer information systems professor, still areas may have been included sometimes these areas may affect the content or meeting of the given symptoms. Total time spent caring for the patient today was 15 minutes. This includes time spent before the visit reviewing the chart, time spent during the visit, and time spent after the visit and documentation.
[2024-09-20 10:48] VITALS: BP 132/62; PULSE 86; TEMP 36.3; O2SAT 98; BMI 36.7
== END 2024-09-20 11:09 | disposition home or self-care (01) ==
PROVIDERS: PCP Internal Medicine
DX: H61.23 Impacted cerumen, bilateral (principal)

== ENCOUNTER → 2024-09-20 10:39 | Outpatient (BNVA) | payer OTHER, SELFPAY | PROVIDERS: PCP Internal Medicine | DX: H61.23 Impacted cerumen, bilateral (principal) | CPT/HCPCS: 69210; 99212 ==

== ENCOUNTER 2024-10-02 10:32 | Outpatient (AMB) | payer OTHER, SELFPAY ==
--- NOTE | 2024-10-02 10:34 | MHC.OFFVIS ---
Vital Signs 10/02/24 10:36 Height 5 ft Weight 191 lb BMI 37.3 BP 139/80 Blood Pressure Location Lt brachial Position Sitting Respiration 16 Pulse 92 Pulse Source Pulse Oximeter Pulse Oximetry (%) 98 Oxygen Delivery Method Room Air Intake Visit Reasons: Leg Pain Per [facility] Plan Administrator Required: No Allergies MARIA ESTHER Inhibitors Adverse Reaction (Intermediate, Verified 10/02/24 11:50) cough ARB-Angiotensin Receptor Antagonist Adverse Reaction (Intermediate, Verified 10/02/24 11:50) Cough metformin Adverse Reaction (Intermediate, Verified 10/02/24 11:50) Abdominal Pain, diarrhea Medication List - Last Reconciled 10/02/24 by Brandie Cardenas LPN acetaminophen ER (Tylenol Arthritis Pain) 650 mg PO Q8H PRN amitriptyline 25 mg PO BEDTIME 90 days amlodipine 10 mg PO DAILY 90 days amoxicillin-pot clavulanate 500-125 mg (Augmentin) 1 tab PO BID 7 days [bed rails As directed] blood pressure test kit-large ([facility]ocate Blood Pressure Monitor kit) As directed blood sugar diagnostic (FreeStyle Test strips) Take 1 test strip once a day blood-glucose meter ([employer] [place] Lite kit) As directed calcium carbonate 600 mg PO BID 90 days cane with 4 legs carbamide peroxide 6.5% (Debrox) 5 drps otic (ears) Q12H 4 days [cervical collar As directed] chlorthalidone 25 mg PO DAILY 90 days cholecalciferol (vitamin D3) 25 mcg PO DAILY 90 days commode (bedside commode) As directed dextromethorphan polistirex ER (Delsym 12 hour) 10 mL PO Q12H PRN dulaglutide (Trulicity) 1.5 mg (0.5 mL) subcut QWEEK 90 days ezetimibe (Zetia) 10 mg PO DAILY fluticasone propionate 50 mcg/actuation (Flonase Allergy Relief) 2 sprays intranasal DAILY gabapentin 1 cap qam and 2 caps qhs orally; 30 days glipizide ER 10 mg (2 x 5 mg) PO DAILY 90 days Grab bar As directed hydralazine 10 mg PO TID 30 days [incontinence pads 4 daily As directed] lancets (FreeStyle Lancets) Use 1 lancet once a day leg brace (MARIA ESTHER Knee Brace) As directed levothyroxine 112 mcg PO DAILY 90 days loratadine 10 mg PO DAILY 90 days methocarbamol 750 mg PO Q8H PRN mupirocin 2% 1 appl topical BID 7 days ofloxacin 0.3% 2 drps ophthalmic (eye) QID [personal cleansing wipes (sensitive skin) As directed] [rollator walker As directed] ropinirole ER 2 mg PO BEDTIME [washable bed pads As directed] HPI HPI Leg Pain Per [facility]: Details: History of Present Illness The patient is a 73-year-old female presenting with right lower extremity pain and swelling. The symptoms, acute in onset, have persisted for approximately one week. She is diabetic, raising the concern for potential infection risks such as cellulitis. The right foot is notably more vascular and swollen than the left, with associated pain and sensitivity to touch, and bears purplish discoloration. There has been difficulty bearing weight. The patient has a history of chronic knee pain, previously managed with corticosteroid injections, and has experienced recurrent symptoms since the last injection over six months earlier. Past medical management has included a course of antibiotics for sinusitis and bronchitis, with resolution of those symptoms. The continuation of pain despite analgesics and her medical background prompt further investigation to rule out serious conditions like deep vein thrombosis and foot cellulitis. A trip to the emergency room for a full evaluation including ultrasound and potential IV antibiotic therapy is warranted. Pain Description - Onset: Approximately one week ago - Quality: Sharp, acute - Location: Right foot primarily, with associated lower leg swelling - Exacerbating Factors: Weight bearing - Relieving Factors: None significantly noted - Functional Impact: Difficulty standing, walking, and performing activities of daily living Physical Exam - Vascular- Right foot markedly vascular compared to the left - Swelling- Right foot swollen compared to left - Dermatologic- Redness and purplish discoloration of the right foot - Edema- +1 pitting edema present in the right leg Results Pain Management - Affect: Significant distress due to persistent pain - Analgesia: Current analgesics ineffective; pain persists despite use - Adverse Effects: Side effects from current medication not reported - Activities of Daily Living: Pain limits daily activities, notably standing and walking - Aberrant Drug-Related Behaviors: None reported [facility] Medical History Gait disorder Muscle cramps Hypersomnia Snoring Chronic pain in right foot Skin tag Post-menopausal Obesity Pure hypercholesterolemia Hypothyroidism Essential hypertension Diabetes mellitus Polyarthralgia Surgical History Hx of colonoscopy History of eye surgery S/P total abdominal hysterectomy History of laparoscopic cholecystectomy Family History Father Cancer Mother Stroke Diabetes Hypertension CVD (cardiovascular disease) Sister Cancer Paternal Uncle Cancer Maternal Aunt Cancer Brother CVD (cardiovascular disease) Social History Housing: House Alcohol intake: never Patient Tobacco Use Status: Never used Tobacco e-Cigarette/Vaping Use: Never Used Second Hand Smoke Exposure: Yes Advance Directives Date on File: 01/19/22 service: No Current occupational status: disabled Cognitive needs: No Hearing needs: No Vision needs: Yes Physical Exam Vital Signs: Last Vital Signs Pulse 92 10/02/24 10:36 Resp 16 10/02/24 10:36 BP 139/80 10/02/24 10:36 Pulse Ox 98 10/02/24 10:36 Oxygen Delivery Method Room Air 10/02/24 10:36 BMI result Body Mass Index 37.3 Assessment & Plan Assessment & Plan (1) Right leg swelling: Code(s): M79.89 - Other specified soft tissue disorders Category: Medical Plan Plan The patient's right lower extremity pain and swelling necessitate further evaluation to rule out cellulitis and deep vein thrombosis. An ultrasound of the right leg is essential to evaluate for thrombotic events. Given her diabetes and the risk of infection, urgent assessment and possible initiation of intravenous antibiotic therapy for suspected cellulitis are recommended. The patient's persistent pain despite analgesics requires further investigation and treatment. Instructions include visiting the emergency department for necessary diagnostic procedures and management. Patient was informed and verbally consented to the use of an ambient scribe for clinic note documentation during this visit. Discussion Notes I discussed the possible diagnoses of cellulitis and deep vein thrombosis with the patient, emphasizing the importance of ruling out these conditions given her diabetic condition and acute symptoms. We reviewed the need for an ultrasound and potential IV antibiotic therapy should an infection be confirmed. I explained the risks and necessity of prompt intervention due to the possible complications from untreated infection or clotting. The patient understood and agreed to proceed to the emergency room for further assessment and management. Patient Instructions - Proceed to the emergency room for evaluation of right foot swelling and pain. - Undergo an ultrasound to check for deep vein thrombosis. - Be prepared for potential IV antibiotics if cellulitis is diagnosed. - Monitor for any increased pain, swelling, or changes in skin color, and seek immediate care if symptoms worsen. Coding Level of Care Code Est Pt Level 4 (91710) Diagnoses Right leg swelling M79.89
[2024-10-02 10:36] VITALS: BP 139/80; PULSE 92; RESP 16; O2SAT 98; BMI 37.3
== END 2024-10-02 11:13 | disposition home or self-care (01) ==
LOC: HO.PMC 10:33
PROVIDERS: PCP Internal Medicine; Visit Provider Internal Medicine
DX: M79.89 Other specified soft tissue disorders (principal)
CPT/HCPCS: 99214

== ENCOUNTER 2024-10-02 11:22 | Emergency (ER) | payer OTHER, SELFPAY ==
--- NOTE | ~2024-10-02 | US_ITS ---
EXAMINATION: US TRIPLEX LOWER EXTREMITY, RIGHT CLINICAL INFORMATION: Edema, right lower extremity. COMPARISON: None available. TECHNIQUE: Color-flow triplex imaging with spectral analysis and compression Doppler were performed on the right lower extremity. FINDINGS: Respiratory variation, normal compression and augmented flow are noted throughout the visualized common femoral vein, superficial femoral vein, profunda femoral vein, popliteal vein and midcalf peroneal and posterior tibial venous segments . There is no Mendes's cyst. US/US venous duplex LE RT IMPRESSION: No acute deep venous thrombosis involving the right lower extremity.. Negative for DVT. Electronically signed by: Nawaf Law MD 10/02/2024 03:25 PM EDT
--- NOTE | ~2024-10-02 | XR_ITS ---
EXAMINATION: XR ANKLE, RIGHT CLINICAL INFORMATION: pain COMPARISON: None available. TECHNIQUE: AP, lateral, and mortise views of the right ankle. FINDINGS: Soft tissue edema pattern bimalleolar. No acute cortical disruption or gross malalignment. No joint effusion. Small exostosis at the Achilles tendon insertion. Small spur in the plantar calcaneus. XR/XR ankle RT min 3V IMPRESSION: Soft tissue edema, bimalleolar. No acute fracture or dislocation. Electronically signed by: Nawaf Law MD 10/02/2024 12:27 PM EDT
[2024-10-02 11:49] VITALS: BP 130/78; PULSE 89; RESP 19; TEMP 36.6; O2SAT 98; BMI 34.3
--- NOTE | 2024-10-02 11:51 | ED.GENADULT ---
HPI - General Adult General Chief complaint: Extremity Injury, Lower Stated complaint: R leg pain Time Seen by Provider: 10/02/24 16:30 Source: patient Limitations: language barrier History of Present Illness ED Provider: Sparkle Arango PA-C HPI narrative: 73-year-old female with hx of chronic pain who is followed by pain management, hypertension, hyperlipidemia, diabetes, hypothyroidism, arthritis, depression, morbid obesity, presents for evaluation of right leg pain and swelling x 1 week. Patient was sent here by the pain management clinic to rule out DVT versus cellulitis. No fevers. No traumatic injury that could have precipitated her symptoms. Related Data Previous Rx's ?Medication ?Instructions ?Recorded cervical collar #1 ea 01/31/23 blood-glucose meter (FreeStyle #1 ea 03/23/23 Grulla Lite kit) mupirocin 2 % topical ointment 1 appl topical BID 7 days #15 grams 03/23/23 cane #1 ea 05/08/23 incontinence pads 4 daily #1 ea 05/16/23 personal cleansing wipes #2 ea 05/16/23 (sensitive skin) rollator walker #1 ea 05/16/23 washable bed pads #4 ea 05/16/23 Grab bar #1 ea 06/21/23 commode (bedside commode) #1 ea 06/21/23 bed rails #2 ea 09/30/23 methocarbamol 750 mg tablet 750 mg PO Q8H PRN for muscle spasm 10/17/23 #90 tabs blood pressure test kit-large #1 ea 04/15/24 (Advocate Blood Pressure Monitor kit) gabapentin 300 mg capsule See Rx Instructions PO .COMPLEX 30 04/18/24 days #90 caps ropinirole 2 mg tablet,extended 2 mg PO BEDTIME #30 tabs 04/18/24 release 24 hr levothyroxine 112 mcg tablet 112 mcg PO DAILY 90 days #90 tabs 05/24/24 calcium carbonate 600 mg PO BID 90 days #180 tabs 06/06/24 acetaminophen 650 mg 650 mg PO Q8H PRN pain #90 tabs 07/12/24 tablet,extended release (Tylenol Arthritis Pain) glipizide 5 mg tablet, extended 10 mg (2 x 5 mg) PO DAILY 90 days 07/13/24 release 24 hr #180 tabs loratadine 10 mg tablet 10 mg PO DAILY 90 days #90 tabs 07/22/24 amlodipine 10 mg tablet 10 mg PO DAILY 90 days #90 tabs 08/13/24 chlorthalidone 25 mg tablet 25 mg PO DAILY 90 days #90 tabs 08/13/24 dulaglutide 1.5 mg/0.5 mL 1.5 mg (0.5 mL) subcut QWEEK 90 08/13/24 subcutaneous pen injector days #6.5 mL (Trulicity) hydralazine 10 mg tablet 10 mg PO TID 30 days #90 tabs 08/13/24 leg brace (MARIA ESTHER Knee Brace) #2 ea 08/13/24 cholecalciferol (vitamin D3) 25 25 mcg PO DAILY 90 days #90 caps 08/30/24 mcg (1,000 unit) capsule amoxicillin 500 mg-potassium 1 tab PO BID 7 days #14 tabs 09/13/24 clavulanate 125 mg tablet (Augmentin) blood sugar diagnostic (FreeStyle #50 ea 09/13/24 Test strips) carbamide peroxide 6.5 % ear drops 5 drp otic (ears) Q12H 4 days #15 09/13/24 (Debrox) mL dextromethorphan polistirex 30 10 ml PO Q12H PRN cough #89 mL 09/13/24 mg/5 mL oral susp ext.release 12hr (Delsym 12 hour) fluticasone propionate 50 2 spray intranasal DAILY #16 grams 09/13/24 mcg/actuation nasal spray,suspension (Flonase Allergy Relief) lancets 28 gauge (FreeStyle #100 ea 09/13/24 Lancets) ofloxacin 0.3 % eye drops 2 drp ophthalmic (eye) QID #10 mL 09/13/24 amitriptyline 25 mg tablet 25 mg PO BEDTIME 90 days #90 tabs 09/27/24 ezetimibe 10 mg tablet (Zetia) 10 mg PO DAILY #90 tabs 10/01/24 ketorolac 10 mg tablet 10 mg PO Q6H PRN pain #20 tabs 10/02/24 Allergies Allergy/AdvReac Type Severity Reaction Status Date / Time MARIA ESTHER Inhibitors AdvReac Intermediate cough Verified 10/02/24 11:50 ARB-Angiotensin Receptor AdvReac Intermediate Cough Verified 10/02/24 11:50 Antagonist metformin AdvReac Intermediate Abdominal Verified 10/02/24 11:50 Pain, diarrhea Review of Systems Review of Systems: Yes all other systems are reviewed and are negative Constitutional: Constitutional: Denies fatigue and Denies fever(s) Cardiovascular: Cardiovascular: Denies chest pain and Denies dyspnea Respiratory: Respiratory: Denies dyspnea Musculoskeletal: Musculoskeletal: Reports arthralgias and Reports joint swelling Endocrine: Endocrine: Denies fatigue PMFSH Past Medical History Attestation statement: The following information was validated with the patient. Medical History Gait disorder Muscle cramps Hypersomnia Snoring Chronic pain in right foot Skin tag Post-menopausal Obesity Pure hypercholesterolemia Hypothyroidism Essential hypertension Diabetes mellitus Polyarthralgia Surgical History Hx of colonoscopy History of eye surgery S/P total abdominal hysterectomy History of laparoscopic cholecystectomy Family History Family History Father Cancer Mother Stroke Diabetes Hypertension CVD (cardiovascular disease) Sister Cancer Paternal Uncle Cancer Maternal Aunt Cancer Brother CVD (cardiovascular disease) Social History Social History Housing: House Alcohol intake: never Patient Tobacco Use Status: Never used Tobacco e-Cigarette/Vaping Use: Never Used Second Hand Smoke Exposure: Yes Advance Directives: Yes Advance Directives on File: Yes Advance Directives Date on File: 01/19/22 Do you have a plan to hurt others: No Plan service: No Current occupational status: disabled Cognitive needs: No Hearing needs: No Vision needs: Yes Physical Exam ED Vital Signs: Vital Signs - 24 hr 10/02/24 11:49 10/02/24 16:30 Temperature 98 F 98.6 F Pulse Rate 89 124 H Respiratory Rate 19 18 Blood Pressure 130/78 151/75 H Pulse Oximetry 98 99 Oxygen Delivery Method Room Air Room Air BMI result Body Mass Index 34.3 Const Other: Alert Orientation/consciousness: patient oriented x3 Resp Effort & Inspection: normal respiratory effort Cardio Other: Normal peripheral perfusion, trace edema over the right ankle Skin Other: Warm dry no rash Neuro Other: Antalgic gait , uses a walker at baseline, she has it with her General: patient oriented x3, no focal motor deficits and CN's II-XI intact bilaterally Extrem Other: No erythema or warmth noted over the right ankle or foot, she is able to flex and extend Psych Other: Cooperative Course Course Course Narrative: RME, this is a rapid medical exam performed by Keon Samuel please refer to primary provider for complete H&P- 73-year-old female presents for evaluation of right leg pain and swelling. Symptoms started 1 week ago. She was sent here by the pain management clinic to rule out DVT versus cellulitis. She has a edema to the right ankle mostly. There is no significant erythema. Plan for labs, ultrasound and x-ray of the right ankle. Medical Decision Making Medical Decision Making [facility] Narrative: 73-year-old female with hx of chronic pain who is followed by pain management, hypertension, hyperlipidemia, diabetes, hypothyroidism, arthritis, depression, morbid obesity, presents for evaluation of right leg pain and swelling x 1 week. Patient was sent here by the pain management clinic to rule out DVT versus cellulitis. No fevers. No traumatic injury that could have precipitated her symptoms. Problem: Diabetes, obesity History: Per patient I have considered the following differential diagnoses: Arthritis, sprain, gout, cellulitis, DVT, fracture, dislocation, septic effusion Plan: Screening labs and an x-ray and DVT study ordered from triage. No fracture no dislocation no DVT. She does have arthritic changes and a bone spur. We will give her Toradol and some ketorolac. There was no evidence of cellulitis, she is able to flex and extend, again there was no warmth or erythema to suggest a septic effusion. She can continue to follow up with pain management. I have independently reviewed the following tests: Labs: No leukocytosis, not anemic, inflammatory markers not elevated, no electrolyte abnormality noted X-ray: XR/XR ankle RT min 3V IMPRESSION: Soft tissue edema, bimalleolar. No acute fracture or dislocation. Electronically signed by: Nawaf Law MD 10/02/2024 12:27 PM EDT DVT study: US/US venous duplex LE RT IMPRESSION: No acute deep venous thrombosis involving the right lower extremity.. Negative for DVT. Lab Data 10/02/24 12:01 10/02/24 12:01 Labs: Lab Results 10/02/24 Range/Units 12:01 WBC 7.3 (4.8-10.8) X10*3/uL RBC 4.81 (4.20-5.50) X10*6/uL Hgb 12.8 (12.0-16.0) g/dl Hct 37.8 (37.0-47.0) % MCV 78.6 L (80.0-98.0) fL MCH 26.6 L (27.0-33.0) pg MCHC 33.9 (31.0-35.0) g/dl RDW 15.4 (11.0-16.0) % Plt Count 381 (160-400) X10*3/uL MPV 9.7 (9.4-12.3) fL Immature Gran % (Auto) 0.3 (0.0-0.4) % Neut % (Auto) 49.6 (45-73) % Lymph % (Auto) 35.6 (20-40) % [place] % (Auto) 8.6 (2-11) % Eos % (Auto) 4.4 H (0-4) % Baso % (Auto) 1.5 (0-2) % Lymph # (Auto) 2.6 (1.2-4.9) X10*3/uL [place] # (Auto) 0.6 (0.1-1.2) X10*3/uL Eos # (Auto) 0.3 (0.0-0.4) X10*3/uL Baso # (Auto) 0.1 (0.0-0.2) X10*3/uL Abs Immat Gran (auto) 0.02 (0.00-0.03) X10*3/uL Absolute Neuts (auto) 3.7 (2.0-8.3) x10*3/uL Absolute Nucleated RBC 0.000 (0.0-0.012) X10*3/uL Nucleated RBC % (auto) 0.0 (0.0-0.2) /100WBC ESR 20 (0-20) MM/HR Sodium 139 (135-145) mmol/L Potassium 3.3 (3.3-5.1) mmol/L Chloride 101 (96-108) mmol/L Carbon Dioxide 31 H (22-29) mmol/L Anion Gap 10 L (12-20) BUN 13 (9-16) mg/dL Creatinine 0.79 (0.5-1.4) mg/dL Estim Creat Clear Calc 65.0 Estimated GFR > 60 Random Glucose 109 (60-115) mg/dL Calcium 10.1 D (8.4-10.2) mg/dL Total Bilirubin 0.3 (0.0-1.0) mg/dL AST 24 (5-31) U/L ALT 23 (0-31) U/L Alkaline Phosphatase 60 (39-117) U/L C-Reactive Protein 0.82 H (< or = 0.50) mg/dL Total Protein 8.1 H (6.5-8.0) g/dL Albumin 4.5 (3.5-5.0) g/dL Lipase 15 (8-78) U/L Discharge Plan Discharge Clinical Impression: Arthritis of ankle, right, Heel spur Patient Disposition: Home, Self-Care Instructions: Osteoarthritis (ED), Heel Spur (ED) Additional Instructions: You were found to have arthritis with an associated heel spur on the x-ray, the ultrasound was negative for DVT. You had no lab abnormalities. See home care instructions. Use the ketorolac as directed take it with food, for your pain and inflammation. Continue to follow up with the pain management. Prescriptions: New ketorolac 10 mg tablet 10 mg PO Q6H PRN (Reason: pain) Qty: 20 0RF Rx Instructions: maximum total duration of 5 days from all oral, intranasal, or parenteral formulations. Patient had an intramuscular dose of Toradol here in the emergency department. No Action (DME) cane Device See Rx Instructions .Route Qty: 1 0RF Rx Instructions: with 4 legs (DME) rollator walker See Rx Instructions .Route .MEDSUPPLY Qty: 1 0RF Rx Instructions: As directed (DME) incontinence pads 4 daily See Rx Instructions .Route .MEDSUPPLY Qty: 1 0RF Rx Instructions: As directed (DME) personal cleansing wipes (sensitive skin) See Rx Instructions .Route .MEDSUPPLY Qty: 2 0RF Rx Instructions: As directed (DME) washable bed pads See Rx Instructions .Route .MEDSUPPLY Qty: 4 0RF Rx Instructions: As directed ([facility]) bed rails See Rx Instructions .Route .MEDSUPPLY Qty: 2 0RF Rx Instructions: As directed methocarbamol 750 mg tablet 750 mg PO Q8H PRN (Reason: for muscle spasm) Qty: 90 0RF (DME) blood pressure test kit-large [Advocate Blood Pressure Monitr] Kit See Rx Instructions .Route Qty: 1 0RF Rx Instructions: As directed levothyroxine 112 mcg tablet 112 mcg PO DAILY 90 Days Qty: 90 1RF calcium carbonate 600 mg calcium (1,500 mg) tablet 600 mg PO BID 90 Days Qty: 180 1RF acetaminophen [Tylenol Arthritis Pain] 650 mg tablet extended release 650 mg PO Q8H PRN (Reason: pain) Qty: 90 3RF glipizide 5 mg tablet extended release 24hr 10 mg PO DAILY 90 Days Qty: 180 3RF loratadine 10 mg tablet 10 mg PO DAILY 90 Days Qty: 90 3RF cholecalciferol (vitamin D3) 25 mcg (1,000 unit) capsule 25 mcg PO DAILY 90 Days Qty: 90 1RF amitriptyline 25 mg tablet 25 mg PO BEDTIME 90 Days Qty: 90 0RF ezetimibe [Zetia] 10 mg tablet 10 mg PO DAILY Qty: 90 0RF ([facility]) cervical collar See Rx Instructions .Route .MEDSUPPLY Qty: 1 0RF Rx Instructions: As directed ([facility]) blood-glucose meter [FreeStyle Grulla Lite] Kit See Rx Instructions .ROUTE .MEDSUPPLY Qty: 1 0RF Rx Instructions: As directed mupirocin 2 % ointment 1 appl topical BID 7 Days Qty: 15 0RF ([facility]) bedside commode Kit See Rx Instructions .Route Qty: 1 0RF Rx Instructions: As directed ([facility]) Grab bar Misc See Rx Instructions .Route Qty: 1 0RF Rx Instructions: As directed ropinirole 2 mg tablet extended release 24 hr 2 mg PO BEDTIME Qty: 30 6RF gabapentin 300 mg capsule See Rx Instructions PO .COMPLEX 30 Days Qty: 90 6RF Rx Instructions: 1 cap qam and 2 caps qhs orally; hydralazine 10 mg tablet 10 mg PO TID 30 Days Qty: 90 6RF chlorthalidone 25 mg tablet 25 mg PO DAILY 90 Days Qty: 90 1RF amlodipine 10 mg tablet 10 mg PO DAILY 90 Days Qty: 90 3RF (DME) MARIA ESTHER Knee Brace Misc See Rx Instructions .Route Qty: 2 0RF Rx Instructions: As directed Trulicity 1.5 mg/0.5 mL pen injector 1.5 mg subcut QWEEK 90 Days Qty: 6.5 1RF (DME) lancets [FreeStyle Lancets] 28 gauge misc See Rx Instructions .ROUTE .MEDSUPPLY Qty: 100 11RF Rx Instructions: Use 1 lancet once a day (DME) FreeStyle Test Strip See Rx Instructions .ROUTE .MEDSUPPLY Qty: 50 11RF Rx Instructions: Take 1 test strip once a day amoxicillin-pot clavulanate [Augmentin] 500-125 mg tablet 1 tab PO BID 7 Days Qty: 14 0RF ofloxacin 0.3 % drops 2 drp ophthalmic (eye) QID Qty: 10 0RF Debrox 6.5 % drops 5 drp otic (ears) Q12H 4 Days Qty: 15 0RF fluticasone propionate [Flonase Allergy Relief] 50 mcg/actuation spray,suspension 2 spray intranasal DAILY Qty: 16 0RF Rx Instructions: administer into each nostril dextromethorphan polistirex [Delsym 12 hour] 30 mg/5 mL suspension,extended rel 12 hr 10 ml PO Q12H PRN (Reason: cough) Qty: 89 0RF Print Language: Turkish
[2024-10-02 12:05] LABS: MANUAL DIFF FLAG NO
[2024-10-02 12:09] LABS: Basophils Absolute Auto 0.1 X10*3/uL (0.0-0.2); Basophils Percent Auto 1.5 % (0-2); Eosinophils Absolute Auto 0.3 X10*3/uL (0.0-0.4); Eosinophils Percent Auto 4.4 % (0-4); Hematocrit 37.8 % (37.0-47.0); Hemoglobin 12.8 g/dl (12.0-16.0); Imm Gran Abs Auto 0.02 X10*3/uL (0.00-0.03); Imm Gran Pct Auto 0.3 % (0.0-0.4); Lymphocytes Absolute Auto 2.6 X10*3/uL (1.2-4.9); Lymphocytes Percent Auto 35.6 % (20-40); Mean Corpuscular HGB Conc 33.9 g/dl (31.0-35.0); Mean Corpuscular Hemoglobin 26.6 pg (27.0-33.0); Mean Corpuscular Volume 78.6 fL (80.0-98.0); Mean Platelet Volume 9.7 fL (9.4-12.3); Monocytes Absolute Auto 0.6 X10*3/uL (0.1-1.2); Monocytes Percent Auto 8.6 % (2-11); Neutrophils Absolute Auto 3.7 x10*3/uL (2.0-8.3); Neutrophils Percent Auto 49.6 % (45-73); Platelet Count 381 X10*3/uL (160-400); Red Blood Count 4.81 X10*6/uL (4.20-5.50); Red Cell Distribution Width 15.4 % (11.0-16.0); White Blood Count 7.3 X10*3/uL (4.8-10.8)
[2024-10-02 12:23] LABS: Alanine Aminotransferase 23 U/L (0-31); Albumin Level 4.5 g/dL (3.5-5.0); Alkaline Phosphatase 60 U/L (39-117); Anion Gap 10 (12-20); Aspartate Amino Transferase 24 U/L (5-31); Bilirubin Total 0.3 mg/dL (0.0-1.0); Blood Urea Nitrogen 13 mg/dL (9-16); C Reactive Protein 0.82 mg/dL (< or = 0.50); Calcium 10.1 mg/dL (8.4-10.2); Carbon Dioxide 31 mmol/L (22-29); Chloride 101 mmol/L (96-108); Estimated Glomerular Filt Rate > 60; Glucose Random 109 mg/dL (60-115); Lipase 15 U/L (8-78); Potassium 3.3 mmol/L (3.3-5.1); Sodium 139 mmol/L (135-145); Total Protein 8.1 g/dL (6.5-8.0)
[2024-10-02 12:58] LABS: Erythrocyte Sedimentation Rate 20 MM/HR (0-20)
[2024-10-02 16:30] VITALS: BP 151/75; PULSE 124; RESP 18; TEMP 37; O2SAT 99
[2024-10-02] MEDS: Ketorolac Tromethamine 15 MG/ML VIAL IM (16:56)
[2024-10-02 17:05] VITALS: BP 149/76; PULSE 124; RESP 18; TEMP 37; O2SAT 99
== END 2024-10-02 17:06 | disposition home or self-care (01) ==
PROVIDERS: Physician Assistant; Emergency Provider Emergency Medicine Emergency Medical Services; PCP Internal Medicine
DX: M19.071 Primary osteoarthritis, right ankle and foot (principal); M77.31 Calcaneal spur, right foot; M79.604 Pain in right leg; M25.571 Pain in right ankle and joints of right foot; I10 Essential (primary) hypertension; R60.0 Localized edema; Z79.899 Other long term (current) drug therapy
CPT/HCPCS: 36415; 73610; 80053; 83690; 85025; 85652; 86140; 93971; 96372; 99212; 99284; J1885

== ENCOUNTER → 2024-10-02 11:50 | Outpatient (BNV) | payer OTHER, SELFPAY | PROVIDERS: Visit Provider Radiology Diagnostic Radiology | DX: R60.0 Localized edema (principal) | CPT/HCPCS: 73610; 93971 ==

== ENCOUNTER 2024-10-11 10:19 | Outpatient (AMB) | payer OTHER, SELFPAY ==
--- NOTE | 2024-10-11 10:35 | MHC.PC.OV ---
Vital Signs 10/11/24 10:36 Height 5 ft 2 in Weight 186 lb 11.704 oz BMI 34.1 BP 130/60 Blood Pressure Location Lt brachial Position Sitting Pulse 95 Pulse Source Pulse Oximeter Temp 97.1 F Temp Source Temporal Artery Scan Pulse Oximetry (%) 99 Oxygen Delivery Method Room Air Intake Visit Reasons: ED follow up for RT leg pain/ankle Intake Note: Patient is here to follow-up after a visit the emergency department at [facility] on 10/02/24 Emergency Dispatch Operator Required: No It Data Architect: Not Required per policy Accompanied by: Self / Same As Patient Allergies MARIA ESTHER Inhibitors Adverse Reaction (Intermediate, Verified 10/11/24 10:36) cough ARB-Angiotensin Receptor Antagonist Adverse Reaction (Intermediate, Verified 10/11/24 10:36) Cough metformin Adverse Reaction (Intermediate, Verified 10/11/24 10:36) Abdominal Pain, diarrhea Tobacco use date assessed: 10/11/24 Fall risk assessment: No Falls in past year Last assessed Fall Risk: 10/11/24 Dental Screening Dental Screen Date: 08/13/24 HPI HPI Comments History of Present Illness Details 73 y/o female patient who presents to the clinic today for EDF. She was admitted at [facility] on 10/02 for Right Ankle pain due to OA. She was discharged home on Ketorolac pain relief. Doppler U/S right lower extremity negative for DVT. Pt has an appointment with Pain management 10/25. [facility] Medical History (Updated 10/11/24 @ 10:54 by Shweta Carson NP) Osteoarthritis of right ankle Gait disorder Muscle cramps Hypersomnia Snoring Chronic pain in right foot Skin tag Post-menopausal Obesity Pure hypercholesterolemia Hypothyroidism Essential hypertension Diabetes mellitus Polyarthralgia Surgical History Hx of colonoscopy History of eye surgery S/P total abdominal hysterectomy History of laparoscopic cholecystectomy Family History Father Cancer Mother Stroke Diabetes Hypertension CVD (cardiovascular disease) Sister Cancer Paternal Uncle Cancer Maternal Aunt Cancer Brother CVD (cardiovascular disease) Social History Housing: House Alcohol intake: never Patient Tobacco Use Status: Never used Tobacco e-Cigarette/Vaping Use: Never Used Second Hand Smoke Exposure: Yes Advance Directives Date on File: 01/19/22 service: No Current occupational status: disabled Cognitive needs: Yes (Walker) Hearing needs: No Vision needs: Yes Questionnaire Thrive Questionnaire Date Thrive assessed: 08/13/24 MARISOL-7 AMB Questionnaire MARISOL-7 Date MARISOL - 7 assessed: 08/13/24 Source: Developed by Drs. Jay Jay Betancourt, Phylicia Bone, Du Rendon and colleagues, with an educational eris from [employer]. Physical exam (Primary Care) Vital Signs: Last Vital Signs Temp 97.1 F 10/11/24 10:36 Pulse 95 10/11/24 10:36 BP 130/60 10/11/24 10:36 Pulse Ox 99 10/11/24 10:36 Oxygen Delivery Method Room Air 10/11/24 10:36 BMI result Body Mass Index 34.1 Tobacco/Smoking Status: Tobacco use Status Tobacco use date assessed 10/11/24 10/11/24 10:44 Patient Tobacco Use Status Never used Tobacco 10/11/24 10:35 e-Cigarette/Vaping Use Never Used 10/11/24 10:35 Thrive Assessment: Date of Thrive Assessment Date Thrive assessed 08/13/24 10/11/24 10:35 Const General: cooperative and no acute distress; No comfortable Orientation/consciousness: patient oriented x3 Neuro General: patient oriented x3 and moves all extremities Extrem Right lower extremity: ankle Details: tenderness Location: of the lateral malleolus and of the medial malleolus and swelling Details: laterally; no ecchymosis and no crepitus Psych Speech and movement: Normal speech and movement present Coding Level of Care Code Est Pt Level 4 (76459) Diagnoses Primary osteoarthritis of right ankle M19.071 Osteoarthritis type: primary Time Spent (min) 20 Assessment & Plan Assessment & Plan (1) Osteoarthritis of right ankle: Code(s): M19.071 - Primary osteoarthritis, right ankle and foot Category: Medical Qualifiers: Osteoarthritis type: primary Qualified Code(s): M19.071 - Primary osteoarthritis, right ankle and foot Plan: Continue f/u with Pain management. Ordered Prednisone.
[2024-10-11 10:36] VITALS: BP 130/60; PULSE 95; TEMP 36.2; O2SAT 99; BMI 34.1
== END 2024-10-11 11:25 | disposition home or self-care (01) ==
LOC: HO.HMCH 10:20
PROVIDERS: PCP Internal Medicine; Visit Provider Nurse Practitioner Family
DX: M19.071 Primary osteoarthritis, right ankle and foot (principal)

== ENCOUNTER → 2024-10-11 10:19 | Outpatient (BNVA) | payer OTHER, SELFPAY | PROVIDERS: PCP Internal Medicine; Visit Provider Nurse Practitioner Family | DX: M19.071 Primary osteoarthritis, right ankle and foot (principal) | CPT/HCPCS: 99212 ==

== ENCOUNTER 2024-10-25 10:59 | Outpatient (AMB) | payer OTHER, SELFPAY ==
--- NOTE | 2024-10-25 11:12 | MHC.OFFVIS ---
Vital Signs 10/25/24 11:14 Height 5 ft 2 in Weight 182 lb BMI 33.3 BP 130/78 Blood Pressure Location Lt brachial Position Sitting Respiration 16 Pulse 96 Pulse Source Pulse Oximeter Pulse Oximetry (%) 99 Oxygen Delivery Method Room Air Intake Visit Reasons: (R) Leg Pain Crm Functional Analyst Required: No Allergies MARIA ESTHER Inhibitors Adverse Reaction (Intermediate, Verified 10/28/24 10:03) cough ARB-Angiotensin Receptor Antagonist Adverse Reaction (Intermediate, Verified 10/28/24 10:03) Cough metformin Adverse Reaction (Intermediate, Verified 10/28/24 10:03) Abdominal Pain, diarrhea Medication List - Last Reconciled 10/25/24 by Brandie Cardenas LPN acetaminophen ER (Tylenol Arthritis Pain) 650 mg PO Q8H PRN amitriptyline 25 mg PO BEDTIME 90 days amlodipine 10 mg PO DAILY 90 days [bed rails As directed] blood pressure test kit-large (Advocate Blood Pressure Monitor kit) As directed blood sugar diagnostic ([employer] Test strips) Take 1 test strip once a day blood-glucose meter ([employer] [place] Lite kit) As directed calcium carbonate 600 mg PO BID 90 days cane with 4 legs carbamide peroxide 6.5% (Debrox) 5 drps otic (ears) Q12H 4 days [cervical collar As directed] chlorthalidone 25 mg PO DAILY 90 days cholecalciferol (vitamin D3) 25 mcg PO DAILY 90 days commode (bedside commode) As directed dulaglutide (Trulicity) 1.5 mg (0.5 mL) subcut QWEEK 90 days ezetimibe (Zetia) 10 mg PO DAILY fluticasone propionate 50 mcg/actuation (Flonase Allergy Relief) 2 sprays intranasal DAILY gabapentin 1 cap qam and 2 caps qhs orally; 30 days glipizide ER 10 mg (2 x 5 mg) PO DAILY 90 days Grab bar As directed hydralazine 10 mg PO TID 30 days [incontinence pads 4 daily As directed] lancets (FreeStyle Lancets) Use 1 lancet once a day leg brace (MARIA ESTHER Knee Brace) As directed levothyroxine 112 mcg PO DAILY 90 days loratadine 10 mg PO DAILY 90 days methocarbamol 750 mg PO Q8H PRN mupirocin 2% 1 appl topical BID 7 days ofloxacin 0.3% 2 drps ophthalmic (eye) QID [personal cleansing wipes (sensitive skin) As directed] [rollator walker As directed] ropinirole ER 2 mg PO BEDTIME [washable bed pads As directed] HPI HPI (R) Leg Pain: Details: History of Present Illness The patient is a 73-year-old female presenting with right ankle & foot pain. The pain began a month ago following a fall and has persisted with complications arising from weight-bearing activities and certain foot placements. The application of ice offers temporary reprieve, though symptoms resume post-cooling. No prior orthopedic consultations for the foot have occurred, though a history of knee pain does exist for which she has sought care previously. The fall may have initially incited this ongoing discomfort and functional difficulty. Pain Description - Onset: Approximately one month ago following a fall. - Primary Location: Right foot. - Quality: Pain intensifies with pressure and specific positioning. - Relieving Factors: Application of ice which provides temporary alleviation. - Exacerbating Factors: Weight-bearing and certain positioning such as inside a drawer. - Interference: Pain impacts functional activities involving the use of the right foot. [facility] Medical History (Updated 10/28/24 @ 10:19 by Tiffani Sexton PA-C) Osteoarthritis of right ankle Gait disorder Muscle cramps Hypersomnia Snoring Chronic pain in right foot Skin tag Post-menopausal Obesity Pure hypercholesterolemia Hypothyroidism Essential hypertension Diabetes mellitus Polyarthralgia Surgical History Hx of colonoscopy History of eye surgery S/P total abdominal hysterectomy History of laparoscopic cholecystectomy Family History Father Cancer Mother Stroke Diabetes Hypertension CVD (cardiovascular disease) Sister Cancer Paternal Uncle Cancer Maternal Aunt Cancer Brother CVD (cardiovascular disease) Social History Housing: House Alcohol intake: never Patient Tobacco Use Status: Never used Tobacco e-Cigarette/Vaping Use: Never Used Second Hand Smoke Exposure: Yes Advance Directives Date on File: 01/19/22 service: No Current occupational status: disabled Cognitive needs: Yes (Walker) Hearing needs: No Vision needs: Yes Physical Exam Vital Signs: Last Vital Signs Pulse 96 10/25/24 11:14 Resp 16 10/25/24 11:14 BP 130/78 10/25/24 11:14 Pulse Ox 99 10/25/24 11:14 Oxygen Delivery Method Room Air 10/25/24 11:14 BMI result Body Mass Index 33.3 Assessment & Plan Assessment & Plan (1) Osteoarthritis of right ankle: Code(s): M19.071 - Primary osteoarthritis, right ankle and foot Category: Medical Qualifiers: Osteoarthritis type: primary Qualified Code(s): M19.071 - Primary osteoarthritis, right ankle and foot (2) Tendinitis of right foot: Code(s): M77.51 - Other enthesopathy of right foot and ankle Category: Medical Plan Plan The management plan for the patient's right foot pain includes obtaining a magnetic resonance imaging MRI) scan for further assessment and referring her to orthopedics to be fitted with a walking boot, which should help alleviate pain and enhance foot function. Immediate consultation with Dr. Lyles or another women specialist for this purpose is advisable. Further adjustments to the treatment plan may be made based on MRI findings. Patient was informed and verbally consented to the use of an ambient scribe for clinic note documentation during this visit. Discussion Notes During the encounter, I discussed the implementation of an MRI for a detailed evaluation of the right foot to better understand the extent and nature of the pain following the reported fall. The potential benefit of using an orthopedic boot to mitigate pain and support the foot was addressed, aiming to improve daily function and comfort. I recommended visiting the orthopedic department to arrange a proper fitting and reiterated the significance of obtaining the MRI to reassess the treatment plan accordingly in a follow-up appointment. Patient Instructions - Schedule an MRI scan for your right foot as discussed. - Visit Dr. Lyles or an orthopedic practitioner to be fitted for a walking boot. - Use the walking boot as recommended to reduce pain and improve foot function. - Follow up after the MRI to reassess the treatment plan. - Apply ice as needed to manage pain until further advised. Orders: Orders MR ankle RT wo con 10/25/24 M19.071 - Primary osteoarthritis, right ankle and foot, M77.51 - Other enthesopathy of right foot and ankle Coding Level of Care Code Est Pt Level 3 (04880) Diagnoses Primary osteoarthritis of right ankle M19.071 Osteoarthritis type: primary Tendinitis of right foot M77.51
[2024-10-25 11:14] VITALS: BP 130/78; PULSE 96; RESP 16; O2SAT 99; BMI 33.3
== END 2024-10-25 11:44 | disposition home or self-care (01) ==
LOC: HO.PMC 10:59
PROVIDERS: PCP Internal Medicine; Visit Provider Internal Medicine
DX: M19.071 Primary osteoarthritis, right ankle and foot (principal); M77.51 Other enthesopathy of right foot and ankle
CPT/HCPCS: 99213

== ENCOUNTER → 2024-10-25 10:59 | Outpatient (BNVA) | payer OTHER, SELFPAY | PROVIDERS: PCP Internal Medicine; Visit Provider Internal Medicine | DX: M19.071 Primary osteoarthritis, right ankle and foot (principal); M77.51 Other enthesopathy of right foot and ankle | CPT/HCPCS: 99212 ==

== ENCOUNTER 2024-10-28 08:44 | Outpatient (REF) | payer OTHER, SELFPAY ==
--- NOTE | ~2024-10-28 | XR_ITS ---
EXAMINATION: XR ANKLE 3 OR MORE VIEWS RIGHT HISTORY: M25.579 - Pain in unspecified ankle and joints of unspecified foot COMPARISON: Comparison is made with the prior examination dated 10/02/2024. FINDINGS: Three views of the right ankle are submitted. Osseous mineralization is normal. There is no fracture or dislocation. The joint spaces are preserved. Again seen are small spurs at the plantar aspect of the calcaneus and at the insertion of the Achilles tendon. The soft tissues are unremarkable. XR/XR ankle RT min 3V IMPRESSION: Calcaneal spurs without change. No acute abnormality is seen. Electronically signed by: Jay Jay Tamayo MD 10/28/2024 03:02 PM EDT
== END 2024-10-28 08:45 | disposition home or self-care (01) ==
LOC: HO.HOSX 08:44
PROVIDERS: Visit Provider Physician Assistant
DX: M25.571 Pain in right ankle and joints of right foot (principal)
CPT/HCPCS: 73610; 99212

== ENCOUNTER 2024-10-28 09:35 | Outpatient (AMB) | payer OTHER, SELFPAY ==
--- NOTE | 2024-10-28 09:59 | MHC.OFFVIS ---
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 Patient reports she was seen at pain management for ankle arthritis. Patient informed me that pain management informed her that she has a bone spur. She is having pain on the lateral aspect of the ankle. Information Security Analyst Required: No Allergies MARIA ESTHER Inhibitors Adverse Reaction (Intermediate, Verified 10/28/24 10:03) cough ARB-Angiotensin Receptor Antagonist Adverse Reaction (Intermediate, Verified 10/28/24 10:03) Cough metformin Adverse Reaction (Intermediate, Verified 10/28/24 10:03) Abdominal Pain, diarrhea HPI HPI New prob- Right LE boot fitting: Details: Ms. Amos is a 73-year-old female who presents the office today for right ankle pain. She reports that she fell and sustained an inversion injury roughly 6 months ago and ever since she has had right ankle pain. She has been followed by pain management with Dr. Espino who recommended a boot to allow for the ankle to rest. She presents the office today for boot fitting. The patient also reports that she is pending an MRI of the right ankle ordered by pain management. [facility] Medical History (Updated 10/28/24 @ 10:19 by Tiffani Sexton PA-C) Osteoarthritis of right ankle Gait disorder Muscle cramps Hypersomnia Snoring Chronic pain in right foot Skin tag Post-menopausal Obesity Pure hypercholesterolemia Hypothyroidism Essential hypertension Diabetes mellitus Polyarthralgia Surgical History Hx of colonoscopy History of eye surgery S/P total abdominal hysterectomy History of laparoscopic cholecystectomy Family History Father Cancer Mother Stroke Diabetes Hypertension CVD (cardiovascular disease) Sister Cancer Paternal Uncle Cancer Maternal Aunt Cancer Brother CVD (cardiovascular disease) Social History Housing: House Alcohol intake: never Patient Tobacco Use Status: Never used Tobacco e-Cigarette/Vaping Use: Never Used Second Hand Smoke Exposure: Yes Advance Directives Date on File: 01/19/22 service: No Current occupational status: disabled Cognitive needs: Yes (Walker) Hearing needs: No Vision needs: Yes Review of Systems Const All systems reviewed & are unremarkable except as noted in HPI and below Physical Exam Vital Signs: BMI result Body Mass Index 33.3 Const General: cooperative, healthy appearing and no acute distress Resp Effort & Inspection: normal respiratory effort and able to speak in complete sentences Cardio Rate: regular rate Peripheral pulses: Peripheral pulses 2+ throughout Skin Lesions: no lesions Rashes: no rashes Extrem Other: Right ankle lateral malleolar moderate edema accompanied by extreme tenderness to palpation. Able to demonstrate slight dorsiflexion and plantar flexion but is limited due to pain. Minimal supination and pronation due to pain. Sensation is intact. Pedal pulse intact. Assessment & Plan Assessment & Plan (1) Right ankle pain: Code(s): M25.571 - Pain in right ankle and joints of right foot Category: Medical (2) Arthralgia of right ankle: Code(s): M25.571 - Pain in right ankle and joints of right foot Category: Medical Plan While the office today, the patient was fit for a tall walking boot off a shelf. A workload message was also sent to pain management stating that the patient was fit for boot will the office today but needs a scheduled follow-up appointments the patient is not in the boot for prolonged period of time. She is pending MRI imaging of the right lower extremity into my understanding she is going to be following up with Pain Management to review this. Her follow-up with Orthopedics we p.r.n., sooner if needed. X-rays of the right ankle which were obtained while in the office today and were reviewed by me, Tiffani Sexton PA-C, revealed no acute fracture dislocation. Orders: Orders XR ankle RT min 3V Today M25.579 - Pain in unspecified ankle and joints of unspecified foot Coding Level of Care Code New Pt Level 3 (41113) Diagnoses Right ankle pain M25.571 Arthralgia of right ankle M25.571
[2024-10-28 10:15] VITALS: BMI 33.3
== END 2024-10-28 10:36 | disposition home or self-care (01) ==
LOC: HO.HOS 09:36
PROVIDERS: PCP Internal Medicine; Visit Provider Physician Assistant
DX: M25.571 Pain in right ankle and joints of right foot (principal)
CPT/HCPCS: 99213

== ENCOUNTER → 2024-10-28 09:39 | Outpatient (BNV) | payer OTHER, SELFPAY | PROVIDERS: Visit Provider Radiology Diagnostic Radiology | DX: M77.31 Calcaneal spur, right foot (principal) | CPT/HCPCS: 73610 ==

== ENCOUNTER 2024-11-14 10:05 | Outpatient (REF) | payer OTHER, SELFPAY ==
--- NOTE | ~2024-11-14 | XR_ITS ---
EXAMINATION: XR ORBITS CLINICAL INFORMATION: PRE MRI ORBITS COMPARISON: None available. TECHNIQUE: 3 views of the orbits were obtained. FINDINGS: No radiopaque foreign body in either orbit, or elsewhere. Orbits appear intact. Imaged paranasal sinuses are clear without air-fluid levels. No bone abnormalities. Nasal septum appears midline. XR/XR pre mri screening IMPRESSION: No radiopaque foreign body in the orbits, or elsewhere. Electronically signed by: Flex Rangel MD 11/14/2024 11:12 AM EDT
== END 2024-11-14 10:06 | disposition home or self-care (01) ==
LOC: HO.MRI 10:05
PROVIDERS: Absent Provider Radiology Diagnostic Radiology; PCP Internal Medicine; Visit Provider Internal Medicine
DX: M19.071 Primary osteoarthritis, right ankle and foot (principal); M77.51 Other enthesopathy of right foot and ankle
CPT/HCPCS: 73721

== ENCOUNTER → 2024-11-14 11:14 | Outpatient (BNV) | payer OTHER, SELFPAY | PROVIDERS: Absent Provider Radiology Diagnostic Radiology; PCP Internal Medicine; Visit Provider Radiology Diagnostic Radiology | DX: M19.071 Primary osteoarthritis, right ankle and foot (principal) | CPT/HCPCS: 73721 ==

== ENCOUNTER 2024-12-06 09:56 | Outpatient (AMB) | payer OTHER, SELFPAY ==
[2024-12-06 10:15] VITALS: BP 143/80; PULSE 100; O2SAT 97
--- NOTE | 2024-12-06 10:15 | MHC.OFFVIS ---
Vital Signs 12/06/24 10:15 Weight 182 lb BP 143/80 H Blood Pressure Location Rt brachial Position Sitting Pulse 100 Pulse Source Pulse Oximeter Pulse Oximetry (%) 97 Oxygen Delivery Method Room Air Intake Visit Reasons: MRI results Radiological Metallurgist Required: No Allergies MARIA ESTHER Inhibitors Adverse Reaction (Intermediate, Verified 12/09/24 12:17) cough ARB-Angiotensin Receptor Antagonist Adverse Reaction (Intermediate, Verified 12/09/24 12:17) Cough metformin Adverse Reaction (Intermediate, Verified 12/09/24 12:17) Abdominal Pain, diarrhea Medication List - Last Reconciled 12/06/24 by Courtney Carvajal, DIRECTOR OF CLAIMS acetaminophen ER (Tylenol Arthritis Pain) 650 mg PO Q8H PRN amitriptyline 25 mg PO BEDTIME 90 days amlodipine 10 mg PO DAILY 90 days [bed rails As directed] blood pressure test kit-large ([facility]ocate Blood Pressure Monitor kit) As directed blood sugar diagnostic ([employer]Style Test strips) Take 1 test strip once a day blood-glucose meter (Perceptisyle [place] Lite kit) As directed calcium carbonate 600 mg PO BID 90 days cane with 4 legs carbamide peroxide 6.5% (Debrox) 5 drps otic (ears) Q12H 4 days [cervical collar As directed] chlorthalidone 25 mg PO DAILY 90 days cholecalciferol (vitamin D3) 25 mcg PO DAILY 90 days commode (bedside commode) As directed dulaglutide (Trulicity) 1.5 mg (0.5 mL) subcut QWEEK 90 days ezetimibe (Zetia) 10 mg PO DAILY fluticasone propionate 50 mcg/actuation (Flonase Allergy Relief) 2 sprays intranasal DAILY gabapentin 1 cap qam and 2 caps qhs orally; 30 days glipizide ER 10 mg (2 x 5 mg) PO DAILY 90 days Grab bar As directed hydralazine 10 mg PO TID 30 days [incontinence pads 4 daily As directed] lancets (FreeStyle Lancets) Use 1 lancet once a day leg brace (MARIA ESTHER Knee Brace) As directed levothyroxine 112 mcg PO DAILY 90 days loratadine 10 mg PO DAILY 90 days methocarbamol 750 mg PO Q8H PRN mupirocin 2% 1 appl topical BID 7 days ofloxacin 0.3% 2 drps ophthalmic (eye) QID [personal cleansing wipes (sensitive skin) As directed] [rollator walker As directed] ropinirole ER 2 mg PO BEDTIME [washable bed pads As directed] HPI HPI MRI results: Details: History of Present Illness The patient is a 74-year-old female presenting with ankle pain for which she seeks a review of recent MRI findings. She has been diagnosed with sinus tarsi syndrome and is using an ankle boot at home though without notable relief in symptoms. The MRI revealed arthritis and bursitis contributing to her ankle pain. She experiences significant nighttime cramping that disturbs her sleep, requiring her to walk on a cold surface for relief. The patient reports no prior injections for her related knee pain but has been advised to pursue physical therapy and pain management including injections. Pain Description - Onset and Timing: Persistent for an unspecified duration; cramps notably severe at night. - Quality and Character: Nighttime cramps causing significant sleep disturbance. - Primary Location: Ankle; noted bursitis and arthritis. - Radiation: Mentions knee pain but primarily concerned with the ankle. - Exacerbating Factors: Nighttime activities or resting. - Relieving Factors: Walking on a cold floor provides slight relief. - Impact on Activities: Significant; affects ability to sleep undisturbed. Results - MRI: Indicative of arthritis and inflammation of the sinus tarsi bursa in the ankle. Pain Management - Affect: Pain present causing significant sleep disruption due to cramping. - Analgesia: Current use of an ankle boot with little relief; no medication discussed. - Adverse Effects: Cramping necessitates walking on a cold floor for relief; sleep is disrupted nightly. - Activities of Daily Living: Cramps severely disrupt nighttime rest; relies on mobility aid (boot) at home. - Aberrant Drug Related Behaviors: Not discussed. [facility] Medical History (Updated 12/06/24 @ 10:40 by Tashi Espino MD) Osteoarthritis of right ankle Gait disorder Muscle cramps Hypersomnia Snoring Chronic pain in right foot Skin tag Post-menopausal Obesity Pure hypercholesterolemia Hypothyroidism Essential hypertension Diabetes mellitus Polyarthralgia Surgical History Hx of colonoscopy History of eye surgery S/P total abdominal hysterectomy History of laparoscopic cholecystectomy Family History Father Cancer Mother Stroke Diabetes Hypertension CVD (cardiovascular disease) Sister Cancer Paternal Uncle Cancer Maternal Aunt Cancer Brother CVD (cardiovascular disease) Social History Housing: House Alcohol intake: never Patient Tobacco Use Status: Never used Tobacco e-Cigarette/Vaping Use: Never Used Second Hand Smoke Exposure: Yes Advance Directives Date on File: 01/19/22 service: No Current occupational status: disabled Cognitive needs: Yes (Walker) Hearing needs: No Vision needs: Yes Physical Exam Vital Signs: Last Vital Signs Pulse 100 12/06/24 10:15 BP 143/80 H 12/06/24 10:15 Pulse Ox 97 12/06/24 10:15 Oxygen Delivery Method Room Air 12/06/24 10:15 Assessment & Plan Assessment & Plan (1) Sinus tarsi syndrome: Code(s): M25.579 - Pain in unspecified ankle and joints of unspecified foot Category: Medical Plan Plan - Initiate physical therapy for the ankle, scheduled twice weekly for strengthening and flexibility. - Schedule an ultrasound-guided sinus tarsi injection aiming for localized pain relief. - Plan to evaluate knee pain issues sequentially after these interventions and consider injections if significant pain persists. - Confirm consent for recommended procedures and instructions provided for scheduled visits. Patient was informed and verbally consented to the use of an ambient scribe for clinic note documentation during this visit. Discussion Notes In this visit, we focused on the patient's presentation of ankle pain due to sinus tarsi syndrome and arthritis, evidenced by recent MRI findings. The pain management plan includes conservative use of an ankle boot and initiation of physical therapy, with a stronger intent on pain resolution through ultrasound-guided injections, emphasizing the temporary yet specific relief these procedures can offer. Risks such as infection, transient discomfort, and the non-permanent nature of relief were clearly discussed, and the patient has agreed to proceed. We will address the knee issue subsequently, prioritizing comprehensive management of her primary complaint. Patient Instructions - Use the ankle boot as directed, especially at home. - Begin physical therapy as scheduled, adhering to a twice-weekly routine. - Walk on a cold surface or adjust sleeping position if experiencing night cramps. - Keep follow-up appointments for scheduled injections and evaluation. - Contact the clinic with any worsening of symptoms or concerns following procedures. Orders: Orders PT Evaluation and Treatment 12/06/24 M25.579 - Pain in unspecified ankle and joints of unspecified foot Coding Level of Care Code Est Pt Level 3 (92664) Diagnoses Sinus tarsi syndrome M25.579
== END 2024-12-06 10:44 | disposition home or self-care (01) ==
LOC: HO.PMC 09:56
PROVIDERS: PCP Internal Medicine; Visit Provider Internal Medicine
DX: M25.579 Pain in unspecified ankle and joints of unspecified foot (principal)
CPT/HCPCS: 99213

== ENCOUNTER → 2024-12-06 09:56 | Outpatient (BNVA) | payer OTHER, SELFPAY | PROVIDERS: PCP Internal Medicine; Visit Provider Internal Medicine | DX: M25.579 Pain in unspecified ankle and joints of unspecified foot (principal) | CPT/HCPCS: 99212 ==

== ENCOUNTER 2024-12-09 12:10 | Outpatient (AMB) | payer OTHER, SELFPAY ==
[2024-12-09 12:16] VITALS: BP 143/70; PULSE 85; RESP 16; O2SAT 99; BMI 33.3
--- NOTE | 2024-12-09 12:16 | A.OFFVIS_ITS ---
Vital Signs 12/09/24 12:16 Height 5 ft 2 in Weight 182 lb BMI 33.3 BP 143/70 H Blood Pressure Location Lt brachial Position Sitting Respiration 16 Pulse 85 Pulse Source Pulse Oximeter Pulse Oximetry (%) 99 Oxygen Delivery Method Room Air Intake Visit Reasons: Rt ankle inj per Dr Espino Services Account Manager Required: No Mission Planner: Mission Planner Present Accompanied by: Remigio Renee Allergies MARIA ESTHER Inhibitors Adverse Reaction (Intermediate, Verified 12/09/24 12:17) cough ARB-Angiotensin Receptor Antagonist Adverse Reaction (Intermediate, Verified 12/09/24 12:17) Cough metformin Adverse Reaction (Intermediate, Verified 12/09/24 12:17) Abdominal Pain, diarrhea Medication List - Last Reconciled 12/09/24 by Brandie Cardenas LPN acetaminophen ER (Tylenol Arthritis Pain) 650 mg PO Q8H PRN amitriptyline 25 mg PO BEDTIME 90 days amlodipine 10 mg PO DAILY 90 days [bed rails As directed] blood pressure test kit-large ([facility]ocate Blood Pressure Monitor kit) As directed blood sugar diagnostic ([employer] Test strips) Take 1 test strip once a day blood-glucose meter ([employer] [place] Lite kit) As directed calcium carbonate 600 mg PO BID 90 days cane with 4 legs carbamide peroxide 6.5% (Debrox) 5 drps otic (ears) Q12H 4 days [cervical collar As directed] chlorthalidone 25 mg PO DAILY 90 days cholecalciferol (vitamin D3) 25 mcg PO DAILY 90 days commode (bedside commode) As directed dulaglutide (Trulicity) 1.5 mg (0.5 mL) subcut QWEEK 90 days ezetimibe (Zetia) 10 mg PO DAILY fluticasone propionate 50 mcg/actuation (Flonase Allergy Relief) 2 sprays intranasal DAILY gabapentin 1 cap qam and 2 caps qhs orally; 30 days glipizide ER 10 mg (2 x 5 mg) PO DAILY 90 days Grab bar As directed hydralazine 10 mg PO TID 30 days [incontinence pads 4 daily As directed] lancets (FreeStyle Lancets) Use 1 lancet once a day leg brace (MARIA ESTHER Knee Brace) As directed levothyroxine 112 mcg PO DAILY 90 days loratadine 10 mg PO DAILY 90 days methocarbamol 750 mg PO Q8H PRN mupirocin 2% 1 appl topical BID 7 days ofloxacin 0.3% 2 drps ophthalmic (eye) QID [personal cleansing wipes (sensitive skin) As directed] [rollator walker As directed] ropinirole ER 2 mg PO BEDTIME [washable bed pads As directed] [facility] Medical History (Updated 12/06/24 @ 10:40 by Tashi Espino MD) Osteoarthritis of right ankle Gait disorder Muscle cramps Hypersomnia Snoring Chronic pain in right foot Skin tag Post-menopausal Obesity Pure hypercholesterolemia Hypothyroidism Essential hypertension Diabetes mellitus Polyarthralgia Surgical History Hx of colonoscopy History of eye surgery S/P total abdominal hysterectomy History of laparoscopic cholecystectomy Family History Father Cancer Mother Stroke Diabetes Hypertension CVD (cardiovascular disease) Sister Cancer Paternal Uncle Cancer Maternal Aunt Cancer Brother CVD (cardiovascular disease) Social History Housing: House Alcohol intake: never Patient Tobacco Use Status: Never used Tobacco e-Cigarette/Vaping Use: Never Used Second Hand Smoke Exposure: Yes Advance Directives Date on File: 01/19/22 service: No Current occupational status: disabled Cognitive needs: Yes (Walker) Hearing needs: No Vision needs: Yes Physical Exam Vital Signs: Last Vital Signs Pulse 85 12/09/24 12:16 Resp 16 12/09/24 12:16 BP 143/70 H 12/09/24 12:16 Pulse Ox 99 12/09/24 12:16 Oxygen Delivery Method Room Air 12/09/24 12:16 BMI result Body Mass Index 33.3 Office Procedures AMB Joint Injection/Aspiration Joint Injection/Aspiration Primary Site: right ankle Prep: site was prepped using sterile technique Injected: 40 mg of, Kenalog, with 3 mL of (ropivacaine 0.25%) and in the joint (sinus tarsi) Approach Used: other (US guided, out of plane technique, image saved) Procedure: The patient tolerated the procedure well Coding 66247 - Medium joint (US guided) Additional procedure code (CPT) needed Assessment & Plan Assessment & Plan (1) Sinus tarsi syndrome: Code(s): M25.579 - Pain in unspecified ankle and joints of unspecified foot Category: Medical Plan Patient is status post US guided R sinus tarsi inj. Patient tolerated procedure well and was discharged home in stable condition with discharge instructions. All questions were answered. Coding Level of Care Code Procedure Only Diagnoses Sinus tarsi syndrome M25.579 CPT Codes Coding - 46120 Medium joint: 15091 - Medium joint ([id number])
== END 2024-12-09 12:30 | disposition home or self-care (01) ==
LOC: HO.PMC 12:11
PROVIDERS: PCP Internal Medicine; Visit Provider Internal Medicine
DX: M25.571 Pain in right ankle and joints of right foot (principal)
CPT/HCPCS: 20605

== ENCOUNTER → 2024-12-09 12:10 | Outpatient (BNVA) | payer OTHER, SELFPAY | PROVIDERS: PCP Internal Medicine; Visit Provider Internal Medicine | DX: M25.571 Pain in right ankle and joints of right foot (principal) | CPT/HCPCS: 20605; J2795; J3301 ==

== ENCOUNTER 2024-12-30 10:40 | Outpatient (AMB) | payer OTHER, SELFPAY ==
--- NOTE | 2024-12-30 10:52 | A.OFFVIS_ITS ---
Vital Signs 12/30/24 10:54 Height 5 ft 2 in Weight 179 lb BMI 32.7 BP 118/72 Blood Pressure Location Lt brachial Position Sitting Respiration 16 Pulse 89 Pulse Source Pulse Oximeter Pulse Oximetry (%) 99 Oxygen Delivery Method Room Air Intake Visit Reasons: Left knee inj Vice President For Instruction Required: No Salt Grinder: Salt Grinder Present Accompanied by: Remigio Renee Allergies MARIA SETHER Inhibitors Adverse Reaction (Intermediate, Verified 12/30/24 10:55) cough ARB-Angiotensin Receptor Antagonist Adverse Reaction (Intermediate, Verified 12/30/24 10:55) Cough metformin Adverse Reaction (Intermediate, Verified 12/30/24 10:55) Abdominal Pain, diarrhea Medication List - Last Reconciled 12/30/24 by Brandie Cardenas LPN acetaminophen ER (Tylenol Arthritis Pain) 650 mg PO Q8H PRN amitriptyline 25 mg PO BEDTIME 90 days amlodipine 10 mg PO DAILY 90 days [bed rails As directed] blood pressure test kit-large ([facility] Blood Pressure Monitor kit) As directed blood sugar diagnostic (FreeStyle Test strips) Take 1 test strip once a day blood-glucose meter (FreeStyle [place] Lite kit) As directed calcium carbonate 600 mg PO BID 90 days cane with 4 legs carbamide peroxide 6.5% (Debrox) 5 drps otic (ears) Q12H 4 days [cervical collar As directed] chlorthalidone 25 mg PO DAILY 90 days cholecalciferol (vitamin D3) 25 mcg PO DAILY 90 days commode (bedside commode) As directed dulaglutide (Trulicity) 1.5 mg (0.5 mL) subcut QWEEK 90 days ezetimibe (Zetia) 10 mg PO DAILY fluticasone propionate 50 mcg/actuation (Flonase Allergy Relief) 2 sprays intranasal DAILY gabapentin 1 cap qam and 2 caps qhs orally; 30 days glipizide ER 10 mg (2 x 5 mg) PO DAILY 90 days Grab bar As directed hydralazine 10 mg PO TID 30 days [incontinence pads 4 daily As directed] lancets (FreeStyle Lancets) Use 1 lancet once a day leg brace (MARIA ESTHER Knee Brace) As directed levothyroxine 112 mcg PO DAILY 90 days loratadine 10 mg PO DAILY 90 days methocarbamol 750 mg PO Q8H PRN mupirocin 2% 1 appl topical BID 7 days ofloxacin 0.3% 2 drps ophthalmic (eye) QID [personal cleansing wipes (sensitive skin) As directed] [rollator walker As directed] ropinirole ER 2 mg PO BEDTIME [washable bed pads As directed] HPI HPI Left knee inj: Details: History of Present Illness The patient is a 74-year-old female presenting with right lower extremity pain and cramping. While her foot pain post-injection has improved, the burning and cramping sensations in the right leg persist. These symptoms suggest lumbosacral radiculopathy, likely originating from the spine, although spinal imaging and therapy have not yet been pursued. The localized improvement at the injection site contrasts with the ongoing symptoms in the leg. Pain Description - Right Lower Extremity: Persistent cramping and burning sensation in the right calf. - Quality: Burning sensation, described as like fire. - Recent Foot Injection: Improvement in foot pain at the site of injection. - Aggravating Factors: Associated with possible spinal origin. - Previous Treatments: Injection in the foot leading to partial symptom relief. - Additional Factors: Burning sensation in the right calf, likely related to spinal issues. Pain Management - Affect: The patient's mood and psychological wellbeing impacted by persistent cramping and burning sensations. - Analgesia: Improvement in foot pain post-injection; ongoing right lower extremity symptoms. - Adverse Effects: None reported. - Activities of Daily Living: Interference from cramping and burning in daily activities. - Aberrant Drug-Related Behaviors: None reported. Procedure - Left Knee Injection: [place] guided procedure, informed consent obtained. Patient in a sitting position; site prepped with Chloraprep and numbed with ethyl chloride spray. A 25-gauge needle introduced into the joint; 40 mg of Kenalog with 30 mL of 0.5% ropivacaine injected. No blood loss, and the procedure was well-tolerated. [facility] Medical History (Updated 12/06/24 @ 10:40 by Tashi Espino MD) Osteoarthritis of right ankle Gait disorder Muscle cramps Hypersomnia Snoring Chronic pain in right foot Skin tag Post-menopausal Obesity Pure hypercholesterolemia Hypothyroidism Essential hypertension Diabetes mellitus Polyarthralgia Surgical History Hx of colonoscopy History of eye surgery S/P total abdominal hysterectomy History of laparoscopic cholecystectomy Family History Father Cancer Mother Stroke Diabetes Hypertension CVD (cardiovascular disease) Sister Cancer Paternal Uncle Cancer Maternal Aunt Cancer Brother CVD (cardiovascular disease) Social History Housing: House Alcohol intake: never Patient Tobacco Use Status: Never used Tobacco e-Cigarette/Vaping Use: Never Used Second Hand Smoke Exposure: Yes Advance Directives Date on File: 01/19/22 service: No Current occupational status: disabled Cognitive needs: Yes (Walker) Hearing needs: No Vision needs: Yes Physical Exam Vital Signs: Last Vital Signs Pulse 89 12/30/24 10:54 Resp 16 12/30/24 10:54 BP 118/72 12/30/24 10:54 Pulse Ox 99 12/30/24 10:54 Oxygen Delivery Method Room Air 12/30/24 10:54 BMI result Body Mass Index 32.7 Assessment & Plan Assessment & Plan (1) Sinus tarsi syndrome: Code(s): M25.579 - Pain in unspecified ankle and joints of unspecified foot Category: Medical (2) Bilateral primary osteoarthritis of knee: Code(s): M17.0 - Bilateral primary osteoarthritis of knee Category: Medical (3) Lumbar radiculopathy: Code(s): M54.16 - Radiculopathy, lumbar region Category: Medical Plan Plan - Initiate physical therapy focusing on lumbar radiculopathy management. - Consider lumbar spine MRI if therapy is ineffective to further investigate nerve involvement. Patient was informed and verbally consented to the use of an ambient scribe for clinic note documentation during this visit. Discussion Notes I discussed with the patient the likely correlation between her symptoms, suggesting they stem from lumbar radiculopathy. I outlined the management options, including physical therapy as the first step in treatment. I explained the benefits of physical therapy in alleviating her symptoms and advised that if symptoms persist, we would proceed with an MRI scan for further clarity. The patient agreed with the proposed plan, understanding the non-invasive nature of starting with therapy and recognizing the potential need for imaging. She consented to undergo physical therapy and understands the rationale for the possible need for imaging should the initial approach be insufficient. Patient Instructions - Undergo physical therapy as advised for back-related symptoms. - Await a call to schedule your physical therapy sessions. - Monitor symptoms closely and report any changes or concerns immediately. - Understand that an MRI may be required if symptoms do not improve with initial therapy. Coding Level of Care Code Est Pt Level 4 (42280) Diagnoses Sinus tarsi syndrome M25.579 Bilateral primary osteoarthritis of knee M17.0 Lumbar radiculopathy M54.16
[2024-12-30 10:54] VITALS: BP 118/72; PULSE 89; RESP 16; O2SAT 99; BMI 32.7
== END 2024-12-30 11:04 | disposition home or self-care (01) ==
LOC: HO.PMC 10:41
PROVIDERS: PCP Internal Medicine; Visit Provider Internal Medicine
DX: M25.579 Pain in unspecified ankle and joints of unspecified foot (principal); M17.0 Bilateral primary osteoarthritis of knee; M54.16 Radiculopathy, lumbar region
CPT/HCPCS: 20610; 99214

== ENCOUNTER → 2024-12-30 10:40 | Outpatient (BNVA) | payer OTHER, SELFPAY | PROVIDERS: PCP Internal Medicine; Visit Provider Internal Medicine | DX: M17.0 Bilateral primary osteoarthritis of knee (principal); M25.571 Pain in right ankle and joints of right foot; M54.16 Radiculopathy, lumbar region | CPT/HCPCS: 20610; 99212 ==

== ENCOUNTER 2025-01-02 11:20 | Outpatient (AMB) | payer OTHER, MEDICAID, SELFPAY ==
--- NOTE | 2025-01-02 11:40 | MHC.OFFVIS ---
Vital Signs 01/02/25 11:41 Height 5 ft 2 in Weight 179 lb BMI 32.7 BP 122/70 Blood Pressure Location Rt brachial Position Sitting Pulse 76 Pulse Source Pulse Oximeter Pulse Oximetry (%) 98 Oxygen Delivery Method Room Air Intake Visit Reasons: 6 Month F/U Intake Note: Patient presents for follow up neuropathy. med increase gabapentin Allergies MARIA ESTHER Inhibitors Adverse Reaction (Intermediate, Verified 01/02/25 11:42) cough ARB-Angiotensin Receptor Antagonist Adverse Reaction (Intermediate, Verified 01/02/25 11:42) Cough metformin Adverse Reaction (Intermediate, Verified 01/02/25 11:42) Abdominal Pain, diarrhea HPI Comments Details: 74-year-old female history of polyarthralgia, diabetes mellitus, hypertension, hypothyroidism, hypercholesterolemia, depression and chronic foot pain comes for follow up of neuropathy and also sleep issues related to pain.she stopped her ropinirole 1 mth ago as she thought it was given for parkinsons. she is also follow up at pain management for polyarthralgias. Her right foot pain is worse when she walks with tingling. ?History form initial visit- Patient reports right chronic foot pain about 12 mths ago she sees international trade analyst an kinsey denson specialist for polyarthralgias. Patient states the pain is constant burning pain in right foot that extends up her leg to her right hip.? Patient denies any lumbar back pain or pain coming from the back extending down legs. she also has multiple joint pains. she stopped gabapentin as it was not helping her pain and was making her drowsy.Her Hg A 1 C wa s7.4 5mths ago. SHe reports sleep problems related to muscle cramps that wake her up , burning pain in her legs mainly at night. The pain and discomfort is worse at night- she massages, uses heat pad , sometimes sleeps in a recliner.she has snoring, has trouble falling asleep, staying asleep and has excessive daytime sleepiness. she declined sleep study. ? ? PFSH Medical History Osteoarthritis of right ankle Gait disorder Muscle cramps Hypersomnia Snoring Chronic pain in right foot Skin tag Post-menopausal Obesity Pure hypercholesterolemia Hypothyroidism Essential hypertension Diabetes mellitus Polyarthralgia Surgical History Hx of colonoscopy History of eye surgery S/P total abdominal hysterectomy History of laparoscopic cholecystectomy Family History Father Cancer Mother Stroke Diabetes Hypertension CVD (cardiovascular disease) Sister Cancer Paternal Uncle Cancer Maternal Aunt Cancer Brother CVD (cardiovascular disease) Social History Housing: House Alcohol intake: never Patient Tobacco Use Status: Never used Tobacco e-Cigarette/Vaping Use: Never Used Second Hand Smoke Exposure: Yes Advance Directives Date on File: 01/19/22 service: No Current occupational status: disabled Cognitive needs: Yes (Walker) Hearing needs: No Vision needs: Yes Physical Exam Vital Signs: Last Vital Signs Pulse 76 01/02/25 11:41 BP 122/70 01/02/25 11:41 Pulse Ox 98 01/02/25 11:41 Oxygen Delivery Method Room Air 01/02/25 11:41 BMI result Body Mass Index 32.7 Const General: cooperative and comfortable Nutritional Appearance: obese Orientation/consciousness: patient oriented x3 Limitations: physical limitations and ambulation with walker HEENT Head: Yes normal to inspection and Yes normocephalic Eyes Pupils: Equal, round and reactive pupils present Neuro Other: walks with a cane drags her right foot , pain in right foot limits movements - 4/5 General: patient oriented x3, tone normal and moves all extremities Cranial nerves: Yes Facial sensation intact/muscles of mastication intact, Yes Equal, round and reactive pupils present, Yes Nystagmus not present, Yes Normal facial strength present, Yes Midline tongue present and Yes Symmetric palate elevation present Cognition (Neuro): normal cognition Gait exam (Neuro): Antalgic gait present and Assisted gait required Motor exam (neuro): 5/5 motor strength present throughout and Normal motor muscle tone present throughout Coordination: [id number] test normal Psych Appearance: grossly normal Assessment & Plan Assessment & Plan (1) Neuropathy: Comment: diabetic Code(s): G62.9 - Polyneuropathy, unspecified Category: Medical (2) Chronic pain in right foot: Comment: arthritis, ? tarsal tunnel, bone spurs, tendinitis Code(s): M79.671 - Pain in right foot; G89.29 - Other chronic pain Category: Medical (3) Muscle cramps: Comment: ?PLMD Code(s): R25.2 - Cramp and spasm Category: Medical (4) Gait disorder: Code(s): R26.9 - Unspecified abnormalities of gait and mobility Category: Medical Plan Increase Gabapentin 300mg qam and 600mg qhs Amitriptyline 10mg qhs and restart ropinirole XR 2mg qhs she declines sleep study. F/u pain management Medications: Refilled gabapentin 1 cap qam and 2 caps qhs orally; 30 days 90 caps 6RF Coding Level of Care Code Est Pt Level 4 (64001) Complex EM visit Add On G2211 Diagnoses Neuropathy G62.9 Chronic pain in right foot M79.671; G89.29 Muscle cramps R25.2 Gait disorder R26.9
[2025-01-02 11:41] VITALS: BP 122/70; PULSE 76; O2SAT 98; BMI 32.7
== END 2025-01-02 12:15 | disposition home or self-care (01) ==
LOC: HO.HSMS 11:21
PROVIDERS: PCP Internal Medicine; Visit Provider Psychiatry & Neurology Neurology
DX: G62.9 Polyneuropathy, unspecified (principal); M79.671 Pain in right foot; G89.29 Other chronic pain; R25.2 Cramp and spasm; R26.9 Unspecified abnormalities of gait and mobility
CPT/HCPCS: 99214; G2211

== ENCOUNTER → 2025-01-02 11:20 | Outpatient (BNVA) | payer OTHER, SELFPAY | PROVIDERS: PCP Internal Medicine; Visit Provider Psychiatry & Neurology Neurology | DX: G62.9 Polyneuropathy, unspecified (principal); M79.671 Pain in right foot; G89.29 Other chronic pain; R25.2 Cramp and spasm; R26.9 Unspecified abnormalities of gait and mobility | CPT/HCPCS: 99212 ==

== ENCOUNTER 2025-01-03 08:48 | Outpatient (REF) | payer OTHER, SELFPAY ==
[2025-01-03 10:01] LABS: Alanine Aminotransferase 22 U/L (0-31); Albumin Level 4.8 g/dL (3.5-5.0); Alkaline Phosphatase 53 U/L (39-117); Anion Gap 10 (12-20); Aspartate Amino Transferase 32 U/L (5-31); Bilirubin Total 0.5 mg/dL (0.0-1.0); Blood Urea Nitrogen 20 mg/dL (9-16); Calcium 9.5 mg/dL (8.4-10.2); Carbon Dioxide 30 mmol/L (22-29); Chloride 103 mmol/L (96-108); Cholesterol 131 mg/dL (<200); Estimated Glomerular Filt Rate > 60; Glucose Fasting 128 mg/dL (60-99); Glucose Random 128 mg/dL (60-115); HDL Cholesterol 46 mg/dL (>40); LDL Cholesterol Calculated 66 mg/dL (<100); Potassium 3.4 mmol/L (3.3-5.1); Sodium 140 mmol/L (135-145); Thyroid Stimulating Hormone 0.59 uIU/mL (0.32-4.0); Total Protein 7.4 g/dL (6.5-8.0); Triglycerides 97 mg/dL (<150); Vitamin D 25-OH Total 52.3 ng/mL (>30)
[2025-01-03 10:19] LABS: Folate 11.8 ng/mL (> or = 4.0); Vitamin B12 1177 pg/mL (200-900)
[2025-01-03 11:21] LABS: Creatinine Urine 59.73 mg/dL; Microalbumin Urine < 5.0 mg/L
== END 2025-01-03 08:49 | disposition home or self-care (01) ==
LOC: HO.LAB 08:48
PROVIDERS: PCP Internal Medicine; Visit Provider Internal Medicine
DX: E11.9 Type 2 diabetes mellitus without complications (principal); R80.9 Proteinuria, unspecified; E55.9 Vitamin D deficiency, unspecified; E53.8 Deficiency of other specified B group vitamins; E03.9 Hypothyroidism, unspecified; E78.5 Hyperlipidemia, unspecified; I10 Essential (primary) hypertension
CPT/HCPCS: 36415; 80053; 80061; 82043; 82306; 82570; 82607; 82746; 84443

== ENCOUNTER 2025-01-07 09:50 | Outpatient (AMB) | payer OTHER, SELFPAY ==
--- NOTE | 2025-01-07 09:55 | MHC.PC.OV ---
Vital Signs 01/07/25 09:56 Height 5 ft 2 in Weight 180 lb BMI 32.9 BP 126/72 Blood Pressure Location Lt brachial Position Sitting Intake Visit Reasons: 4mth f/u Intake Note: Patient here for a 4 month follow up, referral to [facility] request Sheather Required: No Accompanied by: Self / Same As Patient Allergies MARIA ESTHER Inhibitors Adverse Reaction (Intermediate, Verified 01/07/25 10:13) cough ARB-Angiotensin Receptor Antagonist Adverse Reaction (Intermediate, Verified 01/07/25 10:13) Cough metformin Adverse Reaction (Intermediate, Verified 01/07/25 10:13) Abdominal Pain, diarrhea Medication List - Last Reconciled 01/07/25 by Shannan Alexander MD acetaminophen ER (Tylenol Arthritis Pain) 650 mg PO Q8H PRN amitriptyline 25 mg PO BEDTIME 90 days amlodipine 10 mg PO DAILY 90 days [bed rails As directed] blood pressure test kit-large ([facility] Blood Pressure Monitor kit) As directed blood sugar diagnostic (FreeStyle Test strips) Take 1 test strip once a day blood-glucose meter (FreeStyle [place] Lite kit) As directed calcium carbonate 600 mg PO BID 90 days cane with 4 legs carbamide peroxide 6.5% (Debrox) 5 drps otic (ears) Q12H 4 days [cervical collar As directed] chlorthalidone 25 mg PO DAILY 90 days cholecalciferol (vitamin D3) 25 mcg PO DAILY 90 days commode (bedside commode) As directed dulaglutide (Trulicity) 1.5 mg (0.5 mL) subcut QWEEK 90 days ezetimibe (Zetia) 10 mg PO DAILY fluticasone propionate 50 mcg/actuation (Flonase Allergy Relief) 2 sprays intranasal DAILY gabapentin 1 cap qam and 2 caps qhs orally; 30 days glipizide ER 10 mg (2 x 5 mg) PO DAILY 90 days Grab bar As directed hydralazine 10 mg PO TID 30 days [incontinence pads 4 daily As directed] lancets (FreeStyle Lancets) Use 1 lancet once a day leg brace (MARIA ESTHER Knee Brace) As directed levothyroxine 112 mcg PO DAILY 90 days loratadine 10 mg PO DAILY 90 days methocarbamol 750 mg PO Q8H PRN mupirocin 2% 1 appl topical BID 7 days ofloxacin 0.3% 2 drps ophthalmic (eye) QID [personal cleansing wipes (sensitive skin) As directed] [rollator walker As directed] ropinirole ER 2 mg PO BEDTIME [washable bed pads As directed] Tobacco use date assessed: 10/11/24 Fall risk assessment: No Falls in past year Last assessed Fall Risk: 01/07/25 Dental Screening Dental Screen Date: 08/13/24 HPI HPI Comments History of Present Illness Details The patient is a 74-year-old female presenting for follow-up of her chronic conditions. She has a history of Type 2 Diabetes Mellitus, which is currently well-controlled with an A1c of 6.1. Her hypertension is managed with amlodipine and chlorthalidone, and her blood pressure is stable. The patient also has hyperlipidemia, which is under control with current medications. She takes vitamin D supplements to manage her deficiency, which is currently normal. She was diagnosed with sinus tarsi syndrome following an MRI of the ankle, and she also has flat feet. The patient experiences neuropathy, which is being monitored by a neurologist. The patient reports a cough induced by MARIA ESTHER inhibitors and gastrointestinal disturbances from metformin, leading to adjustments in her medication regimen. She experiences constipation, for which magnesium supplementation has been recommended. Her liver enzymes are slightly elevated, and a follow-up test is planned to monitor this. [facility] Medical History Osteoarthritis of right ankle Gait disorder Muscle cramps Hypersomnia Snoring Chronic pain in right foot Skin tag Post-menopausal Obesity Pure hypercholesterolemia Hypothyroidism Essential hypertension Diabetes mellitus Polyarthralgia Surgical History Hx of colonoscopy History of eye surgery S/P total abdominal hysterectomy History of laparoscopic cholecystectomy Family History Father Cancer Mother Stroke Diabetes Hypertension CVD (cardiovascular disease) Sister Cancer Paternal Uncle Cancer Maternal Aunt Cancer Brother CVD (cardiovascular disease) Social History Housing: House Alcohol intake: never Patient Tobacco Use Status: Never used Tobacco e-Cigarette/Vaping Use: Never Used Second Hand Smoke Exposure: Yes Advance Directives Date on File: 01/19/22 service: No Current occupational status: disabled Cognitive needs: Yes (Walker) Hearing needs: No Vision needs: Yes Questionnaire Thrive Questionnaire Date Thrive assessed: 08/13/24 MARISOL-7 AMB Questionnaire MARISOL-7 Date MARISOL - 7 assessed: 08/13/24 Source: Developed by Drs. Jay Jay Betancourt, Phylicia Bone, Du Rendon and colleagues, with an educational eris from [employer]. Review of Systems Const All systems reviewed & are unremarkable except as noted in HPI and below Card Denies chest pain at rest, Denies chest pain with activity, Denies edema, Denies irregular heart rhythm, Denies claudication, Denies dyspnea, Denies dyspnea on exertion, Denies orthopnea, Denies paroxysmal nocturnal dyspnea and Denies slow heart rate Resp Denies cough, Denies dyspnea and Denies dyspnea on exertion GI Denies abdominal pain, Denies change in bowel habits, Denies excessive flatus, Denies nausea and Denies vomiting Physical exam (Primary Care) Vital Signs: Last Vital Signs BP 126/72 01/07/25 09:56 BMI result Body Mass Index 32.9 BMI Assessment/Plan discussion: High BMI High, discussed plan: lifestyle, weight reduction, dietary and physical activity Tobacco/Smoking Status: Tobacco use Status Tobacco use date assessed 10/11/24 01/07/25 10:03 Patient Tobacco Use Status Never used Tobacco 01/07/25 10:03 e-Cigarette/Vaping Use Never Used 01/07/25 10:03 Thrive Assessment: Date of Thrive Assessment Date Thrive assessed 08/13/24 01/07/25 10:03 Const Limitations: ambulation with walker Resp Effort & Inspection: normal respiratory effort Auscultation: clear to auscultation bilaterally Cardio Jugular venous distension: no JVD Rate: regular rate Rhythm: regular rhythm Heart sounds: S1 normal heart sound present and S2 normal heart sound present Extrem General: Yes full ROM Results AMB Hemoglobin A1c AMB Hemoglobin A1c 6.1 % Last Edit by RENETTA Gonzales on 01/07/25 10:09 Results Reviewed Results Reviewed: Laboratory Last Values Hgb A1c (Clinic) 6.1 % (4.0-6.0) H 01/07/25 09:55 Coding Level of Care Code Est Pt Level 4 (33059) Complex EM visit Add On G2211 Diagnoses Sinus tarsi syndrome M25.579 Mild recurrent major depression F33.0 Neuropathy G62.9 Lumbar radiculopathy M54.16 Type 2 diabetes mellitus without complication, without long-term current use of insulin E11.9 Diabetes mellitus type: type 2 Diabetes mellitus longterm insulin use: without longterm use Diabetes mellitus complication status: without complication Essential hypertension I10 Hypothyroidism, unspecified type E03.9 Hypothyroidism type: unspecified Pure hypercholesterolemia E78.00 Time Spent (min) 22 Assessment & Plan Assessment & Plan (1) Sinus tarsi syndrome: Code(s): M25.579 - Pain in unspecified ankle and joints of unspecified foot Category: Medical (2) Mild recurrent major depression: Code(s): F33.0 - Major depressive disorder, recurrent, mild Category: Medical (3) Neuropathy: Comment: diabetic Code(s): G62.9 - Polyneuropathy, unspecified Category: Medical (4) Lumbar radiculopathy: Code(s): M54.16 - Radiculopathy, lumbar region Category: Medical (5) Diabetes mellitus: Code(s): E11.9 - Type 2 diabetes mellitus without complications Category: Medical Qualifiers: Diabetes mellitus type: type 2 Diabetes mellitus intermediate frame tender insulin use: without intermediate frame tender use Diabetes mellitus complication status: without complication Qualified Code(s): E11.9 - Type 2 diabetes mellitus without complications (6) Essential hypertension: Code(s): I10 - Essential (primary) hypertension Category: Medical (7) Hypothyroidism: Code(s): E03.9 - Hypothyroidism, unspecified Category: Medical Qualifiers: Hypothyroidism type: unspecified Qualified Code(s): E03.9 - Hypothyroidism, unspecified (8) Pure hypercholesterolemia: Code(s): E78.00 - Pure hypercholesterolemia, unspecified Category: Medical Plan The patient's Type 2 Diabetes Mellitus is well-controlled with an A1c of 6.1, and no changes to her current regimen are necessary at this time. Her hypertension is stable with amlodipine and chlorthalidone, and these medications will be continued. For hyperlipidemia, the current management plan will be maintained as her cholesterol levels are satisfactory. Vitamin D supplementation will continue to keep her levels within the normal range. The patient will be monitored for sinus tarsi syndrome and flat feet, with recommendations for supportive footwear and potential physical therapy if symptoms persist. Neuropathy will continue to be managed by her neurologist, with regular follow-ups as needed. The patient will avoid MARIA ESTHER inhibitors due to the induced cough and will continue to avoid metformin due to gastrointestinal disturbances. Magnesium supplementation is recommended to alleviate constipation, with monitoring for any side effects such as diarrhea. A follow-up test for liver enzymes will be conducted to ensure no further elevation occurs. Patient was informed and verbally consented to the use of an ambient scribe for clinic note documentation during this visit. Orders: Orders AMB Hemoglobin A1c Today E11.9 - Type 2 diabetes mellitus without complications Medications: New dulaglutide (Trulicity) 3 mg (0.5 mL) subcut QWEEK 6.5 mL 1RF 90 days Discontinued glipizide ER Discontinued Reason: Patient Completed Course 10 mg (2 x 5 mg) PO DAILY 90 days 180 tabs 3RF dulaglutide (Trulicity) Discontinued Reason: Patient Completed Course 1.5 mg (0.5 mL) subcut QWEEK 90 days 6.5 mL 1RF
[2025-01-07 09:56] VITALS: BP 126/72; BMI 32.9
== END 2025-01-07 10:29 | disposition home or self-care (01) ==
LOC: HO.HMCH 09:50
PROVIDERS: PCP Internal Medicine; Visit Provider Internal Medicine
DX: M25.571 Pain in right ankle and joints of right foot (principal); E11.42 Type 2 diabetes mellitus with diabetic polyneuropathy; F33.0 Major depressive disorder, recurrent, mild; G62.9 Polyneuropathy, unspecified; M54.16 Radiculopathy, lumbar region; I10 Essential (primary) hypertension; E03.9 Hypothyroidism, unspecified; E78.00 Pure hypercholesterolemia, unspecified

== ENCOUNTER → 2025-01-07 09:50 | Outpatient (BNVA) | payer OTHER, SELFPAY | PROVIDERS: PCP Internal Medicine; Visit Provider Internal Medicine | DX: E11.9 Type 2 diabetes mellitus without complications (principal); I10 Essential (primary) hypertension; E78.5 Hyperlipidemia, unspecified; E55.9 Vitamin D deficiency, unspecified; M25.579 Pain in unspecified ankle and joints of unspecified foot; F33.0 Major depressive disorder, recurrent, mild; G62.9 Polyneuropathy, unspecified; M54.16 Radiculopathy, lumbar region; E03.9 Hypothyroidism, unspecified; E78.00 Pure hypercholesterolemia, unspecified | CPT/HCPCS: 83036; 99212 ==

== ENCOUNTER 2025-03-17 08:53 | Outpatient (REF) | payer OTHER, SELFPAY ==
[2025-03-17 10:22] LABS: Cholesterol 121 mg/dL (<200); HDL Cholesterol 44 mg/dL (>40); Triglycerides 123 mg/dL (<150)
[2025-03-17 10:40] LABS: Thyroid Stimulating Hormone 0.55 uIU/mL (0.32-4.0)
[2025-03-17 11:27] LABS: Microalbum/Creatinine Ratio Ur 7.9 ug/mg cr (<30)
== END 2025-03-17 08:54 | disposition home or self-care (01) ==
LOC: HO.LAB 08:53
PROVIDERS: PCP Internal Medicine; Visit Provider Internal Medicine
DX: E78.5 Hyperlipidemia, unspecified (principal); E55.9 Vitamin D deficiency, unspecified; E03.9 Hypothyroidism, unspecified; R80.9 Proteinuria, unspecified
CPT/HCPCS: 36415; 80061; 82043; 82306; 82570; 84443

== ENCOUNTER 2025-03-20 09:54 | Outpatient (AMB) | payer OTHER, SELFPAY ==
[2025-03-20 10:05] VITALS: BP 120/60; PULSE 81; RESP 18; O2SAT 95; BMI 32.0
--- NOTE | 2025-03-20 10:11 | AM.OFFVISMDC ---
Intake Vital Signs 03/20/25 10:05 03/20/25 10:12 Height 5 ft 2 in Weight 175 lb BMI 32.0 32.0 BP 120/60 Blood Pressure Location Lt brachial Position Sitting Respiration 18 Pulse 81 Pulse Source Pulse Oximeter Temp Source Temporal Artery Scan Pulse Oximetry (%) 95 Oxygen Delivery Method Room Air Intake Visit Reasons: SWV G0439/ A1C needed. Boarder Steam Required: No Accompanied by: Self / Same As Patient Allergies MARIA ESTHER Inhibitors Adverse Reaction (Intermediate, Verified 03/20/25 10:26) cough ARB-Angiotensin Receptor Antagonist Adverse Reaction (Intermediate, Verified 03/20/25 10:26) Cough metformin Adverse Reaction (Intermediate, Verified 03/20/25 10:26) Abdominal Pain, diarrhea Medication List - Last Reconciled 03/20/25 by Shannan Alexander MD acetaminophen ER (Tylenol Arthritis Pain) 650 mg PO Q8H PRN amitriptyline 25 mg PO BEDTIME 90 days amlodipine 10 mg PO DAILY 90 days [bed rails As directed] blood pressure test kit-large ([facility] Blood Pressure Monitor kit) As directed blood sugar diagnostic (FreeStyle Test strips) Take 1 test strip once a day blood-glucose meter (FreeStyle [place] Lite kit) As directed calcium carbonate 600 mg PO BID 90 days cane with 4 legs carbamide peroxide 6.5% (Debrox) 5 drps otic (ears) Q12H 4 days [cervical collar As directed] chlorthalidone 25 mg PO DAILY 90 days cholecalciferol (vitamin D3) 25 mcg PO DAILY 90 days commode (bedside commode) As directed dulaglutide (Trulicity) 3 mg (0.5 mL) subcut QWEEK 90 days ezetimibe (Zetia) 10 mg PO DAILY fluticasone propionate 50 mcg/actuation (Flonase Allergy Relief) 2 sprays intranasal DAILY gabapentin 1 cap qam and 2 caps qhs orally; 30 days Grab bar As directed hydralazine 10 mg PO TID 30 days [incontinence pads 4 daily As directed] lancets (FreeStyle Lancets) Use 1 lancet once a day leg brace (MARIA ESTHER Knee Brace) As directed levothyroxine 112 mcg PO DAILY 90 days loratadine 10 mg PO DAILY 90 days methocarbamol 750 mg PO Q8H PRN mupirocin 2% 1 appl topical BID 7 days ofloxacin 0.3% 2 drps ophthalmic (eye) QID [personal cleansing wipes (sensitive skin) As directed] [rollator walker As directed] ropinirole ER 2 mg PO BEDTIME [washable bed pads As directed] HPI HPI Comments History of Present Illness Details The patient is a 74-year-old female presenting with a Medicare wellness exam. PPP handed to patient. [place] of care reviewed and updated. Her Type 2 Diabetes Mellitus is currently managed with Trulicity, and her last hemoglobin A1c was 6.1% in December, which is within the target range of less than 7%. She experiences gastrointestinal discomfort with Metformin, which has been discontinued. The patient has a history of osteopenia, as indicated by her last bone densitometry in 2023. She is scheduled for her next bone density test in 2025. Her hypertension is managed with Amlodipine, Chlorthalidone, and Hydralazine. She also takes Levothyroxine for thyroid management and Loratadine for allergies. The patient reports a history of depression, for which she is taking Amitriptyline. She does not currently receive counseling or psychiatric care. Preventative care measures include a negative Cologuard test in 2023, with the next test due in 2026, and a normal mammogram last year. She is up to date with her pneumonia and TD vaccinations. - Colon cancer screening with stool test: Negative in 2023, next due in 2026 - Mammogram: Normal last year - Pneumonia vaccination: Up to date - Tetanus and Diphtheria vaccination: Up to date COUNTS INCLUDE 234 BEDS AT THE [facility] Medical History Osteoarthritis of right ankle Gait disorder Muscle cramps Hypersomnia Snoring Chronic pain in right foot Skin tag Post-menopausal Obesity Pure hypercholesterolemia Hypothyroidism Essential hypertension Diabetes mellitus Polyarthralgia Surgical History Hx of colonoscopy History of eye surgery S/P total abdominal hysterectomy History of laparoscopic cholecystectomy Family History Father Cancer Mother Stroke Diabetes Hypertension CVD (cardiovascular disease) Sister Cancer Paternal Uncle Cancer Maternal Aunt Cancer Brother CVD (cardiovascular disease) Social History Housing: House Alcohol intake: never Patient Tobacco Use Status: Never used Tobacco e-Cigarette/Vaping Use: Never Used Second Hand Smoke Exposure: Yes Advance Directives Date on File: 01/19/22 service: No Current occupational status: disabled Cognitive needs: Yes (Walker) Hearing needs: No Vision needs: Yes Questionnaire Medicare Wellness Checkup [age] What gender do you identify with?: female During the past 4 weeks, how much have you been bothered by emotional problems such as feeling anxious, depressed, irritable, sad or downhearted, and blue?: quite a bit During the past 4 weeks, has your physical & emotional health limited your social activities with family, friends, neighbors, or groups?: moderately During the past 4 weeks, how much bodily pain have you generally had?: severe pain During the past 4 weeks, was someone available to help you if you needed & wanted help?: yes, quite a bit During the past 4 weeks, what was the hardest physical activity you could do for at least 2 minutes?: moderate Can you get to places out of walking distance without help? (For eg., can you travel alone on buses, taxis or drive your car?): No Can you go shopping for groceries or clothes without someone's help?: No Can you prepare your own meals?: No Can you do your housework without help?: No Because of any health problems, do you need the help of another person with your personal care needs such as eating, bathing, dressing or getting around the house?: Yes Can you handle your own money without help?: Yes During the past 4 weeks, how would you rate your health in general?: poor During the past 4 weeks how have things been going for you?: good & bad parts about equal Are you having difficulties driving your car?: no Do you always fasten your seat belt when you are in a car?: yes, usually During past 4 weeks, have you been bothered by the following: sometimes: Tiredness or fatigue? and often: Falling or dizzy when standing up Have you fallen 2 or more times in the past year?: Yes Are you afraid of falling?: Yes Are you a smoker?: no During the past 4 weeks, how many drinks of wine, beer, or other alcoholic beverages did you have?: no alcohol at all Do you exercise for about 20 minutes 3 or more times a week?: yes, most of the time Have you been given information to help with the following?: no: Hazards in your house that might hurt you? How often do you have trouble taking medicines the way you have been told to take them?: I always take medicine as prescribed How confident are you that you can control & manage most of your health problems?: not very confident What is your race?: or origin or descent Mini Mental State Exam (MMSE) Orientation What is the (year) (season) (date) (day) (month)?: year, season, date, day and month Where are we (state) (county) (town or city) (hospital) (floor)?: state, county, town or city, hospital/clinic and floor Registration Name of 3 unrelated objects clearly and slowly, then ask patient to repeat all 3 of them. (1st repeat determines score. Make sure they can repeat all three): object 1, object 2 and object 3 Attention & Calculation (CHOOSE ONE) Spell WORLD backwards (DLROW): 3 letters Recall Ask patient to repeat the 3 items from question #3.: object 1, object 2 and object 3 Language Show patient a wristwatch & ask what it is. Repeat for pencil.: watch and pencil Ask the patient to repeat the phrase 'No ifs, ands, or buts' after you.: correct Ask the patient to 'take a piece of paper with their right hand' 'fold paper in half' 'place paper on floor': take paper in right hand, fold paper in half and place paper on floor Print the sentence 'CLOSE YOUR EYES' on a piece. If patient actually closes eyes then score.: followed written direction Give patient a blank piece of paper & ask to write a sentence. Score if it contains a noun & verb.: sentence contains subject and verb Ask patient to copy figure of intersecting pentagons exactly. Score if all 10 angles & 2 intersects are included.: all 10 angles present & 2 are intersected Score Score: 28 Activity of Daily Living Bathing - sponge bath, tub bath or shower: receives help in bathing only one body part (such as back or leg) Dressing - getting clothes from closets & drawers, including inner/outer garments & fasteners.: gets clothes & gets dressed without help, except for help tying shoes Toileting - going to the 'toilet room' for urine/bowel elimination & cleaning self/arranging clothes: goes to toilet room, cleans self, arranges clothes without help Transfer: moves in & out of bed or chair with help Continence: has occasional 'accidents' Feeding: feeds self without help Total Score: 0 Information obtained from: patient Using telephone: independent Traveling: dependent Shopping: dependent Preparing meals: dependent Housework: dependent Taking medicine: needs assistance Managing money: dependent PHQ-9 Over the last 2 weeks, how often have you been bothered by any of the following problems? 1. Little interest or pleasure in doing things: several days 2. Feeling down, depressed, or hopeless: several days 3. Trouble falling or staying asleep, or sleeping too much: nearly every day 4. Feeling tired or having little energy: several days 5. Poor appetite or overeating: more than half the days 6. Feeling bad about yourself - or that you are a failure or have let yourself or your family down: several days 7. Trouble concentrating on things, such as reading the newspaper or watching television: several days 8. Moving or speaking so slowly that other people could have noticed. Or the opposite - being so fidgety or restless that you have been moving around a lot more than usual: several days 9. Thoughts that you would be better off or of hurting yourself in some way: not at all Total score: 11 Depression Screening Interpretation: Positive Depression Screening Follow-up: Existing condition, In treatment and Follow-up Visit Requested Depression Screening Done: Yes 12053 - PHQ-9 Billing: Yes Source: Developed by Drs. Jay Jay Betancourt, Phylicia Bone, Du Rendon and colleagues, with an educational eris from [employer]. Review of Systems Const All systems reviewed & are unremarkable except as noted in HPI and below Card Denies chest pain at rest, Denies chest pain with activity, Denies edema, Denies irregular heart rhythm, Denies claudication, Denies dyspnea, Denies dyspnea on exertion, Denies orthopnea, Denies paroxysmal nocturnal dyspnea and Denies slow heart rate Resp Denies cough, Denies dyspnea and Denies dyspnea on exertion GI Denies abdominal pain, Denies change in bowel habits, Denies excessive flatus, Denies nausea and Denies vomiting Denies urinary incontinence, Denies urinary hesitancy and Denies urinary urgency Musc Denies atrophy, Denies deformity and Denies limited range of motion Physical Exam Vital Signs: Last Vital Signs Pulse 81 03/20/25 10:05 Resp 18 03/20/25 10:05 BP 120/60 03/20/25 10:05 Pulse Ox 95 03/20/25 10:05 Oxygen Delivery Method Room Air 03/20/25 10:05 BMI result Body Mass Index 32.0 Const Orientation/consciousness: patient oriented x3 Resp Effort & Inspection: normal respiratory effort Auscultation: clear to auscultation bilaterally Cardio Jugular venous distension: no JVD Rate: regular rate Rhythm: regular rhythm Heart sounds: S1 normal heart sound present and S2 normal heart sound present Neuro General: patient oriented x3 Gait exam (Neuro): Assisted gait required Gait assisted method: walker Romberg Test: Negative Extrem General: Yes full ROM Assessment & Plan Assessment & Plan (1) Encounter for Medicare annual wellness exam: Code(s): Z00.00 - Encounter for general adult medical examination without abnormal findings (2) Diabetes mellitus: Code(s): E11.9 - Type 2 diabetes mellitus without complications Qualifiers: Diabetes mellitus type: type 2 Diabetes mellitus detention insulin use: without keno terminal operator use Diabetes mellitus complication status: without complication Qualified Code(s): E11.9 - Type 2 diabetes mellitus without complications (3) Mild recurrent major depression: Code(s): F33.0 - Major depressive disorder, recurrent, mild Plan Plan Patient was informed and verbally consented to the use of an ambient scribe for clinic note documentation during this visit. 1. Type 2 diabetes mellitus without complications E11.9 HCC 19 The patient's Type 2 Diabetes Mellitus is currently managed with Trulicity, and her last hemoglobin A1c was 6.1% in December, which is within the target range of less than 7%. She experiences gastrointestinal discomfort with Metformin, which has been discontinued. 2. Major depressive disorder, recurrent, mild F33.0 HCC 59 The patient reports a history of depression, for which she is taking Amitriptyline. She does not currently receive counseling or psychiatric care. 3. Encounter for general adult medical examination without abnormal findings Z00.00 Preventative care measures include a negative Cologuard test in 2023, with the next test due in 2026, and a normal mammogram last year. She is up to date with her pneumonia and TD vaccin Quality Reporting (2019) Depression/Bipolar (159/160/161/177) PHQ-9: Total score: 11 Coding Level of Care Code Medicare Subsequent (G0439) Diagnoses Encounter for Medicare annual wellness exam Z00.00 Type 2 diabetes mellitus without complication, without long-term current use of insulin E11.9 Diabetes mellitus type: type 2 Diabetes mellitus keno terminal operator insulin use: without detention use Diabetes mellitus complication status: without complication Mild recurrent major depression F33.0 Additional Codes PHQ-9 - 16401 - PHQ-9 Billing: Yes ([id number]) Time Spent (min) 38 Advance Care Planning Advance Care Planning discussion: Exists, not on file Date of discussion: 03/20/25 Who was present: patient and me Forms completed: Health Care Proxy
[2025-03-20 10:12] VITALS: BMI 32.0
== END 2025-03-20 10:52 | disposition home or self-care (01) ==
LOC: HO.HMCH 09:54
PROVIDERS: PCP Internal Medicine; Visit Provider Internal Medicine
DX: Z00.00 Encounter for general adult medical examination without abnormal findings (principal); E11.9 Type 2 diabetes mellitus without complications; F33.0 Major depressive disorder, recurrent, mild

== ENCOUNTER → 2025-03-20 09:54 | Outpatient (BNVA) | payer OTHER, SELFPAY | PROVIDERS: PCP Internal Medicine; Visit Provider Internal Medicine | DX: Z00.00 Encounter for general adult medical examination without abnormal findings (principal); E11.9 Type 2 diabetes mellitus without complications; M85.80 Other specified disorders of bone density and structure, unspecified site; I10 Essential (primary) hypertension; F33.0 Major depressive disorder, recurrent, mild | CPT/HCPCS: 96127 ==

== ENCOUNTER 2025-04-03 10:50 | Outpatient (REF) | payer OTHER, SELFPAY | END 2025-04-03 10:51 | disposition home or self-care (01) | LOC: HO.MAMMO 10:50 | PROVIDERS: PCP Internal Medicine; Visit Provider Internal Medicine | DX: Z12.31 Encounter for screening mammogram for malignant neoplasm of breast (principal) | CPT/HCPCS: 77063; 77067 ==

== ENCOUNTER → 2025-04-03 11:15 | Outpatient (BNV) | payer OTHER, SELFPAY | PROVIDERS: PCP Internal Medicine; Visit Provider Internal Medicine | DX: Z12.31 Encounter for screening mammogram for malignant neoplasm of breast (principal) | CPT/HCPCS: 77063; 77067 ==

== ENCOUNTER 2025-05-02 10:11 | Outpatient (AMB) | payer OTHER, SELFPAY ==
--- NOTE | 2025-05-02 10:14 | MHC.OFFVIS ---
Vital Signs 05/02/25 10:16 Height 5 ft 2 in Weight 172 lb BMI 31.5 BP 130/66 Blood Pressure Location Lt brachial Position Sitting Respiration 16 Pulse 80 Pulse Source Pulse Oximeter Intake Visit Reasons: R Arm Pain Mill Representative Required: No Reversing Mill Roller: Reversing Mill Roller Present Accompanied by: Remigio Renee Allergies MARIA ESTHER Inhibitors Adverse Reaction (Intermediate, Verified 05/02/25 10:18) cough ARB-Angiotensin Receptor Antagonist Adverse Reaction (Intermediate, Verified 05/02/25 10:18) Cough metformin Adverse Reaction (Intermediate, Verified 05/02/25 10:18) Abdominal Pain, diarrhea Medication List - Last Reconciled 05/02/25 by Brandie Cardenas LPN acetaminophen ER (Tylenol Arthritis Pain) 650 mg PO Q8H PRN amitriptyline 25 mg PO BEDTIME 90 days amlodipine 10 mg PO DAILY 90 days [bed rails As directed] blood pressure test kit-large ([facility] Blood Pressure Monitor kit) As directed blood sugar diagnostic (FreeStyle Test strips) Take 1 test strip once a day blood-glucose meter ([employer] [place] Lite kit) As directed calcium carbonate 600 mg PO BID 90 days cane with 4 legs carbamide peroxide 6.5% (Debrox) 5 drps otic (ears) Q12H 4 days [cervical collar As directed] chlorthalidone 25 mg PO DAILY 90 days cholecalciferol (vitamin D3) 25 mcg PO DAILY 90 days commode (bedside commode) As directed dulaglutide (Trulicity) 3 mg (0.5 mL) subcut QWEEK 90 days ezetimibe (Zetia) 10 mg PO DAILY fluticasone propionate 50 mcg/actuation (Flonase Allergy Relief) 2 sprays intranasal DAILY gabapentin 1 cap qam and 2 caps qhs orally; 30 days Grab bar As directed hydralazine 10 mg PO TID 30 days [incontinence pads 4 daily As directed] lancets (FreeStyle Lancets) Use 1 lancet once a day leg brace (MARIA ESTHER Knee Brace) As directed levothyroxine 112 mcg PO DAILY 90 days loratadine 10 mg PO DAILY 90 days methocarbamol 750 mg PO Q8H PRN mupirocin 2% 1 appl topical BID 7 days ofloxacin 0.3% 2 drps ophthalmic (eye) QID [personal cleansing wipes (sensitive skin) As directed] [rollator walker As directed] ropinirole ER 2 mg PO BEDTIME [washable bed pads As directed] HPI HPI R Arm Pain: Details: Patient presents for scheduled procedure. Denies any recent cough, cold, infection, fever or other significant changes in medical history since last office visit. [facility] Medical History Osteoarthritis of right ankle Gait disorder Muscle cramps Hypersomnia Snoring Chronic pain in right foot Skin tag Post-menopausal Obesity Pure hypercholesterolemia Hypothyroidism Essential hypertension Diabetes mellitus Polyarthralgia Surgical History Hx of colonoscopy History of eye surgery S/P total abdominal hysterectomy History of laparoscopic cholecystectomy Family History Father Cancer Mother Stroke Diabetes Hypertension CVD (cardiovascular disease) Sister Cancer Paternal Uncle Cancer Maternal Aunt Cancer Brother CVD (cardiovascular disease) Social History Housing: House Alcohol intake: never Patient Tobacco Use Status: Never used Tobacco e-Cigarette/Vaping Use: Never Used Second Hand Smoke Exposure: Yes Advance Directives Date on File: 01/19/22 service: No Current occupational status: disabled Cognitive needs: Yes (Walker) Hearing needs: No Vision needs: Yes Physical Exam Vital Signs: Last Vital Signs Pulse 80 05/02/25 10:16 Resp 16 05/02/25 10:16 BP 130/66 05/02/25 10:16 BMI result Body Mass Index 31.5 Office Procedures AMB Joint Injection/Aspiration Joint Injection/Aspiration Primary Site: right shoulder Injected: 40 mg of, Kenalog and with 3 mL of (ropivacaine 0.25%) Approach Used: posterolateral (US guided) Procedure: The patient tolerated the procedure well Coding Details: Image saved. - Glenohumeral with ultrasound guidance Procedure code (CPT) selection complete Assessment & Plan Assessment & Plan (1) Right shoulder pain: Code(s): M25.511 - Pain in right shoulder Category: Medical Plan Patient is status post right glenohumeral injection under ultrasound guidance. Patient tolerated procedure well and was discharged home in stable condition with discharge instructions. All questions were answered. We will follow-up via telephone or in clinic to assess response to therapy. A follow-up appointment was made during today's visit. Coding Level of Care Code Procedure Only Diagnoses Right shoulder pain M25.511 CPT Codes Coding - Joint 8: 26015 - Glenohumeral with ultrasound guidance ([id number])
[2025-05-02 10:16] VITALS: BP 130/66; PULSE 80; RESP 16; BMI 31.5
== END 2025-05-02 10:34 | disposition home or self-care (01) ==
LOC: HO.PMC 10:12
PROVIDERS: PCP Internal Medicine; Visit Provider Internal Medicine
DX: M25.511 Pain in right shoulder (principal)
CPT/HCPCS: 20611

== ENCOUNTER → 2025-05-02 10:11 | Outpatient (BNVA) | payer OTHER, SELFPAY | PROVIDERS: PCP Internal Medicine; Visit Provider Internal Medicine | DX: M25.511 Pain in right shoulder (principal) | CPT/HCPCS: 20611 ==

== ENCOUNTER 2025-06-13 10:43 | Outpatient (AMB) | payer OTHER, SELFPAY ==
--- NOTE | 2025-06-13 10:53 | A.OFFVIS_ITS ---
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 Required: No Communications Professional: Communications Professional Present Accompanied by: Remigio Renee Allergies MARIA ESTHER Inhibitors Adverse Reaction (Intermediate, Verified 06/13/25 10:56) cough ARB-Angiotensin Receptor Antagonist Adverse Reaction (Intermediate, Verified 06/13/25 10:56) Cough metformin Adverse Reaction (Intermediate, Verified 06/13/25 10:56) Abdominal Pain, diarrhea Medication List - Last Reconciled 06/13/25 by Brandie Cardenas LPN acetaminophen ER (Tylenol Arthritis Pain) 650 mg PO Q8H PRN amitriptyline 25 mg PO BEDTIME 90 days amlodipine 10 mg PO DAILY 90 days [bed rails As directed] blood pressure test kit-large ([facility]ocate Blood Pressure Monitor kit) As directed blood sugar diagnostic ([employer]aStyle Test strips) Take 1 test strip once a day blood-glucose meter (NeongaStyle Bergoo Lite kit) As directed calcium carbonate 600 mg PO BID 90 days cane with 4 legs carbamide peroxide 6.5% (Debrox) 5 drps otic (ears) Q12H 4 days [cervical collar As directed] chlorthalidone 25 mg PO DAILY 90 days cholecalciferol (vitamin D3) 25 mcg PO DAILY 90 days commode (bedside commode) As directed dulaglutide (Trulicity) 3 mg (0.5 mL) subcut QWEEK 90 days ezetimibe (Zetia) 10 mg PO DAILY fluticasone propionate 50 mcg/actuation (Flonase Allergy Relief) 2 sprays intranasal DAILY gabapentin 1 cap qam and 2 caps qhs orally; 30 days Grab bar As directed hydralazine 10 mg PO TID 30 days [incontinence pads 4 daily As directed] lancets (FreeStyle Lancets) Use 1 lancet once a day leg brace (MARIA ESTHER Knee Brace) As directed levothyroxine 112 mcg PO DAILY 90 days loratadine 10 mg PO DAILY 90 days methocarbamol 750 mg PO Q8H PRN mupirocin 2% 1 appl topical BID 7 days ofloxacin 0.3% 2 drps ophthalmic (eye) QID [personal cleansing wipes (sensitive skin) As directed] [rollator walker As directed] ropinirole ER 2 mg PO BEDTIME [washable bed pads As directed] HPI HPI LEFT KNEE INJECTION: Details: History of Present Illness The patient is a 74-year-old individual presenting with left knee pain requiring an injection. The patient has a history of lumbar radicular pain affecting the right leg, which has been persistent and requires physical therapy. The patient reports that the shoulder and ankle pain are currently well controlled following previous interventions. Pain Description - Lumbar radicular pain affecting the right leg, persistent in nature - Shoulder pain, currently well controlled - Ankle pain, currently well controlled PFS Medical History Osteoarthritis of right ankle Gait disorder Muscle cramps Hypersomnia Snoring Chronic pain in right foot Skin tag Post-menopausal Obesity Pure hypercholesterolemia Hypothyroidism Essential hypertension Diabetes mellitus Polyarthralgia Surgical History Hx of colonoscopy History of eye surgery S/P total abdominal hysterectomy History of laparoscopic cholecystectomy Family History Father Cancer Mother Stroke Diabetes Hypertension CVD (cardiovascular disease) Sister Cancer Paternal Uncle Cancer Maternal Aunt Cancer Brother CVD (cardiovascular disease) Social History Housing: House Alcohol intake: never Patient Tobacco Use Status: Never used Tobacco e-Cigarette/Vaping Use: Never Used Second Hand Smoke Exposure: Yes Advance Directives Date on File: 01/19/22 service: No Current occupational status: disabled Cognitive needs: Yes (Walker) Hearing needs: No Vision needs: Yes Physical Exam Vital Signs: Last Vital Signs Pulse 80 06/13/25 10:54 Resp 16 06/13/25 10:54 BP 130/70 06/13/25 10:54 Pulse Ox 97 06/13/25 10:54 Oxygen Delivery Method Room Air 06/13/25 10:54 BMI result Body Mass Index 31.5 Office Procedures AMB Joint Injection/Aspiration Joint Injection/Aspiration Primary Site: Left Knee Prep: site was prepped using sterile technique Injected: 40 mg of, Kenalog, with 3 mL of (ropivacaine 0.25%) and in the joint Approach Used: medial parapatellar Procedure: The patient tolerated the procedure well Coding 73627 - Large joint Procedure code (CPT) selection complete Assessment & Plan Assessment & Plan (1) Lumbar radiculopathy: Code(s): M54.16 - Radiculopathy, lumbar region Category: Medical (2) Bilateral primary osteoarthritis of knee: Code(s): M17.0 - Bilateral primary osteoarthritis of knee Category: Medical Plan Plan Patient was informed and verbally consented to the use of an ambient scribe for clinic note documentation during this visit. 1. Lumbar Radicular Pain - Reorder physical therapy for lumbar radicular pain affecting the right leg. - Follow-up after trial of physical therapy to assess the need for MRI prior to interventional spine treatment. 2. Right Leg Pain - Physical therapy recommended to help alleviate right leg pain. 3. Shoulder Pain - Shoulder pain is currently well controlled following previous interventions. 4. Ankle Pain - Ankle pain is currently well controlled following previous interventions. Discussion Notes I discussed with the patient the plan to reorder physical therapy for lumbar radicular pain affecting the right leg. We will follow up after the trial of physical therapy to determine if an MRI is needed before considering interventional spine treatment. Patient Instructions - Continue with prescribed physical therapy for right leg pain. - Follow up after completing physical therapy to assess further treatment needs. Orders: Orders PT Evaluation and Treatment 06/13/25 M54.16 - Radiculopathy, lumbar region Coding Level of Care Code Est Pt Level 3 (61922) Diagnoses Lumbar radiculopathy M54.16 Bilateral primary osteoarthritis of knee M17.0 CPT Codes Coding - Large joint: 22427 - Large joint ([id number])
[2025-06-13 10:54] VITALS: BP 130/70; PULSE 80; RESP 16; O2SAT 97; BMI 31.5
== END 2025-06-13 11:15 | disposition home or self-care (01) ==
PROVIDERS: PCP Internal Medicine; Visit Provider Internal Medicine
DX: M54.16 Radiculopathy, lumbar region (principal); M17.0 Bilateral primary osteoarthritis of knee; M25.562 Pain in left knee
CPT/HCPCS: 20610; 99213

== ENCOUNTER → 2025-06-13 10:43 | Outpatient (BNVA) | payer OTHER, SELFPAY | PROVIDERS: PCP Internal Medicine; Visit Provider Internal Medicine | DX: M17.0 Bilateral primary osteoarthritis of knee (principal); M25.562 Pain in left knee; M54.16 Radiculopathy, lumbar region | CPT/HCPCS: 20610; 99212; J2795; J3301 ==